=== PATIENT | female | born 1950 | race Caucasian/White ===

== ENCOUNTER → 2017-12-03 13:59 | Outpatient (CLI) | payer MEDICARE, OTHER, SELFPAY ==
[2017-12-03 15:26] LABS: Absolute Lymphocyte Count 2.85 X10^3/ul (0.83-4.51); Absolute Neutrophil Count 3.2 X10^3/uL (2.0-7.7); Basophil# 0.03 X10^3/uL; Basophil% 0.4 % (0-1); Eosinophils% 1.4 % (0-5); Hematocrit 35.8 % (37-47); Lymphocyte # 2.85 X10^3/ul (4.0); Lymphocyte % 41.3 % (19-41); Mean Corp Hgb Conc 33.5 g/gl (32-36); Mean Corpuscular Hgb 29.2 pg (27.0-32.0); Mean Corpuscular Volume 87.1 fL (81-99); Mean Platelet Vol. 10.3 fl (6.2-12.0); Monocyte% 10.1 % (0-10); Neutrophil # 3.21 X10^3/uL (2.7-7.7); Neutrophil % 46.7 % (47-70); Platelet Count 294 K/mm3 (150-450); RBC Distribution Width CV 13.8 % (11.6-14.6); Red Blood Count 4.11 M/mm3 (4.2-5.4); White Blood Count 6.9 K/mm3 (4.4-11.0)
[2017-12-03 15:27] LABS: POSITIVE COUNT NO; POSITIVE DIFFERENTIAL NO; POSITIVE MORPHOLOGY NO
[2017-12-03 15:52] LABS: ALB/GLOB Ratio 1.2 RATIO (0.9-2.4); AST(SGOT) 20 U/L (15-37); Alanine Aminotransfer ALT/SGPT 21 U/L (13-56); Albumin, Serum 4.2 g/dL (3.2-5.0); Alkaline Phosphatase 47 U/L (45-117); Anion Gap 9 (5-15); BUN 27 mg/dL (7-18); BUN/Creat Ratio 25.2 RATIO (10-20); Calcium,Total 9.6 mg/dL (8.5-10.1); Chloride 102 mmol/L (98-107); Cholesterol 158 mg/dL (200); Creatinine, Serum 1.07 mg/dL (0.55-1.02); EST Glomerular Filtration Rate 54 mL/min (>60); Est Glom Filt Rate - Afr Amer 65 mL/min (>60); Globulin 3.6 g/dL (2.2-4.2); Glucose 93 mg/dL (74-106); High Density Lipoprotein 77 mg/dL; Protein, Total 7.8 g/dL (6.4-8.2); Sodium Level 138 mmol/L (136-145); Triglycerides 109 mg/dL; Very Low Density Lipoprotein 22 mg/dL (5-40)
== END ==
PROVIDERS: Family Provider Family Medicine; PCP Family Medicine; Visit Provider Family Medicine
DX: E11.9 Type 2 diabetes mellitus without complications (principal); Z51.81 Encounter for therapeutic drug level monitoring; E78.5 Hyperlipidemia, unspecified
CPT/HCPCS: 36415; 80053; 80061; 85025

== ENCOUNTER → 2017-12-10 15:43 | Outpatient (CLI) | payer MEDICARE, OTHER, SELFPAY ==
--- NOTE | 2017-12-10 15:45 | HPBI_ITS ---
MAMMOGRAPHY - BILATERAL SCREENING 3-D CONNER SYNTHESIS REASON FOR EXAM: Female, 67 years old. Bilateral Screening 3-D tomosynthesis PERTINENT HISTORY: Positive family history breast carcinoma, paternal grandmother age 60. TECHNIQUE: 2-D mammograms and 3-D Conner synthesis of the breast (s) were performed. CAD was performed. COMPARISON: 11/30/2016 through 10/20/2013 mammograms. FINDINGS: The breast composition is scattered fibroglandular Scattered benign calcifications are seen. No dense spiculated masses or suspicious microcalcifications are identified. No architectural distortion is identified. There is no skin thickening or nipple retraction identified. There has been no significant change since the prior study. No change right breast central tiny metal biopsy clip. HPBI/SCREENING MAMM (CAD), BILAT IMPRESSION: No mammographic signs of malignancy. Routine yearly mammograms recommended with monthly routine self breast exams. ASSESSMENT CATEGORY: BIRADS Category 2: Benign. A letter regarding these results will be sent to the patient by the facility within 30 days. FOLLOW UP RECOMMENDATION: Yearly follow up mammogram recommended. (A) Approximately 10% of breast cancers are not detected by mammography. A normal mammogram should not delay biopsy of a clinically suspicious abnormality. Electronically Signed: Cruz Campos, at 14:43 EDT Tel , Service support ,
== END ==
PROVIDERS: Family Provider Family Medicine; PCP Family Medicine; Visit Provider Family Medicine
DX: Z12.31 Encounter for screening mammogram for malignant neoplasm of breast (principal)
CPT/HCPCS: 77063; 77067

== ENCOUNTER → 2018-02-27 06:57 | Outpatient (CLI) | payer MEDICARE, OTHER, SELFPAY ==
--- NOTE | 2018-02-27 10:26 | NEURO ---
NCS and/or EMG Patient Report Ordering Doctor: Jaclyn Webster DATE OF SERVICE: 02/27/18 This is a right upper extremity EMG and nerve conduction study performed on this 76-year-old female with pain in her fingers and thumb, as well as a history of shoulder pain and shoulder injury. Pain does radiate up her right arm. On examination she has pain on palpation of her first metacarpal phalangeal joint on the right which duplicates her symptoms. Right upper extremity sensory and motor nerve conduction studies performed. The median motor distal latency is mildly prolonged with mild reduction of amplitude and conduction velocity. The median sensory distal latency is very mildly prolonged with mild reduction of amplitude. The ulnar motor and sensory and radial sensory responses are normal. The median F wave is mildly prolonged compared to the ulnar F wave. Needle electromyography is performed of the right upper extremity. Muscles evaluated included the first dorsal interosseous, abductor pollicis brevis, Norberto radialis, biceps, triceps and deltoid muscles. All muscles demonstrated normal insertional activity with absence of pathologic spontaneous activity. Motor unit potential recruitment pattern and amplitude was normal in all muscles tested. 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
== END ==
PROVIDERS: Family Provider Family Medicine; PCP Family Medicine; Visit Provider Family Medicine
DX: R20.2 Paresthesia of skin (principal)
CPT/HCPCS: 95886; 95910

== ENCOUNTER → 2018-03-19 13:57 | Outpatient (CLI) | payer MEDICARE, OTHER, SELFPAY ==
--- NOTE | 2018-03-19 14:00 | RAD_ITS ---
STUDY: X-RAY - RIGHT ELBOW REASON FOR EXAM: Female, 68 years old. Pain. TECHNIQUE: 2 view(s) of the elbow. COMPARISON: None. FINDINGS: There is mild arthrosis of the elbow joint. Normal radiocapitellar and ulnotrochlear articulations. The soft tissue structures are unremarkable. RAD/Elbow 2 Views IMPRESSION: Mild arthrosis of the elbow joint. Electronically Signed: Aryan Ordonez MD at 17:20 EDT , Service support ,
--- NOTE | 2018-03-19 14:00 | RAD_ITS ---
STUDY: X-RAY - RIGHT HAND REASON FOR EXAM: Female, 68 years old. Pain. TECHNIQUE: 2 view(s) of the hand. COMPARISON: None. FINDINGS: Bones: There is generalized osteopenia. Joints: There is moderate arthrosis of the radial carpal row, the first carpometacarpal joint and the metacarpophalangeal and interphalangeal joints. Soft tissues: The soft tissues are unremarkable. Foreign body: None RAD/Hand 2 Views IMPRESSION: Osteopenia with osteoarthrosis as described. Electronically Signed: Aryan Ordonez MD at 17:19 EDT , Service support ,
== END ==
PROVIDERS: Family Provider Family Medicine; PCP Family Medicine; Visit Provider Orthopaedic Surgery
DX: M79.641 Pain in right hand (principal); M25.521 Pain in right elbow
CPT/HCPCS: 73070; 73120

== ENCOUNTER → 2018-08-05 09:05 | Outpatient (CLI) | payer MEDICARE, OTHER, SELFPAY ==
[2018-08-05 12:41] LABS: Absolute Lymphocyte Count 2.61 X10^3/ul (0.83-4.51); Absolute Neutrophil Count 2.7 X10^3/uL (2.0-7.7); Basophil# 0.04 X10^3/uL; Basophil% 0.6 % (0-1); Eosinophil# 0.15 X10^3/uL; Eosinophils% 2.4 % (0-5); Hematocrit 37.3 % (37-47); Hemoglobin 12.2 g/dl (12.0-15.0); Lymphocyte # 2.61 X10^3/ul (4.0); Lymphocyte % 41.6 % (19-41); Mean Corp Hgb Conc 32.7 g/gl (32-36); Mean Corpuscular Hgb 29.1 pg (27.0-32.0); Mean Platelet Vol. 10.7 fl (6.2-12.0); Monocyte# 0.77 X10^3/uL; Monocyte% 12.3 % (0-10); Neutrophil % 42.9 % (47-70); Platelet Count 258 K/mm3 (150-450); RBC Distribution Width CV 13.6 % (11.6-14.6); RBC Distribution Width SD 43.9 fl (35.1-43.9); Red Blood Count 4.19 M/mm3 (4.2-5.4); White Blood Count 6.3 K/mm3 (4.4-11.0)
[2018-08-05 12:56] LABS: POSITIVE COUNT NO; POSITIVE DIFFERENTIAL NO; POSITIVE MORPHOLOGY NO
[2018-08-05 13:10] LABS: Thyroid Stim Hormone (TSH) 1.94 uIU/mL (0.358-3.74)
== END ==
PROVIDERS: Family Provider Family Medicine; PCP Family Medicine; Visit Provider Family Medicine
DX: E03.9 Hypothyroidism, unspecified (principal)
CPT/HCPCS: 36415; 84443; 85025

== ENCOUNTER → 2019-01-01 10:47 | Outpatient (CLI) | payer MEDICARE, OTHER, SELFPAY ==
--- NOTE | 2019-01-01 10:50 | BI_ITS ---
MAMMOGRAPHY - BILATERAL SCREENING REASON FOR EXAM: Female, 68 years old. Routine annual screening examination. PERTINENT HISTORY: Grandmother with breast cancer. Remote right stereotactic breast biopsy. TECHNIQUE: Digital bilateral breast costa (3D mammographic acquisition) in the CC and MLO projections. 2-D mediolateral oblique (MLO) and craniocaudad (CC) views of both breasts were obtained. CAD: Full Field Digital Mammography with Computer Added Detection was performed. COMPARISON: Comparison is made with prior study dated December 10, 2017 and November 30, 2016. FINDINGS: Breast Composition: There are scattered areas of fibroglandular density. There are no dominant masses or suspicious calcifications. Stable small bilateral axillary lymph nodes. No other significant abnormalities are identified. There has been no significant change since the prior study. BI/SCREENING MAMM (CAD), BILAT IMPRESSION: Stable bilateral screening mammogram. Yearly follow-up mammogram recommended. (A) ASSESSMENT CATEGORY: BIRADS Category 2: Benign. A letter regarding these results will be sent to the patient by the facility within 30 days. Approximately 10% of breast cancers are not detected by mammography. A normal mammogram should not delay biopsy of a clinically suspicious abnormality. [id number] Electronically Signed: Prosper Rao, at 14:13 EDT , Service support ,
== END ==
PROVIDERS: Family Provider Family Medicine; PCP Family Medicine; Visit Provider Family Medicine
DX: Z12.31 Encounter for screening mammogram for malignant neoplasm of breast (principal)
CPT/HCPCS: 77063; 77067

== ENCOUNTER → 2019-01-31 11:46 | Outpatient (CLI) | payer MEDICARE, OTHER, SELFPAY ==
[2018-03-19 13:21] VITALS: BMI 27.8
[2019-01-31 14:01] LABS: Absolute Lymphocyte Count 2.58 X10^3/ul (0.83-4.51); Basophil# 0.04 X10^3/uL; Basophil% 0.6 % (0-1); Eosinophil# 0.16 X10^3/uL; Eosinophils% 2.5 % (0-5); Hematocrit 38.5 % (37-47); Hemoglobin 12.6 g/dl (12.0-15.0); Lymphocyte # 2.58 X10^3/ul (4.0); Lymphocyte % 40.4 % (19-41); Mean Corp Hgb Conc 32.7 g/gl (32-36); Mean Corpuscular Hgb 28.3 pg (27.0-32.0); Mean Corpuscular Volume 86.5 fL (81-99); Mean Platelet Vol. 9.6 fl (6.2-12.0); Monocyte# 0.57 X10^3/uL; Monocyte% 8.9 % (0-10); Neutrophil # 3.03 X10^3/uL (2.7-7.7); Neutrophil % 47.6 % (47-70); POSITIVE COUNT NO; POSITIVE DIFFERENTIAL NO; POSITIVE MORPHOLOGY NO; Platelet Count 252 K/mm3 (150-450); RBC Distribution Width CV 14.3 % (11.6-14.6); RBC Distribution Width SD 44.9 fl (35.1-43.9); Red Blood Count 4.45 M/mm3 (4.2-5.4); White Blood Count 6.4 K/mm3 (4.4-11.0)
[2019-01-31 14:19] LABS: ALB/GLOB Ratio 1.1 RATIO (0.9-2.4); AST(SGOT) 19 U/L (15-37); Alanine Aminotransfer ALT/SGPT 24 U/L (13-56); Albumin, Serum 4.1 g/dL (3.2-5.0); Alkaline Phosphatase 54 U/L (45-117); Anion Gap 10 (5-15); BUN 41 mg/dL (7-18); BUN/Creat Ratio 27.5 RATIO (10-20); Calcium,Total 9.5 mg/dL (8.5-10.1); Chloride 102 mmol/L (98-107); Cholesterol 186 mg/dL (200); Creatinine, Serum 1.49 mg/dL (0.55-1.02); EST Glomerular Filtration Rate 37 mL/min (>60); Est Glom Filt Rate - Afr Amer 44 mL/min (>60); Globulin 3.8 g/dL (2.2-4.2); Glucose 104 mg/dL (74-106); High Density Lipoprotein 68 mg/dL; Potassium 4.4 mmol/L (3.5-5.1); Protein, Total 7.9 g/dL (6.4-8.2); Sodium Level 139 mmol/L (136-145); T4 Free Direct 0.93 ng/dL (0.76-1.46); Triglycerides 132 mg/dL; Very Low Density Lipoprotein 26 mg/dL (5-40)
== END ==
PROVIDERS: Family Provider Family Medicine; PCP Family Medicine; Referring Provider Family Medicine; Visit Provider Family Medicine
DX: E11.9 Type 2 diabetes mellitus without complications (principal); E03.9 Hypothyroidism, unspecified; E78.5 Hyperlipidemia, unspecified; I10 Essential (primary) hypertension; Z51.81 Encounter for therapeutic drug level monitoring
CPT/HCPCS: 36415; 80053; 80061; 84439; 84443; 84481; 85025

== ENCOUNTER → 2019-02-18 16:11 | Outpatient (CLI) | payer MEDICARE, OTHER, SELFPAY ==
[2019-02-18 16:05] VITALS: BMI 27.8
--- NOTE | 2019-02-18 16:14 | RAD_ITS ---
STUDY: X-RAY - LEFT HAND REASON FOR EXAM: Female, 69 years old. Hand pain TECHNIQUE: 3 view(s) of the hand. COMPARISON: None. FINDINGS: Normal radiocarpal articulation. Normal distal radioulnar joint. Normal visualized carpal bones. Normal carpal articulations There is degenerative arthrosis of the carpometacarpal (CMC) articulation of the thumb. Normal second through fifth carpometacarpal joints. Normal metacarpi. Normal metacarpophalangeal joint of the thumb. Normal interphalangeal joint of the thumb. Normal proximal and distal phalanges of the thumb. Normal metacarpophalangeal joints of the second through fifth fingers. There is diffuse articular joint space narrowing of the proximal and distal interphalangeal joints of the second through fifth fingers, but without erosive changes or periarticular soft tissue swelling. Normal phalanges of the second through fifth fingers. The soft tissue structures are unremarkable. RAD/Hand Min 3 Views IMPRESSION: 1. No acute fracture or dislocation. 2. Mild osteoarthritis per Electronically Signed: Dmitry Johnson MD at 16:33 EDT Tel , Service support ,
== END ==
PROVIDERS: Family Provider Family Medicine; PCP Family Medicine; Referring Provider Physician Assistant Surgical; Visit Provider Physician Assistant Surgical
DX: S66.912A Strain of unspecified muscle, fascia and tendon at wrist and hand level, left hand, initial encounter (principal); X58.XXXA Exposure to other specified factors, initial encounter; Y93.9 Activity, unspecified; Y92.9 Unspecified place or not applicable; Y99.9 Unspecified external cause status
CPT/HCPCS: 73130

== ENCOUNTER → 2019-03-25 08:38 | Outpatient (CLI) | payer MEDICARE, OTHER, SELFPAY ==
[2019-02-18 16:05] VITALS: BMI 27.8
[2019-03-25 12:13] LABS: Absolute Lymphocyte Count 2.24 X10^3/ul (0.83-4.51); Absolute Neutrophil Count 2.3 X10^3/uL (2.0-7.7); Basophil# 0.05 X10^3/uL; Basophil% 0.9 % (0-1); Eosinophil# 0.14 X10^3/uL; Eosinophils% 2.6 % (0-5); Hematocrit 37.1 % (37-47); Hemoglobin 12.2 g/dl (12.0-15.0); Lymphocyte # 2.24 X10^3/ul (4.0); Lymphocyte % 41.6 % (19-41); Mean Corp Hgb Conc 32.9 g/gl (32-36); Mean Corpuscular Hgb 28.6 pg (27.0-32.0); Mean Corpuscular Volume 87.1 fL (81-99); Mean Platelet Vol. 10.2 fl (6.2-12.0); Monocyte# 0.64 X10^3/uL; Monocyte% 11.9 % (0-10); Neutrophil # 2.31 X10^3/uL (2.7-7.7); Neutrophil % 42.8 % (47-70); Platelet Count 245 K/mm3 (150-450); RBC Distribution Width CV 14.2 % (11.6-14.6); RBC Distribution Width SD 44.8 fl (35.1-43.9); Red Blood Count 4.26 M/mm3 (4.2-5.4); White Blood Count 5.4 K/mm3 (4.4-11.0)
[2019-03-25 12:19] LABS: POSITIVE COUNT NO; POSITIVE DIFFERENTIAL NO; POSITIVE MORPHOLOGY NO
[2019-03-25 12:33] LABS: ALB/GLOB Ratio 1.3 RATIO (0.9-2.4); AST(SGOT) 22 U/L (15-37); Alanine Aminotransfer ALT/SGPT 27 U/L (13-56); Albumin, Serum 3.9 g/dL (3.2-5.0); Alkaline Phosphatase 46 U/L (45-117); Anion Gap 7 (5-15); BUN 29 mg/dL (7-18); BUN/Creat Ratio 24.8 RATIO (10-20); Calcium,Total 9.3 mg/dL (8.5-10.1); Chloride 106 mmol/L (98-107); Cholesterol 161 mg/dL (200); Creatinine, Serum 1.17 mg/dL (0.55-1.02); EST Glomerular Filtration Rate 48 mL/min (>60); Est Glom Filt Rate - Afr Amer 59 mL/min (>60); Free T3 2.6 pg/mL (2.18-3.98); Globulin 3.1 g/dL (2.2-4.2); Glucose 103 mg/dL (74-106); High Density Lipoprotein 53 mg/dL; Potassium 3.8 mmol/L (3.5-5.1); Sodium Level 139 mmol/L (136-145); T4 Free Direct 1.62 ng/dL (0.76-1.46); Thyroid Stim Hormone (TSH) 0.43 uIU/mL (0.358-3.74); Triglycerides 147 mg/dL; Very Low Density Lipoprotein 29 mg/dL (5-40)
== END ==
LOC: LAB.FUTURE 08:43 → BFHLAB 09-12 08:12
PROVIDERS: Family Provider Family Medicine; PCP Family Medicine; Visit Provider Family Medicine
DX: E11.9 Type 2 diabetes mellitus without complications (principal); E03.9 Hypothyroidism, unspecified; E78.5 Hyperlipidemia, unspecified; I10 Essential (primary) hypertension; Z51.81 Encounter for therapeutic drug level monitoring
CPT/HCPCS: 36415; 80053; 80061; 84439; 84443; 84481; 85025

== ENCOUNTER → 2019-05-14 14:17 | Outpatient (CLI) | payer MEDICARE, OTHER, SELFPAY ==
[2019-02-18 16:05] VITALS: BMI 27.8
--- NOTE | 2019-05-14 14:20 | RAD_ITS ---
STUDY: X-RAY - RIGHT WRIST REASON FOR EXAM: Female, 69 years old. Pain TECHNIQUE: 3 view(s) of the wrist were obtained. COMPARISON: None. FINDINGS: Remote deformity of the distal ulnar diaphysis. Normal radiocarpal articulation. Normal distal radioulnar articulation. Normal carpal bones. Normal carpal articulations. There is degenerative arthrosis of the carpometacarpal articulation of the thumb. Normal second through fifth carpometacarpal articulations. Normal visualized metacarpal bones. The soft tissue structures are unremarkable. RAD/Wrist min 3 Views IMPRESSION: First carpometacarpal osteoarthritis. Remote deformity of the ulna. Carpal rows are normally aligned. Electronically Signed: Matt Mcdonough MD at 15:41 EDT Tel , Service support ,
--- NOTE | 2019-05-14 14:21 | RAD_ITS ---
STUDY: X-RAY - RIGHT HAND REASON FOR EXAM: Female, 69 years old. Right thumb and wrist pain TECHNIQUE: 3 view(s) of the hand. COMPARISON: 03/19/2018 FINDINGS: Normal radiocarpal articulation. Normal distal radioulnar joint. Normal visualized carpal bones. Normal carpal articulations Normal carpometacarpal articulation of the thumb. Normal second through fifth carpometacarpal joints. Normal metacarpi. There is degenerative arthrosis of the metacarpophalangeal (MCP) joints. Normal interphalangeal joint of the thumb. Normal proximal and distal phalanges of the thumb. Normal metacarpophalangeal joints of the second through fifth fingers. Stable second distal interphalangeal joint osteoarthritis. Normal phalanges of the second through fifth fingers. The soft tissue structures are unremarkable. RAD/Hand Min 3 Views IMPRESSION: Stable multifocal osteoarthritis. No acute osseous abnormality is evident. Electronically Signed: Matt Mcdonough MD at 14:35 EDT Tel , Service support ,
== END ==
PROVIDERS: Family Provider Family Medicine; PCP Family Medicine; Referring Provider Family Medicine; Visit Provider Family Medicine
DX: M25.531 Pain in right wrist (principal); M79.644 Pain in right finger(s)
CPT/HCPCS: 73110; 73130

== ENCOUNTER → 2019-06-24 13:51 | Outpatient (CLI) | payer MEDICARE, OTHER, SELFPAY ==
[2019-02-18 16:05] VITALS: BMI 27.8
[2019-06-24 13:12] VITALS: BMI 30.8
--- NOTE | 2019-06-24 13:53 | CT_ITS ---
STUDY: CT CHEST WITHOUT CONTRAST- LOW DOSE SCREENING PROTOCOL REASON FOR EXAM: Female, 69 years old. Current smoker. The pack per year history. No current symptoms of lung cancer or pulmonary infection. Shared decision-making with referring PCP documented in patient's record. RADIATION DOSAGE (If Supplied By Facility): CTDIvol = ( 2.55 ) mGy, DLP = ( 74.36 ) mGycm TECHNIQUE: Low dose screening CT examination performed from the base of the neck to the upper abdomen. Sagittal and coronal reformatted images performed. Sagittal and coronal MIP images provided. The measurements provided are average, rounded measurements per ACR guidelines. COMPARISON: 08/19/2004 FINDINGS: Mild bilateral apical scarring. Mild emphysematous changes. 6 mm noncalcified nodule peripherally left upper lobe the lungs on image 39 and follow-up CT the chest is recommended in 6 months document stability. There is no demonstrated pleural abnormality. Normal heart and pericardium. There are calcifications of the coronary arteries. Normal mediastinum. Normal hilar regions. Normal unenhanced pulmonary arteries. There is atherosclerotic calcification of the aortic arch with tortuosity and elongation of the aortic arch and descending thoracic aorta. Normal osseous structures. There is no demonstrated abnormality of the visualized upper abdomen. CT/Low Dose CT Lung Screening IMPRESSION: 1. Mild emphysema with a 6 mm noncalcified left upper lobe nodule and follow-up CT the chest is recommended in 6 months document stability.. 2. Incidental findings include mild bilateral apical scarring.. ASSESSMENT CATEGORY: LungRADS 3 - Probably Benign. Recommend follow up with LDCT in 6 months, per established ACR guidelines. Electronically Signed: Dmitry Johnson MD at 14:54 EDT Tel , Service support ,
== END ==
PROVIDERS: Family Provider Family Medicine; PCP Family Medicine; Referring Provider Nurse Practitioner Family; Visit Provider Nurse Practitioner Family
DX: Z12.2 Encounter for screening for malignant neoplasm of respiratory organs (principal); Z87.891 Personal history of nicotine dependence
CPT/HCPCS: G0297

== ENCOUNTER → 2019-08-08 12:20 | Outpatient (CLI) | payer MEDICARE, OTHER, SELFPAY ==
[2019-06-24 13:12] VITALS: BMI 30.8
[2019-08-08 18:00] LABS: Anion Gap 10 (5-15); BUN 30 mg/dL (7-18); BUN/Creat Ratio 24.2 RATIO (10-20); Calcium,Total 9.5 mg/dL (8.5-10.1); Chloride 102 mmol/L (98-107); Creatinine, Serum 1.24 mg/dL (0.55-1.02); EST Glomerular Filtration Rate 45 mL/min (>60); Est Glom Filt Rate - Afr Amer 55 mL/min (>60); Free T3 2.1 pg/mL (2.18-3.98); Glucose 98 mg/dL (74-106); Potassium 3.4 mmol/L (3.5-5.1); Sodium Level 140 mmol/L (136-145); T4 Free Direct 1.57 ng/dL (0.76-1.46); Thyroid Stim Hormone (TSH) 0.85 uIU/mL (0.358-3.74)
== END ==
LOC: LAB.FUTURE 12:20 → BFHLAB 09-12 08:10
PROVIDERS: Family Provider Family Medicine; PCP Family Medicine; Visit Provider Family Medicine
DX: E03.9 Hypothyroidism, unspecified (principal); Z51.81 Encounter for therapeutic drug level monitoring; Z79.899 Other long term (current) drug therapy
CPT/HCPCS: 36415; 80048; 84439; 84443; 84481

== ENCOUNTER → 2019-09-08 13:15 | Outpatient (CLI) | payer MEDICARE, OTHER, SELFPAY ==
[2019-06-24 13:12] VITALS: BMI 30.8
[2019-09-08 16:34] LABS: Anion Gap 9 (5-15); BUN 22 mg/dL (7-18); BUN/Creat Ratio 20.4 RATIO (10-20); Calcium,Total 9.4 mg/dL (8.5-10.1); Chloride 108 mmol/L (98-107); Creatinine, Serum 1.08 mg/dL (0.55-1.02); EST Glomerular Filtration Rate 53 mL/min (>60); Est Glom Filt Rate - Afr Amer 64 mL/min (>60); Glucose 113 mg/dL (74-106); Potassium 4.1 mmol/L (3.5-5.1); Sodium Level 140 mmol/L (136-145)
== END ==
LOC: LAB.FUTURE 13:15 → BFHLAB 09-12 08:14
PROVIDERS: Family Provider Family Medicine; PCP Family Medicine; Visit Provider Family Medicine
DX: E87.6 Hypokalemia (principal)
CPT/HCPCS: 36415; 80048

== ENCOUNTER → 2019-10-14 13:42 | Outpatient (CLI) | payer MEDICARE, OTHER, SELFPAY ==
[2019-06-24 13:12] VITALS: BMI 30.8
[2019-10-14 15:22] LABS: Anion Gap 6 (5-15); BUN 26 mg/dL (7-18); BUN/Creat Ratio 22.6 RATIO (10-20); Chloride 104 mmol/L (98-107); Creatinine, Serum 1.15 mg/dL (0.55-1.02); EST Glomerular Filtration Rate 49 mL/min (>60); Est Glom Filt Rate - Afr Amer 60 mL/min (>60); Glucose 108 mg/dL (74-106); Potassium 3.6 mmol/L (3.5-5.1); Sodium Level 137 mmol/L (136-145)
== END ==
PROVIDERS: Family Provider Family Medicine; PCP Family Medicine; Visit Provider Family Medicine
DX: E87.6 Hypokalemia (principal)
CPT/HCPCS: 36415; 80048

== ENCOUNTER → 2019-11-07 13:07 | Outpatient (CLI) | payer MEDICARE, OTHER, SELFPAY ==
[2019-06-24 13:12] VITALS: BMI 30.8
[2019-11-07 16:58] LABS: Free T3 2.9 pg/mL (2.18-3.98); T4 Free Direct 1.55 ng/dL (0.76-1.46); Thyroid Stim Hormone (TSH) 0.11 uIU/mL (0.358-3.74)
== END ==
PROVIDERS: PCP Family Medicine; Visit Provider Family Medicine
DX: E11.9 Type 2 diabetes mellitus without complications (principal); E03.9 Hypothyroidism, unspecified
CPT/HCPCS: 36415; 84439; 84443; 84481

== ENCOUNTER → 2020-01-27 14:17 | Outpatient (CLI) | payer MEDICARE, OTHER, SELFPAY ==
[2019-06-24 13:12] VITALS: BMI 30.8
[2020-01-27 13:43] VITALS: BMI 30.8
--- NOTE | 2020-01-27 14:19 | CT_ITS ---
STUDY: CT CHEST WITHOUT CONTRAST REASON FOR EXAM: Female, 70 years old. LUNG NODULE, LUNG SCREEN, 1PPD X 50 YRS. RADIATION DOSAGE (If Supplied By Facility): CTDIvol = ( 13.53 ) mGy, DLP = ( 442.81 ) mGycm TECHNIQUE: Transaxial imaging was performed without the administration of intravenous contrast material. Multiplanar coronal and sagittal images were reformatted. Individualized dose optimization techniques were used for this CT. COMPARISON: Comparison is made with prior examination dated June 24, 2019. FINDINGS: The previously seen noncalcified nodule in the posterior aspect of the left upper lobe has increased in size. It presently measures 7.6 mm. Correlation with a PET scan is recommended. Stable mild bilateral apical scarring. Diffuse emphysematous changes with increased bronchovascular markings. Stable bullous changes in the anterior aspects of both upper lobes as well as mild scarring in the lingular segment of the left upper lobe as well as the right middle lobe. There is no demonstrated pleural abnormality. There are calcifications of the coronary arteries. There are multiple small lymph nodes within the mediastinum, which are normal in size and morphology most compatible with reactive lymph hyperplasia. Normal hilar regions. Normal unenhanced pulmonary arteries. There is atherosclerotic calcification of the aortic arch aortic arch . There are degenerative changes of the thoracic spine. There is no demonstrated abnormality of the visualized upper abdomen. CT/Chest without Contrast IMPRESSION: Increased size of the noncalcified nodule in the left upper lobe as described. It presently measures 7.6 mm. Correlation with a PET scan is recommended. Electronically Signed: Prosper Rao, at 14:52 EDT , Service support ,
== END ==
PROVIDERS: PCP Family Medicine; Referring Provider Nurse Practitioner Family; Visit Provider Nurse Practitioner Family
DX: Z12.2 Encounter for screening for malignant neoplasm of respiratory organs (principal); R91.1 Solitary pulmonary nodule; F17.200 Nicotine dependence, unspecified, uncomplicated
CPT/HCPCS: 71250

== ENCOUNTER → 2020-02-18 09:32 | Outpatient (CLI) | payer MEDICARE, OTHER, SELFPAY ==
[2020-01-30 07:09] VITALS: BMI 31.4
[2020-02-18 09:30] VITALS: PULSE 101; PULSE 104; PULSE 91; PULSE 95; PULSE 97; PULSE 98; PULSE 99; O2SAT 95; O2SAT 96; O2SAT 97; O2SAT 98; O2SAT 99
--- NOTE | 2020-02-19 13:40 | PCM.PSN.6M ---
PSN 6 Minute Walk Test - 6 Minute Walk Test 6 Minute Walk Test: 6 Minute Walk Test PSN:6-Minute Walk Test Start: 02/18/20 09:55 Freq: Status: Active Protocol: [id number].[id number] Document 02/18/20 09:30 EW (Rec: 02/18/20 09:59 EW [id number]) 6 Minute Walk Test Date Performed 02/18/20 Time Performed 09:30 Height 5 ft 1 in Weight: 160 lb Weight in Pounds 160.[address]: Enrique Crump Assistive device used: None Pre-test Oxygen Delivery Method Room Air Pulse Ox (%) 97 Pulse Rate (60-100 beats/min) 95 Dyspnea Sadaf Scale (0-10) 0 Exertion Sadaf Scale (6-20) 6 1st minute Oxygen Delivery Method Room Air Pulse Ox (%) 95 Pulse Rate (60-100 beats/min) 98 2nd minute Oxygen Delivery Method Room Air Pulse Ox (%) 95 Pulse Rate (60-100 beats/min) 98 3rd minute Oxygen Delivery Method Room Air Pulse Ox (%) 96 Pulse Rate (60-100 beats/min) 97 4th minute Oxygen Delivery Method Room Air Pulse Ox (%) 95 Pulse Rate (60-100 beats/min) 101 H 5th minute Oxygen Delivery Method Room Air Pulse Ox (%) 95 Pulse Rate (60-100 beats/min) 104 H 6th minute Oxygen Delivery Method Room Air Pulse Ox (%) 99 Pulse Rate (60-100 beats/min) 99 Post-test Oxygen Delivery Method Room Air Pulse Ox (%) 98 Pulse Rate (60-100 beats/min) 91 Dyspnea Sadaf Scale (0-10) 0 Exertion Sadaf Scale (6-20) 6 Full Laps Walked 17 Partial Lap, Number of Tiles Walked 4 Total Distance Walked (ft) 1007 - Interpretation Interpretation: The patient ambulated 1007 feet over the course of 6 minutes beginning on room air without assistive devices or breaks. Pretesting oxygen saturation was noted to be 97% on room air. With ambulation, the justyna oxygen saturation was 95%. There was no significant exertional oxygen desaturation. - Recommendations Recommendations: There is no indication for the use of supplemental oxygen at this time.
== END ==
PROVIDERS: PCP Family Medicine; Referring Provider Internal Medicine Critical Care Medicine; Visit Provider Internal Medicine Critical Care Medicine
DX: R06.00 Dyspnea, unspecified (principal); R91.1 Solitary pulmonary nodule
CPT/HCPCS: 94618

== ENCOUNTER → 2020-02-20 12:58 | Outpatient (CLI) | payer MEDICARE, OTHER, SELFPAY ==
[2020-01-30 07:09] VITALS: BMI 31.4
--- NOTE | 2020-02-22 09:32 | PFT ---
INTRODUCTION: The patient is a 70-year-old female that presents for pulmonary function studies secondary to a diagnosis of dyspnea. Respiratory therapy reports good patient effort. Bronchodilators were used during testing. INTERPRETATION: Forced expiration spirometry demonstrates no evidence of a large airways obstructive ventilatory defect. There was no significant response to aerosolized bronchodilators, based upon strict ATS criteria. Spirograms are good quality and plateau normally. Body plethysmography was performed and reveals lung volumes to be within normal limits. Diffusing capacity by single breath CO is reduced at 55% of predicted. IMPRESSION: Isolated reduction in diffusing capacity, which could be related to an underlying pulmonary vascular disorder such as pulmonary hypertension.
== END ==
PROVIDERS: PCP Family Medicine; Referring Provider Internal Medicine Critical Care Medicine; Visit Provider Internal Medicine Critical Care Medicine
DX: R06.00 Dyspnea, unspecified (principal)
CPT/HCPCS: 94060; 94726; 94729

== ENCOUNTER → 2020-02-27 11:27 | Outpatient (CLI) | payer MEDICARE, OTHER, SELFPAY ==
[2019-06-24 13:12] VITALS: BMI 30.8
[2020-01-30 07:09] VITALS: BMI 31.4
--- NOTE | 2020-02-27 11:29 | BI_ITS ---
MAMMOGRAPHY - BILATERAL SCREENING REASON FOR EXAM: Female, 70 years old. Routine annual screening examination. PERTINENT HISTORY: Grandmother with breast cancer. Remote right stereotactic breast biopsy. TECHNIQUE: Digital bilateral breast conner (3D mammographic acquisition) in the CC and MLO projections. 2-D mediolateral oblique (MLO) and craniocaudad (CC) views of both breasts were obtained. CAD: Full Field Digital Mammography with Computer Added Detection was performed. COMPARISON: Comparison is made with prior study dated January 01, 2019 and December 10, 2017. FINDINGS: Breast Composition: There are scattered areas of fibroglandular density. There are no dominant masses or suspicious calcifications. A tissue clip marker is seen in the central retroareolar region of the right breast. Stable benign-appearing bilateral axillary No other significant abnormalities are identified. There has been no significant change since the prior study. BI/SCREEN MAMM (CAD) W/CONNER BILAT IMPRESSION: Stable bilateral screening mammogram. Yearly follow-up mammogram recommended. (A) ASSESSMENT CATEGORY: BIRADS Category 2: Benign. A letter regarding these results will be sent to the patient by the facility within 30 days. Approximately 10% of breast cancers are not detected by mammography. A normal mammogram should not delay biopsy of a clinically suspicious abnormality. [id number] Electronically Signed: Prosper Rao, at 12:56 EDT , Service support ,
== END ==
PROVIDERS: PCP Family Medicine; Referring Provider Family Medicine; Visit Provider Family Medicine
DX: Z12.31 Encounter for screening mammogram for malignant neoplasm of breast (principal); Z80.3 Family history of malignant neoplasm of breast
CPT/HCPCS: 77063; 77067

== ENCOUNTER → 2020-04-09 16:39 | Outpatient (CLI) | payer MEDICARE, OTHER, SELFPAY ==
[2020-01-30 07:09] VITALS: BMI 31.4
--- NOTE | 2020-04-09 16:41 | CT_ITS ---
STUDY: CT CHEST WITHOUT CONTRAST REASON FOR EXAM: Female, 70 years old. Follow-up of pulmonary nodules RADIATION DOSAGE (If Supplied By Facility): CTDIvol = ( 10.13 ) mGy, DLP = ( 336.68 ) mGycm TECHNIQUE: Transaxial imaging was performed without the administration of intravenous contrast material. Individualized dose optimization techniques were used for this CT. COMPARISON: 06-24-19, 01-27-20 FINDINGS: There is moderate emphysema with mild early subpleural fibrotic change. There are stable scattered benign noncalcified chronic vomiting, unchanged since June 2019. There are no focal high risk pulmonary findings. Airways are patent. There is severe coronary artery disease. Cardiac chambers are normal in size and shape. Appearance is stable since prior. CT/Chest without Contrast IMPRESSION: 1. Stable pulmonary granulomata. Follow-up per national guidelines for smokers. 2. Lung RADS 2. 3. Severe coronary artery disease. 4. Moderate emphysema. Electronically Signed: Alesia Butler, at 21:51 EDT Tel , Service support ,
== END ==
PROVIDERS: PCP Family Medicine; Referring Provider Internal Medicine Critical Care Medicine; Visit Provider Internal Medicine Critical Care Medicine
DX: R91.1 Solitary pulmonary nodule (principal)
CPT/HCPCS: 71250

== ENCOUNTER → 2020-04-19 13:32 | Outpatient (CLI) | payer MEDICARE, OTHER, SELFPAY ==
[2020-04-13 05:38] VITALS: BMI 30.9
[2020-04-20 12:24] LABS: Absolute Lymphocyte Count 2.57 X10^3/uL (0.83-4.51); Absolute Neutrophil Count 2.8 X10^3/uL (2.0-7.7); Basophil# 0.04 X10^3/uL; Basophil% 0.6 % (0-1); Eosinophil# 0.17 X10^3/uL; Eosinophils% 2.7 % (0-5); Hematocrit 37.8 % (37-47); Hemoglobin 12.1 g/dL (12.0-15.0); Lymphocyte # 2.57 X10^3/ul (4.0); Lymphocyte % 40.1 % (19-41); Mean Corpuscular Hgb 28.7 pg (27.0-32.0); Mean Corpuscular Volume 89.6 fL (81-99); Mean Platelet Vol. 10.6 fl (6.2-12.0); Monocyte# 0.79 X10^3/uL; Monocyte% 12.3 % (0-10); NRBC Flagged by Analyzer 0 % (0-5); Neutrophil # 2.83 X10^3/uL (2.7-7.7); Neutrophil % 44.1 % (47-70); Platelet Count 251 K/mm3 (150-450); RBC Distribution Width CV 14.9 % (11.6-14.6); RBC Distribution Width SD 47.8 fl (35.1-43.9); Red Blood Count 4.22 M/mm3 (4.2-5.4); White Blood Count 6.4 K/mm3 (4.4-11.0)
[2020-04-20 12:47] LABS: Hemoglobin A1c 5.8 % (3.8-5.6)
[2020-04-20 13:08] LABS: ALB/GLOB Ratio 1.1 RATIO (0.9-2.4); AST(SGOT) 20 U/L (15-37); Alanine Aminotransfer ALT/SGPT 34 U/L (13-56); Albumin, Serum 3.9 g/dL (3.2-5.0); Alkaline Phosphatase 46 U/L (45-117); Anion Gap 6 (5-15); BUN 30 mg/dL (7-18); Calcium,Total 9.2 mg/dL (8.5-10.1); Chloride 105 mmol/L (98-107); Cholesterol 158 mg/dL (200); Creatinine, Serum 1.25 mg/dL (0.55-1.02); EST Glomerular Filtration Rate 45 mL/min (>60); Est Glom Filt Rate - Afr Amer 54 mL/min (>60); Free T3 3.2 pg/mL (2.18-3.98); Globulin 3.5 g/dL (2.2-4.2); Glucose 111 mg/dL (74-106); High Density Lipoprotein 48 mg/dL; Potassium 3.9 mmol/L (3.5-5.1); Protein, Total 7.4 g/dL (6.4-8.2); Sodium Level 139 mmol/L (136-145); T4 Free Direct 1.29 ng/dL (0.76-1.46); Triglycerides 216 mg/dL; Very Low Density Lipoprotein 43 mg/dL (5-40)
[2020-04-20 15:39] LABS: Microalbumin,Random Urine < 5.0 mg/L (NO RANGE EST.)
== END ==
PROVIDERS: PCP Family Medicine; Visit Provider Family Medicine
DX: E11.9 Type 2 diabetes mellitus without complications (principal); I10 Essential (primary) hypertension; E03.9 Hypothyroidism, unspecified; E78.5 Hyperlipidemia, unspecified; Z51.81 Encounter for therapeutic drug level monitoring
CPT/HCPCS: 36415; 80053; 80061; 82043; 82570; 83036; 84439; 84443; 84481; 85025

== ENCOUNTER → 2020-06-16 06:33 | Outpatient (CLI) | payer MEDICARE, OTHER, SELFPAY ==
[2020-06-02 13:00] VITALS: BMI 30.2
--- NOTE | 2020-06-16 06:34 | ECHOD_ITS ---
Reason For Study: CAD Procedure This was a 2D Doppler, Color Flow transthoracic echocardiogram. Exam performed in department. Left Ventricle Normal LV size. Left ventricular systolic function is normal. The estimated ejection fraction is 55 %. Stage 1 diastolic dysfunction. No regional wall motion abnormalities noted. Right Ventricle Normal RV size. Normal systolic function. Atria Normal left atrium. Normal right atrium. Bubble contrast study negative for right to left interatrial shunt. Mitral Valve Normal mitral valve. Tricuspid Valve Normal tricuspid valve. Mild (1+) tricuspid valve insufficiency. Pulmonary artery systolic pressure is 28 mmHg. Aortic Valve Normal aortic valve. Trisinus/trileaflet aortic valve. Pulmonic Valve Normal pulmonic valve. Great Vessels Normal aortic root. The pulmonary artery is normal size. Normal inferior vena cava. Pericardium/Pleural No pericardial effusion. Medication Performed a rapid injection of agitated mix of 9 cc saline and 1cc air to assess for atrial septal defect. MMode/2D Measurements & Calculations LVIDd: 4.2 cm IVSd: 1.1 cm Ao root diam: 3.2 cm LVIDs: 2.4 cm LVPWd: 0.97 cm RVDd: 2.7 cm FS: 43.1 % LAV(MOD-bp): 50.9 ml LVAd ap4: 23.1 cm2 SV(MOD-sp4): 39.5 ml LAV(MOD-bp) Indexed: 29.4 ml/m2 EDV(MOD-sp4): 64.3 ml LAV(MOD-sp2): 39.3 ml EDV(sp4-el): 66.3 ml LAV(MOD-sp4): 56.9 ml LVAs ap4: 12.9 cm2 ESV(MOD-sp4): 24.8 ml ESV(sp4-el): 25.4 ml EF(MOD-sp4): 61.5 % EF(sp4-el): 61.6 % SV(sp4-el): 40.8 ml LA A4 area: 19.1 cm2 LA dimension(2D): 3.5 cm RA A4 area: 10.2 cm2 Doppler Measurements & Calculations MV E max endy: 77.8 cm/sec Lat Peak E' Endy: 8.7 cm/sec Med Peak E' Endy: 5.6 cm/sec MV A max endy: 86.9 cm/sec E/E' lat: 8.9 E/E' med: 13.8 MV E/A: 0.89 Ao V2 max: 132.7 cm/sec LV V1 max: 85.8 cm/sec PA V2 max: 93.2 cm/sec Ao max P.0 mmHg LV V1 max P.9 mmHg TR max endy: 245.9 cm/sec TR max P.2 mmHg Interpretation Summary Normal LV size. Left ventricular systolic function is normal. The estimated ejection fraction is 55 %. Stage 1 diastolic dysfunction. Bubble contrast study negative for right to left interatrial shunt. Ordering Physician: Rich Duarte Referring Physician: Jaclyn Webster Performed By: Anna Marie Velasco RDCS
--- NOTE | 2020-06-16 17:55 | STRESSREP ---
Stress Test Report Pharmacologic myocardial perfusion stress test. 70-year-old lady with atherosclerotic cardiovascular disease. Stress protocol: Resting EKG demonstrates sinus rhythm with a rate of 61 bpm normal intervals are noted resting blood pressure is 138/72 mmHg. 0.4 mg of regadenoson was infused per usual protocol followed Intravenous saline flush injection continuous EKG monitoring was performed. The maximum heart rate attained was 89 bpm which was 60% of maximum predicted heart rate the maximum workload was 1 metabolic equivalent. At rest there were no ST or T wave changes noted suggest abnormal flow reserve at peak infusion nonspecific ST-T wave changes were noted. No clinical angina was present. The maximum heart blood pressure was 138/72 mmHg. Myocardial perfusion protocol. 10.7 mCi of technetium 99m sestamibi was injected at rest. 0.4 mg of regadenoson was infused. Protocol peak infusion 35.4 mCi of technetium 99m sestamibi was injected stress images were obtained stress and rest images were reconstructed and compared in the short axis vertical and horizontal long axis. Gated images were also obtained Perfusion SPECT analysis: Review of the stress images demonstrate normal uptake of tracer noted in all areas of the myocardium the resting images similar demonstrate normal uptake of tracer noted in all areas of myocardium. No reversibility is noted suggest ischemia no previous infarct is noted. Gated SPECT analysis: The gated ejection fraction is 80%. Conclusion: Normal pharmacologic myocardial perfusion stress test. Preserved ejection fraction.
== END ==
PROVIDERS: PCP Family Medicine; Referring Provider Internal Medicine Cardiovascular Disease; Visit Provider Internal Medicine Cardiovascular Disease
DX: I25.10 Atherosclerotic heart disease of native coronary artery without angina pectoris (principal); R06.00 Dyspnea, unspecified
CPT/HCPCS: 78452; 93017; 93306; A9500; A4216; J2785

== ENCOUNTER → 2020-06-30 15:44 | Outpatient (CLI) | payer MEDICARE, OTHER, SELFPAY ==
[2020-06-02 13:00] VITALS: BMI 30.2
[2020-06-30 17:37] LABS: Anion Gap 6 (5-15); BUN 21 mg/dL (7-18); BUN/Creat Ratio 18.3 RATIO (10-20); Calcium,Total 9.7 mg/dL (8.5-10.1); Chloride 104 mmol/L (98-107); Creatinine, Serum 1.15 mg/dL (0.55-1.02); EST Glomerular Filtration Rate 49 mL/min (>60); Est Glom Filt Rate - Afr Amer 60 mL/min (>60); Free T3 2.3 pg/mL (2.18-3.98); Glucose 107 mg/dL (74-106); Potassium 4.1 mmol/L (3.5-5.1); Sodium Level 137 mmol/L (136-145); T4 Free Direct 1.37 ng/dL (0.76-1.46); Thyroid Stim Hormone (TSH) 0.08 uIU/mL (0.358-3.74)
== END ==
PROVIDERS: PCP Family Medicine; Visit Provider Family Medicine
CPT/HCPCS: 36415; 80048; 84439; 84443; 84481

== ENCOUNTER → 2020-09-03 12:15 | Outpatient (CLI) | payer MEDICARE, OTHER, SELFPAY ==
[2020-06-02 13:00] VITALS: BMI 30.2
[2020-09-03 16:40] LABS: Free T3 2.8 pg/mL (2.18-3.98); T4 Free Direct 1.27 ng/dL (0.76-1.46); Thyroid Stim Hormone (TSH) 0.51 uIU/mL (0.358-3.74)
== END ==
PROVIDERS: PCP Family Medicine; Referring Provider Family Medicine; Visit Provider Family Medicine
DX: E03.9 Hypothyroidism, unspecified (principal)
CPT/HCPCS: 36415; 84439; 84443; 84481

== ENCOUNTER → 2020-09-22 13:40 | Outpatient (CLI) | payer MEDICARE, OTHER, SELFPAY ==
[2020-06-02 13:00] VITALS: BMI 30.2
[2020-09-22 13:44] LABS: Bacteria 0 SEEN /hpf (None Seen); Mucous, Urine 0 SEEN /hpf (<or=2+); Red Blood Cells-Urine 0 SEEN /hpf (0-5); Squamous Epithelial Cells - UA 0 SEEN /hpf (5-10); White Blood Cells 0 SEEN /hpf (0-5)
[2020-09-22 16:11] LABS: AST(SGOT) 20 U/L (15-37); Alanine Aminotransfer ALT/SGPT 30 U/L (13-56); Albumin, Serum 3.9 g/dL (3.2-5.0); Alkaline Phosphatase 66 U/L (45-117); Anion Gap 8 (5-15); BUN 32 mg/dL (7-18); BUN/Creat Ratio 26.2 RATIO (10-20); Calcium,Total 9.3 mg/dL (8.5-10.1); Chloride 103 mmol/L (98-107); Creatinine, Serum 1.22 mg/dL (0.55-1.02); EST Glomerular Filtration Rate 46 mL/min (>60); Est Glom Filt Rate - Afr Amer 56 mL/min (>60); Globulin 3.8 g/dL (2.2-4.2); Glucose 94 mg/dL (74-106); Potassium 4.2 mmol/L (3.5-5.1); Protein, Total 7.7 g/dL (6.4-8.2); Sodium Level 137 mmol/L (136-145)
[2020-09-22 16:23] LABS: Color, Urine Yellow (Yellow); Glucose, Dipstick Normal (Normal); Ketone-Dipstick Negative (Negative); Leukocyte Esterase-Dipstick Negative /ul (Negative); Nitrite-Dipstick Negative (Negative); Occult Blood-Urine Negative /ul (Negative); Protein-Dipstick Negative (Negative); Specific Gravity, Urine 1.015 (1.002-1.030); Urine Bilirubin Dipstick Negative (Negative); Urine Clarity Clear (Clear); Urine Urobilinogen Normal (Normal)
[2020-09-23 07:07] LABS: SARS-COV-2 TOTAL ABS Nonreactive (Nonreactive)
== END ==
PROVIDERS: PCP Family Medicine; Visit Provider Family Medicine
DX: E11.9 Type 2 diabetes mellitus without complications (principal); R30.0 Dysuria; R10.9 Unspecified abdominal pain; Z20.822 Contact with and (suspected) exposure to COVID-19
CPT/HCPCS: 36415; 80053; 81001; 86769; 87086

== ENCOUNTER → 2020-09-28 15:52 | Outpatient (CLI) | payer MEDICARE, OTHER, SELFPAY ==
[2020-06-02 13:00] VITALS: BMI 30.2
--- NOTE | 2020-09-28 15:55 | CT_ITS ---
STUDY: CT CHEST WITHOUT CONTRAST REASON FOR EXAM: Female, 70 years old. Lung nodule follow up, former smoker quit 15 years ago. RADIATION DOSAGE (If Supplied By Facility): CTDIvol = ( 12.59 ) mGy, DLP = ( 437.39 ) mGycm TECHNIQUE: Transaxial imaging was performed without the administration of intravenous contrast material. Individualized dose optimization techniques were used for this CT. COMPARISON: 04/09/2020 FINDINGS: Mild bilateral apical scarring. Mild emphysematous changes no change in the 6 mm noncalcified nodule peripherally the left upper lobe the lungs on image 23 and the follow-up CT the chest is recommended in 6 to document stability. There is no demonstrated pleural abnormality. Normal heart and pericardium. There are calcifications of the coronary arteries. Normal mediastinum. Normal hilar regions. Normal unenhanced pulmonary arteries. There is atherosclerotic calcification of the aortic arch with tortuosity and elongation of the aortic arch and descending thoracic aorta. Normal osseous structures. There is no demonstrated abnormality of the visualized upper abdomen. CT/Chest without Contrast IMPRESSION: Mild emphysema with no change in a 6 mm left upper lobe nodule. Follow-up CT is recommended in 6 months document stability per Electronically Signed: Dmitry Johnson MD at 16:45 EST Tel , Service support ,
== END ==
PROVIDERS: PCP Family Medicine; Referring Provider Nurse Practitioner Acute Care; Visit Provider Nurse Practitioner Acute Care
DX: R91.1 Solitary pulmonary nodule (principal)
CPT/HCPCS: 71250

== ENCOUNTER → 2020-12-24 10:36 | Outpatient (CLI) | payer MEDICARE, OTHER, SELFPAY ==
[2020-09-29 07:44] VITALS: BMI 31.1
[2020-12-24 11:51] LABS: ALB/GLOB Ratio 1.2 RATIO (0.9-2.4); AST(SGOT) 20 U/L (15-37); Alanine Aminotransfer ALT/SGPT 27 U/L (13-56); Alkaline Phosphatase 57 U/L (45-117); Anion Gap 5 (5-15); BUN 24 mg/dL (7-18); BUN/Creat Ratio 21.1 RATIO (10-20); Calcium,Total 9.4 mg/dL (8.5-10.1); Chloride 104 mmol/L (98-107); Creatinine, Serum 1.14 mg/dL (0.55-1.02); EST Glomerular Filtration Rate 50 mL/min (>60); Est Glom Filt Rate - Afr Amer 60 mL/min (>60); Free T3 2.4 pg/mL (2.18-3.98); Globulin 3.3 g/dL (2.2-4.2); Glucose 119 mg/dL (74-106); Potassium 4.2 mmol/L (3.5-5.1); Protein, Total 7.3 g/dL (6.4-8.2); Sodium Level 138 mmol/L (136-145); T4 Free Direct 1.18 ng/dL (0.76-1.46); Thyroid Stim Hormone (TSH) 0.69 uIU/mL (0.358-3.74)
== END ==
PROVIDERS: PCP Family Medicine; Referring Provider Family Medicine; Visit Provider Family Medicine
DX: N18.32 Chronic kidney disease, stage 3b (principal); E03.9 Hypothyroidism, unspecified
CPT/HCPCS: 36415; 80053; 84439; 84443; 84481

== ENCOUNTER → 2021-02-21 09:55 | Outpatient (CLI) | payer MEDICARE, OTHER, SELFPAY ==
[2020-09-29 07:44] VITALS: BMI 31.1
--- NOTE | 2021-02-21 09:59 | US_ITS ---
STUDY: ABDOMINAL ULTRASOUND - RIGHT UPPER QUADRANT REASON FOR VISIT: Female, 71 years old RIGHT ABD PAIN -- FERGUSON AND WHITE STOOL FOR A YEAR TECHNIQUE: Ultrasound evaluation of the right upper quadrant was performed with real-time and static ferguson-scale imaging. TECHNICAL QUALITY: Adequate. COMPARISON: None. FINDINGS: Liver: The liver measures 15.7 cm. There is increased echogenicity consistent with fatty infiltration. The bile ducts are within normal limits. There is hepatic color flow. The direction of portal flow is hepatopetal. There is no demonstrated mass lesion. Gallbladder: Normal distended gallbladder. The gallbladder wall measures 2.4 mm. There is a negative sonographic Owens''s sign. There is no pericholecystic fluid. There are no gallstones. Common Bile Duct (C.B.D.): The common bile duct measures 4.0 mm. Pancreas: Normal size of the head, body and tail of the pancreas. There is increased echogenicity of the pancreas. There is no demonstrated pancreatic mass or cyst. Right Kidney: Normal size of the right kidney. The right kidney measures 10.6 cm x 4.8 cm x 3.9 cm. Normal renal cortex. The right cortex measures 1.0 cm. There is no demonstrated renal mass or cyst. There is no right hydronephrosis. US/Abdomen Limited IMPRESSION: Fatty infiltration of the liver. Electronically Signed: Prosper Rao MD at 14:22 EDT , Service support ,
== END ==
PROVIDERS: PCP Family Medicine; Referring Provider Family Medicine; Visit Provider Family Medicine
DX: R10.11 Right upper quadrant pain (principal); R19.5 Other fecal abnormalities
CPT/HCPCS: 76705

== ENCOUNTER → 2021-02-26 10:26 | Outpatient (CLI) | payer MEDICARE, OTHER, SELFPAY ==
[2020-09-29 07:44] VITALS: BMI 31.1
[2021-02-26 11:52] LABS: ALB/GLOB Ratio 1.1 RATIO (0.9-2.4); AST(SGOT) 29 U/L (15-37); Alanine Aminotransfer ALT/SGPT 43 U/L (13-56); Albumin, Serum 3.9 g/dL (3.2-5.0); Alkaline Phosphatase 69 U/L (45-117); Anion Gap 6 (5-15); BUN 24 mg/dL (7-18); BUN/Creat Ratio 20.5 RATIO (10-20); Calcium,Total 9.6 mg/dL (8.5-10.1); Chloride 106 mmol/L (98-107); Creatinine, Serum 1.17 mg/dL (0.55-1.02); EST Glomerular Filtration Rate 48 mL/min (>60); Est Glom Filt Rate - Afr Amer 58 mL/min (>60); Globulin 3.6 g/dL (2.2-4.2); Glucose 104 mg/dL (74-106); Potassium 4.3 mmol/L (3.5-5.1); Protein, Total 7.5 g/dL (6.4-8.2); Sodium Level 139 mmol/L (136-145)
== END ==
PROVIDERS: PCP Family Medicine; Referring Provider Family Medicine; Visit Provider Family Medicine
DX: R19.5 Other fecal abnormalities (principal); R10.9 Unspecified abdominal pain
CPT/HCPCS: 36415; 80053; 82248

== ENCOUNTER → 2021-03-07 | Outpatient (CLI) | payer MEDICARE, OTHER, SELFPAY ==
[2020-09-29 07:44] VITALS: BMI 31.1
== END | disposition home or self-care (01) ==
PROVIDERS: PCP Family Medicine; Visit Provider Family Medicine
DX: Z20.818 Contact with and (suspected) exposure to other bacterial communicable diseases (principal); Z20.828 Contact with and (suspected) exposure to other viral communicable diseases
CPT/HCPCS: 87635; U0005; U0003

== ENCOUNTER → 2021-03-14 16:17 | Outpatient (CLI) | payer MEDICARE, OTHER, SELFPAY ==
[2020-09-29 07:44] VITALS: BMI 31.1
--- NOTE | 2021-03-14 16:20 | BI_ITS ---
MAMMOGRAPHY - BILATERAL SCREENING REASON FOR EXAM: Female, 71 years old. Routine annual screening examination. PERTINENT HISTORY: Grandmother with breast cancer. Remote right stereotactic breast biopsy. TECHNIQUE: Digital bilateral breast conner (3D mammographic acquisition) in the CC and MLO projections. 2-D mediolateral oblique (MLO) and craniocaudad (CC) views of both breasts were obtained. CAD: Full Field Digital Mammography with Computer Added Detection was performed. COMPARISON: Comparison is made with prior study dated 02/27/2020 and 01/01/2019. FINDINGS: Breast Composition: There are scattered areas of fibroglandular density. There are no dominant masses or suspicious calcifications. A tissue clip marker is seen in the central retroareolar region of the right breast. No other significant abnormalities are identified. There has been no significant change since the prior study. BI/SCRN MAMM (CAD)W/CONNER BILAT IMPRESSION: Stable bilateral screening mammogram. Yearly follow-up mammogram recommended. (A) ASSESSMENT CATEGORY: BIRADS Category 2: Benign. A letter regarding these results will be sent to the patient by the facility within 30 days. Approximately 10% of breast cancers are not detected by mammography. A normal mammogram should not delay biopsy of a clinically suspicious abnormality. [id number] Electronically Signed: Prosper Rao MD at 8:11 EDT , Service support ,
== END ==
PROVIDERS: PCP Family Medicine; Referring Provider Family Medicine; Visit Provider Family Medicine
DX: Z12.31 Encounter for screening mammogram for malignant neoplasm of breast (principal); Z80.3 Family history of malignant neoplasm of breast
CPT/HCPCS: 77063; 77067

== ENCOUNTER → 2021-03-28 15:57 | Outpatient (CLI) | payer MEDICARE, OTHER, SELFPAY ==
[2020-09-29 07:44] VITALS: BMI 31.1
--- NOTE | 2021-03-28 15:58 | CT_ITS ---
STUDY: CT CHEST WITHOUT CONTRAST REASON FOR EXAM: Female, 71 years old. Follow 6 mm mass. Former smoker. RADIATION DOSAGE (If Supplied By Facility): CTDIvol = ( 9.76 ) mGy, DLP = ( 341.43 ) mGycm TECHNIQUE: Transaxial imaging was performed without the administration of intravenous contrast material. Multiplanar coronal and sagittal images were reformatted. Individualized dose optimization techniques were used for this CT. COMPARISON: Comparison is made with prior study dated 09/28/2020. FINDINGS: Stable small benign-appearing bilateral axillary lymph nodes. Emphysematous changes with centrilobular findings in the lungs more prominent in the upper lobes. Stable scarring at the lung apices. Stable 5 mm noncalcified nodule in the peripheral aspect of the left upper lobe as seen on axial image #29. There is no demonstrated pleural abnormality. There are calcifications of the coronary arteries. There are multiple small lymph nodes within the mediastinum, which are normal in size and morphology most compatible with reactive lymph hyperplasia. Normal hilar regions. Normal unenhanced pulmonary arteries. There is atherosclerotic calcification of the aortic arch with tortuosity and elongation of the aortic arch and descending thoracic aorta. There are multi-level degenerative changes of the thoracic spine. There is no demonstrated abnormality of the visualized upper abdomen. CT/Chest without Contrast IMPRESSION: Stable examination. Twelve-month follow-up is recommended. Electronically Signed: Prosper Rao MD at 8:33 EDT , Service support ,
== END ==
PROVIDERS: PCP Family Medicine; Referring Provider Nurse Practitioner Acute Care; Visit Provider Nurse Practitioner Acute Care
DX: R91.1 Solitary pulmonary nodule (principal); Z87.891 Personal history of nicotine dependence
CPT/HCPCS: 71250

== ENCOUNTER → 2021-05-23 | Outpatient (CLI) | payer MEDICARE, OTHER, SELFPAY | END | disposition home or self-care (01) | LOC: LABSPEC 15:28 | PROVIDERS: PCP Family Medicine; Referring Provider Physician Assistant Surgical; Visit Provider Physician Assistant Surgical | DX: Z11.52 Encounter for screening for COVID-19 (principal) | CPT/HCPCS: 87635; U0005; U0003 ==

== ENCOUNTER → 2021-08-15 10:44 | Outpatient (CLI) | payer MEDICARE, OTHER, SELFPAY ==
--- NOTE | 2021-08-15 10:47 | US_ITS ---
EXAM: US ABDOMEN LIMITED, RIGHT UPPER QUADRANT : 1950 CLINICAL INDICATION: RUQ PAIN TECHNIQUE: Real-time ultrasound of the right upper quadrant with image documentation. This report was created using [employer] report [employer] technology. COMPARISON: None. FINDINGS: LIVER: The liver measures 16.1 cm. There is normal echotexture. No intrahepatic biliary ductal dilation. GALLBLADDER: The gallbladder wall measures 2 mm. No shadowing gallstone. No pericholecystic fluid. Negative sonographic Owens's sign. COMMON BILE DUCT: The common bile duct measures 4 mm. The proximal common bile duct is within normal limits for the patient's age. PANCREAS: Unremarkable as visualized. No focal abnormality is demonstrated in the pancreas. No pancreatic ductal dilatation. RIGHT KIDNEY: The right kidney measures 10.6 x 3.8 x 5.1 cm. There is no hydronephrosis. No shadowing calculus. No focal lesion or perinephric collection is demonstrated. US/Abdomen Limited IMPRESSION: No acute findings in the right upper quadrant. at 1711 Reported and signed by: Lenny Limon MD Electronically Signed: Lenny Limon MD at 17:09 EST Tel , Service support ,
== END ==
PROVIDERS: PCP Family Medicine; Referring Provider Family Medicine; Visit Provider Family Medicine
DX: R10.11 Right upper quadrant pain (principal)
CPT/HCPCS: 76705

== ENCOUNTER → 2021-08-19 08:39 | Outpatient (CLI) | payer MEDICARE, OTHER, SELFPAY ==
--- NOTE | 2021-08-19 08:44 | RAD_ITS ---
STUDY: AIR CONTRAST UPPER GI SERIES REASON FOR EXAM: Female, 71 years old. NAUSEA W/MEALS FLUOROSCOPY TIME (if supplied): (53 seconds) minutes/seconds. 28 images were obtained. TECHNIQUE: SINGLE CONTRAST AND AIR CONTRAST FLUOROSCOPIC IMAGES. COMPARISON: None. FINDINGS: The cervical esophagus demonstrates normal motility without aspiration. There is no stricture or extrinsic mass effect. No intraluminal polypoid mass is identified. The thoracic esophagus distends well without stricture or mucosal fold thickening. No mucosal ulcerations are identified. There is no extrinsic mass effect. There are no diverticula. No hiatal hernia or gastroesophageal reflux was identified. The stomach distends well without mucosal fold thickening or mucosal ulceration. There is no intraluminal mass. The duodenal bulb is freely distensible without deformity or ulceration. The duodenal sweep is normal in position and caliber. RAD/Upper GI w/BA Swallow IMPRESSION: Normal air-contrast upper GI series. Electronically Signed: Prosper Rao MD at 12:38 EST , Service support ,
== END ==
PROVIDERS: PCP Family Medicine; Referring Provider Family Medicine; Visit Provider Family Medicine
DX: R10.11 Right upper quadrant pain (principal)
CPT/HCPCS: 74246

== ENCOUNTER → 2021-08-26 14:54 | Outpatient (CLI) | payer MEDICARE, OTHER, SELFPAY ==
[2021-08-26 17:47] LABS: Erythrocyte Sedimentation Rate 9 mm/hr (0-30)
[2021-08-26 18:08] LABS: CRP 3.04 mg/L (0.0-3.0); Lipase 64 U/L (73-393); T4 Free Direct 1.19 ng/dL (0.76-1.46); Thyroid Stim Hormone (TSH) 0.71 uIU/mL (0.358-3.74)
== END ==
PROVIDERS: PCP Family Medicine; Referring Provider Family Medicine; Visit Provider Family Medicine
DX: E03.9 Hypothyroidism, unspecified (principal); R10.9 Unspecified abdominal pain; R11.0 Nausea; R63.4 Abnormal weight loss
CPT/HCPCS: 36415; 83690; 84439; 84443; 85652; 86140

== ENCOUNTER 2021-10-10 10:28 | Outpatient (CLI) | payer MEDICARE, OTHER, SELFPAY ==
[2021-10-10 12:48] LABS: AST(SGOT) 25 U/L (15-37); Alanine Aminotransfer ALT/SGPT 36 U/L (13-56); Albumin, Serum 3.9 g/dL (3.2-5.0); Alkaline Phosphatase 66 U/L (45-117); Anion Gap 6 (5-15); BUN 23 mg/dL (7-18); BUN/Creat Ratio 18.5 RATIO (10-20); CRP < 2.90 mg/L (0.0-3.0); Calcium,Total 9.6 mg/dL (8.5-10.1); Chloride 105 mmol/L (98-107); Creatinine, Serum 1.24 mg/dL (0.55-1.02); EST Glomerular Filtration Rate 45 mL/min (>60); Est Glom Filt Rate - Afr Amer 54 mL/min (>60); Globulin 3.8 g/dL (2.2-4.2); Glucose 117 mg/dL (74-106); Potassium 4.3 mmol/L (3.5-5.1); Protein, Total 7.7 g/dL (6.4-8.2); Sodium Level 136 mmol/L (136-145)
[2021-10-10 12:50] LABS: Erythrocyte Sedimentation Rate 6 mm/hr (0-30)
[2021-10-10 12:52] LABS: Absolute Lymphocyte Count 2.68 X10^3/uL (0.83-4.51); Absolute Neutrophil Count 4.1 X10^3/uL (2.0-7.7); Basophil# 0.04 X10^3/uL; Basophil% 0.5 % (0-1); Eosinophil# 0.15 X10^3/uL; Eosinophils% 1.9 % (0-5); Hematocrit 38.1 % (37-47); Hemoglobin 12.4 g/dL (12.0-15.0); Lymphocyte # 2.68 X10^3/ul (0.83-4.51); Lymphocyte % 34.8 % (19-41); Mean Corp Hgb Conc 32.5 g/dL (32-36); Mean Corpuscular Volume 89.2 fL (81-99); Mean Platelet Vol. 10.1 fl (6.2-12.0); Monocyte# 0.73 X10^3/uL; Monocyte% 9.5 % (0-10); NRBC Flagged by Analyzer 0 % (0-5); Neutrophil # 4.08 X10^3/uL (2.7-7.7); Neutrophil % 52.9 % (47-70); Platelet Count 263 K/mm3 (150-450); RBC Distribution Width CV 14.2 % (11.6-14.6); RBC Distribution Width SD 46.4 fl (35.1-43.9); Red Blood Count 4.27 M/mm3 (4.2-5.4); White Blood Count 7.7 K/mm3 (4.4-11.0)
== END 2021-10-10 23:59 | disposition short-term general hospital (02) ==
LOC: MTLAB 10:30
PROVIDERS: PCP Family Medicine; Referring Provider Internal Medicine Gastroenterology; Visit Provider Internal Medicine Gastroenterology
DX: R91.1 Solitary pulmonary nodule (principal); R19.7 Diarrhea, unspecified
CPT/HCPCS: 36415; 80053; 85025; 85652; 86140

== ENCOUNTER 2021-11-23 16:35 | Outpatient (CLI) | payer MEDICARE, OTHER, SELFPAY ==
[2021-11-23 17:10] LABS: Absolute Lymphocyte Count 3.75 X10^3/uL (0.83-4.51); Absolute Neutrophil Count 3.7 X10^3/uL (2.0-7.7); Basophil# 0.05 X10^3/uL; Basophil% 0.6 % (0-1); Eosinophil# 0.16 X10^3/uL; Eosinophils% 1.9 % (0-5); Hematocrit 40.5 % (37-47); Hemoglobin 13.5 g/dL (12.0-15.0); Lymphocyte # 3.75 X10^3/ul (0.83-4.51); Lymphocyte % 44.7 % (19-41); Mean Corp Hgb Conc 33.3 g/dL (32-36); Mean Corpuscular Hgb 29.1 pg (27.0-32.0); Mean Corpuscular Volume 87.3 fL (81-99); Mean Platelet Vol. 9.7 fl (6.2-12.0); Monocyte# 0.74 X10^3/uL; Monocyte% 8.8 % (0-10); NRBC Flagged by Analyzer 0 % (0-5); Neutrophil # 3.67 X10^3/uL (2.7-7.7); Neutrophil % 43.8 % (47-70); Platelet Count 293 K/mm3 (150-450); RBC Distribution Width CV 13.4 % (11.6-14.6); RBC Distribution Width SD 42.7 fl (35.1-43.9); Red Blood Count 4.64 M/mm3 (4.2-5.4); White Blood Count 8.4 K/mm3 (4.4-11.0)
[2021-11-23 17:36] LABS: Hemoglobin A1c 5.8 % (3.8-5.6)
[2021-11-23 19:07] LABS: HIV - WCH Non-Reactive (Nonreactive)
== END 2021-11-23 23:59 | disposition home or self-care (01) ==
LOC: LAB 16:39
PROVIDERS: PCP Family Medicine; Visit Provider Family Medicine
DX: E11.9 Type 2 diabetes mellitus without complications (principal); B37.3 Candidiasis of vulva and vagina
CPT/HCPCS: 36415; 83036; 85025; 86703

== ENCOUNTER 2021-11-28 11:40 | Day surgery (SDC) | payer MEDICARE, OTHER, SELFPAY ==
--- NOTE | 2021-11-28 | EGD_PTH ---
PATIENT: NOHEMI SANDERS LOC: [facility] U#:[id number] AGE/SX: 71/F ROOM: RE11/28/[address]: Dr. Chaitanya Delacruz DO : 1950 BED: DIS: 11/28/2021 SPEC #: [id number] RECD: 11/28/21 15:30 STATUS: YOAN DAVE #: [id number] VICKEY: 11/28/21 00:[address]: Chaitanya Delacruz DEPT: SURGICAL PATHOLOGY RECD BY: Tj Deleon ENTERED: 11/29/21 10:37 SP TYPE: EGD BIOPSY OT DR: Dr. Jaclyn Webster DO Tissues: A - Duodenum, NOS B - Gastric mucous membrane C - Esophageal mucous membrane Procedures: Special Stain Group II Surgery Specimen Level IV Alcian Blue/PAS (control) HEADER OPERATION: EGD with biopsy ([facility] [place]) PRE-OP DIAGNOSIS: Nausea TISSUE SUBMITTED: A - Duodenal ulcer biopsy, B - Gastric body biopsy, C - Distal esophagus biopsy MICROSCOPIC DIAGNOSIS A. Duodenal ulcer, biopsy: Mild nonspecific chronic inflammation. B. Gastric body, biopsy: Minimal chronic inflammation. See comment. C. Distal esophagus, biopsy: Gastroesophageal junctional mucosa with mild chronic inflammation. No evidence of goblet cell metaplasia. See comment. AM:carlos 11/30/2021 COMMENT B. The results of immunohistochemistry for Helicobacter pylori will be reported separately ([id number]). C. Alcian blue/PAS stain with matched control supports the above diagnosis. MICROSCOPIC DESCRIPTION Slides are reviewed. GROSS DESCRIPTION A - Received in fixative is one container labeled with the patient's name and designated duodenal ulcer biopsy. The specimen consists of three irregular fragments of light ortiz soft tissue that in aggregate measure 1 x 0.3 x 0.1 cm. The specimen is totally submitted in one cassette. B - Received in fixative is one container labeled with the patient's name and designated gastric body biopsy. The specimen consists of multiple irregular fragments of light ortiz soft tissue that in aggregate measure 1 x 0.3 x 0.1 cm. The specimen is totally submitted in one cassette. C - Received in fixative is one container labeled with the patient's name and designated distal esophagus biopsy. The specimen consists of two irregular fragments of light ortiz soft tissue that in aggregate measure 0.7 x 0.5 x 0.1 cm. The specimen is totally submitted in one cassette. / AM:calros 11/29/2021 TC: CPT: 86584 x3, 87646
[2021-11-28 12:08] VITALS: BP 116/48; PULSE 68; RESP 16; TEMP 36.6; O2SAT 98; BMI 29.9
--- NOTE | 2021-11-28 12:25 | PCM.HP.BLA ---
History and Physical Date of Admission: 11/28/21 71 F who presents to the office today for Evaluation of nausea. Marti established with this clinic 09.08.21 for weight loss and persistent nausea with onset . She took an antibiotic as a COVID precaution and began feeling better following this. Additional history of fibrocystic breast disease, HTN, depression, fatty liver infiltration, osteoarthritis/osteopenia/osteoporosis, GERD, anemia with transfusion, blood clots, DM II. US abd performed 08.15.21. Liver measure 16.1cm. Upper GI barium swallow performed 08.19.21 with normal upper GI series. Previous medications from this clinic famotidine (ineffective). Plan from last visit 09.08.21: Nausea ? much improved since onset. She feels nausea started when she began iron and vitamin C supplements. Additionally, has CKD II-III as a diagnosis with possible nausea. Stop protonix and start famotidine as creatinine clearance will be less affected. Possible EGD in the future. Reports that she is doing well overall. Continues to have right sided pain and nausea without emesis. These symptoms have improved in severity and frequency. Nausea is worst at night when she lays down. Unable to identify triggers of food or PO intake. She had too much reflux from stopping the protonix and restarted this medication 10.14.21 because of pain and interrupted sleep. Continues to have breakthrough GERD with protonix QD. Two cups of coffee with cream. Drinks a lot of water. She typically does not eat until evening time when she makes a meal of meat, salad and sometimes an additional vegetable. ROS Gastro GI: Positive for abdominal pain and heartburn Exam Const General: cooperative and comfortable Nutritional Appearance: average body habitus and well nourished [facility] Head: normal to inspection Ears: hearing grossly normal bilaterally Nose: external nose normal Face and sinus: normal facial exam Mouth: oral mucosae normal Throat: posterior oropharynx normal Eyes General: appearance normal, both eyes and all related structures Neck Neck: normal visual inspection Chest Chest palpation & inspection: normal inspection of the chest and normal palpation of entire chest wall Resp Effort & Inspection: normal respiratory effort Auscultation: Bilateral: Clear to Auscultation Cardio Palpation: normal PMI Rate: regular rate Rhythm: regular rhythm GI Inspection: normal to inspection Auscultation: normal bowel sounds Percussion: normal to percussion Palpation: no hepatosplenomegaly Skin General: no rashes or lesions noted Neuro General: patient alert Extrem General: normal to inspection Psych Affect: normal affect Quality Reporting Tobacco Screening ([facility]) Smoking Status: Former smoker Assessment and Plan Assessment and Plan (1) Nausea: Status: Acute Orders: Orders: Abdomen Limited Today Elastography Parenchyma/Organ Today Plan - Dr. Tavares Friend, DO: Her nausea is likely secondary to gastroesophageal reflux disease. We titrated off of the pantoprazole and put her on famotidine. She said her nausea was horrible and she had worsening abdominal pain and cramping. We restarted the pantoprazole all of her symptoms got better. She says that she checked her kidney function again and her GFR is still the same so she is willing to take the risk of taking pantoprazole in the setting of chronic kidney disease. (2) Fatty liver: Status: Acute Orders: Orders: Abdomen Limited Today Elastography Parenchyma/Organ Today Plan - Dr. Tavares Friend, DO: She was having some right lower quadrant pain that I thought was secondary to either gas or mild hepatomegaly. Her liver is 16 cm but she is only 5 feet tall. She is known to have fatty liver disease. So we will get a FibroScan to determine if there is any fibrosis associated with her fatty liver disease. Plan Details Other Medications: New: clobetasol 0.05% 1 applic topical BID 2 weeks 15 grams 1RF itching hyoscyamine sulfate 0.125 mg PO BID-QID PRN 30 tabs 0RF dyspepsia I have re-examined the patient. There are no clinical changes since date of exam.
[2021-11-28] MEDS: Lactated Ringers 1,000 ML 100 ML IV (12:30)
--- NOTE | 2021-11-28 12:45 | IMM_PTH ---
PATIENT: NOHEMI SANDERS LOC: [facility] U#:[id number] AGE/SX: 71/F ROOM: RE11/28/[address]: Dr. Chaitanya Delacruz DO : 1950 BED: DIS: 11/28/2021 SPEC #: [id number] RECD: 11/30/21 11:17 STATUS: YOAN REWilmar #: [id number] VICKEY: 11/28/21 12:[address]: Chaitanya Delacruz DEPT: IMMUNOHISTOCHEMISTRY RECD BY: Liana Mena ENTERED: 11/30/21 11:18 SP TYPE: IMMUNO OTHR DR: Dr. Jaclyn Webster DO Tissues: B - Stomach, NOS Procedures: H Pylori (initial) PHYSICIAN & INSTITUTION [place] [address] SPECIMEN INFORMATION: Tissue Source: B ? Gastric body biopsy Clinical Info: Nausea Specimen Number: [id number] CPT code: 69290 METHODOLOGY: Deparaffinized sections of prefer/formalin-fixed tissue or PAP/DQ stained slides are incubated with monoclonal/polyclonal antibodies/oligonucleotide probes. Localization is made via biotin free immunoperoxidase method. Appropriate controls are performed and reacted as expected. Results on target cell population are indicated in the following table: RESULTS: ANTIBODY / CLONE RESULT Block B H Pylori (polyclonal) negative These tests were developed and their performance characteristics determined by [facility]. They may not have been cleared or approved by the U.S. Food and Drug Administration. The FDA has determined that such clearance or approval is not necessary. INTERPRETATION: B. Gastric body, biopsy: Negative for Helicobacter pylori organisms. AM:carlos 11/30/2021
[2021-11-28 13:00] VITALS: BP 116/48; BP 83/39; PULSE 64; RESP 14; TEMP 36.3; O2SAT 95
--- NOTE | 2021-11-28 13:01 | OP.EGD_ITS ---
Patient Name: Shelli Deshpande Procedure Date: 11/28/2021 12:33 PM Date of : 1950 Age: 71 Procedure: Upper GI endoscopy Indications: Epigastric abdominal pain, Functional Dyspepsia Providers: Chaitanya Delacruz DO Medicines: See the Anesthesia note for documentation of the administered medications Patient Profile: This is a 71 year old female. Refer to note in patient chart for documentation of history and physical. Patient has symptoms of chronic abdominal cramping, chronic abdominal distention and chronic epigastric abdominal pain. Complications: No immediate complications. Procedure: Pre-Anesthesia Assessment: - Prior to the procedure, a History and Physical was performed, and patient medications and allergies were reviewed. The patient is competent. The risks and benefits of the procedure and the sedation options and risks were discussed with the patient. All questions were answered and informed consent was obtained. Patient identification and proposed procedure were verified by the physician in the pre-procedure area. Mental Status Examination: alert and oriented. Airway Examination: normal oropharyngeal airway and neck mobility. Respiratory Examination: clear to auscultation. CV Examination: normal. Prophylactic Antibiotics: The patient does not require prophylactic antibiotics. Prior Anticoagulants: The patient has taken no previous anticoagulant or antiplatelet agents. ASA Grade Assessment: II - A patient with mild systemic disease. After reviewing the risks and benefits, the patient was deemed in satisfactory condition to undergo the procedure. The anesthesia plan was to use moderate sedation / analgesia (conscious sedation). Immediately prior to administration of medications, the patient was re-assessed for adequacy to receive sedatives. The heart rate, respiratory rate, oxygen saturations, blood pressure, adequacy of pulmonary ventilation, and response to care were monitored throughout the procedure. The physical status of the patient was re-assessed after the procedure. After obtaining informed consent, the endoscope was passed under direct vision. Throughout the procedure, the patient's blood pressure, pulse, and oxygen saturations were monitored continuously. The gastroscope was introduced through the mouth, and advanced to the second part of duodenum. The upper GI endoscopy was accomplished without difficulty. The patient tolerated the procedure well. Moderate Sedation: Moderate (conscious) sedation was administered by the endoscopy nurse and supervised by the endoscopist. The patient's oxygen saturation, heart rate, blood pressure and response to care were monitored. Total physician intraservice time was 15 minutes. Scope In: 12:47:06 PM Scope Out: 12:54:52 PM Total Procedure Duration Time 0 hours 7 minutes 46 seconds Findings: LA Grade A (one or more mucosal breaks less than 5 mm, not extending between tops of 2 mucosal folds) esophagitis with no bleeding was found 36 to 39 cm from the incisors. Biopsies were taken with a cold forceps for histology. Verification of patient identification for the specimen was done by the physician. Estimated blood loss was minimal. Diffuse moderately congested mucosa was found in the gastric body. Biopsies were taken with a cold forceps for histology. Verification of patient identification for the specimen was done. Estimated blood loss was minimal. Four non-bleeding linear duodenal ulcers with no stigmata of bleeding were found in the first portion of the duodenum and in the second portion of the duodenum. The largest lesion was 6 mm in largest dimension. Biopsies were taken with a cold forceps for histology. Verification of patient identification for the specimen was done. Estimated blood loss was minimal. Impression: - LA Grade A reflux esophagitis. Biopsied. - Congestive gastropathy. Biopsied. - Multiple non-bleeding duodenal ulcers with no stigmata of bleeding. Biopsied. Recommendation: - Discharge patient to home. - Resume previous diet. - Continue present medications. - Await pathology results. Procedure Code(s): --- Professional --- 24906, Esophagogastroduodenoscopy, flexible, transoral; with biopsy, single or multiple 05704, 59, Moderate sedation services provided by the same physician or other qualified health infant childcare provider performing the diagnostic or therapeutic service that the sedation supports, requiring the presence of an independent trained observer to assist in the monitoring of the patient's level of consciousness and physiological status; initial 15 minutes of intraservice time, patient age 5 years or older CPT copyright 2017 [employer]. All rights reserved. The codes documented in this report are preliminary and upon bleach chlorinator review may be revised to meet current compliance requirements. Chaitanya Delacruz DO 11/28/2021 1:00:47 PM This report has been signed electronically. Number of Addenda: 1 Note Initiated On: 11/28/2021 12:33 PM Addendum Number: 1 Addendum Date: 06/14/2022 6:30:15 AM MAC was used as sedation for this procedure. Chaitanya Delacruz DO 06/14/2022 6:30:21 AM This report has been signed electronically.
--- NOTE | 2021-11-28 13:01 | OP.CCLET_ITS ---
06/14/2022 Jaclyn Webster [address] [place] [address] Re : Upper GI endoscopy procedure for Shelli Jeramy Dear Dr. Webster This procedure was performed on Sunday, November 28, 2021. My impressions and recommendations are as follows: Impressions : - LA Grade A reflux esophagitis. Biopsied. - Congestive gastropathy. Biopsied. - Multiple non-bleeding duodenal ulcers with no stigmata of bleeding. Biopsied. Recommendations : - Discharge patient to home. - Resume previous diet. - Continue present medications. - Await pathology results. My findings are described in the full procedure note, which is enclosed. If I can be of further assistance, please feel free to contact me at . Sincerely, Chaitanya Delacruz, 11/28/2021 1:00:47 PM This report has been signed electronically.
[2021-11-28 13:05] VITALS: BP 116/48; BP 87/45; PULSE 58; RESP 14; O2SAT 98
[2021-11-28 13:10] VITALS: BP 116/48; BP 89/48; PULSE 54; RESP 14; O2SAT 100
[2021-11-28 13:15] VITALS: BP 116/48; BP 93/45; PULSE 57; RESP 14; O2SAT 97
[2021-11-28 13:20] VITALS: BP 116/48; BP 94/45; PULSE 54; RESP 14; TEMP 36.4; O2SAT 100
[2021-11-28 14:26] LABS: Bedside Glucose 128 mg/dL (74-106)
== END 2021-11-28 23:59 | disposition home or self-care (01) ==
LOC: EN 11:40 → AC 11:52
PROVIDERS: PCP Family Medicine; Referring Provider Family Medicine; Visit Provider Internal Medicine Gastroenterology
PROC: 0DJ08ZZ Inspection of Upper Intestinal Tract, Via Natural or Artificial Opening Endoscopic (ICD-10-PCS; CPT 43235; principal; 2021-11-28 12:40)
DX: K26.9 Duodenal ulcer, unspecified as acute or chronic, without hemorrhage or perforation (principal); E11.22 Type 2 diabetes mellitus with diabetic chronic kidney disease; I12.9 Hypertensive chronic kidney disease with stage 1 through stage 4 chronic kidney disease, or unspecified chronic kidney disease; N18.2 Chronic kidney disease, stage 2 (mild); K21.00 Gastro-esophageal reflux disease with esophagitis, without bleeding; K29.50 Unspecified chronic gastritis without bleeding; M19.90 Unspecified osteoarthritis, unspecified site; K76.0 Fatty (change of) liver, not elsewhere classified; Z20.822 Contact with and (suspected) exposure to COVID-19; M81.0 Age-related osteoporosis without current pathological fracture; Z79.890 Hormone replacement therapy; Z79.899 Other long term (current) drug therapy; Z86.718 Personal history of other venous thrombosis and embolism; Z87.891 Personal history of nicotine dependence; Z86.2 Personal history of diseases of the blood and blood-forming organs and certain disorders involving the immune mechanism
CPT/HCPCS: 43239; 82962; 87811; 88305; 88313; 88342; J7120; J2405

== ENCOUNTER 2021-12-05 08:34 | Outpatient (CLI) | payer MEDICARE, OTHER, SELFPAY ==
--- NOTE | 2021-12-05 08:43 | US_ITS ---
STUDY: ABDOMINAL ULTRASOUND - RIGHT UPPER QUADRANT REASON FOR VISIT: Female, 71 years old fatty infiltration of the liver. TECHNIQUE: Ultrasound evaluation of the right upper quadrant was performed with real-time and static ferguson-scale imaging. TECHNICAL QUALITY: Adequate. COMPARISON: Comparison is made with prior study dated 08/15/2021. FINDINGS: Liver: The liver measures 16.2 cm. There is increased echogenicity consistent with fatty infiltration. The bile ducts are within normal limits. There is hepatic color flow. The direction of portal flow is hepatopetal. There is no demonstrated mass lesion. Gallbladder: Normal distended gallbladder. The gallbladder wall measures 2 mm. There is a negative sonographic Owens''s sign. There is no pericholecystic fluid. There are no gallstones. Common Bile Duct (C.B.D.): The common bile duct measures 3 mm. Pancreas: Normal size of the head, body and tail of the pancreas. There is normal echogenicity of the pancreas. There is no demonstrated pancreatic mass or cyst. Right Kidney: Normal size of the right kidney. The right kidney measures 9 cm x 4.4 cm x 4.2 cm. Normal renal cortex. The right cortex measures 1.7 cm. There is no demonstrated renal mass or cyst. There is no right hydronephrosis. US/Abdomen Limited IMPRESSION: Fatty infiltration of the liver. Electronically Signed: Prosper Rao MD at 14:28 EDT ,
--- NOTE | 2021-12-05 08:43 | US_ITS ---
STUDY: ABDOMINAL ULTRASOUND - ELASTOGRAPHY REASON FOR VISIT: Female, 71 years old. Fatty infiltration of the liver. TECHNIQUE: Liver stiffness measurements were obtained on a Gungroo RS 85 ultrasound machine using a CA 1-7 probe following the SRU guidelines. 3 measurements were obtained using a 2-D-SWE method. The IQR/M was 16% suggesting a quality data set. TECHNICAL QUALITY: Adequate. COMPARISON: Comparison is made with prior study done earlier today. FINDINGS: Liver: Fatty infiltration of the liver. Median liver stiffness measured 5 kPa. US/Elastography Parenchyma/Organ IMPRESSION: Liver stiffness measures 5 kPa compatible with F0-F1 (Normal to mild liver fibrosis) Metavir score. Electronically Signed: Prosper Rao MD at 14:44 EDT ,
== END 2021-12-05 23:59 | disposition home or self-care (01) ==
LOC: US 08:34
PROVIDERS: PCP Family Medicine; Referring Provider Internal Medicine Gastroenterology; Visit Provider Internal Medicine Gastroenterology
DX: K76.0 Fatty (change of) liver, not elsewhere classified (principal); R11.0 Nausea
CPT/HCPCS: 76705; 76981

== ENCOUNTER → 2022-02-27 | Outpatient (CLI) | payer MEDICARE, OTHER, SELFPAY ==
[2022-03-01 18:04] LABS: Gastrin, Serum < 10 pg/mL (0-115)
== END | disposition home or self-care (01) ==
LOC: LAB 12:10
PROVIDERS: PCP Family Medicine; Referring Provider Nurse Practitioner Adult Health; Visit Provider Nurse Practitioner Adult Health
DX: K21.9 Gastro-esophageal reflux disease without esophagitis (principal)
CPT/HCPCS: 36415; 82941

== ENCOUNTER → 2022-03-08 | Outpatient (CLI) | payer MEDICARE, OTHER, SELFPAY ==
--- NOTE | 2022-03-08 12:33 | NM_ITS ---
CLINICAL: 72 y/o female with uncontrolled GERD GASTRIC EMPTYING-SULFUR COLLOID TECHNIQUE: The patient was orally administered 1.1 mCi of Tc-sulfur colloid in oatmeal. Gamma camera imaging acquisitions at 1-60 minutes post radiopharmaceutical administration was performed. COMPARISON STUDIES : NM - None. CR - Not available for review at this time. CT - 12/05/2021 MR - Not available for review at this time. FINDINGS: There is normal filling and emptying of the stomach. No gastroesophageal reflux with normal passage into the small bowel. T 1/2 measures 28 minutes, within normal limits. NM/Gastric Emptying Study IMPRESSION: Normal gastric emptying nuclear medicine scan. Electronically Signed: Gerard Amin MD ([place]) at 10:47 EDT ,
== END | disposition home or self-care (01) ==
LOC: NM 12:32
PROVIDERS: PCP Family Medicine; Referring Provider Nurse Practitioner Adult Health; Visit Provider Nurse Practitioner Adult Health
DX: K21.9 Gastro-esophageal reflux disease without esophagitis (principal)
CPT/HCPCS: 78264; A9541

== ENCOUNTER → 2022-03-13 | Outpatient (CLI) | payer MEDICARE, OTHER, SELFPAY ==
--- NOTE | 2022-03-13 12:27 | CT_ITS ---
STUDY: CT Chest W/O Contrast Injection 03/13/2022 4:34 PM REASON FOR EXAM: Female, 72 years old. lung nodule Individualized dose optimization techniques were used for this CT. TECHNIQUE: Transaxial imaging was performed withoutIV contrast material. COMPARISON: Mar 28 2021 4:11pm FINDINGS: There are degenerative changes of the shoulders. There is no pneumothorax. There is no demonstrated pleural abnormality. Left upper lobe nodule has resolved. There are no new nodules. There are calcifications of the coronary arteries. Normal mediastinum. Normal hilar regions. Normal pulmonary arteries. There is atherosclerotic calcification of the aortic arch with tortuosity and elongation of the aortic arch and descending thoracic aorta. There are multi-level degenerative changes of the thoracic spine. There are no acute findings of the upper abdomen. CT/Chest without Contrast IMPRESSION: Left upper lobe nodule has resolved. No further follow up required. Electronically Signed: Edwardo Patrick MD at 16:37 EDT ,
== END | disposition home or self-care (01) ==
LOC: CT 12:26
PROVIDERS: PCP Family Medicine; Referring Provider Internal Medicine Critical Care Medicine; Visit Provider Internal Medicine Critical Care Medicine
DX: R91.1 Solitary pulmonary nodule (principal)
CPT/HCPCS: 71250

== ENCOUNTER → 2022-04-10 | Outpatient (CLI) | payer MEDICARE, OTHER, SELFPAY ==
--- NOTE | 2022-04-10 13:28 | CT_ITS ---
STUDY: CT ABDOMEN AND PELVIS WITH CONTRAST REASON FOR EXAM: Female, 72 years old. Right upper quadrant pain. RADIATION DOSAGE (If Supplied By Facility): CTDIvol = ( 15.95 ) mGy, DLP = ( 947.03 ) mGycm TECHNIQUE: Transaxial images were obtained from the dome of the diaphragm to the symphysis pubis with oral contrast. 100 mL of ISOVUE 370 was administered. Sagittal and coronal images were reconstructed. Individualized dose optimization techniques were used for this CT. COMPARISON: None. FINDINGS: The visualized lung bases are unremarkable. The visualized portions of the heart are within normal limits. Steatosis of the liver without mass. There are small gallstones in an otherwise normal gallbladder. No biliary ductal dilatation or choledocholithiasis. Normal spleen. Normal pancreas. Normal bilateral adrenal glands. Normal right kidney. Normal left kidney. Normal ureters. Normal visualized stomach. Normal small intestine. Normal colon. The appendix is visualized and appears normal. There is diffuse atherosclerotic calcification of the abdominal aorta, without a demonstrated aneurysm. Normal inferior vena cava. Normal retroperitoneum. Normal urinary bladder. Normal uterus and adnexa. No pelvic lymphadenopathy. No free air or free fluid is seen within the peritoneal cavity. Normal abdominal wall. History is anterolisthesis of L5 on S1 with bilateral pars defects. CT/Abdomen/Pelvis WITH Contrast IMPRESSION: 1. No evidence of acute intra-abdominal or pelvic process. 2. Hepatic steatosis. 3. Degenerative changes of the lumbar spine. Electronically Signed: Juan Patel DO at 23:19 EDT Reading Location ID and State: [facility] / [place] Tel [phone], Service support ,
[2022-04-10 14:26] LABS: CREATININE FINGERSTICK < 0.9 mg/dL (0.55-1.02); EGFR FINGERSTICK > 60.0000 mL/min (>60)
== END | disposition home or self-care (01) ==
LOC: CT 13:27
PROVIDERS: PCP Family Medicine; Visit Provider Nurse Practitioner Adult Health
DX: R10.11 Right upper quadrant pain (principal)
CPT/HCPCS: 74177; Q9967

== ENCOUNTER → 2022-04-17 | Outpatient (CLI) | payer MEDICARE, OTHER, SELFPAY ==
--- NOTE | 2022-04-17 13:57 | BI_ITS ---
MAMMOGRAPHY - BILATERAL SCREENING 3-D TOMOSYNTHESIS REASON FOR EXAM: Female, 72 years old. Annual screening mammogram. PERTINENT HISTORY: History of grandmother with breast cancer. Remote right stereotactic biopsy. TECHNIQUE: 2-D mammograms and 3-D Tomosynthesis of the breast (s) were performed. CAD was performed. COMPARISON: 03/14/2021, 02/27/2020. FINDINGS: The breast composition is almost entirely fat. Stable benign calcifications and lymph nodes. Right tissue clip marker unchanged. No dense spiculated masses or suspicious microcalcifications are identified. No architectural distortion is identified. There is no skin thickening or retraction. BI/SCRN MAMM (CAD)W/CONNER BILAT IMPRESSION: No interval change and no mammographic signs of malignancy. Routine yearly mammograms recommended. ASSESSMENT CATEGORY: BIRADS Category 2: Benign. A letter regarding these results will be sent to the patient by the facility within 30 days. FOLLOW UP RECOMMENDATION: Yearly follow up mammogram recommended. (A) Approximately 10% of breast cancers are not detected by mammography. A normal mammogram should not delay biopsy of a clinically suspicious abnormality. Electronically Signed: Aryan Ordonez MD at 10:26 EDT ,
== END | disposition home or self-care (01) ==
LOC: OPBI 13:55
PROVIDERS: PCP Family Medicine; Visit Provider Family Medicine
DX: Z12.31 Encounter for screening mammogram for malignant neoplasm of breast (principal); Z80.3 Family history of malignant neoplasm of breast
CPT/HCPCS: 77063; 77067

== ENCOUNTER → 2022-06-01 | Outpatient (CLI) | payer MEDICARE, OTHER, SELFPAY ==
[2022-06-01 13:24] LABS: AST(SGOT) 21 U/L (15-37); Alanine Aminotransfer ALT/SGPT 31 U/L (13-56); Albumin, Serum 3.7 g/dL (3.2-5.0); Alkaline Phosphatase 42 U/L (45-117); Anion Gap 7 (5-15); BUN 23 mg/dL (7-18); BUN/Creat Ratio 17.6 RATIO (10-20); Bilirubin, Direct 0.12 mg/dL (0.00-0.30); Calcium,Total 9.5 mg/dL (8.5-10.1); Chloride 104 mmol/L (98-107); Cholesterol 157 mg/dL (200); Creatinine, Serum 1.31 mg/dL (0.55-1.02); EST Glomerular Filtration Rate 42 mL/min (>60); Est Glom Filt Rate - Afr Amer 51 mL/min (>60); Globulin 3.3 g/dL (2.2-4.2); Glucose 113 mg/dL (74-106); High Density Lipoprotein 52 mg/dL; Sodium Level 140 mmol/L (136-145); Triglycerides 166 mg/dL; Very Low Density Lipoprotein 33 mg/dL (5-40)
== END | disposition home or self-care (01) ==
LOC: LAB 12:05
PROVIDERS: PCP Family Medicine; Visit Provider Internal Medicine Cardiovascular Disease
DX: I25.10 Atherosclerotic heart disease of native coronary artery without angina pectoris (principal); I12.9 Hypertensive chronic kidney disease with stage 1 through stage 4 chronic kidney disease, or unspecified chronic kidney disease; E78.5 Hyperlipidemia, unspecified; E66.9 Obesity, unspecified; N18.9 Chronic kidney disease, unspecified
CPT/HCPCS: 36415; 80048; 80061; 80076

== ENCOUNTER → 2022-07-05 | Outpatient (CLI) | payer MEDICARE, OTHER, SELFPAY ==
[2022-07-05 18:08] LABS: BNP,B-Type NATRIURETIC PEPTIDE 28.7 pg/mL (0-100)
[2022-07-05 18:15] LABS: Anion Gap 6 (5-15); BUN 15 mg/dL (7-18); BUN/Creat Ratio 11.6 RATIO (10-20); Calcium,Total 9.6 mg/dL (8.5-10.1); Chloride 108 mmol/L (98-107); Creatinine, Serum 1.29 mg/dL (0.55-1.02); EST Glomerular Filtration Rate 43 mL/min (>60); Est Glom Filt Rate - Afr Amer 52 mL/min (>60); Glucose 116 mg/dL (74-106); Sodium Level 141 mmol/L (136-145)
== END | disposition home or self-care (01) ==
PROVIDERS: PCP Family Medicine; Referring Provider Nurse Practitioner Family; Visit Provider Nurse Practitioner Family
DX: N18.9 Chronic kidney disease, unspecified (principal); I12.9 Hypertensive chronic kidney disease with stage 1 through stage 4 chronic kidney disease, or unspecified chronic kidney disease; E78.5 Hyperlipidemia, unspecified; R60.9 Edema, unspecified; R25.2 Cramp and spasm
CPT/HCPCS: 36415; 80048; 83735; 83880

== ENCOUNTER → 2022-12-01 | Outpatient (CLI) | payer MEDICARE, OTHER, SELFPAY ==
[2022-12-01 13:08] LABS: AST(SGOT) 22 U/L (15-37); Alanine Aminotransfer ALT/SGPT 27 U/L (13-56); Albumin, Serum 4.2 g/dL (3.2-5.0); Alkaline Phosphatase 42 U/L (45-117); Bilirubin, Direct 0.11 mg/dL (0.00-0.30); Cholesterol 211 mg/dL (200); Globulin 3.3 g/dL (2.2-4.2); High Density Lipoprotein 52 mg/dL; Protein, Total 7.5 g/dL (6.4-8.2); Triglycerides 162 mg/dL; Very Low Density Lipoprotein 32 mg/dL (5-40)
== END | disposition home or self-care (01) ==
PROVIDERS: PCP Family Medicine; Referring Provider Internal Medicine Cardiovascular Disease; Visit Provider Internal Medicine Cardiovascular Disease
DX: E78.00 Pure hypercholesterolemia, unspecified (principal)
CPT/HCPCS: 36415; 80061; 80076

== ENCOUNTER → 2023-02-09 | Outpatient (CLI) | payer MEDICARE, OTHER, SELFPAY ==
[2023-02-09 15:24] LABS: AST(SGOT) 23 U/L (15-37); Alanine Aminotransfer ALT/SGPT 25 U/L (13-56); Albumin, Serum 3.9 g/dL (3.2-5.0); Alkaline Phosphatase 48 U/L (45-117); Anion Gap 6 (5-15); BUN 28 mg/dL (7-18); BUN/Creat Ratio 18.9 RATIO (10-20); Bilirubin, Direct 0.11 mg/dL (0.00-0.30); Chloride 107 mmol/L (98-107); Cholesterol 211 mg/dL (200); Creatinine, Serum 1.48 mg/dL (0.55-1.02); EST Glomerular Filtration Rate 37 mL/min (>60); Est Glom Filt Rate - Afr Amer 44 mL/min (>60); Globulin 3.6 g/dL (2.2-4.2); Glucose 111 mg/dL (74-106); High Density Lipoprotein 63 mg/dL; Potassium 4.3 mmol/L (3.5-5.1); Protein, Total 7.5 g/dL (6.4-8.2); Sodium Level 138 mmol/L (136-145); Triglycerides 170 mg/dL; Very Low Density Lipoprotein 34 mg/dL (5-40)
== END | disposition home or self-care (01) ==
LOC: MTLAB 11:52
PROVIDERS: PCP Family Medicine; Referring Provider Internal Medicine Cardiovascular Disease; Visit Provider Internal Medicine Cardiovascular Disease
DX: E78.5 Hyperlipidemia, unspecified (principal); R25.2 Cramp and spasm; R60.9 Edema, unspecified; N18.9 Chronic kidney disease, unspecified
CPT/HCPCS: 36415; 80048; 80061; 80076

== ENCOUNTER → 2023-04-18 | Outpatient (CLI) | payer MEDICARE, OTHER, SELFPAY ==
--- NOTE | 2023-04-18 12:33 | BI_ITS ---
MAMMOGRAPHY - BILATERAL SCREENING REASON FOR EXAM: Female, 73 years old. Routine annual screening examination. PERTINENT HISTORY: Grandmother with breast cancer. Prior right stereotactic breast biopsy. TECHNIQUE: Digital bilateral breast conner (3D mammographic acquisition) in the CC and MLO projections. 2-D mediolateral oblique (MLO) and craniocaudad (CC) views of both breasts were obtained. CAD: Full Field Digital Mammography with Computer Added Detection was performed. COMPARISON: Comparison is made with prior study dated April 17, 2022 and March 14, 2021. FINDINGS: Breast Composition: There are scattered areas of fibroglandular density. There are no dominant masses or suspicious calcifications. Asymmetry of breast tissue where more breast tissue is seen in the deep upper outer aspect of the left breast as compared to the right side. A tissue clip marker is once again seen in the central retroareolar region of the right breast. No other significant abnormalities are identified. There has been no significant change since the prior study. BI/SCRN MAMM (CAD)W/CONNER BILAT IMPRESSION: Stable bilateral screening mammogram. Yearly follow-up mammogram recommended. (A) ASSESSMENT CATEGORY: BIRADS Category 2: Benign. A letter regarding these results will be sent to the patient by the facility within 30 days. Approximately 10% of breast cancers are not detected by mammography. A normal mammogram should not delay biopsy of a clinically suspicious abnormality. [id number] Electronically Signed: Prosper Rao MD at 14:06 EDT ,
== END | disposition home or self-care (01) ==
LOC: OPBI 12:32
PROVIDERS: PCP Family Medicine; Referring Provider Family Medicine; Visit Provider Family Medicine
DX: Z12.31 Encounter for screening mammogram for malignant neoplasm of breast (principal); Z80.3 Family history of malignant neoplasm of breast
CPT/HCPCS: 77063; 77067

== ENCOUNTER 2023-04-19 21:27 | Emergency (ER) | payer MEDICARE, OTHER, SELFPAY ==
[2023-04-19 21:29] VITALS: BP 133/70; PULSE 88; RESP 18; TEMP 36.4; O2SAT 99
--- NOTE | 2023-04-19 21:44 | CT_ITS ---
STUDY: CT ABDOMEN AND PELVIS WITHOUT CONTRAST REASON FOR EXAM: Female, 73 years old. pain RADIATION DOSAGE (If Supplied By Facility): CTDIvol = ( 10.42 ) mGy, DLP = ( 487.00 ) mGycm TECHNIQUE: Transaxial images were obtained from the dome of the diaphragm to the symphysis pubis without oral contrast, and without intravenous contrast. Sagittal and coronal images were reconstructed. Individualized dose optimization techniques were used for this CT. COMPARISON: 04/10/2022 FINDINGS: The visualized lung bases are unremarkable. The visualized portions of the heart are within normal limits. There is decreased attenuation of the liver consistent with steatosis. There is a solitary gallstone. Normal spleen. Normal pancreas. Normal bilateral adrenal glands. Normal right kidney. Normal left kidney. Normal visualized stomach. Normal small intestine. Normal colon. There is non-visualization of the appendix. Normal abdominal aorta. Normal inferior vena cava. Normal retroperitoneum. Normal urinary bladder. Normal abdominal wall. 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 5 mm of anterolisthesis of L5 on S1 consistent with grade 1 spondylolisthesis. Mild levoscoliosis lumbar spine with degenerative disc disease. CT/Abdomen/Pelvis without Cont IMPRESSION: 1. No acute abnormality. 2. Fatty infiltration of liver. 3. Cholelithiasis. Electronically Signed: Dmitry Johnson MD at 22:59 EDT ,
[2023-04-19 21:55] VITALS: BMI 33.3
[2023-04-19] MEDS: Dicyclomine 20 MG/2 ML Vial IM (21:57)
[2023-04-19] MEDS: Ondansetron 4 MG/2 ML Vial IV (22:04)
[2023-04-19] MEDS: 0.9% Normal Saline 1,000 ML 1000 ML IV (22:05)
[2023-04-19 22:12] LABS: Absolute Lymphocyte Count 1.94 X10^3/uL (0.83-4.51); Absolute Neutrophil Count 9.7 X10^3/uL (2.0-7.7); Basophil# 0.07 X10^3/uL; Basophil% 0.5 % (0-1); Eosinophil# 0.11 X10^3/uL; Eosinophils% 0.8 % (0-5); Hematocrit 40.9 % (37-47); Hemoglobin 13.4 g/dL (12.0-15.0); Lymphocyte # 1.94 X10^3/ul (0.83-4.51); Mean Corp Hgb Conc 32.8 g/dL (32-36); Mean Corpuscular Hgb 27.7 pg (27.0-32.0); Mean Corpuscular Volume 84.5 fL (81-99); Mean Platelet Vol. 9.8 fl (6.2-12.0); Monocyte# 1.09 X10^3/uL; Monocyte% 8.4 % (0-10); NRBC Flagged by Analyzer 0 % (0-5); Neutrophil % 74.9 % (47-70); Platelet Count 261 K/mm3 (150-450); RBC Distribution Width CV 14.1 % (11.6-14.6); RBC Distribution Width SD 43.3 fl (35.1-43.9); Red Blood Count 4.84 M/mm3 (4.2-5.4)
--- NOTE | 2023-04-19 22:48 | EX.ED.DYSGE1 ---
HPI History of Present Illness Chief Complaint: Nausea/Vomiting Informant: patient Onset/Context/Timing Onset: Today Narrative Narrative: Patient presents with recurrent abdominal spasms and vomiting. She states she will get these spells intermittently. She had 1 episode last evening that felt like a band being cinched around her abdomen associated with vomiting and a bowel movement. Symptoms then subsided. Tonight about an hour after eating dinner she developed similar pain in her abdomen with nausea and vomiting. She has not had diarrhea or bowel movement tonight with this episode. She states that she is able to watch her abdomen spasming and moving during these episodes. She has a history of reflux and is on pantoprazole. She has seen Dr. Delacruz in the past, but states its been about a year since she has seen him and he has not seen her for this particular complaint. [facility] Medical History Anxiety Arthritis Back pain Bladder disease Cardiology follow-up encounter Coronary artery calcification seen on CAT scan Dietary restriction Duodenal ulcer Emphysema of lung Essential (primary) hypertension Fatty liver Gastric reflux GERD (gastroesophageal reflux disease) History of deep venous thrombosis (1999) History of diverticulitis History of hiatal hernia History of renal disease Hyperlipidemia Hypothyroidism Injury of head and neck Leg cramps Lightheadedness Migraine headache Nausea Near syncope Neck pain Nodule of upper lobe of left lung Obesity Restless legs Type 2 diabetes mellitus Vapes nicotine containing substance Wears dentures Home Medications hydrochlorothiazide 25 mg tablet 25 mg PO DAILY 08/15/17 [History Last Taken Unknown] hydroxyzine HCl 25 mg tablet 25 mg PO QHS 01/27/20 [History Last Taken Unknown] liothyronine 5 mcg tablet 5 mcg PO DAILY 01/27/20 [History Last Taken Unknown] melatonin 3 mg tablet 3 mg PO HS PRN Sleep 05/28/20 [History Last Taken Unknown] meloxicam 15 mg tablet 15 mg PO DAILY 05/28/20 [History Last Taken Unknown] potassium chloride 10 mEq tablet,extended release(part/cryst) 10 meq PO BID 05/28/20 [History Last Taken Unknown] Saccharomyces boulardii 250 mg capsule (Daily Probiotic (S. boulardii)) 250 mg PO DAILY 06/02/21 [History Last Taken Unknown] biotin 5,000 mcg disintegrating tablet 5,000 mcg PO BID 06/02/21 [History Last Taken Unknown] calcium citrate 250 mg calcium-vitamin D3 5 mcg (200 unit) tablet 1 tab PO PRN PRN Skin Cleansing 06/02/21 [History Last Taken Unknown] levothyroxine 75 mcg tablet 75 mcg PO SUMOTUWETHFR 06/02/21 [History Last Taken 11/28/21 0830] mecobalamin (vitamin B12) 1,000 mcg chewable tablet 1,000 mcg PO DAILY 06/02/21 [History Last Taken Unknown] betamethasone dipropionate 0.05 % topical ointment 1 applic topical BID #15 grams 11/28/21 [Rx Last Taken Unknown] enalapril maleate 20 mg tablet 20 mg PO BID 06/01/22 [History Last Taken Unknown] fluocinonide 0.05 % topical solution 1 applic topical DAILY 06/01/22 [History Last Taken Unknown] hyoscyamine sulfate 0.125 mg tablet 0.125 mg PO BID-QID PRN dyspepsia 06/01/22 [History Last Taken Unknown] pravastatin 20 mg tablet 20 mg PO QHS 06/01/22 [History Last Taken Unknown] amlodipine 10 mg tablet 10 mg PO DAILY #90 tabs 01/24/23 [Rx Last Taken Unknown] dicyclomine 20 mg tablet 20 mg PO TID PRN abdominal pain #14 tabs 04/19/23 [Rx Last Taken Unknown] metoclopramide HCl 10 mg tablet (Reglan) 10 mg PO Q8H PRN PRN nausea and vomiting #20 tabs 04/19/23 [Rx Last Taken Unknown] Allergy/AdvReac Type Severity Reaction Status Date / Time Influenza Virus Vaccines Allergy Severe Swelling Verified 04/19/23 21:31 pneumococcal vaccine Allergy Severe Swelling Verified 04/19/23 21:31 Tetanus Vaccines and Toxoid Allergy Severe Swelling Verified 04/19/23 21:31 bupropion [From Wellbutrin] Allergy Hives Verified 04/19/23 21:31 Family History Mother Lung cancer Thyroid disorder Sister Heart disease Diabetes Sister Heart disease Diabetes Myocardial infarction Lung disease Father Myocardial infarction, Onset Age: 46 Brother Aortic aneurysm Grandmother Cancer melanoma Grandmother Breast cancer Surgical History H/O construction of artificial vagina H/O oophorectomy History of appendectomy History of bunionectomy History of lumbar surgery History of rotator cuff surgery History of tonsillectomy and adenoidectomy reconstruction of rectum Social History Smoking Status: Current some day smoker tobacco type: cigarettes and smokeless tobacco Tobacco: How many years used: 50 Electronic Cigarette Use: with nicotine how long ago did patient quit smokin years second hand exposure: Yes quit status: has quit before counseling given: provider counseling alcohol intake: never ROS ROS ED Constitutional Constitutional ED: Denies chills or fever(s) Eyes Eyes: Denies change in vision or discharge from eye(s) ENT ENT ED: Denies discharge from eye(s), rhinorrhea or sore throat Cardiovascular Cardiovascular: Denies chest pain or palpitations Respiratory/Chest Respiratory/Chest: Denies cough or dyspnea Gastrointestinal Gastrointestinal: Reports abdominal pain, nausea and vomiting; Denies diarrhea Genitourinary Genitourinary ED: Denies dysuria Musculoskeletal Musculoskeletal: Denies back pain or extremity pain Integumentary Denies Abrasions or rash Neurologic Neurologic: Denies headache(s) or weakness Psychiatric Psychiatric: Denies anxiety or depression Allergic/Immunologic Allergic/Immunologic ED: Denies lip swelling or urticaria EXAM Physical Exam Const Vital Signs: 04/19/23 21:29 Temperature 97.6 F L Temperature Source Temporal Pulse Rate 88 Respiratory Rate 18 Blood Pressure 133/70 H Blood Pressure Mean 91 Pulse Ox 99 Oxygen Delivery Method Room Air Positive well nourished and well developed General Appearance ED: well developed HEENT Reports normocephalic and head/scalp atraumatic Eyes PERRL and EOMs intact bilaterally Neck supple Chest Wall inspection of chest normal and palpation of chest normal Resp normal respiratory effort and clear to auscultation bilaterally Cardio regular rate and regular rhythm GI GI Narrative: Abdomen soft with mild to moderate upper abdominal tenderness. No guarding or rebound. Hypoactive bowel sounds are noted. No palpable hernias. Palpation: soft Extremity normal to inspection Neuro oriented x3 and no sensory deficits noted Sensorium / Orientation: alert Motor Exam: strength 5/5 throughout Psych mental status grossly normal Skin no rashes or lesions noted MDM MDM MDM Narrative Medical decision making narrative: Patient given IV fluids, Zofran, and Bentyl. Labwork obtained to evaluate for leukocytosis, anemia, and electrolyte derangement. CT scan of the abdomen pelvis obtained to evaluate for any bowel wall thickening or other acute abnormality. Lab Data Labs: Laboratory Results - last 24 hr 04/19/23 22:05 WBC 13.0 H RBC 4.84 Hgb 13.4 Hct 40.9 MCV 84.5 MCH 27.7 MCHC 32.8 RDW Std Deviation 43.3 RDW Coeff of Ita 14.1 Plt Count 261 MPV 9.8 Immature Gran % (Auto) 0.400 Neut % (Auto) 74.9 H Lymph % (Auto) 15.0 L [place] % (Auto) 8.4 Eos % (Auto) 0.8 Baso % (Auto) 0.5 Absolute Neuts (auto) 9.7 H Absolute Lymphs (auto) 1.94 Nucleated RBC % 0 Sodium 136 Potassium 3.4 L Chloride 104 Carbon Dioxide 23.0 Anion Gap 9 BUN 31 H Creatinine 1.60 H Estim Creat Clear Calc 21.82 Est GFR (MDRD) Af Amer 40 L Est GFR (MDRD) Non-Af 33 L BUN/Creatinine Ratio 19.4 Glucose 151 H Calcium 9.7 Total Bilirubin 0.40 Direct Bilirubin 0.09 AST 26 ALT 29 Alkaline Phosphatase 51 Total Protein 7.8 Albumin 4.2 Globulin 3.6 Lipase 18 Radiography Diagnostic Testing: Clinical Impression(s) from Imaging Studies Abdomen/Pelvis CT 04/19/23 21:44 IMPRESSION: 1. No acute abnormality. 2. Fatty infiltration of liver. 3. Cholelithiasis. Electronically Signed: Dmitry Johnson MD at 22:59 EDT , Treatment and Re-Evaluation :: CBC was a white count elevated at 13.0 with 74% neutrophils. This is likely a reactant from her vomiting. Chemistry studies are largely unremarkable. Potassium is 3.4. BUN is 31 and creatinine is 1.6. Glucose is 151. LFTs and lipase are normal. CT scan of the abdomen pelvis obtained and reveals no acute abnormality. Cholelithiasis is noted. No gallbladder wall thickening or pericholecystic fluid noted. On repeat evaluation patient is resting comfortably. She still has some soreness in her abdomen from the heaving. I do not believe she has acute cholecystitis based on her exam and clinical findings. I did note on her CT scan the patient has fluid still remaining in her stomach approximately two thirds full. She states she vomited quite a bit. She does comment that she has problems emptying her stomach. We will try her on some Reglan to help control nausea and see if this helps with motility and I also give her prescription for Bentyl. Return instructions given. Discharge Plan Triage Chief Complaint: Nausea/Vomiting ED Provider: Mona Dunne Dx/Rx/DC Orders Clinical Impression: Abdominal pain, Vomiting Instructions: ED Abdominal Pain Unkn Cause Fem, ED Vomiting (Adult) Prescriptions: New metoclopramide HCl [Reglan] 10 mg tablet 10 mg PO Q8H PRN PRN (Reason: nausea and vomiting) Qty: 20 0RF dicyclomine 20 mg tablet 20 mg PO TID PRN (Reason: abdominal pain) Qty: 14 0RF No Action liothyronine 5 mcg tablet 5 mcg PO DAILY hydroxyzine HCl 25 mg tablet 25 mg PO QHS meloxicam 15 mg tablet 15 mg PO DAILY potassium chloride 10 mEq tablet,ER particles/crystals 10 meq PO BID Patient Comments: TAKE 1 TABLET BY MOUTH TWICE DAILY WITH FOOD melatonin 3 mg tablet 3 mg PO HS PRN (Reason: Sleep) levothyroxine 75 mcg tablet 75 mcg PO SUMOTUWETHFR Rx Instructions: Take 1 tablet daily except Sundays take no pills tablet mecobalamin (vitamin B12) 1,000 mcg tablet,chewable 1,000 mcg PO DAILY calcium citrate-vitamin D3 250 mg-5 mcg (200 unit) tablet 1 tab PO PRN PRN (Reason: Skin Cleansing) Saccharomyces boulardii [Daily Probiotic (S. boulardii)] 250 mg capsule 250 mg PO DAILY biotin 5,000 mcg tablet,disintegrating 5,000 mcg PO BID enalapril maleate 20 mg tablet 20 mg PO BID hyoscyamine sulfate 0.125 mg tablet 0.125 mg PO BID-QID PRN (Reason: dyspepsia) pravastatin 20 mg tablet 20 mg PO QHS Hold Instructions: muscle cramps 06/2022 fluocinonide 0.05 % solution 1 applic topical DAILY hydrochlorothiazide 25 MG tablet 25 mg PO DAILY betamethasone dipropionate 0.05 % ointment 1 applic topical BID Qty: 15 1RF amlodipine 10 mg tablet 10 mg PO DAILY Qty: 90 3RF Primary Care Provider: Jaclyn Webster Referrals: Jaclyn Webster DO [Primary Care Provider] - 1-2 Weeks Disposition Disposition: Home, Self Care
[2023-04-19 22:49] LABS: AST(SGOT) 26 U/L (15-37); Alanine Aminotransfer ALT/SGPT 29 U/L (13-56); Albumin, Serum 4.2 g/dL (3.2-5.0); Alkaline Phosphatase 51 U/L (45-117); Anion Gap 9 (5-15); BUN 31 mg/dL (7-18); BUN/Creat Ratio 19.4 RATIO (10-20); Bilirubin, Direct 0.09 mg/dL (0.00-0.30); Calcium,Total 9.7 mg/dL (8.5-10.1); Chloride 104 mmol/L (98-107); EST Glomerular Filtration Rate 33 mL/min (>60); Est Glom Filt Rate - Afr Amer 40 mL/min (>60); Estimated Creatinine Clearance 21.82 ml/min; Globulin 3.6 g/dL (2.2-4.2); Glucose 151 mg/dL (74-106); Lipase 18 U/L (13-75); Potassium 3.4 mmol/L (3.5-5.1); Protein, Total 7.8 g/dL (6.4-8.2); Sodium Level 136 mmol/L (136-145)
[2023-04-19 23:25] VITALS: PULSE 70; RESP 15; O2SAT 99
== END 2023-04-19 23:37 | disposition home or self-care (01) ==
PROVIDERS: Emergency Provider Emergency Medicine; PCP Family Medicine; Visit Provider Emergency Medicine
DX: R10.9 Unspecified abdominal pain (principal); J43.9 Emphysema, unspecified; E11.9 Type 2 diabetes mellitus without complications; R11.2 Nausea with vomiting, unspecified; I25.10 Atherosclerotic heart disease of native coronary artery without angina pectoris; I10 Essential (primary) hypertension; E78.5 Hyperlipidemia, unspecified; E03.9 Hypothyroidism, unspecified; F17.210 Nicotine dependence, cigarettes, uncomplicated; F17.220 Nicotine dependence, chewing tobacco, uncomplicated; Z79.890 Hormone replacement therapy; Z79.899 Other long term (current) drug therapy
CPT/HCPCS: 74176; 80048; 80076; 83690; 85025; 96361; 96372; 96374; 99282; J7030; A4216; J2405

== ENCOUNTER → 2023-05-08 | Outpatient (CLI) | payer MEDICARE, OTHER, SELFPAY ==
--- NOTE | 2023-05-08 09:55 | NM_ITS ---
CLINICAL: 73-year-old female with history of abdominal pain. RADIONUCLIDE HEPATOBILIARY SCINTIGRAPHY COMPARISON: CT of the abdomen-pelvis report 04/19/2023 FINDINGS: Following the intravenous administration of 5.6 mCi of 99m Tc Mebrofenin, hepatobiliary images reveal: 1. Relatively prompt and homogeneous radiopharmaceutical concentration is noted by a normal sized liver. No parenchymal defects are identified. 2. Gallbladder activity is identified at 30 minutes post radiopharmaceutical administration. 3. Small intestinal tract is observed at 45 minutes following tracer injection. 4. Washout of the radiopharmaceutical by the hepatic parenchyma appears qualitatively normal. Cholecystokinin (0.02 ug/kg) was administered intravenously over a 30-minute period. The post CCK gallbladder ejection fraction calculated at 20 minutes following Cholecystokinin administration was noted to be 17.0 % (normal greater than 35%). OH/Hepatobilliary Img w/Pharm Int IMPRESSION: 1. ABNORMAL 99m Tc Mebrofenin hepatobiliary imaging examination with Cholecystokinin. A. A gallbladder ejection fraction calculated to be less than 35% following the administration of Cholecystokinin is consistent with the presence of functional hepatobiliary disease (gallbladder and/or sphincter of Oddi dyskinesia) and/or organic hepatobiliary disease (chronic acalculous cholecystitis and/or cystic duct syndrome) in patients with intermediate to high pretest probabilities of hepatobiliary illness. (Yusef Cooper et al, Journal of Nuclear Medicine 32:1695, 1991). Electronically Signed: Dmitry Cook, at 23:47 EDT ,
== END | disposition home or self-care (01) ==
LOC: NM 09:54
PROVIDERS: PCP Family Medicine; Referring Provider Family Medicine; Visit Provider Family Medicine
DX: K80.80 Other cholelithiasis without obstruction (principal)
CPT/HCPCS: 78227; A9537; J2805

== ENCOUNTER 2023-05-22 05:55 | Day surgery (SDC) | payer MEDICARE, OTHER, SELFPAY ==
[2023-05-18 17:33] LABS: Hematocrit 40.3 % (37-47); Mean Corp Hgb Conc 32.3 g/dL (32-36); Mean Corpuscular Hgb 27.7 pg (27.0-32.0); Mean Corpuscular Volume 85.7 fL (81-99); Mean Platelet Vol. 9.7 fl (6.2-12.0); Platelet Count 261 K/mm3 (150-450); RBC Distribution Width CV 14.1 % (11.6-14.6); RBC Distribution Width SD 44.2 fl (35.1-43.9); White Blood Count 7.8 K/mm3 (4.4-11.0)
[2023-05-18 18:11] LABS: Hemoglobin A1c 5.9 % (3.8-5.6)
[2023-05-18 18:41] LABS: Anion Gap 8 (5-15); BUN 30 mg/dL (7-18); BUN/Creat Ratio 20.3 RATIO (10-20); Calcium,Total 9.6 mg/dL (8.5-10.1); Chloride 104 mmol/L (98-107); Creatinine, Serum 1.48 mg/dL (0.55-1.02); EST Glomerular Filtration Rate 37 mL/min (>60); Est Glom Filt Rate - Afr Amer 44 mL/min (>60); Estimated Creatinine Clearance 23.59 ml/min; Glucose 133 mg/dL (74-106); Potassium 4.2 mmol/L (3.5-5.1); Sodium Level 137 mmol/L (136-145); Thyroid Stim Hormone (TSH) 1.04 uIU/mL (0.358-3.74)
[2023-05-22] VITALS (14 sets, daily range): BP systolic 102–126; BP diastolic 45–55; PULSE 66–85; RESP 16–18; TEMP 36.6–36.8; O2SAT 88–100; BMI 31.6
--- NOTE | 2023-05-22 | GALL_PTH ---
PATIENT: NOHEMI SANDERS [place] [facility] [id number] AGE/SX: 73/F ROOM: RE05/22/[address]: Dr. Anh Hercules MD : [id number] BED: DIS: 05/22/2023 SPEC #: [id number] RECD: 05/22/23 11:51 STATUS: YOAN DAVE #: [id number] VICKEY: 05/22/23 00:[address]: Anh Hercules DEPT: SURGICAL PATHOLOGY RECD BY: Tj Deleon ENTERED: 05/22/23 11:51 SP TYPE: VIVIANA RO DR: MD Dr. Jaclyn Boss DO Tissues: Gallbladder, NOS Procedures: Surgery Specimen Level III HEADER OPERATION: Laparoscopic cholecystectomy with IOC PRE-OP DIAGNOSIS: Biliary dyskinesia TISSUE SUBMITTED: Gallbladder MICROSCOPIC DIAGNOSIS Gallbladder, cholecystectomy: Chronic cholecystitis. See comment. JOE:carlos 05/23/2023 COMMENT No stones are identified in the container or in the gallbladder. MICROSCOPIC DESCRIPTION Slides are reviewed. GROSS DESCRIPTION Received is one container labeled with the patient's name and designated gallbladder. The specimen consists of a gallbladder measuring 6.0 cm in length and up to 3.0 cm in diameter. The gallbladder is previously, partially opened. The external surface is pink-ortiz, smooth and glistening for the most part. Focally it is granular, hemorrhagic and contains cautery artifact. The gallbladder does not contain any bile. No stones are identified in the container or in the gallbladder. The mucosa is bile-stained and without any mass lesions. The gallbladder wall measures up to 1.0 cm in thickness. Increased amount of subserosal fat is also noted. Machinist Apprentice sections from the gallbladder and the cystic duct are submitted in one cassette. / SJ:rg 05/22/2023 TC:3 CPT: 96290
--- NOTE | 2023-05-22 06:30 | RAD_ITS ---
STUDY: INTRAOPERATIVE CHOLANGIOGRAM. REASON FOR EXAM: Female, 73 years old. LAP DAVI IN OR FLUOROSCOPY TIME (if supplied): ( 7.5 seconds ) minutes/seconds. 2.67 mGy TECHNIQUE: An intraoperative cholangiogram was performed by the surgeon. Imaging was provided. COMPARISON: None. FINDINGS: The intra and extrahepatic biliary ducts are unremarkable. No intraluminal filling defect is seen. Free flow of contrast into the duodenum is seen. RAD/Cholangiogram/ O R,Initial IMPRESSION: Unremarkable intraoperative cholangiogram. Electronically Signed: Prosper Rao MD at 13:32 EDT ,
--- NOTE | 2023-05-22 06:43 | EKG12_ITS ---
Test Reason : PREOP Blood Pressure : / mmHG Vent. Rate : 067 BPM Atrial Rate : 067 BPM P-R Int : 216 ms QRS Dur : 086 ms QT Int : 462 ms P-R-T Axes : 005 009 023 degrees QTc Int : 488 ms Sinus rhythm with 1st degree A-V block Otherwise normal ECG No previous ECGs available Confirmed by ESTEFANIA DILLARD, KAYE ([id number]), website/blog editor RUFINO URIAS ([id number]) on 06/25/2023 12:15:00 PM Referred By: Anh Hercules Confirmed By:MASSIMO MAC MD
[2023-05-22] MEDS: Lactated Ringers 1,000 ML 15 ML IV (06:50)
--- NOTE | 2023-05-22 07:09 | PCM.HP.BLA ---
History and Physical Date of Admission: 05/22/23 Date of Service: 05/15/23 MR#: [id number] Acct: [id number] Name: NOHEMI SANDERS Rep #: [id number] : 1950 Provider: Dr. Anh Hercules MD Age/Sex: 73/F Location: [facility] Status: Signed Intake Vital Signs 04/19/2321:29 05/15/2315:03 Height 5 ft 5 ft Weight: 165 lb BMI 32.2 BP 114/68 Blood Pressure Location Rt brachial Position Sitting Respiration 16 Intake Visit Reasons: GALLBLADDER Chief Complaint: gallbladder [place] Required: No Is patient in pain?: No Allergies Influenza Virus Vaccines Allergy (Severe, Verified 05/15/23 15:03) Swellingpneumococcal vaccine Allergy (Severe, Verified 05/15/23 15:03) SwellingTetanus Vaccines and Toxoid Allergy (Severe, Verified 05/15/23 15:03) Swellingbupropion [From Wellbutrin] Allergy (Verified 05/15/23 15:03) Hives Medications hydrochlorothiazide 25 mg tablet 25 mg PO DAILY 08/15/17 [History Confirmed 05/15/23] liothyronine 5 mcg tablet 5 mcg PO DAILY 01/27/20 [History Confirmed 05/15/23] melatonin 3 mg tablet 3 mg PO HS PRN Sleep 05/28/20 [History Confirmed 05/15/23] meloxicam 15 mg tablet 15 mg PO DAILY 05/28/20 [History Confirmed 05/15/23] potassium chloride 10 mEq tablet,extended release(part/cryst) 10 meq PO BID 05/28/20 [History Confirmed 05/15/23] levothyroxine 75 mcg tablet 75 mcg PO SUMOTUWETHFR 06/02/21 [History Confirmed 05/15/23] mecobalamin (vitamin B12) 1,000 mcg chewable tablet 1,000 mcg PO DAILY 06/02/21 [History Confirmed 06/01/22] betamethasone dipropionate 0.05 % topical ointment 1 applic topical BID #15 grams 11/28/21 [Rx Confirmed 05/15/23] enalapril maleate 20 mg tablet 20 mg PO BID 06/01/22 [History Confirmed 05/15/23] metoclopramide HCl 10 mg tablet (Reglan) 10 mg PO Q8H PRN PRN nausea and vomiting #20 tabs 04/19/23 [Rx] conjugated estrogens 0.625 mg tablet (Premarin) 0.625 mg PO DAILY 05/15/23 [History Confirmed 05/15/23] dicyclomine 20 mg tablet 5 mg PO ONCE PRN abdominal pain 05/15/23 [History] dulaglutide 0.75 mg/0.5 mL subcutaneous pen injector (Trulicity) 0.75 mg subcut 05/15/23 [History Confirmed 05/15/23] dulaglutide 1.5 mg/0.5 mL subcutaneous pen injector (Trulicity) 1.5 mg subcut 05/15/23 [History Confirmed 05/15/23] glipizide 2.5 mg tablet, extended release 24 hr 2.5 mg PO 05/15/23 [History Confirmed 05/15/23] hydroxyzine HCl 25 mg tablet 50 mg PO QHS 05/15/23 [History Confirmed 05/15/23] pantoprazole 40 mg tablet,delayed release mg PO BID 05/15/23 [History Confirmed 05/15/23] PFSH Medical History Anxiety Arthritis Back pain Bladder disease Cardiology follow-up encounter Coronary artery calcification seen on CAT scan Dietary restriction Duodenal ulcer Emphysema of lung Essential (primary) hypertension Fatty liver Gastric reflux GERD (gastroesophageal reflux disease) History of deep venous thrombosis (1999) History of diverticulitis History of hiatal hernia History of renal disease Hyperlipidemia Hypothyroidism Injury of head and neck Leg cramps Lightheadedness Migraine headache Nausea Near syncope Neck pain Nodule of upper lobe of left lung Obesity Restless legs Type 2 diabetes mellitus Vapes nicotine containing substance Wears dentures Surgical History H/O construction of artificial vagina H/O oophorectomy History of appendectomy History of bunionectomy History of lumbar surgery History of rotator cuff surgery History of tonsillectomy and adenoidectomy reconstruction of rectum Family History Mother Lung cancer Thyroid disorderSister Heart disease DiabetesSister Heart disease Diabetes Myocardial infarction Lung diseaseFather Myocardial infarction, Onset Age: 46Brother Aortic aneurysmGrandmother Cancer melanomaGrandmother Breast cancer Social History Smoking Status: Current some day smoker tobacco type: cigarettes and smokeless tobacco Tobacco: How many years used: 50 Electronic Cigarette Use: with nicotine how long ago did patient quit smokin years second hand exposure: Yes quit status: has quit before counseling given: provider counseling alcohol intake: never HPI HPI HPI: 73-year-old female presents due to right upper quadrant pain and discomfort. Patient had a HIDA scan which showed bili dyskinesia with an ejection fraction of 17% previously had an ultrasound showed no gallstones. Patient states that she has had nausea as well as vomiting, happen after eating patient thought one of the episodes was 2 to 3 hours after eating some pizza. However patient also states that she had fried chicken yesterday with no issues and she typically has a salad with ranch almost daily. With no issues. Patient described as a burning sensation in the right upper quadrant. Pt states she did have increased nausea during the HIDA scan as well as some discomfort in the right upper quadrant. ROS General General: Yes weight change and fatigue; No appetite, colon cancer, breast cancer or weakness HEENT HEENT: Yes eye injury and eye surgery; No difficulty swallowing, swollen glands or hoarseness Endo Endocrine: Yes thyroid disease and diabetes mellitus; No thyroid cancer, Hair loss, heat intolerance or cold intolerance Skin Skin: No rash or changing moles Breast Breast: No left breast lump, right breast lump, nipple discharge, breast pain, abnormal mammogram, abnormal US or breast enlargement Musc Musculoskeletal: Yes back problems and arthritis; No rheumatoid arthritis, gout or joint pain Cardio Cardiovascular: Yes high blood pressure; No murmur, pacemaker, heart disease, atrial fibrillation, heart attack, heart stent, palpitations, shortness of breat with exertion or chest pain Psych Psychiatric: Yes anxiety; No depression or hearing voices Resp Respiratory: No shortness of breath, No sleep apnea, No cough, No COPD, No asthma, No emphysema and No wheezing Gastro Gastrointestinal: Yes abdominal pain, Yes nausea or vomiting, Yes diarrhea, Yes constipation, No blood in stool, Yes acid reflux, No hemorrhoids, Yes ulcers, Yes gallbladder problem and No black,tarry stools Fercho Hematologic: No blood thinners, No blood disorders, No bleeding, No anemia and No blood clots Neuro Neurologic: No system reviewed and no additional complaints, except as documented, No as per HPI, No abnormal gait, No abnormal hearing, No abnormal movements, No abnormal speech, No behavioral changes, No burning sensations, No confusion, No convulsions, No disequilibrium, No dizziness, No localized weakness, No frequent falls, No headache(s), No lack of coordination, No loss of vision, No memory loss, Yes numbness, No other visual disturbances, No radicular pain, No restless legs, No sensory deficit, No syncope, Yes tingling, No tremor(s), No weakness and No other Exam Const General: cooperative, healthy appearing and no acute distress Nutritional Appearance: well nourished [facility] Head: normal to inspection Resp Effort & Inspection: normal respiratory effort Auscultation: clear to auscultation bilaterally Cardio Rate: regular rate Rhythm: regular rhythm GI Inspection: non-distended Palpation: soft, no guarding, no hernias and nontender Skin General: no rashes or lesions noted Neuro General: patient alert, patient awake and patient oriented x3 Extrem General: no clubbing, cyanosis or edema Psych Affect: normal affect Assessment and Plan Assessment and Plan (1) Biliary dyskinesia: Status: Acute (2) GERD (gastroesophageal reflux disease): Status: Acute (3) Duodenal ulcer: Status: Acute Plan This discussed with patient that her symptoms are not completely typical as she states she is able to eat fried chicken and ranch dressing without any issues. However patient did state that she had pain and nausea similar to her episodes with the HIDA scan. Did discuss with patient that there could be a chance that all of her symptoms are not completely resolved with a cholecystectomy. Patient has been on pantoprazole twice daily since her previous EGD Reviewed the anatomy with the patient and discussed the procedure: laparoscopic cholecystectomy with cholangiograms, possible open. Review risks including but not limited to bleeding, infection, hernia, bile leak, retained gallstones requiring another procedure ERCP- Endoscopic Retrograde Cholangiopancreatography, injury to another organ (bile ducts, common bile duct, small bowel, etc.) and conversion to an open procedure. All questions were answered. Anh Hercules M.D. Pager: [phone] [facility] [address] [place] [address], [facility], [address] [place] [id number] Office: [phone] Coding Level of Care Code Off vis,new,level 3 Diagnoses Biliary dyskinesia K82.8 GERD (gastroesophageal reflux disease) K21.9 Duodenal ulcer K26.9 05/17/23 0818 <Electronically signed by Anh Hercules MD> Date Anh Hercules MD
[2023-05-22 07:19] LABS: Bedside Glucose 124 mg/dL (74-106)
[2023-05-22] MEDS: Cefazolin 2 GM in 0.9% Normal Saline 100 ML IV (07:29)
[2023-05-22] MEDS: Bupivacaine Mpf 0.5% 30 ML VIAL (08:24)
--- NOTE | 2023-05-22 08:28 | PCM.OPRPT ---
Report of Operation Date of Procedure: 05/22/23 Pre-Operative Diagnosis: Biliary dyskinesia Post-Operative Diagnosis: Same Surgery/Procedure Performed:: Laparoscopic cholecystectomy with cholangiograms Surgeon: Anh Hercules automatic grinder operator: Valentín Gorman Type of Anesthesia: General/Supplemental Anesthesiologist: Jovon Hatch Special Medications: Ancef 2 g IV x1 Specimen's removed: Gallbladder Estimated Blood Loss (mL): < 15 cc Fluids Replaced: per anesthesia Description of Procedure: Indications: this is a 73 year-old female who developed abdominal pain/nausea/vomiting and on workup was found to have no cholelithiasis, biliary dyskinesia with ejection fraction of 17%, with a normal common bile duct. Laparoscopic cholecystectomy was elected. Description procedure: The patient was placed on operating table in supine position. A timeout was completed verifying correct patient, procedure, site, position and special equipment prior to beginning procedure. General Anesthesia was induced. The abdomen was prepped and draped in usual sterile fashion. An incision was made in the natural skin line above the umbilicus. The fascia was elevated and incised. The peritoneum was elevated and incised. Entry into the peritoneum was confirmed visually and no bowel was noted in the vicinity of the incision. [place] trocar was placed. The abdomen was insufflated with carbon dioxide to a pressure of 12-15 mmHg. Patient tolerated insufflation well. The laparoscope was then inserted and abdomen inspected. No injuries from initial trocar placement were noted. Additional trochars were then inserted in the following locations 5 mm trocar in the epigastrium and 2 more 5 mm trochars along the right costal margin. The abdomen was inspected no abnormalities were found. The table is placed in reverse Trendelenburg position with the right side up. The dome of the gallbladder was grasped with atraumatic grasper passed through the lateral port and retracted over the dome of the liver. Infundibulum was then grasped with atraumatic grasper through the midclavicular port and retracted to the right lower quadrant. This maneuver exposed Calot's triangle. The peritoneum overlying the gallbladder infundibulum was then incised and cystic duct and artery identified and circumferentially dissected. Mary catheter was used for cholangiograms. The cholangiogram showed good filling of the common bile duct into the duodenum with no filling defects, good filling of the right and left bile ducts as well. The cystic duct and artery were then doubly clipped and divided close to the gallbladder. The gallbladder then dissected from its peritoneal attachments by electrocautery. Hemostasis was checked and the gallbladder and contained stones were removed using the endoscopic retrieval bag through the umbilical port. The gallbladder is passed off table as specimen. The gallbladder fossa was irrigated with saline and hemostasis obtained. There is no evidence of bleeding from the gallbladder fossa or cystic artery leakage of bile from the cystic duct stump. Secondary trochars removed under direct vision. No bleeding was noted the trocar sites. The laparoscope was withdrawn and umbilical trocar removed. The abdomen was allowed to collapse. The fascia of the 12 mm trocar was closed with a [id number] 0 Vicryl suture. The skin was closed with sutures of 4-0 Monocryl and Steri-Strips. The patient was extubated. The patient tolerated procedure well and was taken to the postanesthesia care unit in stable condition. Complications none
--- NOTE | 2023-05-22 08:31 | DCINST_ITS ---
Discharge Instructions Diet Discharge Diet: Light diet - advance as tolerated Activity Discharge Activity: May Not Drive (while taking narcotic pain medications.) May shower in (days): 1 Lifting Restrictions: no lifting >20 lbs x 2 wks, no strenuous exercise for 4 wks Dressing / Incision Call your doctor if your incision/area has: Continuous Slow Oozing, Sudden Increased Bleeding, Increased Pain/ Swelling, Increased Redness, Foul Smelling Discharge and Swelling at the incision site Call your doctor if you observe: Fever of 101 or Higher Remove Dressing in: 2 days Cleanse incision/area with: Soap & Water Additional Dressing/Incision Instructions:: Steri-Strips will fall off in 7 to 10 days, if they do not fall off okay to remove after 10 days. Follow Up Care Please Follow Up With: Anh Hercules MD When: Call the office for a follow-up appointment 2 weeks; after 5 PM and on the weekends call [phone] with any concerns. Test Results: Test results from this visit will be discussed in further detail at your follow- up appointment, if applicable. Discharge Plan Admission Attending Provider: Anh Hercules Primary Care Provider: Jaclyn Webster Consulting Providers: Jovon Hatch Discharge Orders/Prescriptions Prescriptions: New tramadol 50 mg tablet 50 - 100 mg PO Q6H PRN (Reason: pain) Qty: 10 0RF Continued hydroxyzine HCl 25 mg tablet 50 mg PO QHS meloxicam 15 mg tablet 15 mg PO DAILY potassium chloride 10 mEq tablet,ER particles/crystals 10 meq PO BID Patient Comments: TAKE 1 TABLET BY MOUTH TWICE DAILY WITH FOOD melatonin 3 mg tablet 3 mg PO HS PRN (Reason: Sleep) levothyroxine 75 mcg tablet 75 mcg PO MOTUWETHFR Rx Instructions: Take 1 tablet daily except Sundays take no pills tablet mecobalamin (vitamin B12) 1,000 mcg tablet,chewable 1,000 mcg PO DAILY enalapril maleate 20 mg tablet 20 mg PO BID dicyclomine 20 mg tablet 5 mg PO ONCE PRN (Reason: abdominal pain) pantoprazole 40 mg tablet,delayed release (DR/EC) 40 mg PO BID Patient Comments: TAKE 1 TABLET BY MOUTH TWICE DAILY hydrochlorothiazide 25 MG tablet 25 mg PO DAILY metoclopramide HCl [Reglan] 10 mg tablet 10 mg PO Q8H PRN PRN (Reason: nausea and vomiting) Qty: 20 0RF amlodipine 10 mg tablet 10 mg PO DAILY calcium carbonate-vitamin D2 600 mg calcium- 200 unit tablet 1 tab PO DAILY magnesium 200 mg tablet 400 mg PO BID Referrals / Follow Up: Jaclyn Webster DO [Primary Care Provider] - Disposition Disposition (needs filled in before D/C Order can be placed): Home, Self Care
[2023-05-22 09:10] LABS: Bedside Glucose 142 mg/dL (74-106)
== END 2023-05-22 12:55 | disposition home or self-care (01) ==
LOC: SDC 05:56 → AC 05:56
PROVIDERS: Anesthesiology; PCP Family Medicine; Referring Provider Surgery; Visit Provider Surgery
PROC: (CPT 47610; principal; 2023-05-22 07:10)
DX: K80.64 Calculus of gallbladder and bile duct with chronic cholecystitis without obstruction (principal); J43.9 Emphysema, unspecified; E11.9 Type 2 diabetes mellitus without complications; E66.9 Obesity, unspecified; E78.5 Hyperlipidemia, unspecified; F17.210 Nicotine dependence, cigarettes, uncomplicated; K26.3 Acute duodenal ulcer without hemorrhage or perforation; I25.10 Atherosclerotic heart disease of native coronary artery without angina pectoris; I10 Essential (primary) hypertension; E03.9 Hypothyroidism, unspecified; K21.9 Gastro-esophageal reflux disease without esophagitis; Z68.32 Body mass index [BMI] 32.0-32.9, adult; Z79.84 Long term (current) use of oral hypoglycemic drugs; Z79.890 Hormone replacement therapy; Z79.899 Other long term (current) drug therapy
CPT/HCPCS: 47563; 00790; 74300; 76000; 80048; 82962; 83036; 84443; 85027; 88304; 93005; J7120; J2405

== ENCOUNTER → 2023-10-30 | Outpatient (CLI) | payer MEDICARE, OTHER, SELFPAY ==
--- NOTE | 2023-10-30 13:00 | VDLE_ITS ---
Reason For Study: BLE Pain RIGHT LEFT CFV is compressible, spontaneous, phasic, CFV is compressible, spontaneous, phasic, competent and demonstrates normal competent, and demonstrates normal augmentation. augmentation. FV is compressible, spontaneous, phasic, FV is compressible, spontaneous, phasic, competent and demonstrates normal competent and demonstrates normal augmentation. augmentation. POP V is compressible, spontaneous, phasic, POP V is compressible, spontaneous, phasic, competent and demonstrates normal competent and demonstrates normal augmentation. augmentation. T/P Trunk is compressible. T/P Trunk is compressible. PTV is compressible. PTV is compressible. RT PerV is compressible. LT PerV is compressible. SFJ is INCOMPETENT and measures 0.57 cm. SFJ is INCOMPETENT and measures 0.73 cm. GSV proximal thigh measures 0.30 x 0.33 cm. GSV proximal thigh measures 0.58 x 0.64 cm. GSV at knee measures 0.19 x 0.18 cm. GSV at knee measures 0.56 x 0.57 cm. GSV INCOMPETENT throughout for greater than GSV INCOMPETENT throughout for greater than 0.5 seconds. 0.5 seconds. Vein of Giacomini distal thigh INCOMPETENT GSV appears tortuous from mid calf to mid for greater than 0.5 seconds and measures thigh. Varicosity does arise from GSV at 0.25cm. prox calf and appears to rejoin at mid SSV proximal calf is INCOMPETENT for greater thigh. Varicosity is INCOMPETENT for greater than 0.5 seconds and measures 0.22 x 0.24 cm. than 0.5 seconds. Procedure ASV proximal calf is INCOMPETENT for greater Exam performed in department. than 0.5 seconds and measures 0.33 cm. This is a venous duplex using B-mode, color SSV proximal calf is competent and measures flow and spectral Doppler. 0.20 x 0.20 cm. Patient scanned in Reverse Trendelenburg. The exam was diagnostic. VL/Venous Duplex US - Ismael Extrem Interpretation Summary Deep veins of the bilateral lower extremities are patent and compressible segme ntally. There is no evidence of bilateral lower extremity deep vein thrombosis. The bilateral great saphenous veins appear patent and compressible segmentally. Positive for reflux in the right saphenofemoral junction, great saphenous vein throughout, Vein of Giacomini, small saphenous vein. Positive for reflux in the left saphenofemoral junction, great saphenous vein t hroughout, accessory saphenous vein, small saphenous vein. Great saphenous in discontinuity with inc ompetent varicosity bridging segments. Ordering Physician: Jovon Bell Referring Physician: Jaclyn Webster Performed By: Glenroy Greene, RVT
--- OUTSIDE RECORDS SUMMARY | 2023-10-30 14:09 | XMS RPT_ITS | CCD ---
Author Name Unknown Address [address] [facility] [address] [place] [id number] Organization [facility] Care Team Providers Care Application Support Name Role Phone TEODORO DILLARD, ABILIO Primary Care Physician [phone] CRISTINA DILLARD, JOSHUA Attending Reji VALERIO MD, ABILIO Primary Care Tanisha VALERIO MD, ABILIO Primary Care Unavailable CRISTINA DILLARD, JOSHUA Attending Reji VALERIO MD, ABILIO Primary Care Tanisha EVANS MD, JOSHUA Attending Reji barnett Allergies Allergy Classification Reported Allergen(s) Allergy Type Date of Onset Reaction(s) Facility (3 sources) buPROPion; Translations: [bupropion] Drug Allergy [facility] (3 sources) influenza A virus A/ (H1N1) antigen / influenza A virus A/ (H3N2) antigen / influenza B virus B/Rubio antigen / influenza B virus B/ antigen; Translations: [influenza virus vaccine] Drug Allergy [facility] (3 sources) Lidocaine; Translations: [lidocaine topical] Drug Allergy [facility] (3 sources) Streptococcus pneumoniae serotype 1 capsular antigen diphtheria [id number] protein conjugate vaccine / Streptococcus pneumoniae serotype 14 capsular antigen diphtheria [id number] protein conjugate vaccine / Streptococcus pneumoniae serotype 18C capsular antigen diphtheria [id number] protein conjugate vaccine / Streptococcus pneumoniae serotype 19A capsular antigen diphtheria [id number] protein conjugate vaccine / Streptococcus pneumoniae serotype 19F capsular antigen diphtheria GLH351 protein conjugate vaccine / Streptococcus pneumoniae serotype 23F capsular antigen diphtheria [id number] protein conjugate vaccine / Streptococcus pneumoniae serotype 3 capsular antigen diphtheria [id number] protein conjugate vaccine / Streptococcus pneumoniae serotype 4 capsular antigen diphtheria [id number] protein conjugate vaccine / Streptococcus pneumoniae serotype 5 capsular antigen diphtheria [id number] protein conjugate vaccine / Streptococcus pneumoniae serotype 6A capsular antigen diphtheria [id number] protein conjugate vaccine / Streptococcus pneumoniae serotype 6B capsular antigen diphtheria [id number] protein conjugate vaccine / Streptococcus pneumoniae serotype 7F capsular antigen diphtheria [id number] protein conjugate vaccine / Streptococcus pneumoniae serotype 9V capsular antigen diphtheria [id number] protein conjugate vaccine; Translations: [pneumococcal 13-valent vaccine] Drug Allergy SWELLING [facility] (3 sources) tetanus toxoid vaccine, inactivated; Translations: [tetanus toxoid] Drug Allergy SWELLING [facility] Medications Current Medications Medication Drug Class(es) Dates Sig (Normalized) Sig (Original) amLODIPine 10 mg oral tablet (1 source) Dihydropyridine Calcium Channel Alysha Start: 03-15-2023 take 1 tablet by mouth once daily amLODIPine 10 mg oral tablet TAKE 1 TABLET BY MOUTH ONCE DAILY Start Date: 03/15/23 Status: Ordered biotin 5 mg oral capsule (2 sources) Start: 12-29-2021 biotin 5000 mcg oral caps 1, Oral, 0 Refill(s) Start Date: 12/29/21 Status: Ordered calcium carbonate 500 mg / cholecalciferol 200 unt oral tablet (3 sources) Vitamin D Start: 02-08-2015 take 1 tablet by mouth twice daily calcium (as citrate)-vitami n D 200 mg-200 intl units oral tablet Dose = 1 tab(s), Oral, BID Start Date: 02/08/15 Status: Ordered enalapril maleate 20 mg oral tablet (2 sources) Angiotensin Converting Enzyme Inhibitor Start: 03-15-2023 take 2 tablets by mouth once daily enalapril 20 mg oral tablet TAKE 2 TABLETS BY MOUTH ONCE DAILY Start Date: 03/15/23 Status: Ordered Completed/Discontinued Medications Medication Drug Class(es) Dates Sig (Normalized) Sig (Original) 0.25 MG, 0.5 MG Dose 3 ML semaglutide 0.68 MG/ML Pen Injector [Ozempic] (1 source) Start: 03-15-2023 inject 0.5 mg by subcutaneous injection every week Ozempic 2 mg/3 mL (0.25 mg or 0.5 mg dose) subcutaneous solution Dose : 0.5 mg =, Subcutaneous, qWeek, rotate injection sites, # 1 EA, 1 Refill(s), Pharmacy: [id number], 152.5, cm, 03/15/23 15:14:00 EDT, Height Start Date: 03/15/23 Status: Ordered Problems Problem Classification Problem Date Documented Da te Episodic/Chronic Chronic kidney disease (4 sources) Chronic kidney disease; Translations: [Chronic kidney disease, unspecified] 03-31-2021 Chronic Conditions associated with dizziness or vertigo (2 sources) Dizziness 12-29-2021 Episodic Diabetes mellitus without complication (5 sources) Diabetes mellitus; Translations: [Type 2 diabetes mellitus without complication] 02-08-2015 Chronic Disorders of lipid metabolism (4 sources) Hypercholesterolemia; Translations: [Pure hypercholesterolemia] 02-08-2015 Chronic Nutritional deficiencies (4 sources) Vitamin D deficiency; Translations: [Vitamin D deficiency, unspecified] 07-22-2020 Chronic Osteoporosis (4 sources) Osteoporosis; Translations: [Primary osteoporosis] 07-22-2020 Chronic Other nutritional; endocrine; and metabolic disorders (2 sources) Hypercalcemia 06-29-2022 Chronic Other nutritional; endocrine; and metabolic disorders (1 source) Hypercalcemia; Translations: [Hypercalcemia] Chronic Other skin disorders (3 sources) Loss of hair 07-22-2020 Episodic Other skin disorders (3 sources) Trachyonychia 07-22-2020 Episodic Thyroid disorders (5 sources) Hypothyroidism; Translations: [Hypothyroidism, unspecified] 07-22-2020 Chronic Results Test Name Value Interpretation Reference Range Facil ity Encounters Encounter Date Encounter Type Care Provider Facility Start: 10-11-2023 End: 10-12-2023 ambulatory JOSHUA EVANS MD Facility:B Start: 05-28-2023 End: 05-29-2023 ambulatory ABILIO VALERIO MD Facility:[facility] Start: 05-28-2023 End: 05-28-2023 Patient encounter procedure JOSHUA EVANS MD [facility] Start: 03-08-2023 End: 03-09-2023 ambulatory ABILIO VALERIO MD Facility:[facility] Start: 03-08-2023 End: 03-08-2023 Patient encounter procedure JOSHUA EVANS MD [facility] Start: 12-27-2021 End: 12-27-2021 Patient encounter procedure JOSHUA EVANS MD [facility] Procedures Date Procedure Procedure Detail Performing Clinician Appendix structure (body structure) JOSHUA EVANS MD Back structure, excl uding neck (body structure) JOSHUA EVANS MD Oophorectomy JOSHUA DELA CRUZ MD Payers Date Payer Category Payer Medicare [id number] 2023 Private Health Insurance [facility] [id number] 1950 Unknown [id number] 1950 Unknown [id number] 1950 Unknown [id number] Social History Date Type Detail Facility Start: 07-22-2020 Tobacco smoking status Never s moked tobacco (finding) [facility] Sex Assigned At Sex [facility] Evaluation + Plan note Note Date & Type Note Facility Evaluation + Plan note Future Appointments Appointment Date:12/29/2021 01:15:00 PM Scheduled Provider:JOSHUA EVANS MD Location:[facility] Appointment Type:ENDO [facility] Evaluation + Plan note Note Date & Type Note Facility Evaluation + Plan note Future Appointments Appointment Date:03/15/2023 03:15:00 PM Scheduled Provider:JOSHUA EVANS MD Location:[facility] Appointment Type:ENDO OV [facility] Evaluation + Plan note Note Date & Type Note Facility Evaluation + Plan note Future Appointments Appointment Date:06/14/2023 03:00:00 PM Scheduled Provider:JOSHUA EVANS MD Location:[facility] Appointment Type:ENDO [facility] Hospital course Narrative Note Date & Type Note Facility Hospital course Narrative No data available for this section [facility] Hospital Discharge instructions Note Date & Type Note Facility Hospital Discharge instructions No data available for this section [facility] Progress note Note Date & Type Note Facility Progress note No data available for this section [facility] Summary Purpose Family History No Family History Records Found Advance Directives No Advanced Directives Records Found Additional Source Comments Care Team (unrecognized sect ion and content) Personnel Name: ABILIO VALERIO MD Address: [address] Care Team Personnel Name: ABILIO VALERIO MD Member Role: Primary Care Physician Address: Address: [address] Care Team Related Persons Name: BART SANDERS Address: [address] [phone] Care Team Personnel Name: ABILIO VALERIO MD Member Role: Primary Care Physician Address: Address: [address] Care Team Related Persons Name: BART SANDERS Address: [place] [address] [facility] [address] [phone] INFORMATION SOURCE (unrecogn ized section and content) FOR RECORDS PERTAINING TO PATIENTS WHO ARE OR HAVE BEEN ENROLLED IN A CHEMICAL DEPENDENCY/SUBSTANCEABUSE PROGRAM, SOME INFORMATION MAY BE OMITTED. This clinical summary was aggregated from multiple sources. Caution should be exercised in using it in the provision of clinical care. This summary normalizes information from multiple sources, and as a consequence, information in this document may materially change the coding, format and clinical context of patient data. In addition, data may be omitted in some cases. CLINICAL DECISIONS SHOULD BE BASED ON THE PRIMARY CLINICAL RECORDS. [facility]. provides no warranty or guarantee of the accuracy or completeness of information in this document.
== END | disposition home or self-care (01) ==
LOC: CVS 12:58
PROVIDERS: PCP Family Medicine; Referring Provider Surgery Trauma Surgery; Visit Provider Surgery Trauma Surgery
DX: I25.10 Atherosclerotic heart disease of native coronary artery without angina pectoris (principal); I83.819 Varicose veins of unspecified lower extremity with pain; M79.661 Pain in right lower leg; M79.662 Pain in left lower leg
CPT/HCPCS: 93970

== ENCOUNTER → 2023-11-02 | Outpatient (CLI) | payer MEDICARE, OTHER, SELFPAY ==
[2023-11-06 17:07] LABS: Lyme IgG P18 Ab Absent (.); Lyme IgG P23 Ab Absent (.); Lyme IgG P28 Ab Absent (.); Lyme IgG P30 Ab Absent (.); Lyme IgG P39 Ab Absent (.); Lyme IgG P41 Ab Absent (.); Lyme IgG P45 Ab Absent (.); Lyme IgG P58 Ab Absent (.); Lyme IgG P66 Ab Absent (.); Lyme IgG P93 Ab Absent (.); Lyme IgG WB Interpretation Negative (.); Lyme IgM P23 Ab Absent (.); Lyme IgM P39 Ab Absent (.); Lyme IgM P41 Ab Absent (.); Lyme IgM WB Interpretation Negative (.)
== END | disposition home or self-care (01) ==
LOC: MTLAB 16:14
PROVIDERS: PCP Family Medicine; Referring Provider Family Medicine; Visit Provider Family Medicine
DX: M25.50 Pain in unspecified joint (principal); W57.XXXA Bitten or stung by nonvenomous insect and other nonvenomous arthropods, initial encounter
CPT/HCPCS: 36415; 86617

== ENCOUNTER → 2023-11-13 | Outpatient (CLI) | payer MEDICARE, OTHER, SELFPAY ==
[2023-11-13 15:28] LABS: Absolute Lymphocyte Count 2.16 X10^3/uL (0.83-4.51); Absolute Neutrophil Count 10.9 X10^3/uL (2.0-7.7); Basophil# 0.08 X10^3/uL; Basophil% 0.5 % (0-1); Eosinophil# 0.16 X10^3/uL; Eosinophils% 1.1 % (0-5); Hematocrit 37.2 % (37-47); Hemoglobin 12.2 g/dL (12.0-15.0); Lymphocyte # 2.16 X10^3/ul (0.83-4.51); Lymphocyte % 14.7 % (19-41); Mean Corp Hgb Conc 32.8 g/dL (32-36); Mean Corpuscular Hgb 27.6 pg (27.0-32.0); Mean Corpuscular Volume 84.2 fL (81-99); Mean Platelet Vol. 10.1 fl (6.2-12.0); Monocyte# 1.32 X10^3/uL; NRBC Flagged by Analyzer 0 % (0-5); Neutrophil # 10.92 X10^3/uL (2.7-7.7); Neutrophil % 74.4 % (47-70); Platelet Count 267 K/mm3 (150-450); RBC Distribution Width CV 14.9 % (11.6-14.6); RBC Distribution Width SD 45.4 fl (35.1-43.9); Red Blood Count 4.42 M/mm3 (4.2-5.4); White Blood Count 14.7 K/mm3 (4.4-11.0)
[2023-11-13 15:58] LABS: Microalbumin,Random Urine < 5.0 mg/L (NO RANGE EST.)
[2023-11-13 16:07] LABS: Hemoglobin A1c 6.2 % (3.8-5.6)
[2023-11-13 16:09] LABS: Vitamin D,25 Hydroxy 46.8 ng/mL
[2023-11-13 16:37] LABS: ALB/GLOB Ratio 1.1 RATIO (0.9-2.4); AST(SGOT) 16 U/L (15-37); Alanine Aminotransfer ALT/SGPT 24 U/L (13-56); Alkaline Phosphatase 61 U/L (45-117); Anion Gap 8 (5-15); BUN 28 mg/dL (7-18); BUN/Creat Ratio 22.8 RATIO (10-20); Calcium,Total 9.3 mg/dL (8.5-10.1); Chloride 104 mmol/L (98-107); Cholesterol 226 mg/dL (200); Creatinine, Serum 1.23 mg/dL (0.55-1.02); EST Glomerular Filtration Rate 45 mL/min (>60); Est Glom Filt Rate - Afr Amer 55 mL/min (>60); Globulin 3.7 g/dL (2.2-4.2); Glucose 129 mg/dL (74-106); High Density Lipoprotein 64 mg/dL; Potassium 3.9 mmol/L (3.5-5.1); Protein, Total 7.7 g/dL (6.4-8.2); Sodium Level 136 mmol/L (136-145); Triglycerides 128 mg/dL; Very Low Density Lipoprotein 26 mg/dL (5-40)
--- OUTSIDE RECORDS SUMMARY | 2023-11-13 22:12 | XMS RPT_ITS | CCD ---
Author Name Unknown Address [address] [facility] [address] [place] [id number] Organization [facility] Care Team Providers Care Brim Plater Name Role Phone TEODORO DILLARD, ABILIO Primary Care Physician [phone] CRISTINA DILLARD, JOSHUA Attending Reji VALERIO MD, ABILIO Primary Care Unavailable TEODORO DILLARD, ABILIO Primary Care Unavailable CRISTINA DILLARD, JOSHUA Attending Reji VALERIO MD, ABILIO Primary Care Unavailable CRISTINA DILLARD, JOSHUA Attending Jaclyn Rene DO Primary Care Provider [phone] BELLA NAVARRO Attending JACLYN Castle Primary Care Unavailable Allergies Allergy Classification Reported Allergen(s) Allergy Type Date of Onset Reaction(s) Facility (3 sources) buPROPion; Translations: [bupropion] Drug Allergy [facility] (3 sources) influenza A virus A/ (H1N1) antigen / influenza A virus A/ (H3N2) antigen / influenza B virus B/Rubio antigen / influenza B virus B/ antigen; Translations: [influenza virus vaccine] Drug Allergy [facility] (3 sources) Lidocaine; Translations: [lidocaine topical] Drug Allergy [facility] (3 sources) Streptococcus pneumoniae serotype 1 capsular antigen diphtheria [id number] protein conjugate vaccine / Streptococcus pneumoniae serotype 14 capsular antigen diphtheria [id number] protein conjugate vaccine / Streptococcus pneumoniae serotype 18C capsular antigen diphtheria [id number] protein conjugate vaccine / Streptococcus pneumoniae serotype 19A capsular antigen diphtheria [id number] protein conjugate vaccine / Streptococcus pneumoniae serotype 19F capsular antigen diphtheria [id number] protein conjugate vaccine / Streptococcus pneumoniae serotype 23F capsular antigen diphtheria [id number] protein conjugate vaccine / Streptococcus pneumoniae serotype 3 capsular antigen diphtheria [id number] protein conjugate vaccine / Streptococcus pneumoniae serotype 4 capsular antigen diphtheria [id number] protein conjugate vaccine / Streptococcus pneumoniae serotype 5 capsular antigen diphtheria [id number] protein conjugate vaccine / Streptococcus pneumoniae serotype 6A capsular antigen diphtheria [id number] protein conjugate vaccine / Streptococcus pneumoniae serotype 6B capsular antigen diphtheria [id number] protein conjugate vaccine / Streptococcus pneumoniae serotype 7F capsular antigen diphtheria [id number] protein conjugate vaccine / Streptococcus pneumoniae serotype 9V capsular antigen diphtheria [id number] protein conjugate vaccine; Translations: [pneumococcal 13-valent vaccine] Drug Allergy [facility] (3 sources) tetanus toxoid vaccine, inactivated; Translations: [tetanus toxoid] Drug Allergy SWELLING [facility] (2 sources) Acetaminophen / traMADol; Translations: [TRAMADOL-ACETAMIN OPHEN] Drug Allergy [address] [facility] (2 sources) buPROPion; Translations: [BUPROPION HCL] Drug Allergy [address] [facility] Work Phone: (2 sources) gabapentin; Translations: [GABAPENTIN] Drug Allergy [address] [facility] Work Phone: (2 sources) lansoprazole; Translations: [LANSOPRAZOLE] Drug Allergy [address] [facility] Work Phone: (2 sources) Penicillins; Translations: [PENICILLINS] Propensity to adverse reactions [address] [facility] (2 sources) pregabalin; Translations: [PREGABALIN] Drug Allergy [address] [facility] Work Phone: (2 sources) Streptococcus pneumoniae type 1 capsular polysaccharide antigen / Streptococcus pneumoniae type 10A capsular polysaccharide antigen / Streptococcus pneumoniae type 11A capsular polysaccharide antigen / Streptococcus pneumoniae type 12F capsular polysaccharide antigen / Streptococcus pneumoniae type 14 capsular polysaccharide antigen / Streptococcus pneumoniae type 15B capsular polysaccharide antigen / Streptococcus pneumoniae type 17F capsular polysaccharide antigen / Streptococcus pneumoniae type 18C capsular polysaccharide antigen / Streptococcus pneumoniae type 19A capsular polysaccharide antigen / Streptococcus pneumoniae type 19F capsular polysaccharide antigen / Streptococcus pneumoniae type 2 capsular polysaccharide antigen / Streptococcus pneumoniae type 20 capsular polysaccharide antigen / Streptococcus pneumoniae type 22F capsular polysaccharide antigen / Streptococcus pneumoniae type 23F capsular polysaccharide antigen / Streptococcus pneumoniae type 3 capsular polysaccharide antigen / Streptococcus pneumoniae type 33F capsular polysaccharide antigen / Streptococcus pneumoniae type 4 capsular polysaccharide antigen / Streptococcus pneumoniae type 5 capsular polysaccharide antigen / Streptococcus pneumoniae type 6B capsular polysaccharide antigen / Streptococcus pneumoniae type 7F capsular polysaccharide antigen / Streptococcus pneumoniae type 8 capsular polysaccharide antigen / Streptococcus pneumoniae type 9N capsular polysaccharide antigen / Streptococcus pneumoniae type 9V capsular polysaccharide antigen; Translations: [PNEUMOCOCCAL 23-DASHA PS VACCINE] Drug Allergy [address] [facility] (2 sources) Anesthetics - Amide Type - Select Amino Amides; Translations: [ANESTHETICS - AMIDE TYPE - SELECT AMINO AMIDES] Propensity to adverse reactions [address] [facility] (2 sources) Influenza Virus Vac. Tri-Split; Translations: [INFLUENZA VIRUS VAC. TRI-SPLIT] Propensity to adverse reactions [address] [facility] (2 sources) Influenza A (H1n1) Virus Vaccine Monovalent 2008; Translations: [INFLUENZA A (H1N1) VIRUS VACCINE MONOVALENT 2008] Drug Intolerance [address] [facility] (2 sources) Tetanus Vaccines And Toxoid; Translations: [TETANUS VACCINES AND TOXOID] Propensity to adverse reactions [address] [facility] Medications Current Medications Medication Drug Class(es) [...] Ordered enalapril maleate 20 mg oral tablet (4 sources) Angiotensin Converting Enzyme Inhibitor Start: 03-15-2023 [...] sites, # 1 EA, 1 Refill(s), Pharmacy: [id number], 152.5, cm, 03/15/23 15:14:00 EDT, Height Start Date: 03/15/23 Status: Ordered alendronic acid 70 mg oral tablet (1 source) Bisphosphonate Start: 09-29-2015 take 1 tablet by mouth every week alendronate (FOSAMAX) 70 mg tablet Indications: Osteoporosis Take 1 tablet by mouth once each week. Take with a full glass of water, on an empty stomach; do NOT lie down for 30minutes. 12 tablet 3 09/29/2015 Active Problems Active Problems Problem Classification Problem Date Documented Date Episodic/Chronic Abdominal pain (2 sources) Right upper quadrant pain; Translations: [Right upper quadrant pain] Onset: 07-08-2015 07-28-2005 Episodic Chronic kidney disease (4 sources) Chronic kidney disease; Translations: [Chronic kidney disease, unspecified] 03-31-2021 Chronic Conditions associated with dizziness or vertigo (2 sources) Dizziness 12-29-2021 Episodic Diabetes mellitus without complication (7 sources) Diabetes mellitus; Translations: [Type 2 diabetes mellitus without complication] Onset: 10-10-2007 02-08-2015 Chronic Disorders of lipid metabolism (5 sources) Hypercholesterolemia; Translations: [Pure hypercholesterolemia] 02-08-2015 Chronic Esophageal disorders (1 source) Gastroesophageal reflux disease; Translations: [Gastro-esophageal reflux disease without esophagitis] 11-06-2013 Chronic Essential hypertension (1 source) Hypertensive disorder; Translations: [Essential (primary) hypertension] 01-26-2014 Chronic Menopausal disorders (1 source) Postmenopausal bleeding; Translations: [Postmenopausal bleeding] 11-02-2023 Chronic Nutritional deficiencies (4 sources) Vitamin D deficiency; Translations: [Vitamin D deficiency, unspecified] 07-22-2020 Chronic Osteoporosis (4 sources) Osteoporosis; Translations: [Primary osteoporosis] 07-22-2020 Chronic Other connective tissue disease (1 source) Muscle pain; Translations: [Myalgia and myositis, unspecified] 08-24-2005 Episodic Other female genital disorders (1 source) Vaginal discharge; Translations: [Other specified noninflammatory disorders of vagina] 11-02-2023 Episodic Other liver diseases (1 source) Disease of liver; Translations: [Other specified diseases of liver] 07-28-2005 Chronic Other nutritional; endocrine; and metabolic disorders (2 sources) Hypercalcemia 06-29-2022 Chronic Other nutritional; endocrine; and metabolic disorders (1 source) Hypercalcemia; Translations: [Hypercalcemia] Chronic Other screening for suspected conditions (not mental disorders or infectious disease) (1 source) Patient encounter status; Translations: [Encounter for screening for malignant neoplasm of cervix] 11-02-2023 Episodic Other skin disorders (3 sources) Loss of hair 07-22-2020 Episodic Other skin disorders (3 sources) Trachyonychia 07-22-2020 Episodic Spondylosis; intervertebral disc disorders; other back problems (1 source) Lumbar post-laminectomy syndrome; Translations: [Postlaminectomy syndrome, not elsewhere classified] Onset: 07-07-2004 07-07-2004 Chronic Thyroid disorders (5 sources) Hypothyroidism; Translations: [Hypothyroidism, unspecified] 07-22-2020 Chronic Past or Other Problems Problem Classification Problem Date Documented Da te Episodic/Chronic Anal and rectal conditions (1 source) Anorectal pain; Translations: [Other specified diseases of anus and rectum] Onset: 07-08-2015 07-08-2015 Episodic Other female genital disorders (1 source) Pain in female genitalia; Translations: [Unspecified condition associated with female genital organs and menstrual cycle] Onset: 07-08-2015 07-08-2015 Episodic Spondylosis; intervertebral disc disorders; other back problems (1 source) Lumbago with sciatica; Translations: [Lumbago with sciatica, right side] Onset: 07-08-2015 07-08-2015 Episodic Results Test Name Value Interpretation Reference Range Facil ity Vital Signs Date Time Vital Sign Value Performing Clinician Faci lity 11-02-2023 15:10-0500 Body weight 75.3 kg Bella Navarro MD Work Phone: [facility] 11-02-2023 15:10-0500 Diastolic blood pressure 62 mm[Hg] Bella Navarro MD Work Phone: [facility] 11-02-2023 15:10-0500 Systolic blood pressure 136 mm[Hg] Bella Navarro MD Work Phone: [facility] Encounters Encounter Date Encounter Type Care Provider Facility Start: 11-02-2023 End: 11-02-2023 ambulatory BELLA NAVARRO Facility:[facility] Start: 11-02-2023 End: 11-02-2023 Patient encounter procedure Bella Navarro MD Work Phone: OB/Gynecology Procedures Date Procedure Procedure Detail Performing Clinician Start: 02-05-2014 Colonoscopy Bella rick MD Work Phone: Appendix structure ( body structure) JOSHUA EVANS MD Back structure, excl uding neck (body structure) JOSHUA EVANS MD Oophorectomy JOSHUA DELA CRUZ MD Plan of Treatment Date Care Activity Detail Author Start: 02-06-2024 Screening for malignant neoplasm of colon [facility] Start: 09-17-2023 Advance Directive Discussion Advance Directive Discussion [facility] Start: 09-17-2023 Depression Assessment Depression Assessment [facility] Start: 05-18-2023 Influenza vaccination [facility] Start: 06-22-2016 Glaucoma screening Dilated Retinal Exam [facility] Start: 05-13-2016 Hepatitis B surface antibody level LDL Cholesterol [facility] Start: 11-26-2015 Hepatitis B screening Urine Albumin:Creatinine Ratio [facility] Start: 11-13-2015 Hemoglobin A1c measurement HbA1C [facility] Start: 11-02-2015 Diabetic foot examination Diabetic Foot Exam [facility] Start: 2008 RSV Vaccine (1 - 1-dose 60+ series) RSV Vaccine (1 - 1-dose 60+ series) [facility] Start: 09-17-2006 Pneumococcal Vaccine: 65+ (2 of 2 - PCV) Pneumococcal Vaccine: 65+ (2 of 2 - PCV) [facility] Start: 01-04-1998 Shingrix Vaccine (1 of 2) Shingrix Vaccine (1 of 2) [facility] Start: 01-04-1993 Screening for malignant neoplasm of colon [facility] Start: 01-04-1967 Urine microalbumin profile DTaP,Tdap,Td Vaccine (1 - Tdap) [facility] Start: 01-04-1966 Annual PCP Team Chronic Disease Visit Annual PCP Team Chronic Disease Visit [facility] Start: 01-04-1966 BP Controlled (<130/80) BP Controlled (<130/80) [facility] Start: 1948 Covid-19 Vaccine (#1) Covid-19 Vaccine (#1) [facility] PAP TEST PAP TEST Lab Moses rios Encounter for screening for malignant neoplasm of cervix 11/02/2023 3:52 PM EST [facility] Work Phone: End: 12-01-2024 US Pelvis transvaginal US FEMALE PELVIS TRANSVAG Radiology Routine Vaginal discharge PMB (postmenopausal bleeding) 1 Occurrences starting 11/02/2023 until 12/01/2024 [facility] Work Phone: Immunizations Immunization Date Immunization Notes Care Provider Sally botello 09-17-2005 pneumococcal polysaccharide vaccine, 23 valent Bella Navarro MD Work Phone: [facility] Payers Date Payer Category Payer Medicare [id number] 2013 Private Health Insurance [id number] 2013 Private Health Insurance [facility] AARP SUPPLEMENT [id number] 2013-Present [phone] [address] [place] [address] Indemnity [id number] 2012 Medicare MEDICARE MEDICAR E B [id number] 2012-Present [address] [address] [place] [address] Medicare [id number] 2012 Medicare [id number] 1950 Unknown [id number] 1950 Unknown [id number] 1950 Unknown [id number] Social History Date Type Detail Facility Start: 07-22-2020 Tobacco smoking status Never s moked tobacco (finding) [facility] Sex Assigned At Sex [facility] Start: 11-02-2023 [facility] History of tobacco use Current smoker [facility] History of tobacco use Cigarette Smoker C [facility] Start: 11-02-2023 Cigarette pack-years Cl [facility] Start: 11-02-2023 Tobacco use and exposure Smokeless tobacco non-user [facility] Start: 11-02-2023 Alcohol intake Current non-dr social science manager of alcohol (finding) [facility] Start: 11-02-2023 Tobacco use panel [facility] National Score (1-100), lower number is lower risk [address] [facility] Start: 11-02-2023 Tobacco Comment 3 cartridges a day electronic cigarette since [address] [facility] Start: 1950 Sex Assigned At Not on file C [facility] Medical Equipment Procedure Code Equipment Code Equipment Origin al Text Equipment Identifier Dates testing four nahomi es daily Start: 10-19-2009 Clinical Notes 05-25-2015 to 11-02-2023 Patient Bella Arias MD - 11/02/2023 3:07 PM EST Note Date & Type Note Facility 11-02-2023 Note HNO ID: [id number] Author: BELLA NAVARRO MD Service: ? Author Type: Physician Type: Progress Notes Filed: 11/02/2023 15:50 Note Text: Shelli Sanders is a 73 year old female who presents for problem visit. HPI: Patient reports yellowish brown spotting about 3 times over the past 6 months. Denies any bright red bleeding. She was seen at [facility] for this and a culture done that was negative. Patient denies h/o abnormal paps. 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 Smith, derm Myalgia and myositis, unspecified Other specified disorders of liver mild hepatosplenomegaly/diffuse fatty infiltration PAST SURGICAL HISTORY Procedure Laterality Date ANESTHESIA LUMBAR REGION NOS 2000 APPENDECTOMY BREAST BIOPSY NEEDLE RIGHT COLONOSCOPY ?2007 OPEN REPAIR OF ROTATOR CUFF ACUTE 2010 Rotator cuff repair PAST SURGICAL HISTORY OF female surgery and appendix FAMILY HISTORY Problem Relation Age of Onset other (pneumonia [Other]) Mother COPD Cancer Mother Lung Thyroid Mother Diabetes Father Heart Sister arthritis Diabetes Sister Diabetes Sister Coronary Artery Disease Brother Diabetes Brother Hypertension Brother Heart Brother Breast Cancer Paternal Grandmother Thyroid Daughter Twin Thyroid Daughter Twin Social History Tobacco Use Smoking status: Former Packs/day: 0.00 Years: 40.00 Additional pack years: 0.00 Total pack years: 0.00 Types: Cigarettes Smokeless tobacco: Never Tobacco comments: 3 cartridges a day electronic cigarette since 2010 Vaping Use Vaping Use: current everyday user Substance Use Topics Alcohol use: No Drug use: No Current Outpatient Medications Medication Sig enalapril (VASOTEC) 20 mg tablet Take 1 tablet by mouth twice daily. pravastatin (PRAVACHOL) 40 mg tablet Take 1 tablet by mouth once daily. hydrochlorothiazide (HYDRODIURIL, ESIDRIX) 25 mg tablet Take 1 tablet by mouth once daily. alendronate (FOSAMAX) 70 mg tablet Take 1 tablet by mouth once each week. Take with a full glass of water, on an empty stomach; do NOT lie down for 30minutes. metFORMIN ER (GLUCOPHAGE XR) 500 mg 24 hr tablet Take 1 tablet by mouth daily with breakfast. linagliptin (TRADJENTA) 5 mg tab Take 5 mg by mouth once daily. levothyroxine (SYNTHROID) 50 mcg tablet Take 1 tablet by mouth once daily. Take on empty stomach. For thyroid. esomeprazole (NEXIUM) 40 mg capsule Take 1 capsule by mouth once daily. promethazine (PHENERGAN) 25 mg tablet Take 1 tablet by mouth every 6 hours as needed. mupirocin (BACTROBAN) 2 % ointment Apply 1 application to affected area three times daily. Location: right nare enalapril (VASOTEC) 20 mg tablet Take 1 tablet by mouth twice daily. calcium carbonate-vitamin d2 500 mg(1,250mg) -200 unit tab Take 1 tablet by mouth once daily. triamcinolone 0.025 % lotn Apply to affected area twice daily. conjugated estrogens (PREMARIN) vaginal cream Apply small amount to vulvar are with fingers 3 times per week Clobetasol Propionate 0.05 % gel Apply 1 application to affected area as needed. Halobetasol Propionate 0.05 % cream Apply 1 application to affected area twice daily as needed. fexofenadine (LEO) 180 mg ORAL tablet Take 1 tablet by mouth once daily. naproxen sodium(ALEVE 220 MG TAB) as necessary blood sugar diagnostic(FREESTYLE TEST STRIPS) testing four times daily cyclobenzaprine hcl(FLEXERIL 10 MG TAB) Take one(1) tablet daily. as needed No current facility-administered medications for this visit. Allergies As of Date: 11/02/2023 Allergen Noted Reaction ANESTHETICS - AMIDE TYPE - SELECT*05/10/2004 FLUOGEN [INFLUENZA VIRUS VAC. TRI*07/28/2005 Intolerance INFLUENZA A (H1N1) VIRUS VACCINE *07/31/2014 Hives LYRICA [PREGABALIN] 12/27/2009 NEURONTIN [GABAPENTIN] 12/27/2009 PENICILLINS 05/10/2004 Itching PNEUMOVAX 23 [PNEUMOCOCCAL 23-DASHA*07/28/2005 Intolerance PREVACID [LANSOPRAZOLE] 07/28/2005 Intolerance TETANUS VACCINES AND TOXOID 07/28/2005 Intolerance ULTRACET [TRAMADOL-ACETAMINOPHEN] 07/28/2005 Intolerance WELLBUTRIN [BUPROPION HCL] 07/28/2005 Intolerance Fully Assessed 08/10/2015 Allergies and current medication updated:Yes EXAM: BP 136/62 Wt 166 lb (75.3kg) GENERAL: pleasant, female in no apparent distress PELVIC: external genitalia normal, no vulvar lesions, no cervical lesions, normal appearing perineal body and perianal region; no blood or lesions; atrophic vagina BIMANUAL: uterus normal size, shape and con (more content not included)... [facility] 11-02-2023 Instructions More Soto Ma - 11/02/2023 3:16 PM EST YOUR RECOVERY After your biopsy you may have: Vaginal bleeding (less than a normal menstrual period) Mild cramping Do NOT put anything in the vagina for 1 week after your endometrial biopsy. This includes: tampons douches and refraining from having sexual intercourse If you have any discomfort, you may take an over the counter pain medication (motrin, advil, ibuprofen, tylenol, etc). If this does not relieve your discomfort, contact the office. It is okay to wear a sanitary pad until the discharge and spotting stops. RISKS Although problems seldom occur with endometrial biopsies, there can be some complications. You may feel faint during and shortly after the procedure as well as have some bleeding after the procedure. There is also a risk of infection after the procedure. These complications are rare and can be easily treated. You should contact you doctor is you have any of the following: Heavy bleeding (more than your normal period) Bleeding with clots Severe abdominal pain Fever (more than 100.4F) Foul smelling vaginal discharge RESULTS We will have the results of your biopsy in 1-2 weeks. If you do not hear the results of your biopsy after 2 weeks, please contact the office for the results. If you have any additional questions or concerns please do not hesitate to contact the office. documented in this encounter [facility] 11-02-2023 History of Presen t illness Narrative Shelli Sanders is a 73 year old female who presents for problem visit. HPI: Patient reports yellowish brown spotting about 3 times over the past 6 months. Denies any bright red bleeding. She was seen at [facility] for this and a culture done that was negative. Patient denies h/o abnormal paps. 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 Smith, derm Myalgia and myositis, unspecified Other specified disorders of liver mild hepatosplenomegaly/diffuse fatty infiltration PAST SURGICAL HISTORY Procedure Laterality Date ANESTHESIA LUMBAR REGION NOS 2001 APPENDECTOMY BREAST BIOPSY NEEDLE RIGHT COLONOSCOPY ?2008 OPEN REPAIR OF ROTATOR CUFF ACUTE 2010 Rotator cuff repair PAST SURGICAL HISTORY OF female surgery and appendix FAMILY HISTORY Problem Relation Age of Onset other (pneumonia [Other]) Mother COPD Cancer Mother Lung Thyroid Mother Diabetes Father Heart Sister arthritis Diabetes Sister Diabetes Sister Coronary Artery Disease Brother Diabetes Brother Hypertension Brother Heart Brother Breast Cancer Paternal Grandmother Thyroid Daughter Twin Thyroid Daughter Twin Social History Tobacco Use Smoking status: Former Packs/day: 0.00 Years: 40.00 Additional pack years: 0.00 Total pack years: 0.00 Types: Cigarettes Smokeless tobacco: Never Tobacco comments: 3 cartridges a day electronic cigarette since 2010 Vaping Use Vaping Use: current everyday user Substance Use Topics Alcohol use: No Drug use: No Current Outpatient Medications Medication Sig enalapril (VASOTEC) 20 mg tablet Take 1 tablet by mouth twice daily. pravastatin (PRAVACHOL) 40 mg tablet Take 1 tablet by mouth once daily. hydrochlorothiazide (HYDRODIURIL, ESIDRIX) 25 mg tablet Take 1 tablet by mouth once daily. alendronate (FOSAMAX) 70 mg tablet Take 1 tablet by mouth once each week. Take with a full glass of water, on an empty stomach; do NOT lie down for 30minutes. metFORMIN ER (GLUCOPHAGE XR) 500 mg 24 hr tablet Take 1 tablet by mouth daily with breakfast. linagliptin (TRADJENTA) 5 mg tab Take 5 mg by mouth once daily. levothyroxine (SYNTHROID) 50 mcg tablet Take 1 tablet by mouth once daily. Take on empty stomach. For thyroid. esomeprazole (NEXIUM) 40 mg capsule Take 1 capsule by mouth once daily. promethazine (PHENERGAN) 25 mg tablet Take 1 tablet by mouth every 6 hours as needed. mupirocin (BACTROBAN) 2 % ointment Apply 1 application to affected area three times daily. Location: right nare enalapril (VASOTEC) 20 mg tablet Take 1 tablet by mouth twice daily. calcium carbonate-vitamin d2 500 mg(1,250mg) -200 unit tab Take 1 tablet by mouth once daily. triamcinolone 0.025 % lotn Apply to affected area twice daily. conjugated estrogens (PREMARIN) vaginal cream Apply small amount to vulvar are with fingers 3 times per week Clobetasol Propionate 0.05 % gel Apply 1 application to affected area as needed. Halobetasol Propionate 0.05 % cream Apply 1 application to affected area twice daily as needed. fexofenadine (LEO) 180 mg ORAL tablet Take 1 tablet by mouth once daily. naproxen sodium(ALEVE 220 MG TAB) as necessary blood sugar diagnostic(FREESTYLE TEST STRIPS) testing four times daily cyclobenzaprine hcl(FLEXERIL 10 MG TAB) Take one(1) tablet daily. as needed No current facility-administered medications for this visit. Allergies As of Date: 11/02/2023 Allergen Noted Reaction ANESTHETICS - AMIDE TYPE - SELECT*05/10/2004 FLUOGEN [INFLUENZA VIRUS VAC. TRI*07/28/2005 Intolerance INFLUENZA A (H1N1) VIRUS VACCINE *07/31/2014 Hives LYRICA [PREGABALIN] 12/27/2009 NEURONTIN [GABAPENTIN] 12/27/2009 PENICILLINS 05/10/2004 Itching PNEUMOVAX 23 [PNEUMOCOCCAL 23-DASHA*07/28/2005 Intolerance PREVACID [LANSOPRAZOLE] 07/28/2005 Intolerance TETANUS VACCINES AND TOXOID 07/28/2005 Intolerance ULTRACET [TRAMADOL-ACETAMINOPHEN] 07/28/2005 Intolerance WELLBUTRIN [BUPROPION HCL] 07/28/2005 Intolerance Fully Assessed 08/10/2015 Allergies and current medication updated:Yes EXAM: BP 136/62 Wt 166 lb (75.3kg) GENERAL: pleasant, female in no apparent distress PELVIC: external genitalia normal, no vulvar lesions, no cervical lesions, normal appearing perineal body and perianal region; no blood or lesions; atrophic vagina BIMANUAL: uterus normal size, shape and consistency, no adnexal masses, and non-tender ASSESSMENT AND PLAN: 73yo female with intermittent yellow-brown vaginal discharge Check pelvic US for possible PMB but history is most consistent with discharge Pap done If US normal no further evaluation needed Medical Decision Making: Problems: Low: Acute, uncomplicated illness or injury Data: Unique test(s) ordered: 2 Risk: Low: Low risk from testing/treatment Medical Decision Making Level: 3 - Low Bella Navarro MD documented in this encounter [facility] documented as of this encounter (statuses as of 11/02/2023) [facility] Future Appointments Appointment Date:12/29/2021 01:15:00 PM Scheduled Provider:JOSHUA EVANS MD Location:[facility] Appointment Type:[facility] Evaluation + Plan note Future Appointments Appointment Date:03/15/2023 03:15:00 PM Scheduled Provider:JOSHUA EVANS MD Location:[facility] Appointment Type:[facility] Evaluation + Plan note Future Appointments Appointment Date:06/14/2023 03:00:00 PM Scheduled Provider:JOSHUA EVANS MD Location:[facility] Appointment Type:ENDO [facility] Evaluation note* Diagnosis Encounter for screening for malignant neoplasm of cervix- Primary Screening for malignant neoplasm of the cervix Vaginal discharge Leukorrhea, not specified as infective PMB (postmenopausal bleeding) Postmenopausal bleeding [facility] N[facility]ative No data available for this section [facility] Discharge instructions No data available for this section [facility] Progress note No data available for this section [facility] Reason for referral (narrative)* Diagnostic Procedure Only (Routine) - Authorized Specialty Diagnoses / Procedures Referred By Contac t Referred To Contact US IMAGING Diagnoses Vaginal discharge PMB (postmenopausal bleeding) Procedures US FEMALE PELVIS TRANSVAG US TRANSVAGINAL Bella Navarro MD [address] [place] [address] [facility] [id number] Referral ID Status Reason Start Date Expiration Date Visits Requested Visits Authorized [id number] Authorized Auto-Generat ed Referral 11/02/2023 12/01/2024 [address] [facility] Summary Purpose Family History No Family History Records Found Advance Directives No Advanced Directives Records FoundNo Advanced Directives Records Found Additional Source Comments Care Team (unrecognized sect ion and content) INFORMATION SOURCE (unrecogn ized section and content) DATE CREATED AUTHOR AUTHOR'S ORGANIZ ATION 11/04/2023 [facility] Source Comments (unrecognize d section and content) In the event this informatio n is protected by the Federal Confidentiality of Alcohol and Drug Abuse Patient Records regulations: The Federal rules restrict any use of the information to criminally investigate or prosecute any alcohol or drug abuse patient.[facility] FOR RECORDS PERTAINING TO PATIENTS WHO ARE [...] BE BASED ON THE PRIMARY CLINICAL RECORDS. [employer] [facility]. provides no warranty or guarantee of the accuracy or completeness of information in this document.
[2023-11-15 14:09] LABS: Angiotensin Convert Enzyme 15 U/L (14-82)
== END | disposition home or self-care (01) ==
LOC: MTLAB 13:10
PROVIDERS: PCP Family Medicine; Referring Provider Family Medicine; Visit Provider Family Medicine
DX: I10 Essential (primary) hypertension (principal); E11.9 Type 2 diabetes mellitus without complications; E78.5 Hyperlipidemia, unspecified; Z51.81 Encounter for therapeutic drug level monitoring; H53.2 Diplopia
CPT/HCPCS: 36415; 80053; 80061; 82043; 82164; 82306; 82570; 83036; 85025

== ENCOUNTER 2023-12-27 07:32 | Day surgery (SDC) | payer MEDICARE, OTHER, SELFPAY ==
[2023-12-27 07:44] VITALS: BMI 31.4
--- NOTE | 2023-12-27 07:59 | PCM.HP.STD ---
HPI - General HPI Narrative NOHEMI SANDERS, is a 73 F who presents with left lower extremity painful varicose veins, skin thickening/discoloration. She has left GSV reflux throughout with mid segment adjacent to knee that appears to be obliterated with bridging varicosity. [facility] Medical History Anxiety Arthritis Back pain Bladder disease Cardiology follow-up encounter Coronary artery calcification seen on CAT scan Dietary restriction Duodenal ulcer Emphysema of lung Essential (primary) hypertension Fatty liver Gastric reflux GERD (gastroesophageal reflux disease) High cholesterol History of deep venous thrombosis (1999) History of diverticulitis History of echocardiogram History of edema History of hiatal hernia History of renal disease History of stress test Hyperlipidemia Hypothyroidism Injury of head and neck Leg cramps Lightheadedness Loss of hearing Migraine headache MRSA infection Nausea Near syncope Neck pain Nodule of upper lobe of left lung Obesity Restless legs Smoker Thyroid disease Type 2 diabetes mellitus Vapes nicotine containing substance Wears dentures Home Medications hydrochlorothiazide 25 mg tablet 25 mg PO DAILY 08/15/17 [History Last Taken Unknown] melatonin 3 mg tablet 3 mg PO HS PRN Sleep 05/28/20 [History Last Taken Unknown] meloxicam 15 mg tablet 15 mg PO DAILY 05/28/20 [History Last Taken Unknown] potassium chloride 10 mEq tablet,extended release(part/cryst) 10 meq PO BID 05/28/20 [History Last Taken Unknown] levothyroxine 75 mcg tablet 75 mcg PO MOTUWETHFR 06/02/21 [History Last Taken 12/27/23] mecobalamin (vitamin B12) 1,000 mcg chewable tablet 1,000 mcg PO DAILY 06/02/21 [History Last Taken Unknown] enalapril maleate 20 mg tablet 20 mg PO BID 06/01/22 [History Last Taken Unknown] hydroxyzine HCl 25 mg tablet 50 mg PO QHS 05/15/23 [History Last Taken Unknown] pantoprazole 40 mg tablet,delayed release 40 mg PO BID 05/15/23 [History Last Taken Unknown] amlodipine 10 mg tablet 10 mg PO DAILY 05/17/23 [History Last Taken Unknown] calcium carb-ergocalciferol (vit D2) 600 mg calcium-200 unit tablet 1 tab PO DAILY 05/17/23 [History Last Taken Unknown] magnesium 200 mg tablet 400 mg PO BID 08/31/23 [History Last Taken Unknown] rosuvastatin 20 mg tablet 20 mg PO DAILY #30 tabs 11/19/23 [Rx Last Taken Unknown] Allergy/AdvReac Type Severity Reaction Status Date / Time Influenza Virus Vaccines Allergy Severe Swelling Verified 10/25/23 14:23 pneumococcal vaccine Allergy Severe Swelling Verified 10/25/23 14:23 Tetanus Vaccines and Toxoid Allergy Severe Swelling Verified 10/25/23 14:23 bupropion [From Wellbutrin] Allergy Hives Verified 10/25/23 14:23 pravastatin AdvReac Intermediate Myalgias Verified 11/19/23 08:14 Family History Mother Lung cancer Thyroid disorder Sister Heart disease Diabetes Sister Heart disease Diabetes Myocardial infarction Lung disease Father Myocardial infarction, Onset Age: 46 Brother Aortic aneurysm Grandmother Cancer melanoma Grandmother Breast cancer Surgical History H/O construction of artificial vagina H/O oophorectomy History of appendectomy History of bunionectomy History of cholecystectomy (~05/2023) History of lumbar surgery History of rotator cuff surgery History of tonsillectomy and adenoidectomy reconstruction of rectum Social History Smoking Status: Current some day smoker tobacco type: e-cigarettes Tobacco: How many years used: 50 Electronic Cigarette Use: with nicotine how long ago did patient quit smokin years second hand exposure: Yes quit status: has quit before counseling given: provider counseling alcohol intake: never ROS Constitutional Constitutional: Denies chills, fever(s), frequent falls, lethargy or weakness Eyes Eyes: Denies blind spots, change in vision or loss of vision ENT HEENT: Denies bleeding gums, hoarseness or sore throat Cardiovascular Cardiovascular: Denies abdominal pain, bluish discoloration of hand/feet, chest pain with activity, claudication, cold extremities, cyanosis, dyspnea on exertion, erythema on extremities, irregular heart rhythm, leg edema, leg ulcers, numbness in extremities or weakness in extremities Respiratory/Chest Respiratory/Chest: Denies cough, excessive phlegm production, shortness of breath at rest, shortness of breath with exertion or wheezing Gastrointestinal Gastrointestinal: Denies anorexia, change in stool character, constipation, diarrhea, melena or rectal bleeding Genitourinary Genitourinary: Denies dysuria or hematuria Musculoskeletal Musculoskeletal: Denies abnormal gait Integumentary Integumentary: Reports other Details: ; Denies erythema, non-healing lesions or wounds Neurologic Neurologic: Denies abnormal speech, focal weakness, headache(s), loss of vision, numbness, paresthesias or sensory deficit Hematologic/Lymphatic Hematologic/Lymphatic: Denies easy bleeding, easy bruising or lymphadenopathy Vital Signs Vital Signs Vital Signs: Weight Weight: 166 lb Body Mass Index (BMI) 31.4 Physical Exam Const alert, oriented x3, no apparent distress and healthy appearing General Appearance: cooperative; Negative for combative or lethargic Orientation / Consciousness: awake Exam Limitations: no limitations HEENT Head and Scalp: normocephalic and atraumatic Eyes EOMs intact bilaterally General Eye: normal appearance of both eyes Neck full ROM, no lymphadenopathy, thyroid normal and No no carotid bruits General: trachea midline; Negative for lymphadenopathy or tenderness Thyroid: thyroid normal Lymph Lymphatic: Negative for no lymphadenopathy noted Resp normal respiratory effort and no use of accessory muscles Effort and Inspection: Negative for labored, stridor or audible wheezes Cardio regular rate, regular rhythm and no murmurs Back/Spine Cervical Spine: cervical ROM normal Extremity full ROM, normal capillary refill and no clubbing, cyanosis or edema Skin no rashes or lesions noted and no wounds Neuro oriented x3, CN's II-XII intact bilaterally, no focal motor deficits and no sensory deficits noted Psych thought process normal, cooperative, affect normal, speech normal and activity/motor behavior normal Assessment & Plan Assessment/Plan (1) Varicose veins of leg with pain: QUALIFIERS: Laterality: bilateral Qualified Code(s): I83.813 - Varicose veins of bilateral lower extremities with pain PLAN: -chemical ablation -will access each GSV segment indivually
--- NOTE | 2023-12-27 10:01 | PCM.OPRPT ---
Report of Operation Date of Procedure: 12/27/23 Pre-Operative Diagnosis: varicose veins with pain, left lower extremity Post-Operative Diagnosis: same Surgery/Procedure Performed:: left great saphenous vein ablation Surgeon: Jovon Bell Type of Anesthesia: Local and Sedation,Conscious Estimated Blood Loss (mL): 2 Description of Procedure: HPI: Patient is a 73-year-old female with left lower extremity painful varicose veins and skin discoloration has been refractory to compression therapy. She had venous duplex imaging which revealed great saphenous vein reflux throughout with a segment adjacent to the knee that appeared to be obliterated and connected with torturous varicosities. She presents now for glue ablation. Description procedure: Upon today informed consent and verification correct patient procedure site patient taken the Carpentry Supervisor where she was positioned prepped and draped in usual sterile fashion. Timeout was performed, sedation administered Versed and fentanyl. Ultrasound used to evaluate the great saphenous vein which had been pretty marked by the registered nurse cardiovascular icu. The vessel was continuous from the ankle to the proximal calf at which point it appeared to give off multiple torturous varicosities and then reconstituted the above the knee great saphenous in the distal thigh. From this point cephalad the vessel was continuous with no significant tortuosity or large branches. Skin overlying the great saphenous vein in the distal thigh was anesthetized 1% lidocaine and the vessel accessed under ultrasound guidance with micropuncture needle wire. This then changed out for the 7 Belgian sheath through which the guidewire was advanced in position at the saphenofemoral junction. Next the glue delivery guide was advanced over the wire and positioned 5 cm distal to the saphenofemoral junction. The glue delivery catheter was then advanced and and then repositioned to a distance of 5 cm distal to the saphenofemoral junction. Glue was then deposited along the thigh great saphenous vein per room server's instructions until the treatment segment was completed. The 7 Belgian sheath was then withdrawn and manual pressure held over the access site until hemostasis was obtained. Neck skin overlying the great saphenous vein in the ankle was anesthetized 1% lidocaine the vessel accessed with a micropuncture needle wire under ultrasound guidance. This then changed out for a 7 Belgian sheath through which the guidewire was advanced into the great saphenous vein in the proximal calf at the point of varicose collateral location. Next the glue delivery guide was advanced to the superiormost point of the great saphenous vein in the calf and the glue delivery catheter advanced into position. Glue was then deposited along the length of the calf great saphenous vein into the treatment segment was completed. The 7 Belgian sheath was then withdrawn and manual pressure held until hemostasis was obtained. Dry sterile dressings and Luis wrap were then applied the patient was awakened anesthesia taken recovery room for discharge to home.
== END 2023-12-27 11:20 | disposition home or self-care (01) ==
LOC: CLSP 07:34
PROVIDERS: PCP Family Medicine; Referring Provider Surgery Trauma Surgery; Visit Provider Surgery Trauma Surgery
DX: I83.813 Varicose veins of bilateral lower extremities with pain (principal); J43.9 Emphysema, unspecified; E11.9 Type 2 diabetes mellitus without complications; E78.00 Pure hypercholesterolemia, unspecified; F17.290 Nicotine dependence, other tobacco product, uncomplicated; I10 Essential (primary) hypertension; I25.10 Atherosclerotic heart disease of native coronary artery without angina pectoris; E03.9 Hypothyroidism, unspecified; Z79.890 Hormone replacement therapy; Z79.899 Other long term (current) drug therapy
CPT/HCPCS: 36482; 36483; 99152; 99153; C1894; J7040

== ENCOUNTER → 2023-12-31 | Outpatient (CLI) | payer MEDICARE, OTHER, SELFPAY ==
[2023-12-26 14:17] VITALS: BMI 31.7
--- NOTE | 2023-12-31 10:49 | VDLE_ITS ---
Reason For Study: S/P Recent Chemical Ablation RIGHT LEFT CFV is compressible, spontaneous, phasic, GSV is dilated and NONCOMPRESSIBLE competent and demonstrates normal approximately 0.75cm from junction to distal augmentation. thigh. Compressible varicosities are noted Procedure throughout the area of the knee. Prox calf to This is a venous duplex using B-mode, color ankle is dilated and NONCOMPRESSIBLE. All flow and spectral Doppler. findings are consistent with recent Venoseal Exam performed in department. procedure. The exam was diagnostic. CFV is compressible, spontaneous, phasic, competent, and demonstrates normal augmentation. FV is compressible, spontaneous, phasic, competent and demonstrates normal augmentation. POP V is compressible, spontaneous, phasic, competent and demonstrates normal augmentation. T/P Trunk is compressible. PTV is compressible. LT PerV is compressible. VL/Venous Duplex US, Unilateral Interpretation Summary Left great saphenous vein occluded consistent with recent ablation. Deep veins of the left lower extremity are patent and compressible segmentally. There is no evidence of left lower extremity deep vein thrombosis. Ordering Physician: Hetal Hunt Referring Physician: Jaclyn Webster Performed By: Glenroy Greene, RVT
== END | disposition home or self-care (01) ==
LOC: CVS 10:48
PROVIDERS: PCP Family Medicine; Referring Provider Physician Assistant; Visit Provider Physician Assistant
DX: I83.813 Varicose veins of bilateral lower extremities with pain (principal)
CPT/HCPCS: 93971

== ENCOUNTER → 2024-01-17 | Outpatient (CLI) | payer MEDICARE, OTHER, SELFPAY ==
--- NOTE | 2024-01-17 08:44 | VDLE_ITS ---
Reason For Study: LLE Pain RIGHT LEFT FV is compressible, spontaneous, phasic, GSV is dilated and NONCOMPRESSIBLE from competent and demonstrates normal junction to distal thigh. Echoes appear augmentation. adjacent to CFV but do not appear to extend Procedure into CFV. Compressible varicosities are noted This is a venous duplex using B-mode, color throughout the area of the knee. Prox calf to flow and spectral Doppler. ankle is dilated and NONCOMPRESSIBLE. All Exam performed in department. findings are consistent with recent Venoseal The exam was diagnostic. procedure. A preliminary report was called and/or faxed CFV is compressible, spontaneous, phasic, to [facility]. competent, and demonstrates normal augmentation. FV is compressible, spontaneous, phasic, competent and demonstrates normal augmentation. POP V is compressible, spontaneous, phasic, competent and demonstrates normal augmentation. T/P Trunk is compressible. PTV is compressible. LT PerV is compressible. VL/Venous Duplex US, Unilateral Interpretation Summary Deep veins of the left lower extremity are patent and compressible segmentally. There is no evidence of left lower extremity deep vein thrombosis. Left great saphenous vein occluded consistent with recent chemical ablation. Ordering Physician: Hetal Hunt Referring Physician: Jaclyn Webster Performed By: Glenroy Greene RVT
== END | disposition home or self-care (01) ==
LOC: CVS 08:43
PROVIDERS: PCP Family Medicine; Referring Provider Physician Assistant; Visit Provider Physician Assistant
DX: Z48.812 Encounter for surgical aftercare following surgery on the circulatory system (principal); I83.813 Varicose veins of bilateral lower extremities with pain
CPT/HCPCS: 93971

== ENCOUNTER → 2024-02-07 | Outpatient (CLI) | payer MEDICARE, OTHER, SELFPAY ==
--- NOTE | 2024-02-07 13:24 | RAD_ITS ---
STUDY: X-RAY CHEST REASON FOR EXAM: Female, 74 years old. Persistent cough TECHNIQUE: PA and lateral views of the chest. COMPARISON: CT of the chest dated March 13, 2022 FINDINGS: There are interstitial fibrotic changes of the lungs. Both lungs are chronically hyperinflated with cystic emphysematous changes. No visualized consolidation. There is no demonstrated pleural abnormality. Normal size heart. Normal mediastinum and kwesi. Normal visualized pulmonary arteries. There is atherosclerotic calcification of the aortic arch with tortuosity. There is a dextroscoliosis of the thoracic spine. Normal visualized ribs, clavicles, and shoulders. There is no demonstrated abnormality of the visualized soft tissue structures of the upper abdomen. RAD/Chest PA and Lateral IMPRESSION: COPD/chronic interstitial lung disease Electronically Signed: Chester Tuckre MD at 14:24 EDT ,
== END | disposition home or self-care (01) ==
LOC: MTRAD 13:24
PROVIDERS: PCP Family Medicine; Referring Provider Physician Assistant Surgical; Visit Provider Physician Assistant Surgical
DX: R05.3 Chronic cough (principal)
CPT/HCPCS: 71046

== ENCOUNTER → 2024-03-07 | Outpatient (CLI) | payer MEDICARE, SELFPAY ==
[2024-03-07 16:17] LABS: AST(SGOT) 25 U/L (15-37); Alanine Aminotransfer ALT/SGPT 25 U/L (13-56); Albumin, Serum 3.6 g/dL (3.2-5.0); Alkaline Phosphatase 59 U/L (45-117); Bilirubin, Direct 0.13 mg/dL (0.00-0.30); Cholesterol 206 mg/dL (200); Globulin 3.5 g/dL (2.2-4.2); High Density Lipoprotein 43 mg/dL; Protein, Total 7.1 g/dL (6.4-8.2); Triglycerides 348 mg/dL; Very Low Density Lipoprotein 70 mg/dL (5-40)
== END | disposition home or self-care (01) ==
LOC: LAB 14:15
PROVIDERS: PCP Family Medicine; Referring Provider Nurse Practitioner Family; Visit Provider Nurse Practitioner Family
DX: E78.2 Mixed hyperlipidemia (principal)
CPT/HCPCS: 36415; 80061; 80076

== ENCOUNTER → 2024-06-04 | Outpatient (CLI) | payer MEDICARE, SELFPAY ==
[2024-06-04 12:54] LABS: AST(SGOT) 97 U/L (15-37); Alanine Aminotransfer ALT/SGPT 222 U/L (13-56); Albumin, Serum 3.6 g/dL (3.2-5.0); Alkaline Phosphatase 62 U/L (45-117); Cholesterol 191 mg/dL (200); Globulin 3.3 g/dL (2.2-4.2); High Density Lipoprotein 40 mg/dL; Protein, Total 6.9 g/dL (6.4-8.2); Triglycerides 183 mg/dL; Very Low Density Lipoprotein 37 mg/dL (5-40)
== END | disposition home or self-care (01) ==
PROVIDERS: Nurse Practitioner Family; PCP Family Medicine; Referring Provider Physician Assistant Medical; Visit Provider Physician Assistant Medical
DX: K76.0 Fatty (change of) liver, not elsewhere classified (principal); E78.2 Mixed hyperlipidemia
CPT/HCPCS: 36415; 80061; 80076

== ENCOUNTER → 2024-06-09 | Outpatient (CLI) | payer MEDICARE, SELFPAY ==
[2024-06-09 12:26] LABS: Absolute Lymphocyte Count 2.46 X10^3/uL (0.83-4.51); Absolute Neutrophil Count 2.6 X10^3/uL (2.0-7.7); Basophil# 0.05 X10^3/uL; Basophil% 0.8 % (0-1); Eosinophil# 0.22 X10^3/uL; Eosinophils% 3.7 % (0-5); Hematocrit 39.8 % (37-47); Hemoglobin 12.7 g/dL (12.0-15.0); Lymphocyte # 2.46 X10^3/ul (0.83-4.51); Lymphocyte % 41.8 % (19-41); Mean Corp Hgb Conc 31.9 g/dL (32-36); Mean Corpuscular Volume 87.9 fL (81-99); Mean Platelet Vol. 9.8 fl (6.2-12.0); Monocyte# 0.54 X10^3/uL; Monocyte% 9.2 % (0-10); NRBC Flagged by Analyzer 0 % (0-5); Neutrophil % 44.2 % (47-70); Platelet Count 250 K/mm3 (150-450); RBC Distribution Width CV 15.3 % (11.6-14.6); RBC Distribution Width SD 49.8 fl (35.1-43.9); Red Blood Count 4.53 M/mm3 (4.2-5.4); White Blood Count 5.9 K/mm3 (4.4-11.0)
[2024-06-09 12:59] LABS: ALB/GLOB Ratio 1.2 RATIO (0.9-2.4); AST(SGOT) 161 U/L (15-37); Alanine Aminotransfer ALT/SGPT 211 U/L (13-56); Albumin, Serum 4.1 g/dL (3.2-5.0); Alkaline Phosphatase 72 U/L (45-117); Anion Gap 6 (5-15); BUN 23 mg/dL (7-18); BUN/Creat Ratio 13.9 RATIO (10-20); Calcium,Total 10.3 mg/dL (8.5-10.1); Chloride 105 mmol/L (98-107); Creatinine, Serum 1.65 mg/dL (0.55-1.02); EST Glomerular Filtration Rate 32 mL/min (>60); Est Glom Filt Rate - Afr Amer 39 mL/min (>60); Globulin 3.4 g/dL (2.2-4.2); Glucose 94 mg/dL (74-106); Potassium 4.4 mmol/L (3.5-5.1); Protein, Total 7.5 g/dL (6.4-8.2); Sodium Level 139 mmol/L (136-145)
[2024-06-10 06:09] LABS: GGTP 13 IU/L (0-60); HEPATITIS B SURFACE AG Negative (Negative); Hep C Antibodies Non Reactive (Non Reactive); Hepatitis A IgM Antibody Negative (Negative); Hepatitis B Core AB IgM Negative (Negative)
== END | disposition home or self-care (01) ==
LOC: LAB 11:03
PROVIDERS: PCP Family Medicine; Referring Provider Family Medicine; Visit Provider Family Medicine
DX: Z51.81 Encounter for therapeutic drug level monitoring (principal); R74.8 Abnormal levels of other serum enzymes
CPT/HCPCS: 36415; 80053; 80074; 82977; 85025

== ENCOUNTER → 2024-06-13 | Outpatient (CLI) | payer MEDICARE, SELFPAY ==
--- NOTE | 2024-06-13 10:35 | US_ITS ---
EXAM: US ABDOMEN LIMITED, RIGHT UPPER QUADRANT CLINICAL INDICATION: ELEVATED LIVER ENZYMES TECHNIQUE: Real-time ultrasound of the right upper quadrant with image documentation. COMPARISON: No relevant prior studies available. FINDINGS: LIVER: Liver echogenicity appears increased suggesting diffuse parenchymal liver disease, likely steatosis. No intrahepatic biliary ductal dilation. GALLBLADDER: Patient is status post cholecystectomy. COMMON BILE DUCT: Unremarkable as visualized. The proximal common bile duct is normal size. PANCREAS: Unremarkable as visualized. No focal abnormality is demonstrated in the pancreas. No pancreatic ductal dilatation. RIGHT KIDNEY: Normal. There is no hydronephrosis. No shadowing calculus. No focal lesion or perinephric collection is demonstrated. US/Abdomen Limited IMPRESSION: Parenchymal liver disease, likely steatosis. Electronically Signed: Corky Jaffe MD at 16:52 EDT ,
== END | disposition home or self-care (01) ==
LOC: US 10:31
PROVIDERS: PCP Family Medicine; Referring Provider Family Medicine; Visit Provider Family Medicine
DX: R74.8 Abnormal levels of other serum enzymes (principal)
CPT/HCPCS: 76705

== ENCOUNTER → 2024-07-28 | Outpatient (CLI) | payer MEDICARE, SELFPAY | END | disposition home or self-care (01) | LOC: US 09:49 | PROVIDERS: PCP Family Medicine; Referring Provider Internal Medicine; Visit Provider Internal Medicine | DX: K75.81 Nonalcoholic steatohepatitis (NASH) (principal); K26.9 Duodenal ulcer, unspecified as acute or chronic, without hemorrhage or perforation; K21.9 Gastro-esophageal reflux disease without esophagitis; E78.5 Hyperlipidemia, unspecified; R76.8 Other specified abnormal immunological findings in serum; Z90.49 Acquired absence of other specified parts of digestive tract | CPT/HCPCS: 76981 ==

== ENCOUNTER → 2024-08-19 | Outpatient (CLI) | payer MEDICARE, SELFPAY ==
--- NOTE | 2024-08-19 16:03 | CT_ITS ---
STUDY: CT ABDOMEN AND PELVIS WITH CONTRAST REASON FOR EXAM: Female, 74 years old. Elevated liver enzymes/ six-month history of RLQ pain -- PO and IV contrast RADIATION DOSAGE (If Supplied By Facility): CTDIvol = ( 16.11 ) mGy, DLP = ( 840.99 ) mGycm TECHNIQUE: Transaxial images were obtained from the dome of the diaphragm to the symphysis pubis without oral contrast. IV 100mL Isovue-300 was administered. Sagittal and coronal images were reconstructed. Individualized dose optimization techniques were used for this CT. COMPARISON: Comparison is made with prior study dated April 19, 2023. FINDINGS: Stable minimal increased linear markings at the lung bases suggest mild basilar scarring. The visualized portions of the heart are within normal limits. There is decreased attenuation of the liver consistent with steatosis. The patient is status post cholecystectomy. Normal spleen. There is diffuse atrophy of the pancreas. Normal bilateral adrenal glands. Normal right kidney. Normal left kidney. Normal visualized stomach. Normal small intestine. There are scattered colonic diverticula consistent with diverticulosis. The patient is status post appendectomy. There is scattered atherosclerotic calcification of the abdominal aorta, without a demonstrated aneurysm. Normal inferior vena cava. Normal retroperitoneum. Normal urinary bladder. Small bilateral benign-appearing inguinal lymph nodes. There are degenerative changes of the visualized lumbar spine. There is evidence of a pars defects at the L5 vertebrae with minimal anterolisthesis of L5 on S1. CT/Abdomen/Pelvis WITH Contrast IMPRESSION: Fatty infiltration of the liver. Status post cholecystectomy. Status post appendectomy. Electronically Signed: Prosper Rao MD at 9:38 EST ,
[2024-08-19 16:27] LABS: CREATININE FINGERSTICK 1.2 mg/dL (0.55-1.02)
== END | disposition home or self-care (01) ==
LOC: CT 16:02
PROVIDERS: PCP Family Medicine; Referring Provider Surgery; Visit Provider Surgery
DX: R10.31 Right lower quadrant pain (principal); R74.8 Abnormal levels of other serum enzymes
CPT/HCPCS: 74177; Q9967

== ENCOUNTER 2024-11-12 13:19 | Outpatient (CLI) | payer MEDICARE, SELFPAY ==
[2024-11-12 15:23] LABS: Absolute Lymphocyte Count 2.49 X10^3/uL (0.83-4.51); Absolute Neutrophil Count 3.9 X10^3/uL (2.0-7.7); Basophil# 0.08 X10^3/uL; Basophil% 1.1 % (0-1); Eosinophil# 0.18 X10^3/uL; Eosinophils% 2.5 % (0-5); Hematocrit 38.1 % (37-47); Hemoglobin 12.6 g/dL (12.0-15.0); Lymphocyte # 2.49 X10^3/ul (0.83-4.51); Lymphocyte % 34.4 % (19-41); Mean Corp Hgb Conc 33.1 g/dL (32-36); Mean Corpuscular Hgb 28.6 pg (27.0-32.0); Mean Corpuscular Volume 86.6 fL (81-99); Mean Platelet Vol. 9.9 fl (6.2-12.0); Monocyte# 0.57 X10^3/uL; Monocyte% 7.9 % (0-10); NRBC Flagged by Analyzer 0 % (0-5); Neutrophil # 3.89 X10^3/uL (2.7-7.7); Neutrophil % 53.8 % (47-70); Platelet Count 293 K/mm3 (150-450); RBC Distribution Width SD 44.8 fl (35.1-43.9); White Blood Count 7.2 K/mm3 (4.4-11.0)
[2024-11-12 17:48] LABS: Hematocrit 38.3 % (37-47); Hemoglobin 12.5 g/dL (12.0-15.0); Mean Corp Hgb Conc 32.6 g/dL (32-36); Mean Corpuscular Hgb 28.3 pg (27.0-32.0); Mean Corpuscular Volume 86.7 fL (81-99); Mean Platelet Vol. 9.7 fl (6.2-12.0); Platelet Count 290 K/mm3 (150-450); RBC Distribution Width CV 14.1 % (11.6-14.6); RBC Distribution Width SD 44.6 fl (35.1-43.9); Red Blood Count 4.42 M/mm3 (4.2-5.4); White Blood Count 8.2 K/mm3 (4.4-11.0)
[2024-11-12 18:00] LABS: Prothrombin Time (Protime)PT. 12.9 SECONDS (11.7-14.9)
[2024-11-12 19:14] LABS: Cholesterol 184 mg/dL (<=200); Ferritin 124 ng/mL (22-378); High Density Lipoprotein 47 mg/dL; Low Density Lipoprotein Calc. 107 mg/dL; Triglycerides 154 mg/dL; Very Low Density Lipoprotein 31 mg/dL (5-40); cholesterol:hdl ratio screen 3.96
[2024-11-12 19:31] LABS: ALB/GLOB Ratio 1.6 RATIO (0.9-2.4); AST(SGOT) 38 U/L (<=31); Alanine Aminotransfer ALT/SGPT 29 U/L (<=34); Albumin, Serum 4.5 g/dL (3.4-4.8); Alkaline Phosphatase 59 U/L (35-104); Anion Gap 11 (5-15); BUN 25 mg/dL (4-19); BUN/Creat Ratio 21.7 RATIO (10-20); CRP 6.75 mg/L (0.0-3.0); Calcium 9.7 mg/dL (7.6-11.0); Chloride 103 mmol/L (96-108); Creatinine, Serum 1.1 mg/dL (0.6-1.0); EST Glomerular Filtration Rate 50 (>60); Globulin 2.8 g/dL (2.2-4.2); Glucose 95 mg/dL (70-99); Protein, Total 7.3 g/dL (5.9-8.4); Sodium Level 140 mmol/L (133-145); Total Bilirubin 0.31 mg/dL (0.00-1.30)
[2024-11-12 20:03] LABS: PTHIN 31 pg/mL (11-61)
[2024-11-12 20:05] LABS: Hemoglobin A1c 5.8 % (<=5.6)
[2024-11-12 20:48] LABS: Protein, Urine (Random) 12 mg/dL (<=12); Protein:Creat Ratio 106 mg/g CRE (0-200)
[2024-11-13 15:53] LABS: Iron 70 ug/dL (50-170); Iron Binding Capacity,Total 353 ug/dL (250-450); Iron Binding Capacity,Unsat 283 ug/dL (228-428)
[2024-11-14 08:12] LABS: Phosphorus 2.9 mg/dL (2.7-4.5); Vitamin D,25 Hydroxy 49.7 ng/mL (30-100)
[2024-11-14 14:08] LABS: PROEL- A/G Ratio 1.1 (0.7-1.7); PROEL- Albumin 3.7 g/dL (2.9-4.4); PROEL- Alpha-1 Globulin 0.2 g/dL (0.0-0.4); PROEL- Alpha-2 Globulin 0.8 g/dL (0.4-1.0); PROEL- Beta Globulin 1.2 g/dL (0.7-1.3); PROEL- Gamma Globulin 1.2 g/dL (0.4-1.8); PROEL- Globulin, Total 3.4 g/dL (2.2-3.9); PROEL- TOTAL PROTEIN 7.1 g/dL (6.0-8.5); PROEL-M-Spike Not Observed g/dL (Not Observed)
[2024-11-14 16:09] LABS: Anti-Mitochondrial AB <20.0 Units (0.0-20.0)
== END 2024-11-12 23:59 | disposition home or self-care (01) ==
PROVIDERS: PCP Family Medicine; Referring Provider Internal Medicine; Visit Provider Internal Medicine
DX: K75.81 Nonalcoholic steatohepatitis (NASH) (principal); E11.22 Type 2 diabetes mellitus with diabetic chronic kidney disease; N18.32 Chronic kidney disease, stage 3b; I12.9 Hypertensive chronic kidney disease with stage 1 through stage 4 chronic kidney disease, or unspecified chronic kidney disease; K26.9 Duodenal ulcer, unspecified as acute or chronic, without hemorrhage or perforation; K21.9 Gastro-esophageal reflux disease without esophagitis; E78.2 Mixed hyperlipidemia; R74.8 Abnormal levels of other serum enzymes; M81.0 Age-related osteoporosis without current pathological fracture; Z90.49 Acquired absence of other specified parts of digestive tract
CPT/HCPCS: 80053; 80061; 80069; 82105; 82306; 82390; 82525; 82570; 82728; 82784; 82941; 83036; 83516; 83540; 83550; 83883; 83970; 84100; 84156; 84165; 84443; 85025; 85027; 85610; 86140; 86255; 86334; 86340

== ENCOUNTER → 2025-03-16 | Outpatient (CLI) | payer MEDICARE, SELFPAY ==
[2025-03-16 17:59] LABS: Absolute Lymphocyte Count 3.21 X10^3/uL (0.83-4.51); Absolute Neutrophil Count 3.3 X10^3/uL (2.0-7.7); Basophil# 0.07 X10^3/uL; Basophil% 0.9 % (0-1); Eosinophil# 0.29 X10^3/uL; Eosinophils% 3.8 % (0-5); Hematocrit 36.3 % (37-47); Lymphocyte # 3.21 X10^3/ul (0.83-4.51); Lymphocyte % 41.7 % (19-41); Mean Corp Hgb Conc 33.1 g/dL (32-36); Mean Corpuscular Hgb 28.8 pg (27.0-32.0); Mean Corpuscular Volume 87.1 fL (81-99); Mean Platelet Vol. 10.2 fl (6.2-12.0); Monocyte# 0.77 X10^3/uL; NRBC Flagged by Analyzer 0 % (0-5); Neutrophil # 3.33 X10^3/uL (2.7-7.7); Neutrophil % 43.3 % (47-70); Platelet Count 252 K/mm3 (150-450); RBC Distribution Width CV 13.7 % (11.6-14.6); RBC Distribution Width SD 43.5 fl (35.1-43.9); Red Blood Count 4.17 M/mm3 (4.2-5.4); White Blood Count 7.7 K/mm3 (4.4-11.0)
[2025-03-16 19:13] LABS: ALB/GLOB Ratio 1.7 RATIO (0.9-2.4); AST(SGOT) 48 U/L (<=31); Alanine Aminotransfer ALT/SGPT 36 U/L (<=34); Albumin, Serum 4.3 g/dL (3.4-4.8); Alkaline Phosphatase 74 U/L (35-104); Anion Gap 13 (5-15); BUN 25 mg/dL (4-19); BUN/Creat Ratio 20.2 RATIO (10-20); Calcium,Total 9.4 mg/dL (7.6-11.0); Carbon Dioxide 22.8 mmol/L (21.0-32.0); Chloride 103 mmol/L (98-108); Creatinine, Serum 1.22 mg/dL (0.70-1.20); EST Glomerular Filtration Rate 46 (>60); Globulin 2.6 g/dL (2.2-4.2); Glucose 105 mg/dL (70-99); Potassium 3.9 mmol/L (3.3-5.1); Protein, Total 6.9 g/dL (5.9-8.4); Sodium Level 139 mmol/L (133-145); Total Bilirubin 0.32 mg/dL (0.00-1.30)
== END | disposition home or self-care (01) ==
LOC: BFHLAB 16:07
PROVIDERS: PCP Family Medicine; Visit Provider Family Medicine
DX: Z51.81 Encounter for therapeutic drug level monitoring (principal); E03.9 Hypothyroidism, unspecified; N18.9 Chronic kidney disease, unspecified
CPT/HCPCS: 36415; 80053; 84443; 85025

== ENCOUNTER → 2025-04-22 | Outpatient (CLI) | payer MEDICARE, SELFPAY ==
--- NOTE | 2025-04-22 14:49 | BI_ITS ---
EXAM: SCRN MAMM (CAD)W/CONNER BILAT DATE: 04/22/2025 CLINICAL HISTORY: F, Age 75 y/o , SCREENING TECHNIQUE: SCRN MAMM (CAD)W/CONNER BILAT COMPARISON: Prior exam(s) were compared FINDINGS: TISSUE DENSITY: There are scattered areas of fibroglandular density. Bilateral Breast Mammographic Findings: No suspicious masses, calcifications or other abnormalities are identified. BI/SCRN MAMM (CAD)W/CONNER BILAT IMPRESSION: No mammographic evidence of malignancy in either breast OVERALL FINAL ASSESSMENT BI-RADS 1: NEGATIVE. RECOMMENDATION: Routine annual follow-up in 1 Year A letter with findings and recommendations will be mailed to the patient. Reading Location: [id number]
== END | disposition home or self-care (01) ==
PROVIDERS: PCP Family Medicine; Referring Provider Family Medicine; Visit Provider Family Medicine
DX: Z12.31 Encounter for screening mammogram for malignant neoplasm of breast (principal)
CPT/HCPCS: 77063; 77067

== ENCOUNTER → 2025-05-06 | Outpatient (CLI) | payer MEDICARE, SELFPAY ==
--- NOTE | 2025-05-06 15:00 | BD_ITS ---
PROCEDURE: DEXA BONE DENSITY STUDY 05/06/2025 REASON FOR EXAM: F, age 75 y/o . Postmenopausal. TECHNIQUE: DEXA BONE DENSITY STUDY COMPARISON: Prior study dated November 30, 2016. FINDINGS: BMD and T-SCORES Lumbar spine: 0.807 g/cm2, T-score -2.2 Levels: L1 through L4 Change from prior: Loss of 0.6%. Left femoral neck: 0.6 g/cm2, T-score -2.2 Femoral neck comparison data not recommended for monitoring change. Left total hip: 0.799 g/cm2, T-score -1.2 Change from prior: Loss of 13.6%. Right femoral neck: 0.625 g/cm2, T-score -2.0 Femoral neck comparison data not recommended for monitoring change. Right total hip: 0.758 g/cm2, T-score -1.5 Change from prior: Loss of 8.6%. The World Health Organization has defined the following categories based on bone density: Normal bone density: T-score equal to or greater than -1.0 Osteopenia: T-score between -1.0 and -2.5 Osteoporosis: T-score equal to or less than -2.5 FRAX (or Comparable) Fracture Risk Assessment: 10 Year Probability of Fracture: Major Osteoporotic Fracture: 21%% Hip Fracture: 5.6% (Note: FRAX is not to be reported in setting of normal range bone density, osteoporosis on DEXA, known history of osteoporosis, prior osteoporotic hip or vertebral fracture, or for any patient undergoing pharmacological treatment for bone loss.) The National Osteoporosis Foundation (NOF) recommends pharmacological treatment for patients with a FRAX 10-year risk of 3% or higher for a hip fracture, or 20% or higher for a major osteoporotic fracture, to prevent osteoporosis and reduce fracture risk. The patient does meet the pharmacological treatment recommendations for prevention of osteoporosis. BD/Dexa Bone Density Study IMPRESSION: OSTEOPENIA. Recommend follow-up as clinically warranted. Reading Location: [id number]
== END | disposition home or self-care (01) ==
LOC: OPBD 14:55
PROVIDERS: PCP Family Medicine; Referring Provider Family Medicine; Visit Provider Family Medicine
DX: Z78.0 Asymptomatic menopausal state (principal); M85.80 Other specified disorders of bone density and structure, unspecified site
CPT/HCPCS: 77080

== ENCOUNTER 2025-05-20 06:14 | Day surgery (SDC) | payer MEDICARE, SELFPAY ==
--- NOTE | 2025-05-14 18:35 | PAT.ANESEVAL ---
Pre-Assessment Diagnosis/Proposed Procedure Planned Operative Procedure(s): EGD Anesthesia History Anesthesia History - hand packager: Anesthesia History - hand packager Hx Hospitalization No 05/14/25 12:22 Any Problems With Anesthesia No 05/14/25 12:22 Cholinesterase deficiency No 05/14/25 12:22 You/Your Family Experience No 05/14/25 12:22 fever (hyperthermia) with Relationship Recent Exposure to Contagious No 02/07/24 12:58 Disease Does patient have nerve No 05/14/25 12:22 stimulator Patient instructed to have device shut off --Does patient have Pacemaker or ICD? When Was Last Pacemaker Check QUESTION #4 FULL TEXT: You/Your Family Experience fever (hyperthermia) with Anesthesia Last Oral Intake Last Oral intake: Last Oral Intake NPO since Meds taken in AM with sips of water? Meds patient instructed to take am of surgery PONV PONV - hand packager: PONV - hand packager Female Yes 05/14/25 12:22 HX of Motion Sickness No 05/14/25 12:22 HX of N/V After Surgery No 05/14/25 12:22 Non-Smoker No 05/14/25 12:22 Duration of Surgery greater No 05/14/25 12:22 than 60 minutes Number of Risk Factors 1 05/14/25 12:22 PONV Score Low Risk 05/14/25 12:22 Height & Weight Height & Weight: Anesthesia: Height & Weight Height 5 ft 1 in 12/24/24 13:37 Respiratory Assessment Respiratory Assessment - hand packager: Respiratory Tract Infection Hx - hand packager Hx Respiratory Tract Infection No 05/14/25 12:22 STOP Sleep Apnea STOP Sleep Apnea - hand packager: STOP Sleep Apnea - hand packager Hx Hypertension Yes: CONTROLLED WITH MED 05/14/25 12:22 Hx Sleep Apnea No 05/14/25 12:22 CPAP BIPAP Do you snore loudly (louder No 05/14/25 12:22 than talking or can be heard Do you often feel tired/ No 05/14/25 12:22 fatigued/ sleepy during daytime? Has anyone observed you stop No 05/14/25 12:22 breathing during sleep? STOP Results Negative 05/14/25 12:22 QUESTION #5 FULL TEXT : Do you snore loudly (louder than talking or can be heard through closed doors)? 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 Specify any problems Hx of Preganancy in last 3 N/A 05/14/25 12:22 Months Nurse Filling Out Transfusion [facility] 05/14/25 12:22 & Questions: Date: 05/14/25 05/14/25 12:22 Time: 12:24 05/14/25 12:22 Patient unable to answer at this time (ie. confused, unrespo /Reproduction History /Reproductive History - hand packager: /Reproductive Hx- hand packager Hx Now No 05/14/25 12:22 Gestational Age (in weeks): EDC: Hx Hx Para Hx Section SAB No 05/14/25 12:22 [facility] Medical History (Updated 05/14/25 @ 12:30 by Eloise Rangel) Diabetes History of renal dialysis Electronic cigarette use COPD (chronic obstructive pulmonary disease) Diverticulosis History of ulceration Right lower quadrant pain Loss of hearing MRSA infection Thyroid disease High cholesterol Smoker History of edema History of echocardiogram History of stress test Coronary artery calcification seen on CAT scan Duodenal ulcer GERD (gastroesophageal reflux disease) Wears dentures Anxiety Arthritis Bladder disease History of renal disease Fatty liver Restless legs Migraine headache Injury of head and neck Dietary restriction History of hiatal hernia History of diverticulitis Gastric reflux Vapes nicotine containing substance Leg cramps Cardiology follow-up encounter Nausea History of deep venous thrombosis (1999) Lightheadedness Near syncope Hypothyroidism Emphysema of lung Obesity Hyperlipidemia Neck pain Back pain Essential (primary) hypertension Type 2 diabetes mellitus Nodule of upper lobe of left lung Home Medications ?Medication ?Instructions ?Recorded ?Last Taken ?Type hydrochlorothiazide 25 mg tablet 25 mg PO DAILY 08/15/17 Unknown History potassium chloride 10 mEq 10 meq PO BID 05/28/20 Unknown History tablet,extended release(part/cryst) levothyroxine 75 mcg tablet 75 mcg PO MOTUWETHFR 06/02/21 12/27/23 History enalapril maleate 20 mg tablet 10 mg PO BID 06/01/22 Unknown History albuterol sulfate 90 mcg/actuation 2 puff inhalation Q4-6H PRN 02/07/24 Unknown Rx aerosol inhaler shortness of breath or wheezing #6.7 grams glipizide 2.5 mg tablet, extended 2.5 mg PO QDAY 07/09/24 Unknown History release 24 hr magnesium aspart,citrate,oxide 500 mg PO DAILY 07/09/24 Unknown History (Triple Magnesium Complex) hydroxyzine HCl 25 mg tablet 50 mg PO QHS PRN itching 07/17/24 Unknown History pantoprazole 40 mg tablet,delayed 40 mg PO BID gastric reflux 12/24/24 Unknown History release biotin 10,000 mcg capsule 10,000 mcg PO DAILY 05/14/25 Unknown History fexofenadine 180 mg tablet 180 mg PO DAILY PRN allergies 05/14/25 Unknown History [id number]-[id number]-cmlrrb 1 tab PO DAILY 05/14/25 Unknown History tablet (Multivitamin 50 Plus tablet) psyllium husk 0.4 gram capsule 0.4 g PO DAILY 05/14/25 Unknown History (Daily Fiber) Allergy/AdvReac Type Severity Reaction Status Date / Time Influenza Virus Vaccines Allergy Severe Swelling Verified 05/14/25 12:16 pneumococcal vaccine Allergy Severe Swelling Verified 05/14/25 12:16 Tetanus Vaccines and Toxoid Allergy Severe Swelling Verified 05/14/25 12:16 amlodipine Allergy Intermediate Other Verified 05/14/25 12:16 bupropion (From Wellbutrin) Allergy Hives Verified 05/14/25 12:16 pravastatin AdvReac Intermediate Myalgias Verified 05/14/25 12:16 Family History Mother Lung cancer Thyroid disorder Sister Heart disease Diabetes Sister Heart disease Diabetes Myocardial infarction Lung disease Father Myocardial infarction, Onset Age: 46 Brother Aortic aneurysm Grandmother Cancer melanoma Grandmother Breast cancer Surgical History (Updated 05/14/25 @ 12:30 by Eloise Rangel) History of vein stripping History of laparoscopic cholecystectomy History of varicose vein procedure History of cholecystectomy (~05/2023) History of tonsillectomy and adenoidectomy History of bunionectomy H/O oophorectomy History of rotator cuff surgery History of lumbar surgery reconstruction of rectum H/O construction of artificial vagina History of appendectomy Social History Smoking Status: Current some day smoker tobacco type: e-cigarettes Tobacco: How many years used: 50 Electronic Cigarette Use: with nicotine how long ago did patient quit smokin years second hand exposure: Yes quit status: has quit before alcohol intake: never Audit: Pertinent Findings Pertinent Findings EKG Perinent findings: May 22, 2023. Sinus rhythm with first-degree AV block. Otherwise normal EKG. Stress test pertinent findings: June 16, 2020. EF of 80%. No reversibility is noted to suggest ischemia. No previous infarct. Echo (EF%) pertinent findings: June 16, 2020. EF of 55%. PASP is 28 mmHg. No aortic stenosis noted. Consult pertinent findings: 07/17/2024. Dr. Duarte. 1. [id number]. Continue to monitor. No medication regimen changes. Recommendation Anesthesia Recommendation Anesthesia recommendation: OPTIMIZED for anesthesia
[2025-05-20] VITALS (10 sets, daily range): BP systolic 96–121; BP diastolic 43–53; PULSE 60–72; RESP 16–18; TEMP 36.3–36.9; O2SAT 92–98; BMI 30.8
--- OUTSIDE RECORDS SUMMARY | 2025-05-20 06:19 | XMS RPT_ITS | CCD ---
Author Organization [facility] Care Team Providers Care Batch Unit Treater Name Role Phone ABILIO VALERIO MD Primary Care Physician Dr. Jaclyn Webster Primary Care Provider Dr. Jaclyn Webster Referring Provider [phone] Chaitanya Delacruz Attending Provider [phone] [address] Tavares Other Provider [phone] Abril SET DESIGNER, SET DESIGNER-C Cathy Roblero Attending Provider [phone] Dr. Jaclyn Webster Primary Care Provider Dr. Jaclyn Webster Referring Provider Dr. Enrique Crump Attending Provider Dr. Jaclyn Webster Primary Care Provider Dr. Jaclyn Webster Referring Provider [phone] Abril AGRAWAL, SET DESIGNER-C Cathy Roblero Attending Provider Dr. Rich Duarte Attending Provider Dr. Jaclyn Webster Primary Care Provider Dr. Jaclyn Webster Referring Provider Dr. Jaclyn Webster Primary Care Provider Dr. Jaclyn Webster Referring Provider Dr. Anh Hercules Attending Provider [phone] Dr. Anh Hercules Referring Provider [phone] Dr. Anh Hercules Other Provider Dr. Jovon Hatch Other Provider CRISTINA DILLARD, JOSHUA Attending Unavailkennedy VALERIO MD, ABILIO Primary Care Unavailable TEODORO DILLARD, ABILIO Primary Care Unavailable CRISTINA DILLARD, JOSHUA Attending Reji VALERIO MD, ABILIO Primary Care Unavailable CRISTINA DILLARD, JOSHUA Attending Unavaila anibal Webster DO, Jaclyn A Primary Care Provider [phone] Jaclyn Webster Primary Care Provider [phone] Jaclyn Webster Referring Provider [phone] Dr. Jovon Bell Attending Provider [phone] Joovn Bell Referring Provider [phone] Jaclyn Webster Primary Care Provider [phone] Jaclyn Webster Referring Provider [phone] Dr. Jovon Bell Attending Provider [phone] Jovon Bell Referring Provider [phone] Jovon Bell Other Provider ANAMIKA Hunt Referring Provider [phone] Malcedric DO, Jaclyn A Primary Care Provider MALCEDRIC, JACLYN A Primary Care Unavailable MELANIE, KARMON Attending Unavailable MELANIE, KARMON Attending Unavailable MALYS, JACYLN A Primary Care Unavailable MELANIE, KARMON Referring Unavailable MALYS, JACLYN A Primary Care Unavailable MELANIE, KARMON Referring Unavailable MALYS, JACLYN A Primary Care Unavailable MELANIE, KARMON Attending Unavailable MALYS, JACLYN A Primary Care Unavailable MELANIE, KARMON Referring Unavailable Dr. Jaclyn Webster DO Primary Care Provider Dr. Luís Pop MD Attending Provider Donn DILLARD, Dr. Staley Referring Provider Dr. Jaclyn Webster DO Referring Provider Delisa DILLARD, Dr. Kamara Attending Provider Dr. Anh Hercules MD Referring Provider [facility] SET DESIGNER-C, Harlan Hargrove Other Provider Luis DILLARD, Dr. Jayaprakas Other Provider Malcedric DO, Dr. Anaya Primary Care Provider Malcedric DO, Dr. Anaya Referring Provider [phone] Donn DILLARD, Dr. Staley Attending Provider [phone] Malcedric DO, Dr. Anaya Attending Provider Lily Julian Attending Provider Malcedric DO, Dr. Anaya Primary Care Provider Malys DO, Dr. Anaya Referring Provider [phone] Malys, Jaclyn Primary Care Unavailable Malys, Jaclyn Referring Unavailable Chaitanya Delacruz Attending Unavailable Malys, Jaclyn Attending Unavailable Malys, Jaclyn Primary Care Unavailable Malys, Jaclyn Referring Unavailable Malys, Jaclyn Primary Care Unavailable Malys, Jaclyn Referring Unavailable Donn, Luís Attending Unavailable Malys, Jaclyn Primary Care Unavailable Malys, Jaclyn Referring Unavailable Donn, Luís Attending Unavailable Malys, Jaclyn Primary Care Unavailable Malys, Jaclyn Referring Unavailable Lily Green Attending Unavailable Robotham, Anh Attending Unavailable Malys, Jaclyn Primary Care Unavailable Malys, Jaclyn Referring Unavailable Rich Duarte Attending Unavailable Malys, Jaclyn Primary Care Unavailable Malys, Jaclyn Referring Unavailable Malys, Jaclyn Primary Care Unavailable Kenny PA, Meseret M Referring Unavail able Meseret Hawkins M Attending Unavail able Malys, Jaclyn Primary Care Unavailable Malys, Jaclyn Attending Unavailable Maximino SET DESIGNER, Harlan Hargrove Consulting Unavailable Donn, Luís Attending Unavailable Malys, Jaclyn Primary Care Unavailable Donn, Luís Referring Unavailable Luis, Jayaprakas Consulting Unavailable Malys, Jaclyn Primary Care Unavailable Malys, Jaclyn Referring Unavailable Malys, Jaclyn Attending Unavailable Robotham, Anh Referring Unavailable Robotham, Anh Attending Unavailable Malys, Jaclyn Primary Care Unavailable Malys, Jaclyn Attending Unavailable Malys, Jaclyn Primary Care Unavailable Malys, Jaclyn Referring Unavailable Malys, Jaclyn Primary Care Unavailable Donn, Luís Attending Unavailable Donn, Luís Referring Unavailable Malys, Jaclyn Attending Unavailable Malys, Jaclyn Primary Care Unavailable Malys, Jaclyn Referring Unavailable Donn, Luís Attending Unavailable Malys, Jaclyn Primary Care Unavailable Luís Pop Referring Unavailable Allergies Allergy Classification Reported Allergen(s) Allergy Type Date of Onset Reaction(s) Facility (20 sources) buPROPion; Translations: [bupropion] Drug Allergy 2 Hives [facility] (3 sources) influenza A virus A//[id number] (H1N1) antigen / influenza A virus A//[id number] (H3N2) antigen / influenza B virus B/Rubio antigen / influenza B virus B/ antigen; Translations: [influenza virus vaccine] Drug Allergy SWELLING [facility] (3 sources) Lidocaine; Translations: [lidocaine topical] Drug Allergy [facility] (3 sources) Streptococcus pneumoniae serotype 1 capsular antigen diphtheria [id number] protein conjugate vaccine / Streptococcus pneumoniae serotype 14 capsular antigen diphtheria [id number] protein conjugate vaccine / Streptococcus pneumoniae serotype 18C capsular antigen diphtheria [id number] protein conjugate vaccine / Streptococcus pneumoniae serotype 19A capsular antigen diphtheria [id number] protein conjugate vaccine / Streptococcus pneumoniae serotype 19F capsular antigen diphtheria [id number] protein conjugate vaccine / Streptococcus pneumoniae serotype 23F capsular antigen diphtheria [id number] protein conjugate vaccine / Streptococcus pneumoniae serotype 3 capsular antigen diphtheria [id number] protein conjugate vaccine / Streptococcus pneumoniae serotype 4 capsular antigen diphtheria EVF525 protein conjugate vaccine / Streptococcus pneumoniae serotype 5 capsular antigen diphtheria CFG342 protein conjugate vaccine / Streptococcus pneumoniae serotype 6A capsular antigen diphtheria [id number] protein conjugate vaccine / Streptococcus pneumoniae serotype 6B capsular antigen diphtheria PDF511 protein conjugate vaccine / Streptococcus pneumoniae serotype 7F capsular antigen diphtheria PPJ168 protein conjugate vaccine / Streptococcus pneumoniae serotype 9V capsular antigen diphtheria [id number] protein conjugate vaccine; Translations: [pneumococcal 13-valent vaccine] Drug Allergy SWELLING [facility] (3 sources) tetanus toxoid vaccine, inactivated; Translations: [tetanus toxoid] Drug Allergy SWELLING [facility] (20 sources) Pneumococcal vaccine Drug Allergy 2 [facility] Comment on above: Swelling of arm, dif ficulty breathing (20 sources) Influenza Virus Vaccines; Translations: [Influenza Virus Vaccines] Allergy to substance 2 Swelling [facility] (20 sources) Tetanus Vaccines and Toxoid; Translations: [TETANUS VACCINES AND TOXOID] Allergy to substance 5 Intolerance [facility] Comment on above: Swelling of arm, dif ficulty breathing (7 sources) Acetaminophen / traMADol; Translations: [TRAMADOL-ACETAMIN OPHEN] Drug Allergy 5 Intolerance [facility] (7 sources) buPROPion; Translations: [BUPROPION HCL] Drug Allergy 5 Intolerance [facility] Work Phone: (7 sources) gabapentin; Translations: [GABAPENTIN] Drug Allergy 0 [facility] Work Phone: (7 sources) lansoprazole; Translations: [LANSOPRAZOLE] Drug Allergy 5 Intolerance [facility] Work Phone: (7 sources) Penicillins; Translations: [PENICILLINS] Propensity to adverse reactions 4 Itching [facility] (7 sources) pregabalin; Translations: [PREGABALIN] Drug Allergy 0 [facility] Work Phone: (7 sources) Streptococcus pneumoniae type 1 capsular polysaccharide [...] 23-DASHA PS VACCINE] Drug Allergy 5 Intolerance [facility] (7 sources) Anesthetics - Amide Type - Select Amino Amides; Translations: [ANESTHETICS - AMIDE TYPE - SELECT AMINO AMIDES] Propensity to adverse reactions 4 [facility] (7 sources) Influenza Virus Vac. Tri-Split; Translations: [INFLUENZA VIRUS VAC. TRI-SPLIT] Propensity to adverse reactions 5 Intolerance [facility] (7 sources) Influenza A (H1n1) Virus Vaccine Monovalent 2008; Translations: [INFLUENZA A (H1N1) VIRUS VACCINE MONOVALENT 2008] Drug Intolerance 4 Hives [facility] (8 sources) Pravastatin Drug Allergy 4 Myalgias [facility] (5 sources) amLODIPine Drug Allergy 4 Other [facility] (1 source) amLODIPine Drug Allergy 5 [facility] (1 source) buPROPion Drug Allergy 5 [facility] (1 source) Pneumococcal vaccine Drug Allergy 5 [facility] (1 source) Pravastatin Drug Allergy 5 [facility] Medications Current Medications Medication Drug Class(es) Dates Sig (Normalized) Sig (Original) [id number] 200 actuat albuterol 0.09 mg/actuat metered dose inhaler (5 sources) beta2-Adrenergic Agonist Start: 02-07-2024 Albuterol Sulfate 90 mcg/actuation HFA aerosol inhaler Active 2 NMA INHALATION EVERY 4-6 HOURS as needed for shortness of breath or wheezing 6.7 0 February 07, 2024 12:00am betamethasone 0.0005 mg/mg topical ointment (10 sources) Corticosteroid Start: 11-28-2021 Betamethasone Dipropionate Active 1 APPLIC TOPICAL TWICE A DAY November 28, 2021 12:00am biotin 5 mg oral capsule (20 sources) Start: 12-29-2021 biotin 5000 mcg oral caps 1, Oral, 0 Refill(s) Start Date: 12/29/21 Status: Ordered Start: 06-02-2021 End: 05-15-2023 take 1 tablet by mouth twice daily Biotin 5,000 mcg tablet,disintegrating Discontinued 5000 ug PO TWICE A DAY June 02, 2021 12:00am May 15, 2023 3:04pm Calcium Carbonate / Ergocalciferol (6 sources) Provitamin D2 Compound Start: 01-27-2014 take 1 tablet by mouth once daily calcium carbonate-vitamin d2 500 mg(1,250mg) -200 unit tab Indications: Osteoporosis Take 1 tablet by mouth once daily. 0 01/27/2014 Active Comment on above: Take 1 tablet by nikole th once daily. Calcium Carbonate-Vitamin D2 (7 sources) Start: 05-17-2023 take 1 tablet by mouth once daily Calcium Carbonate-Vitamin D2 Active 1 TABLET PO DAILY May 16, 2023 11:00pm Start: 05-17-2023 take 1 tablet by nikole th once daily Calcium Carbonate-Vitamin D2 Active 1 TABLET PO DAILY May 17, 2023 12:00am Calcium Carbonate-Vitamin D2 600 mg calcium- 200 unit tablet (5 sources) Start: 05-17-2023 Calcium Carbonate-Vitamin D2 600 mg calcium- 200 unit tablet Active 1 {tbl} PO DAILY May 17, 2023 12:00am enalapril maleate 20 mg oral tablet (20 sources) Angiotensin Converting Enzyme Inhibitor Start: 03-15-2023 take 2 tablets by mouth once daily enalapril 20 mg oral tablet TAKE 2 TABLETS BY MOUTH ONCE DAILY Start Date: 03/15/23 Status: Ordered Start: 06-01-2022 take 1 tablet by nikole th twice daily Enalapril Maleate 20 mg tablet Active 20 mg PO TWICE A DAY June 01, 2022 11:48am Start: 06-02-2021 End: 06-01-2022 take 1 tablet by mouth once daily Enalapril Maleate 20 mg tablet Discontinued 20 mg PO DAILY June 02, 2021 12:00am June 01, 2022 11:50am Start: 07-22-2020 take 2 tablets by mo [facility] once daily enalapril 20 mg oral tablet TAKE 2 TABLETS BY MOUTH ONCE DAILY Start Date: 07/22/20 Status: Ordered Start: 06-02-2020 End: 06-02-2021 take 1 tablet by mouth once daily Enalapril Maleate 10 mg tablet Discontinued 10 mg PO DAILY June 02, 2020 12:00am June 02, 2021 1:26pm Start: 05-28-2020 End: 06-02-2020 take 2 tablets by mouth once daily Enalapril Maleate 20 mg tablet Discontinued 40 mg PO DAILY May 28, 2020 4:17pm June 02, 2020 1:41pm Start: 05-28-2020 End: 06-02-2020 take 40 mg by mouth once daily Enalapril Maleate Disco ntinued 40 MG PO DAILY May 28, 2020 4:17pm June 02, 2020 1:41pm Start: 01-27-2020 End: 05-28-2020 Enalapril Maleate 20 mg tabl et Discontinued 10 mg PO AT BEDTIME January 27, 2020 1:39pm May 28, 2020 4:20pm takes 1/2 of 0.5 tab Start: 01-27-2020 End: 05-28-2020 Enalapril Maleate Discontinu ed 10 MG PO AT BEDTIME January 27, 2020 1:39pm May 28, 2020 4:20pm takes 1/2 of 0.5 tab Start: 05-12-2015 End: 01-27-2020 take 1 tablet by mouth at bedtime Enalapril Maleate 20 MG tablet Discontinued 20 mg PO AT BEDTIME August 15, 2017 1:00am January 27, 2020 1:43pm Comment on above: Take 1 tablet by nikole th twice daily. esomeprazole 40 mg delayed release oral capsule (6 sources) Proton Pump Inhibitor Start: 08-18-20 15 take 1 capsule by mouth once daily esomeprazole (NEXIUM) 40 mg capsule Take 1 capsule by mouth once daily. 90 capsule 3 08/18/2015 Active Comment on above: Take 1 capsule by mo [facility] once daily. estrogens, conjugated (snf) 0.625 mg/ml vaginal cream (6 sources) Estrogen Start: 11-07-19 14 conjugated estrogens (PREMARIN) vaginal cream Indications: Atrophic vaginitis , Urethral caruncle Apply small amount to vulvar are with fingers 3 times per week 1 Tube 3 11/07/2013 Active Comment on above: Apply small amount t o vulvar are with fingers 3 times per week fexofenadine hydrochloride 180 mg oral tablet (7 sources) Histamine-1 Receptor Antagonist Start: 01-12-20 11 take 1 tablet by mouth once daily fexofenadine (LEO) 180 mg ORAL tablet Take 1 tablet by mouth once daily. 0 01/11/2011 Active Comment on above: Take 1 tablet by nikole th once daily. glipiZIDE er 2.5 mg 24 hr extended release oral tablet (20 sources) Sulfonylurea Start: 07-09-20 take 1 tablet by mouth once daily Glipizide 2.5 mg tablet extended release 24hr Active 2.5 mg PO daily July 09, 2024 12:00am Start: 03-15-2023 take 1 tablet by nikole th once daily glipiZIDE 2.5 mg oral tablet, extended release TAKE 1 TABLET BY MOUTH ONCE DAILY Start Date: 03/15/23 Status: Ordered Start: 07-22-2020 take 1 tablet by nikole th once daily at breakfast glipiZIDE 2.5 mg oral tablet, extended release TAKE 1 TABLET BY MOUTH ONCE DAILY WITH BREAKFAST Start Date: 07/22/20 Status: Ordered Start: 06-24-2019 End: 06-02-2020 take 1 tablet by mouth once daily Glipizide 2.5 mg tablet extended release 24hr Discontinued 2.5 mg PO DAILY June 24, 2019 12:00am June 02, 2020 1:39pm halobetasol propionate 0.5 mg/ml topical cream (6 sources) Corticosteroid Halobetasol Prop ionate 0.05 % cream Apply 1 application to affected area twice daily as needed. 0 Active Comment on above: Apply 1 application to affected area twice daily as needed. hydroCHLOROthiazide 25 mg oral tablet (20 sources) Thiazide Diuretic Start : 02-08 take 1 tablet by mouth once daily Hydrochlorothiazide 25 MG tablet Active 25 mg PO DAILY August 15, 2017 1:00am Comment on above: Take 1 tablet by nikole once daily. hydrOXYzine hydrochloride 25 mg oral tablet (20 sources) Antihistamine Start : 05-15 End: 07-17 take 2 tablets by mouth at bedtime as needed Hydroxyzine Hcl 25 mg tablet Active 50 mg PO AT BEDTIME as needed July 17, 2024 1:01pm Start: 05-15-2023 take 50 mg by mouth at bedtime Hydroxyzine Hcl Active 50 MG PO AT BEDTIME May 15, 2023 3:06pm Start: 03-15-2023 hydrOXYzine hy drochloride 50 mg oral tablet Dose : 50 mg = 1 tab(s), Oral, qDay, # 30 tab(s), 0 Refill(s) Start Date: 03/15/23 Status: Ordered Start: 01-27-2020 End: 05-15-2023 take 1 tablet by mouth at bedtime Hydroxyzine Hcl 25 mg tablet Discontinued 25 mg PO AT BEDTIME January 27, 2020 12:00am May 15, 2023 3:09pm levothyroxine sodium 0.075 mg oral tablet (20 sources) l-Thyroxine Start: 01-30-2023 take 1 tablet by mouth once daily in the morning levothyroxine 75 mcg (0.075 mg) oral tablet See Instructions, TAKE 1 TABLET BY MOUTH ONCE DAILY IN THE MORNING ON AN EMPTY STOMACH NO PILL ON saturdays and SUNDAYS, # 80 tab(s), 2 Refill(s), Pharmacy: [id number], 152.5, cm, 06/29/22 13:11:00 EDT, Height, kg, 06/29/22 13:11:00 EDT, Dosing Weight Start Date: 01/30/23 Status: Ordered Start: 07-22-2020 take 1 tablet by nikole th once daily in the morning levothyroxine 75 mcg (0.075 mg) oral tablet TAKE 1 TABLET BY MOUTH ONCE DAILY IN THE MORNING ON AN EMPTY STOMACH NO PILL ON SUNDAYS Start Date: 07/22/20 Status: Ordered Start: 05-28-2020 End: 06-02-2021 take 1 tablet by mouth once daily Levothyroxine 75 mcg tablet Active 75 ug PO MOTUWETHFR June 02, 2021 1:25pm Take 1 tablet daily except Sundays take no pills tablet Start: 06-24-2019 End: 05-28-2020 Levothyroxine 50 mcg tablet Discontinued 75 ug PO DAILY June 24, 2019 1:22pm May 28, 2020 4:22pm Start: 06-24-2019 End: 05-28-2020 take 75 ug by mouth once daily Levothyroxine Discontin ued 75 MCG PO DAILY June 24, 2019 1:22pm May 28, 2020 4:22pm Start: 09-20-2015 End: 06-24-2019 take 1 tablet by mouth once daily Levothyroxine 50 MCG tablet Discontinued 50 ug PO DAILY August 15, 2017 1:00am June 24, 2019 1:26pm Comment on above: Take 1 tablet by nikole th once daily. Take on empty stomach. For thyroid. linagliptin 5 mg oral tablet (6 sources) Dipeptidyl Peptidase 4 Inhibitor Start: 6 take 1 tablet by mouth once daily linagliptin (TRADJENTA) 5 mg tab Take 5 mg by mouth once daily. 90 tablet 3 09/29/2015 Active Comment on above: Take 5 mg by mouth o nce daily. liothyronine sodium 0.005 mg oral tablet (13 sources) l-Triiodothyronine Start: 0 liothyronine 5 mcg oral tablet Dose : 5 mcg = 1 tab(s), Oral, Daily, # 30 tab(s), 0 Refill(s) Start Date: 07/22/20 Status: Ordered Start: 01-27-2020 take 5 ug by mouth once daily Liothyronine Active 5 MCG PO DAILY January 27, 2020 12:00am Magnesium Aspart,Citrate,Oxide (Triple Magnesium Complex) 400 mg magnesium capsule (5 sources) Start: 07-09-2024 Magnesium Aspart,Citrate,Oxide (Triple Magnesium Complex) 400 mg magnesium capsule Active mg PO July 09, 2024 12:00am magnesium gluconate 250 mg oral tablet (1 source) Start: 07-22-2020 take 1 tablet by mouth once daily magnesium gluconate 250 mg oral tablet 250 mg Dose = 1 tab(s), Oral, Daily, 0 Refill(s) Start Date: 07/22/20 Status: Ordered melatonin 3 mg oral tablet (20 sources) Start: 05-28-2020 take 1 tablet by mouth at bedtime as needed for sleep Melatonin 3 mg tablet Active 3 mg PO BEDTIME as needed for Sleep May 28, 2020 12:00am Start: 01-30-2020 End: 05-28-2020 Melatonin 5 mg capsule Disco ntinued mg PO January 30, 2020 12:00am May 28, 2020 4:25pm Start: 01-30-2020 End: 05-28-2020 Melatonin Discontinued MG PO January 30, 2020 12:00am May 28, 2020 4:25pm mupirocin 0.02 mg/mg topical ointment (6 sources) RNA Synthetase Inhibitor Antibacterial Start: 07-04-2015 mupirocin (BACTROBAN) 2 % ointment Apply 1 application to affected area three times daily. Location: right nare 1 Tube 0 07/04/2015 Active Comment on above: Apply 1 application to affected area three times daily. Location: right nare pantoprazole 40 mg delayed release oral tablet (20 sources) Proton Pump Inhibitor Start: 07-09-2024 End: 12-24-2024 take 1 tablet by mouth once daily as needed for gastroesophageal reflux disease Pantoprazole 40 mg tablet,delayed release (DR/EC) Active 40 mg PO daily as needed for gastric reflux December 24, 2024 2:11pm Start: 03-15-2023 End: 07-09-2024 take 1 tablet by mouth twice daily Pantoprazole 40 mg tablet,delayed release (DR/EC) Discontinued 40 mg PO TWICE A DAY May 15, 2023 12:00am July 09, 2024 2:36pm Start: 05-10-2022 End: 05-11-2022 take 1 tablet by mouth once daily in the morning Pantoprazole (Protonix) 40 mg tablet,delayed release (DR/EC) Discontinued 40 mg PO EVERY MORNING 90 May 10, 2022 11:07am May 11, 2022 7:48am Start: 12-16-2021 End: 06-01-2022 take 1 tablet by mouth twice daily Pantoprazole (Protonix) 40 mg tablet,delayed release (DR/EC) Discontinued 40 mg PO TWICE A DAY 180 May 11, 2022 7:48am June 01, 2022 11:49am Start: 08-15-2017 End: 03-16-2022 take 1 tablet by mouth once daily Pantoprazole 40 MG tablet Discontinued 40 mg PO DAILY August 15, 2017 1:00am March 16, 2022 5:25pm potassium chloride 10 meq or al tablet (20 sources) Start: 07-22-2020 potassium chlo ride 10 mEq oral tablet, extended release Dose : 10 mEq = 1 tab(s), Oral, BID, # 60 tab(s), 0 Refill(s) Start Date: 07/22/20 Status: Ordered Start: 05-28-2020 take 1 tablet by nikole th twice daily Potassium Chloride 10 mEq tablet,ER particles/crystals Active 10 meq PO TWICE A DAY May 28, 2020 12:00am promethazine hydrochloride 25 mg oral tablet (6 sources) Phenothiazine Start: 07-23-2015 take 1 tablet by mouth every six hours as needed promethazine (PHENERGAN) 25 mg tablet Take 1 tablet by mouth every 6 hours as needed. 30 tablet 0 07/23/2015 Active Comment on above: Take 1 tablet by nikole every 6 hours as needed. triamcinolone acetonide 0.25 mg/ml topical lotion (6 sources) Corticosteroid triamcinolone 0. 025 % lotn Apply to affected area twice daily. 0 Active Comment on above: Apply to affected ar ea twice daily. Vitamin B12 Methylcobalamin (2 sources) Start: 12-29-2021 Vitamin B12 Methylcobalamin Sublingual, qDay, 0 Refill(s) Start Date: 12/29/21 Status: Ordered Completed/Discontinued Medications Medication Drug Class(es) [...] sites, # 1 EA, 1 Refill(s), Pharmacy: [id number], 152.5, cm, 03/15/23 15:14:00 EDT, Height Start Date: 03/15/23 Status: Ordered alendronic acid 70 mg oral tablet (20 sources) Bisphosphonate Start: 09-29-2015 End: 06-08-2020 take 1 tablet by mouth once Alendronate 70 MG tablet Discontinued 70 mg PO MO August 15, 2017 1:00am June 08, 2020 3:15pm Comment on above: Take 1 tablet by [facility] once each week. Take with a full glass of water, on an empty stomach; do NOT lie down for 30minutes. amLODIPine 10 mg oral tablet (20 sources) Dihydropyridine Calcium Channel Alysha Start: 05-17-2023 End: 01-30-2024 take 1 tablet by mouth once daily Amlodipine 10 mg tablet Discontinued 10 mg PO DAILY May 17, 2023 12:00am January 30, 2024 11:48am Start: 01-24-2023 End: 05-15-2023 take 1 tablet by mouth once daily Amlodipine 10 mg tablet Discontinued 10 mg PO DAILY 90 3 January 24, 2023 12:00am May 15, 2023 3:04pm ascorbic acid 500 mg extended release oral tablet (20 sources) Vitamin C Start: 01-27-2020 End: 05-28-2020 take 1 tablet by mouth twice daily Ascorbic Acid (Vitamin C) 500 mg tablet extended release Discontinued 500 mg PO TWICE A DAY January 27, 2020 1:38pm May 28, 2020 4:27pm Start: 08-15-2017 End: 01-27-2020 take 1 tablet by mouth once daily Ascorbic Acid (Vitamin C) 500 MG tablet extended release Discontinued 500 mg PO DAILY August 15, 2017 1:00am January 27, 2020 1:43pm calcium carbonate 1250 mg / cholecalciferol 200 unt oral tablet (20 sources) Vitamin D Start: 08-15-2017 End: 06-24-2019 Calcium Carbonate-Vitamin D3 1 EACH tablet Discontinued 1 NMA PO DAILY August 15, 2017 1:00am June 24, 2019 1:25pm Start: 08-15-2017 End: 06-24-2019 Calcium Carbonate-Vitamin D3 Discontinued 1 EACH PO DAILY August 15, 2017 1:00am June 24, 2019 1:25pm Start: 02-08-2015 take 1 tablet by nikole twice daily calcium (as citrate)-vitamin D 200 mg-200 intl units oral tablet Dose = 1 tab(s), Oral, BID Start Date: 02/08/15 Status: Ordered calcium citrate 1190 mg / cholecalciferol 0.005 mg oral tablet (20 sources) Vitamin D Start: 06-02-2021 End: 05-15-2023 Calcium Citrate-Vitamin D3 250 mg-5 mcg (200 unit) tablet Discontinued 1 {tbl} PO NEEDED as needed for Skin Cleansing June 02, 2021 12:00am May 15, 2023 3:05pm Start: 06-02-2021 End: 05-15-2023 Calcium Citrate-Vitamin D3 D iscontinued 1 TABLET PO NEEDED June 02, 2021 12:00am May 15, 2023 3:05pm cholecalciferol 0.05 mg oral capsule (20 sources) Vitamin D Start: 01-30-2020 End: 05-28-2020 take 1 capsule by mouth once daily Cholecalciferol (Vitamin D3) 50 mcg (2,000 unit) capsule Discontinued 1000 U PO DAILY January 30, 2020 10:55am May 28, 2020 4:27pm Start: 06-24-2019 End: 01-30-2020 take 1 capsule by mouth once daily Cholecalciferol (Vitamin D3) 2,000 unit capsule Discontinued 2000 U PO DAILY June 24, 2019 12:00am January 30, 2020 11:01am clobetasol propionate 0.0005 mg/mg topical gel (20 sources) Corticosteroid Start: 11-23-2021 End: 11-28-2021 Clobetasol 0.05 % gel Discontinued 1 NMA TOPICAL TWICE A DAY as needed for Skin Cleansing November 24, 2021 11:24am November 28, 2021 1:17pm Start: 05-28-2020 End: 06-02-2020 Clobetasol 0.05 % gel Discon tinued 1 NMA TOPICAL DAILY May 28, 2020 12:00am June 02, 2020 1:42pm Clobetasol Propi lindsey 0.05 % gel Apply 1 application to affected area as needed. 0 Active Comment on above: Apply 1 application to affected area as needed. cyclobenzaprine hydrochloride 10 mg oral tablet (20 sources) Muscle Relaxant Start: 008 End: take 1 tablet by mouth at bedtime as needed Cyclobenzaprine 10 mg tablet Discontinued 10 mg PO BEDTIME as needed May 28, 2020 12:00am June 02, 2020 1:42pm Comment on above: Take one(1) tablet d aily. as needed dicyclomine hydrochloride 20 mg oral tablet (20 sources) Anticholinergic Start: 023 End: 024 take 5 mg by mouth once as needed for pain Dicyclomine 20 mg tablet Discontinued 5 mg PO ONCE as needed for abdominal pain May 15, 2023 3:05pm October 25, 2023 3:24pm Start: 05-15-2023 End: 10-25-2023 take 5 mg by mouth once Dicyclomine Discontinued 5 M G PO ONCE May 15, 2023 3:05pm October 25, 2023 3:24pm Start: 04-19-2023 End: 05-15-2023 take 1 tablet by mouth three times daily as needed for pain Dicyclomine 20 mg tablet Discontinued 20 mg PO THREE TIMES A DAY as needed for abdominal pain 14 0 April 19, 2023 11:24pm May 15, 2023 3:09pm fluocinonide 0.5 mg/ml topical solution (19 sources) Corticosteroid Start: 06-01-2022 End: 05-15-2023 Fluocinonide 0.05 % solution Discontinued 1 NMA TOPICAL DAILY June 01, 2022 12:00am May 15, 2023 3:05pm fluticasone propionate 0.05 mg/actuat metered dose nasal spray (20 sources) Corticosteroid Start: 06-24-2019 End: 05-28-2020 Fluticasone Propionate 50 mcg/actuation spray,suspension Discontinued 2 NMA INTRANASAL .PRN June 24, 2019 12:00am May 28, 2020 4:28pm Start: 06-24-2019 End: 05-28-2020 Fluticasone Propionate Disco ntinued 2 SPRAY INTRANASAL .PRN June 24, 2019 12:00am May 28, 2020 4:28pm dfzbtamzxuo-feojsgmjx-dwk C-Mn (17 sources) Start: 05-28-2020 End: 06-02-2020 take 2 capsules by mouth once daily lkehhchdffk-xjyqhejdm-oqu C-Mn Discontinued 2 CAP PO DAILY May 27, 2020 11:00pm June 02, 2020 12:42pm Start: 05-28-2020 End: 06-02-2020 take 2 capsules by mouth once daily mejzechlpfd-wnqutukmn-qfj C-Mn Discontinued 2 CAP PO DAILY May 28, 2020 12:00am June 02, 2020 1:42pm Jmvwuddhtov-Mfzurvtlb-Vwt C- Mn (Glucosamine-Chondroitin Complx) capsule (5 sources) Start: 05-28-2020 End: 06-02-2020 Mtbhvznmwny-Xggklutkf-Jys C- Mn (Glucosamine-Chondroitin Complx) capsule Discontinued 2 NMA PO DAILY May 28, 2020 12:00am June 02, 2020 1:42pm hyoscyamine sulfate 0.125 mg oral tablet (20 sources) Start: 11-23-2021 End: 05-15-2023 Hyoscyamine Sulfate 0.125 mg tablet Discontinued 0.125 mg PO 2 to 4 times per day as needed for dyspepsia June 01, 2022 11:48am May 15, 2023 3:06pm L.Acidoph, Paracasei,B. Lact is (17 sources) Start: 08-15-2017 End: 06-24-2019 L.Acidoph, Paracasei,B. Lact is Discontinued 1 EACH PO DAILY August 15, 2017 12:00am June 24, 2019 12:26pm Start: 08-15-2017 End: 06-24-2019 L.Acidoph, Paracasei,B. Lact is Discontinued 1 EACH PO DAILY August 15, 2017 1:00am June 24, 2019 1:26pm L.Acidoph,Paracasei,B.Animal is 1 EACH capsule (5 sources) Start: 08-15-2017 End: 06-24-2019 take 1 capsule by mouth once daily L.Acidoph,Paracasei,B.Animalis 1 EACH capsule Discontinued 1 NMA PO DAILY August 15, 2017 1:00am June 24, 2019 1:26pm Lactobacillus Combination No .8 (Adult Probiotic) 3 billion cell capsule (20 sources) Start: 05-28-2020 End: 06-02-2020 take 3 capsules by mouth once daily Lactobacillus Combination No.8 (Adult Probiotic) 3 billion cell capsule Discontinued 3000 NMA PO DAILY May 28, 2020 12:00am June 02, 2020 1:42pm administer with a meal Start: 05-28-2020 End: 06-02-2020 take 3 capsules by mouth once daily Lactobacillus Combination No.8 (Adult Probiotic) 3 billion cell capsule Discontinued 3000 MMU CELLS PO DAILY May 27, 2020 11:00pm June 02, 2020 12:42pm administer with a meal Start: 05-28-2020 End: 06-02-2020 take 3 capsules by mouth once daily Lactobacillus Combination No.8 (Adult Probiotic) 3 billion cell capsule Discontinued 3000 MMU CELLS PO DAILY May 28, 2020 12:00am June 02, 2020 1:42pm administer with a meal levoFLOXacin 500 mg oral tablet (5 sources) Quinolone Antimicrobial Start: 02-07-2024 End: 02-12-2024 take 1 tablet by mouth once daily Levofloxacin 500 mg tablet Discontinued 500 mg PO DAILY 5 5 0 February 07, 2024 12:00am February 11, 2024 12:00am February 12, 2024 12:04am Magnesium (20 sources) Start: 05-17-2023 End: 07-09-2024 take 2 tablets by mouth twice daily Magnesium 200 mg tablet Discontinued 400 mg PO TWICE A DAY May 17, 2023 12:00am July 09, 2024 1:40pm Start: 05-17-2023 take 400 mg by mouth twice daily Magnesium Active 400 MG PO TWICE A DAY May 16, 2023 11:00pm Start: 05-17-2023 take 400 mg by mouth twice daily Magnesium Active 400 MG PO TWICE A DAY May 17, 2023 12:00am Start: 05-28-2020 End: 06-02-2021 take 1 tablet by mouth once daily Magnesium 250 mg tablet Discontinued 250 mg PO DAILY May 28, 2020 4:25pm June 02, 2021 1:30pm Start: 05-28-2020 End: 06-02-2021 take 250 mg by mouth once daily Magnesium Discontinued 250 MG PO DAILY May 28, 2020 3:25pm June 02, 2021 12:30pm Start: 05-28-2020 End: 06-02-2021 take 250 mg by mouth once daily Magnesium Discontinued 250 MG PO DAILY May 28, 2020 4:25pm June 02, 2021 1:30pm Start: 01-27-2020 End: 05-28-2020 take 1 tablet by mouth twice daily Magnesium 250 mg tablet Discontinued 250 mg PO TWICE A DAY January 27, 2020 1:36pm May 28, 2020 4:28pm Start: 01-27-2020 End: 05-28-2020 take 250 mg by mouth twice daily Magnesium Discontinued 250 MG PO TWICE A DAY January 27, 2020 12:36pm May 28, 2020 3:28pm Start: 01-27-2020 End: 05-28-2020 take 250 mg by mouth twice daily Magnesium Discontinued 250 MG PO TWICE A DAY January 27, 2020 1:36pm May 28, 2020 4:28pm Start: 08-15-2017 End: 01-27-2020 Magnesium 250 MG tablet Disc ontinued 400 mg PO TWICE A DAY August 15, 2017 1:00am January 27, 2020 1:43pm Start: 08-15-2017 End: 01-27-2020 take 400 mg by mouth twice daily Magnesium Discontinued 400 MG PO TWICE A DAY August 15, 2017 12:00am January 27, 2020 12:43pm Start: 08-15-2017 End: 01-27-2020 take 400 mg by mouth twice daily Magnesium Discontinued 400 MG PO TWICE A DAY August 15, 2017 1:00am January 27, 2020 1:43pm mecobalamin 1 mg chewable tablet (20 sources) Start: 06-02-2021 End: 12-24-2024 take 1 tablet by mouth once daily Mecobalamin (Vitamin B12) 1,000 mcg tablet,chewable Discontinued 1000 ug PO DAILY June 02, 2021 12:00am December 24, 2024 1:36pm melatonin 3 mg / vitamin b6 10 mg oral tablet (20 sources) Start: 08-15-2017 End: 01-30-2020 take 1 tablet by mouth at bedtime Melatonin-Pyridoxine Hcl (B6) 1 EACH tablet Discontinued 1 NMA PO AT BEDTIME August 15, 2017 1:00am January 30, 2020 11:00am Start: 08-15-2017 End: 01-30-2020 Melatonin-Pyridoxine Hcl (B6 ) Discontinued 1 EACH PO AT BEDTIME August 15, 2017 1:00am January 30, 2020 11:00am meloxicam 15 mg oral tablet (20 sources) Nonsteroidal Anti-inflammatory Drug Start: 05-28-2020 End: 07-09-2024 take 1 tablet by mouth once daily Meloxicam 15 mg tablet Discontinued 15 mg PO DAILY May 28, 2020 12:00am July 09, 2024 1:40pm modified 24 hr metFORMIN hydrochloride 1000 mg extended release oral tablet (20 sources) Biguanide Start: 08-15-2017 End: 06-24-2019 take 1 tablet by mouth once daily Metformin 1,000 MG tablet,ER [email or web address].retention 24 hr Discontinued 1000 mg PO DAILY August 15, 2017 1:00am June 24, 2019 1:23pm Start: 09-29-2015 take 1 tablet by nikole th once daily at breakfast metFORMIN ER (GLUCOPHAGE XR) 500 mg 24 hr tablet Take 1 tablet by mouth daily with breakfast. 90 tablet 3 09/29/2015 Active Comment on above: Take 1 tablet by nikole th daily with breakfast. metoclopramide 10 mg oral tablet (15 sources) Dopamine-2 Receptor Antagonist Start: End: take 1 tablet by mouth every eight hours as needed for nausea and vomiting Metoclopramide Hcl (Reglan) 10 mg tablet Discontinued 10 mg PO EVERY 8 HOURS NEEDED as needed for nausea and vomiting 0 April 19, 2023 11:23pm October 25, 2023 3:25pm miSOPROStol 0.2 mg oral tablet (20 sources) Prostaglandin E1 Analog Start: End: miSOPROStol (CYTOTEC) 200 mcg tablet Insert 2 tablets the night before vaginally and 2 tablets the morning of the procedure vaginally 2 tablet 0 11/16/2023 12/06/2023 Discontinued Start: 12-16-2021 End: 01-02-2022 take 1 tablet by mouth four times daily Misoprostol 100 mcg tablet Discontinued 100 ug PO .qid 168 42 0 December 16, 2021 12:00am January 26, 2022 12:00am January 02, 2022 10:04am take four times a day for six weeks Comment on above: Insert 2 tablets the night before vaginally and 2 tablets the morning of the procedure vaginally naproxen sodium 220 mg oral capsule (20 sources) Nonsteroidal Anti-inflammatory Drug Start: 0 End: 0 take 1 capsule by mouth twice daily as needed Naproxen Sodium 220 mg capsule Discontinued 220 mg PO TWICE A DAY as needed January 30, 2020 12:00am May 28, 2020 4:25pm Start: 08-15-2017 End: 06-24-2019 Naproxen 250 MG tablet Disco ntinued 220 mg PO AT BEDTIME August 15, 2017 1:00am June 24, 2019 1:20pm Start: 08-15-2017 End: 06-24-2019 take 220 mg by mouth at bedtime Naproxen Discontinued 220 MG PO AT BEDTIME August 15, 2017 1:00am June 24, 2019 1:20pm Start: 12-27-2009 naproxen sodiu m(ALEVE 220 MG TAB) as necessary 0 12/27/2009 Active Comment on above: as necessary potassium gluconate 2.5 meq oral tablet (20 sources) Start: 9 End: 0 take 1 tablet by mouth once daily Potassium Gluconate 600 mg (99 mg) tablet Discontinued 600 mg PO DAILY June 24, 2019 12:00am May 28, 2020 4:24pm pravastatin sodium 20 mg oral tablet (20 sources) HMG-CoA Reductase Inhibitor Start: 2 End: 3 take 1 tablet by mouth at bedtime Pravastatin 20 mg tablet Discontinued 20 mg PO AT BEDTIME June 01, 2022 12:00am May 15, 2023 3:07pm On Hold: muscle cramps 06/2022 Start: 01-30-2020 End: 06-02-2021 Pravastatin 40 mg tablet Discontinued 20 mg PO AT BEDTIME January 30, 2020 10:59am June 02, 2021 1:30pm Start: 01-30-2020 End: 06-02-2021 take 20 mg by mouth at bedtime Pravastatin Discontinue d 20 MG PO AT BEDTIME January 30, 2020 10:59am June 02, 2021 1:30pm Start: 02-08-2015 End: 01-30-2020 take 1 tablet by mouth at bedtime Pravastatin 40 MG tablet Discontinued 40 mg PO AT BEDTIME August 15, 2017 1:00am January 30, 2020 11:01am Comment on above: Take 1 tablet by nikole th once daily. rosuvastatin calcium 20 mg oral tablet (8 sources) HMG-CoA Reductase Inhibitor Start: 4 End: 4 take 1 tablet by mouth once daily Rosuvastatin 20 mg tablet Discontinued 20 mg PO DAILY 16 08November 19, 2023 1:00am January 30, 2024 11:48am On Hold: 12/05/2023 saccharomyces boulardii 250 mg oral capsule (20 sources) Start: 1 End: 3 take 1 capsule by mouth once daily Saccharomyces Boulardii (Daily Probiotic (S. Boulardii)) 250 mg capsule Discontinued 250 mg PO DAILY June 02, 2021 12:00am May 15, 2023 3:08pm selenium 200 mcg capsule (17 sources) Start: 0 End: take 1 capsule by mouth once daily selenium 200 mcg capsule Discontinued 200 MCG PO DAILY June 01, 2020 11:00pm June 02, 2021 12:29pm Start: 06-02-2020 End: 06-02-2021 take 1 capsule by mouth once daily selenium 200 mcg capsule Discontinued 200 MCG PO DAILY June 02, 2020 12:00am June 02, 2021 1:29pm Selenium 200 mcg capsule (5 sources) Start: 06-02-2020 End: 06-02-2021 take 1 capsule by mouth once daily Selenium 200 mcg capsule Discontinued 200 ug PO DAILY June 02, 2020 12:00am June 02, 2021 1:29pm Semaglutide (Weight Loss) (5 sources) Start: 09-02-2024 End: 12-24-2024 Semaglutide (Weight Loss) (Wegovy) 0.25 mg/0.5 mL pen injector Discontinued 0.25 mg SC EVERY WEEK 2.5 30 September 02, 2024 1:00am December 24, 2024 1:36pm Start: 09-02-2024 Semaglutide (W eight Loss) (Wegovy) 0.25 mg/0.5 mL pen injector Active 0.25 mg SC EVERY WEEK 2.5 September 02, 2024 1:00am sucralfate 1000 mg oral tablet (20 sources) Aluminum Complex Start: 01-02-2022 End: 06-01-2022 take 1 tablet by mouth at bedtime Sucralfate 1 gram tablet Discontinued 1 g PO before meals and at bedtime 120 0 January 02, 2022 12:00am June 01, 2022 11:50am Tirzepatide (Weight Loss) (5 sources) Start: 09-16-2024 End: 12-24-2024 Tirzepatide (Weight Loss) (Zepbound) 2.5 mg/0.5 mL solution Discontinued 2.5 mg SC EVERY WEEK 2 14 11September 16, 2024 1:00am December 24, 2024 1:36pm Start: 09-16-2024 Tirzepatide (W eight Loss) (Zepbound) 2.5 mg/0.5 mL solution Active 2.5 mg SC EVERY WEEK 2 September 16, 2024 1:00am traMADol hydrochloride 50 mg oral tablet (12 sources) Opioid Agonist Start: 05-22-2023 End: 06-01-2023 take 50-100 mg by mouth every six hours as needed for pain Tramadol 50 mg tablet Discontinued 50 - 100 mg PO EVERY 6 HOURS as needed for pain 10 0 May 22, 2023 12:00am June 01, 2023 9:18am Postoperative pain Other acute postprocedural pain Turmeric Root Extract (20 sources) Start: 05-28-2020 End: 06-02-2020 take 1 capsule by mouth twice daily Turmeric Root Extract 500 mg capsule Discontinued 500 mg PO TWICE A DAY May 28, 2020 12:00am June 02, 2020 1:42pm Start: 05-28-2020 End: 06-02-2020 take 500 mg by mouth twice daily Turmeric Root Extract Discontinued 500 MG PO TWICE A DAY May 27, 2020 11:00pm June 02, 2020 12:42pm Start: 05-28-2020 End: 06-02-2020 take 500 mg by mouth twice daily Turmeric Root Extract Discontinued 500 MG PO TWICE A DAY May 28, 2020 12:00am June 02, 2020 1:42pm Vitamin B Complex (B Complex-Vitamin B12) tablet (20 sources) Start: 06-24-2019 End: 05-28-2020 Vitamin B Complex (B Complex-Vitamin B12) tablet Discontinued 1 {tbl} PO DAILY June 24, 2019 12:00am May 28, 2020 4:26pm Start: 06-24-2019 End: 05-28-2020 take 1 tablet by mouth once daily Vitamin B Complex (B Complex-Vitamin B12) tablet Discontinued 1 TABLET PO DAILY June 23, 2019 11:00pm May 28, 2020 3:26pm Start: 06-24-2019 End: 05-28-2020 take 1 tablet by mouth once daily Vitamin B Complex (B Complex-Vitamin B12) tablet Discontinued 1 TABLET PO DAILY June 24, 2019 12:00am May 28, 2020 4:26pm vitamin b12 0.1 mg oral tablet (20 sources) Vitamin B12 Start: 05-28-2020 End: 06-08-2020 take 2 tablets by mouth once daily Cyanocobalamin (Vitamin B-12) (Vitamin B-12) 100 mcg tablet Discontinued 200 ug PO DAILY May 28, 2020 12:00am June 08, 2020 3:12pm Problems Active Problems Problem Classification Problem Date Documented Da te Episodic/Chronic Acute bronchitis (5 sources) Acute bronchitis; Translations: [Acute bronchitis, unspecified] 02-07-2024 Episodic Biliary tract disease (13 sources) Biliary dyskinesia; Translations: [Other specified diseases of gallbladder] 05-17-2023 Episodic Chronic kidney disease (20 sources) Chronic kidney disease; Translations: [Chronic kidney disease, unspecified] 03-31-2021 Chronic Chronic obstructive pulmonary disease and bronchiectasis (20 sources) Pulmonary emphysema; Translations: [Emphysema, unspecified] Chronic Comment on above: MILD/NO INHALERS Conditions associated with dizziness or vertigo (20 sources) Lightheadedness; Translations: [Dizziness and giddiness] 05-31-2022 Episodic Coronary atherosclerosis and other heart disease (19 sources) Calcification of coronary artery; Translations: [Atherosclerotic heart disease of [place] coronary artery without angina pectoris] 05-31-2022 Chronic Diabetes mellitus without complication (17 sources) Diabetes mellitus; Translations: [Type 2 diabetes mellitus without complication] Onset: 8 02-08-2015 Chronic Disorders of lipid metabolism (20 sources) Hypercholesterolemia; Translations: [Hyperlipidemia] 02-08-2015 Chronic Esophageal disorders (20 sources) Gastroesophageal reflux disease; Translations: [Gastro-esophageal reflux disease without esophagitis] Onset: 5 Chronic Essential hypertension (20 sources) Essential hypertension; Translations: [Essential (primary) hypertension] Chronic Gastroduodenal ulcer (except hemorrhage) (20 sources) Ulcer of duodenum; Translations: [Duodenal ulcer, unspecified as acute or chronic, without hemorrhage or perforation] Chronic Hepatitis (9 sources) Nonalcoholic steatohepatitis; Translations: [Nonalcoholic steatohepatitis (AYALA)] Onset: 5 07-09-2024 Chronic Immunizations and screening for infectious disease (20 sources) Patient encounter status; Translations: [Encounter for screening for COVID-19] 05-31-2022 Episodic Menopausal disorders (3 sources) Postmenopausal bleeding; Translations: [Postmenopausal bleeding] Onset: 4 11-02-2023 Chronic Nausea and vomiting (20 sources) Nausea; Translations: [Nausea] Episodic Nutritional deficiencies (4 sources) Vitamin D deficiency; Translations: [Vitamin D deficiency, unspecified] 07-22-2020 Chronic Osteoporosis (5 sources) Osteoporosis; Translations: [Primary osteoporosis] Onset: 5 07-22-2020 Chronic Other aftercare (8 sources) Surgical follow-up; Translations: [Encounter for surgical aftercare following surgery on the circulatory system] 12-26-2023 Episodic Other aftercare (1 source) Encounter for therapeutic drug level monitoring; Translations: [Encounter for therapeutic drug level monitoring] Onset: 5 Episodic Other connective tissue disease (18 sources) Cramp in lower limb; Translations: [Cramp and spasm] 07-04-2022 Episodic Comment on above: OCC Other connective tissue disease (6 sources) Muscle pain; Translations: [Myalgia and myositis, unspecified] 08-24-2005 Episodic Other female genital disorders (2 sources) Vaginal discharge; Translations: [Other specified noninflammatory disorders of vagina] 11-02-2023 Episodic Other female genital disorders (3 sources) Finding of contents of uterus; Translations: [Noninflammatory disorder of uterus, unspecified] 12-06-2023 Episodic Other female genital disorders (1 source) Noninflammatory disorder of uterus, unspecified; Translations: [Fluid in endometrial cavity] Onset: Episodic Other gastrointestinal disorders (20 sources) Diarrhea; Translations: [Diarrhea, unspecified] 09-08-2021 Episodic Other gastrointestinal disorders (4 sources) Diarrhea, unspecified; Translations: [Diarrhea] Episodic Other liver diseases (20 sources) Steatosis of liver; Translations: [Fatty (change of) liver, not elsewhere classified] 11-23-2021 Chronic Other liver diseases (10 sources) Fatty (change of) liver, not elsewhere classified; Translations: [Other chronic nonalcoholic liver disease] Onset: Chronic Other liver diseases (6 sources) Disease of liver; Translations: [Other specified diseases of liver] 07-28-2005 Chronic Other liver diseases (8 sources) Elevated liver enzymes level; Translations: [Abnormal levels of other serum enzymes] 07-09-2024 Episodic Other lower respiratory disease (20 sources) Nodule of lung; Translations: [Solitary pulmonary nodule] 06-01-2020 Episodic Comment on above: Noted June 2019 Other lower respiratory disease (20 sources) Dyspnea; Translations: [Dyspnea, unspecified] 05-31-2022 Episodic Other lower respiratory disease (3 sources) Solitary pulmonary nodule; Translations: [Solitary pulmonary nodule] Episodic Other lower respiratory disease (5 sources) Persistent cough; Translations: [Persistent cough for 3 weeks or longer] 02-07-2024 Episodic Other nervous system disorders (1 source) Postoperative pain ; Translations: [Other acute postprocedural pain] 05-22-2023 Episodic Other nutritional; endocrine; and metabolic disorders (19 sources) Obesity; Translations: [Obesity, unspecified] 05-31-2022 Chronic Other nutritional; endocrine; and metabolic disorders (2 sources) Hypercalcemia 06-29-2022 Chronic Other nutritional; endocrine; and metabolic disorders (1 source) Hypercalcemia; Translations: [Hypercalcemia] Chronic Other screening for suspected conditions (not mental disorders or infectious disease) (1 source) Encounter for screening mammogram for malignant neoplasm of breast; Translations: [Encounter for screening mammogram for malignant neoplasm of breast] Onset: Episodic Other skin disorders (3 sources) Loss of hair 07-22-2020 Episodic Other skin disorders (3 sources) Trachyonychia 07-22-2020 Episodic Residual codes; unclassified (18 sources) Edema; Translations: [Edema, unspecified] 07-04-2022 Episodic Spondylosis; intervertebral disc disorders; other back problems (6 sources) Lumbar post-laminectomy syndrome; Translations: [Postlaminectomy syndrome, not elsewhere classified] Onset: 4 07-07-2004 Chronic Sprains and strains (20 sources) Injury of left hand; Translations: [Strain of left hand and finger] 06-01-2020 Episodic Syncope (20 sources) Near syncope; Translations: [Syncope and collapse] 05-31-2022 Episodic Thyroid disorders (5 sources) Hypothyroidism; Translations: [Hypothyroidism, unspecified] 07-22-2020 Chronic Unclassified (1 source) APPOINTMENT CANCELLED 03-07-2024 Varicose veins of lower extremity (20 sources) Varicose veins of lower extremity; Translations: [Varicose veins of unspecified lower extremity with pain] 10-25-2023 Episodic Comment on above: S/p L GSV ablation o n 12/27/23 Past or Other Problems Problem Classification Problem Date Documented Date Episodic/Chronic Abdominal pain (20 sources) Abdominal pain; Translations: [Unspecified abdominal pain] Onset: 07-08-2015 04-19-2023 Episodic Anal and rectal conditions (6 sources) Anorectal pain; Translations: [Other specified diseases of anus and rectum] Onset: 07-08-2015 07-08-2015 Episodic Other female genital disorders (6 sources) Pain in female genitalia; Translations: [Unspecified condition associated with female genital organs and menstrual cycle] Onset: 07-08-2015 07-08-2015 Episodic Other female genital disorders (1 source) Other specified noninflammatory disorders of vagina; Translations: [Vaginal discharge] Onset: 11-15-2023 Episodic Other liver diseases (2 sources) Abnormal levels of other serum enzymes; Translations: [Abnormal levels of other serum enzymes] Onset: 08-07-2024 Episodic Spondylosis; intervertebral disc disorders; other back problems (12 sources) Lumbago with sciatica; Translations: [Lumbago with sciatica, right side] Onset: 05-13-2015 Resolved: 07-08-2015 07-08-2015 Episodic Results Test Name Value Interpretation Reference Range Facility MR/[email or web address] 05-14-2025 MR/PAT.[facility] Medical Records Department [address] [place] [address] PAT - Anesthesia 05/14/25 1835 MR#: [id number] Acct: [id number] Name: NOHEMI SANDERS Rep #: [id number] : [id number] 75 From: Skip Fong MD PCP: Dr. 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 When Was Last Pacemaker Check QUESTION #4 FULL TEXT: You/Your Family Experience fever (hyperthermia) with Anesthesia Last Oral Intake Last Oral intake: Last Oral Intake NPO since Meds taken in AM with sips of water? Meds patient instructed to take am of surgery PONV PONV - balance truing inspector: PONV - balance truing inspector Female Yes 05/14/25 12:22 HX of Motion Sickness No 05/14/25 12:22 HX of N/V After Surgery No 05/14/25 12:22 Non-Smoker No 05/14/25 12:22 Duration of Surgery greater No 05/14/25 12:22 than 60 minutes Number of Risk Factors 1 05/14/25 12:22 PONV Score Low Risk 05/14/25 12:22 Height Weight Height Weight: Anesthesia: Height Weight Height 5 ft 1 in 12/24/24 13:37 Respiratory Assessment Respiratory Assessment - balance truing inspector: Respiratory Tract Infection Hx - balance truing inspector Hx Respiratory Tract Infection No 05/14/25 12:22 STOP Sleep Apnea STOP Sleep Apnea - balance truing inspector: STOP Sleep Apnea - balance truing inspector Hx Hypertension Yes: CONTROLLED WITH MED 05/14/25 12:22 Hx Sleep Apnea No 05/14/25 12:22 CPAP BIPAP Do you snore loudly (louder No 05/14/25 12:22 than talking or can be heard Do you often feel tired/ No 05/14/25 12:22 fatigued/ sleepy during daytime? Has anyone observed you stop No 05/14/25 12:22 breathing during sleep? STOP Results Negative 05/14/25 12:22 QUESTION #5 FULL TEXT : Do you snore loudly (louder than talking or can be heard through closed doors)? 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 Specify any problems Hx of Preganancy in last 3 N/A 05/14/25 12:22 Months Nurse Filling Out Transfusion NBUCHER 05/14/25 12:22 Questions: Date: 05/14/25 05/14/25 12:22 Time: 12:24 05/14/25 12:22 Patient unable to answer at this time (ie. 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 Hx Now No 08/28/25 12:22 Gestational Age (in weeks): EDC: Hx Hx Para Hx Section SAB No 05/14/25 12:22 REPLACED BY [facility] Medical History (Updated 05/14/25 @ 12:30 by Eloies Rangel) Diabetes History of renal dialysis Electronic cigarette use COPD (chronic obstructive pulmonary disease) Diverticulosis History of ulceration Right lower quadrant pain Loss of hearing MRSA infection Thyroid disease High cholesterol Smoker History of edema History of echocardiogram History of stress test Coronary artery calcification seen on CAT scan Duodenal ulcer GERD (gastroesophageal reflux disease) Wears dentures Anxiety Arthritis Bladder disease History of renal disease Fatty liver Restless legs Migraine headache Injury of head and neck Dietary restriction History of hiatal hernia History of diverticulitis Gastric reflux Vapes nicotine containing substance Leg cramps Cardiology follow-up encounter Nausea History of deep venous thrombosis (1999) Lightheadedness Near syncope Hypothyroidism Emphysema of lung Obesity Hyperlipidemia Neck kevyn (more content not included)... Normal [facility] Bone density reportOrdered B y: Prosper Rao on 05-06-2025 Study report Skeletal system DXA [facility] Imaging Services [address] [place], [place] [id number] Dexa Bone Density Study MR#: [id number] Acct: [id number] Name: NOHEMI SANDERS Rep #: [id number] : 1950 F 75 From: Elijah Rao MD PCP: Dr. Jaclyn Webster, Status: REG CLI Study:Dexa Bone Density Study Date of Exam: 05/06/25 Exam# [id number] Ordering Dr: Lurdes Webster sa DO PROCEDURE: DEXA BONE DENSITY STUDY 05/06/2025 REASON FOR EXAM: F, age 75 y/o . Postmenopausal. TECHNIQUE: DEXA BONE DENSITY STUDY COMPARISON: Prior study dated November 30, 2016. FINDINGS: BMD and T-SCORES Lumbar spine: 0.807 g/cm2, T-score -2.2 Levels: L1 through L4 Change from prior: Loss of 0.6%. Left femoral neck: 0.6 g/cm2, T-score -2.2 Femoral neck comparison data not recommended for monitoring change. Left total hip: 0.799 g/cm2, T-score -1.2 Change from prior: Loss of 13.6%. Right femoral neck: 0.625 g/cm2, T-score -2.0 Femoral neck comparison data not recommended for monitoring change. Right total hip: 0.758 g/cm2, T-score -1.5 Change from prior: Loss of 8.6%. The World Health Organization has defined the following categories based on bonedensity: Normal bone density: T-score equal to or greater than -1.0 Osteopenia: T-score between -1.0 and -2.5 Osteoporosis: T-score equal to or less than -2.5 FRAX (or Comparable) Fracture Risk Assessment: 10 Year Probability of Fracture: Major Osteoporotic Fracture: 21%% Hip Fracture: 5.6% (Note: FRAX is not to be reported in setting of normal range bone density, osteoporosis on DEXA, known history of osteoporosis, prior osteoporotic hip or vertebral fracture, or for any patient undergoing pharmacological treatment for bone loss.) The National Osteoporosis Foundation (NOF) recommends pharmacological treatment for patients with a FRAX 10-year risk of 3% or higher for a hip fracture, or 20% or higher for a major osteoporotic fracture, to prevent osteoporosis and reduce fracture risk. The patient does meet the pharmacological treatment recommendations for prevention of osteoporosis. BD/Dexa Bone Density Study IMPRESSION: OSTEOPENIA. Recommend follow-up as clinically warranted. Reading Location: [id number] CC: Dr. Jaclyn Webster DO ~ Retirement Consultant: Signed [facility] Dexa Bone Density Studyon Dexa Bone Density Study [facility] Imaging Services [address] [place] [id number] Dexa Bone Density Study MR#: [id number] Acct: [id number] Name: MARILYNNOHEMI A Rep #: [id number] : 1950 F 75 From: Prosper rios MD PCP: Dr. Jaclyn Wesbter DO Status: [facility] CLI Study: Dexa Bone Density Study Date of Exam: 05/06/25 Exam# [id number] Ordering Dr: Jaclyn Webster DO PROCEDURE: DEXA BONE DENSITY STUDY 05/06/2025 REASON FOR EXAM: F, age 75 y/o . Postmenopausal. TECHNIQUE: DEXA BONE DENSITY STUDY COMPARISON: Prior study dated November 30, 2016. FINDINGS: BMD and T-SCORES Lumbar spine: 0.807 g/cm2, T-score -2.2 Levels: L1 through L4 Change from prior: Loss of 0.6%. Left femoral neck: 0.6 g/cm2, T-score -2.2 Femoral neck comparison data not recommended for monitoring change. Left total hip: 0.799 g/cm2, T-score -1.2 Change from prior: Loss of 13.6%. Right femoral neck: 0.625 g/cm2, T-score -2.0 Femoral neck comparison data not recommended for monitoring change. Right total hip: 0.758 g/cm2, T-score -1.5 Change from prior: Loss of 8.6%. The World Health Organization has defined the following categories based on bone density: Normal bone density: T-score equal to or greater than -1.0 Osteopenia: T-score between -1.0 and -2.5 Osteoporosis: T-score equal to or less than -2.5 FRAX (or Comparable) Fracture Risk Assessment: 10 Year Probability of Fracture: Major Osteoporotic Fracture: 21%% Hip Fracture: 5.6% (Note: FRAX is not to be reported in setting of normal range bone density, osteoporosis on DEXA, known history of osteoporosis, prior osteoporotic hip or vertebral fracture, or for any patient undergoing pharmacological treatment for bone loss.) The National Osteoporosis Foundation (NOF) recommends pharmacological treatment for patients with a FRAX 10-year risk of 3% or higher for a hip fracture, or 20% or higher for a major osteoporotic fracture, to prevent osteoporosis and reduce fracture risk. The patient does meet the pharmacological treatment recommendations for prevention of osteoporosis. BD/Dexa Bone Density Study IMPRESSION: OSTEOPENIA. Recommend follow-up as clinically warranted. Reading Location: [id number] CC: Dr. Jaclyn Webster DO Retirement Consultant: Signed Normal [facility] Breast imaging reportOrdered By: Vee Mo on 04-22-2025 Study report [facility] Imaging Services [address], [place] [id number] SCRN MAMM (CAD)W/CONNER BILAT MR#: [id number] Acct: [id number] Name: NOHEMI SANDERS Rep #: [id number] : 1950 F 75 From: Michael Alegre MD PCP: Dr. Jaclyn Webster DO Status: REG CLI Study:SCRN MAMM (CAD)W/CONNER BILAT Date of Exa m: 04/22/25 Exam# [id number] Ordering Dr: Lurdes Webster sa, DO EXAM: SCRN MAMM (CAD)W/CONNER BILAT DATE: 04/22/2025 CLINICAL HISTORY: F, Age 75 y/o , SCREENING TECHNIQUE: SCRN MAMM (CAD)W/CONNER BILAT COMPARISON: Prior exam(s) were compared FINDINGS: TISSUE DENSITY: There are scattered areas of fibroglandular density. Bilateral Breast Mammographic Findings: No suspicious masses, calcifications or other abnormalities are identified. BI/SCRN MAMM (CAD)W/CONNER BILAT IMPRESSION: No mammographic evidence of malignancy in either breast OVERALL FINAL ASSESSMENT BI-RADS 1: NEGATIVE. RECOMMENDATION: Routine annual follow-up in 1 Year A letter with findings and recommendations will be mailed to the patient. Reading Location: [id number] CC: Dr. Jaclyn Webster DO ~ Retirement Consultant: Signed [facility] SCRN MAMM (CAD)W/CONNER BILATo n 04-22-2025 SCRN MAMM (CAD)W/CONNER BILAT [facility] Imaging Services [address] [place], [place] [id number] SCRN MAMM (CAD)W/CONNER BILAT MR#: [id number] Acct: [id number] Name: NOHEMI SANDERS Rep #: [id number] : 1950 F 75 From: Vee Medeiros i, MD PCP: Dr. Jaclyn Webster DO Status: REG CLI Study: SCRN MAMM (CAD)W/CONNER BILAT Date of Exam: 03/11 Exam# [id number] Ordering Dr: Jaclyn Webster DO EXAM: SCRN MAMM (CAD)W/CONNER BILAT DATE: 04/22/2025 CLINICAL HISTORY: F, Age 75 y/o , SCREENING TECHNIQUE: SCRN MAMM (CAD)W/CONNER BILAT COMPARISON: Prior exam(s) were compared FINDINGS: TISSUE DENSITY: There are scattered areas of fibroglandular density. Bilateral Breast Mammographic Findings: No suspicious masses, calcifications or other abnormalities are identified. BI/SCRN MAMM (CAD)W/CONNER BILAT IMPRESSION: No mammographic evidence of malignancy in either breast OVERALL FINAL ASSESSMENT BI-RADS 1: NEGATIVE. RECOMMENDATION: Routine annual follow-up in 1 Year A letter with findings and recommendations will be mailed to the patient. Reading Location: [id number] CC: Dr. Jaclyn Webster DO Retirement Consultant: Signed Normal [facility] Gastroenterology Visit Repor ton 04-01-2025 Gastroenterology Visit Report [facility] [address] [facility] 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 Chief Complaint: epigastric pain Allergies Influenza Virus Vaccines Allergy (Severe, Verified 12/24/24 13:34) Swelling pneumococcal vaccine Allergy (Severe, Verified 12/24/24 13:34) Swelling Tetanus Vaccines and Toxoid Allergy (Severe, Verified 12/24/24 13:34) Swelling amlodipine Allergy (Intermediate, Verified 12/24/24 13:34) Other bupropion (From Wellbutrin) Allergy (Verified 12/24/24 13:34) Hives pravastatin Adverse Reaction (Intermediate, Verified 12/24/24 13:34) Myalgias Have you fallen in the past year?: No Nurse's Note: OV 04/01/25 Pt here for a f/u and reports gas, bloating, nausea, and abdominal pain. Pt reports a hot ice feeling in her abdomen every morning. Continues pantoprazole daily. REPLACED BY [facility] Medical History Right lower quadrant pain Loss of hearing MRSA infection Thyroid disease High cholesterol Smoker History of edema History of echocardiogram History of stress test Coronary artery calcification seen on CAT scan Duodenal ulcer GERD (gastroesophageal reflux disease) Wears dentures Anxiety Arthritis Bladder disease History of renal disease Fatty liver Restless legs Migraine headache Injury of head and neck Dietary restriction History of hiatal hernia History of diverticulitis Gastric reflux Vapes nicotine containing substance Leg cramps Cardiology follow-up encounter Nausea History of deep venous thrombosis (1999) Lightheadedness Near syncope Hypothyroidism Emphysema of lung Obesity Hyperlipidemia Neck pain Back pain Essential (primary) hypertension Type 2 diabetes mellitus Nodule of upper lobe of left lung Surgical History History of varicose vein procedure History of cholecystectomy ( 05/2023) History of tonsillectomy and adenoidectomy History of bunionectomy H/O oophorectomy History of rotator cuff surgery History of lumbar surgery reconstruction of rectum H/O construction of artificial vagina History of appendectomy Family History Mother Lung cancer Thyroid disorder Sister Heart disease Diabetes Sister Heart disease Diabetes Myocardial infarction Lung disease Father Myocardial infarction, Onset Age: 46 Brother Aortic aneurysm Grandmother Cancer melanoma Grandmother Breast cancer Social History Smoking Status: Current some day smoker tobacco type: e-cigarettes Tobacco: How many years used: 50 Electronic Cigarette Use: with nicotine how long ago did patient quit smokin years second hand exposure: Yes quit status: has quit before alcohol intake: never HPI HPI Chief Complaint: epigastric pain Details: NOHEMI SANDERS, is a 75 F who presents to the office today for f/u [facility]GI established 08/2021 for nausea, GERD, hx duodenal ulcers, Fatty liver. Patient states she had labs with her PCP last month and had elevated liver enzymes. Denies any abdominal pain, heartburn, swelling. BM are normal once a day. US RUQ 9.27.24- Parenchymal liver disease, likely steatosis. 07/09/2024: Patient has follow-up after more than 2 years. In meantime patient had cholecystectomy in May 2023. She also had left GSV varicose vein ablation by Dr. Bell. Complain of mild pressure/pain in right flank after gallbladder surgery especially on turning or moving. Has gained weight 13 pounds since 2018 but similar for last 2 years Liver elastography 11.11.24; 8.4 kpa OV 04.09.25 patient complain of itching all over the body. She states she has increased histamine condition as sent by specialty molder and she uses skin lubricant and hydroxyzine which causes increased sleeping but it still itches. Denies abdominal pain or acute GI symptoms OV 7.16.25 Pt having epigastric pain over the past three months associated with constant nausea and excessive eructation. Pt has a hx of duodenal ulcers and notes this is similar to how she felt in the past. Pain is worse in the morning on and empty stomach. She is eating a bland diet. She is taking Pantoprazole 40 mg daily. 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 Normal [facility] Absolute lymphocyte countOrd ered By: Jaclyn Webster on 03-16-2025 Lymphocytes Auto (Unsp spec) [#/Vol] 3.21 10*3/uL 0.83-4.51 [facility] Absolute neutrophil countOrd ered By: Jaclyn Webster on 03-16-2025 Neutrophils (Bld) [#/Vol] 3.3 10*3/uL 2.0-7.7 [facility] Anion gap in Serum or Plasma Ordered By: Jaclyn Webster on 03-16-2025 Anion gap [Moles/Vol] 13 mmol/L 5-15 [facility] Automated lymphocyte count a s percentage of total leukocytesOrdered By: Jaclyn Webster on 03-16-2025 Lymphocytes/100 WBC Auto (Unsp spec) 41.7 % High 19-41 [facility] BUN/creatinine ratioOrdered By: Jaclyn Webster on 03-16-2025 Urea nitrogen/Creatinine [Mass ratio] 20.2 mg/mg High 10-20 [facility] Basophil percentageOrdered B y: Jaclyn Webster on 03-16-2025 Basophils/100 WBC (Bld) 0.9 % 0-1 [facility] Bilirubin, totalOrdered By: Jaclyn Webster on 03-16-2025 Bilirubin [Mass/Vol] 0.32 mg/dL 0.00-1.30 [facility] CBC W/Diff, Automatedon 02-17 Absolute Lymph 3.21 X10 3/uL Normal 0.83-4.51 [facility] Comment on above: Performed By: #### L 503.6030 #### [facility] [address] [place], [address] Absolute Neut 3.3 X10 3/uL Normal 2.0-7.7 [facility] Comment on above: Performed By: #### L 503.6030 #### [facility] [address] [place], [address] Basophils/100 WBC (Bld) 0.9 % Normal 0-1 [facility] Comment on above: Performed By: #### L 503.6030 #### [facility] [address] [place], [address] Eosinophils/100 WBC (Bld) 3.8 % Normal 0-5 [facility] Comment on above: Performed By: #### L 503.6030 #### [facility] [address] [place], [address] Erythrocyte distribution width (RBC) [Ratio] 13.7 % Normal 11.6-14.6 [facility] Comment on above: Performed By: #### L 503.6030 #### [facility] [address] [place], [address] Hematocrit (Bld) [Volume fraction] 36.3 % Low 37-47 [facility] Comment on above: Performed By: #### L 503.6030 #### [facility] [address] [place], [address] Hemoglobin (Bld) [Mass/Vol] 12.0 g/dL Normal 12.0-15.0 [facility] Comment on above: Performed By: #### L 503.6030 #### [facility] [address] [place], [address] IG% 0.300 Normal 0.0-0.9 [facility] Comment on above: Result Comment: IG% - Immature Granulocytes (promyelocytes, myelocytes and metamyelocytes) > 1% indicates that a LEFT SHIFT is Present. Performed By: #### L 503.6030 #### [facility] [address] [place], [address] Lymphocytes/100 WBC (Bld) 41.7 % High 19-41 [facility] Comment on above: Performed By: #### L 503.6030 #### [facility] [address] [place], [address] MCH (RBC) [Entitic mass] 28.8 pg Normal 27.0-32.0 [facility] Comment on above: Performed By: #### L 503.6030 #### [facility] [address] [place], [address] MCHC (RBC) [Mass/Vol] 33.1 g/dL Normal 32-36 [facility] Comment on above: Performed By: #### L [id number] #### [facility] [address] [place], [address] MCV (RBC) [Entitic vol] 87.1 fL Normal 81-99 [facility] Comment on above: Performed By: #### L [id number] #### [facility] [address] [place], [address] Monocytes/100 WBC (Bld) 10.0 % Normal 0-10 [facility] Comment on above: Performed By: #### L 503.6030 #### [facility] [address] [place], [address] Neutrophils/100 WBC (Bld) 43.3 % Low 47-70 [facility] Comment on above: Performed By: #### L 503.6030 #### [facility] [address] [place], [address] Nucleated RBC (Bld) [#/Vol] 0 10*3/uL Normal 0-5 [facility] Comment on above: Performed By: #### L [id number] #### [facility] [address] [place], [address] Platelet mean volume (Bld) [Entitic vol] 10.2 fL Normal 6.2-12.0 [facility] Comment on above: Performed By: #### L 503.6030 #### [facility] [address] [place], [address] Platelets (Bld) [#/Vol] 252 10*3/uL Normal 150-450 [facility] Comment on above: Performed By: #### L 503.6030 #### [facility] [address] [place], [address] RBC (Bld) [#/Vol] 4.17 10*6/uL Low 4.2-5.4 [facility] Comment on above: Performed By: #### L 503.6030 #### [facility] [address] [place], [address] RDW SD 43.5 fl Normal 35.1-43.9 [facility] Comment on above: Performed By: #### L 503.6030 #### [facility] [address] [place], [address] WBC (Bld) [#/Vol] 7.7 10*3/uL Normal 4.4-11.0 [facility] Comment on above: Performed By: #### L 503.6030 #### [facility] [address] [place], [address] Carbon dioxide, total [Moles /volume] in Central venous bloodOrdered By: Jaclyn Webster on 03-16-2025 CO2 [Moles/Vol] 22.8 mmol/L 21.0-32.0 [facility] Chloride assayOrdered By: Lurdes Webster on 03-16-2025 Chloride [Moles/Vol] 103 mmol/L 98-108 [facility] Comprehensive Metabolic Prof ilon 03-16-2025 Albumin [Mass/Vol] 4.3 g/dL Normal 3.4-4.8 [facility] Comment on above: Performed By: #### L 503.6030 #### [facility] [address] [place], [address] Albumin/Globulin [Mass ratio] 1.7 {ratio} Normal 0.9-2.4 [facility] Comment on above: Performed By: #### L 503.6030 #### [facility] [address] [place], [address] ALK PHOS 74 U/L Normal 35-104 [facility] Comment on above: Performed By: #### L 503.6030 #### [facility] [address] [place], [address] ALT [Catalytic activity/Vol] 36 U/L High <=34 [facility] Comment on above: Performed By: #### L 503.6030 #### [facility] [address] [place], [address] AST [Catalytic activity/Vol] 48 U/L High <=31 [facility] Comment on above: Performed By: #### L 503.6030 #### [facility] [address] [place], [address] Bilirubin [Mass/Vol] 0.32 mg/dL Normal 0.00-1.30 [facility] Comment on above: Performed By: #### L 787.6584 #### [facility] [address] [place], [address] BUN/CRE 20.2 RATIO High 10-20 [facility] Comment on above: Performed By: #### L 698.6030 #### [facility] [address] [place], [address] Calcium [Mass/Vol] 9.4 mg/dL Normal 7.6-11.0 [facility] Comment on above: Performed By: #### L 236.6030 #### [facility] [address] [place], [address] Chloride [Moles/Vol] 103 mmol/L Normal 98-108 [facility] Comment on above: Performed By: #### L 359.3415 #### [facility] [address] [place], [address] CO2 [Moles/Vol] 22.8 mmol/L Normal 21.0-32.0 [facility] Comment on above: Performed By: #### L 820.3806 #### [facility] [address] [place], [address] Creatinine [Mass/Vol] 1.22 mg/dL High 0.70-1.20 [facility] Comment on above: Performed By: #### L 617.6413 #### [facility] [address] [place], [address] GAP 13 Normal 5-15 [facility] Comment on above: Performed By: #### L 264.6308 #### [facility] [address] [place], [address] GFR/1.73 sq M.predicted among non-blacks MDRD (S/P/Bld) [Vol rate/Area] 46 mL/min/{1.73_m2} Low >60 [facility] Comment on above: Result Comment: mL/m in/1.73m2 CKD-EPI Creatinine Equation (2020) Performed By: #### L 503.6030 #### [facility] [address] [place], [address] Globulin (S) [Mass/Vol] 2.6 g/dL Normal 2.2-4.2 [facility] Comment on above: Performed By: #### L 503.6030 #### [facility] [address] [place], [address] Glucose [Mass/Vol] 105 mg/dL High 70-99 [facility] Comment on above: Performed By: #### L 503.6030 #### [facility] [address] [place], [address] Potassium [Moles/Vol] 3.9 mmol/L Normal 3.3-5.1 [facility] Comment on above: Performed By: #### L 503.6030 #### [facility] [address] [place], [address] Sodium [Moles/Vol] 139 mmol/L Normal 133-145 [facility] Comment on above: Performed By: #### L 503.6030 #### [facility] [address] [place], [address] T PROT 6.9 g/dL Normal 5.9-8.4 [facility] Comment on above: Performed By: #### L 503.6030 #### [facility] [address] [place], [address] Urea nitrogen [Mass/Vol] 25 mg/dL High 4-19 [facility] Comment on above: Performed By: #### L 503.6030 #### [facility] [address] [place], [address] Eosinophil percentageOrdered By: Jaclyn Webster on 03-16-2025 Eosinophils/100 WBC (Bld) 3.8 % 0-5 [facility] Erythrocyte distribution wid th ratioOrdered By: Jaclyn Webster on 03-16-2025 Erythrocyte distribution width (RBC) [Ratio] 13.7 % 11.6-14.6 [facility] Erythrocyte distribution wid th standard deviationOrdered By: Jaclyn Webster on 03-16-2025 Erythrocyte distribution width (RBC) [Ratio] 43.5 fl 35.1-43.9 [facility] Glomerular filtration rate ( GFR) estimation/1.73 sq m using serum, plasma, or whole bOrdered By: Jaclyn Webster on 03-16-2025 GFR/1.73 sq M.predicted among non-blacks MDRD (S/P/Bld) [Vol rate/Area] 46 mL/min/{1.73_m2} Low >60 [facility] Comment on above: mL/min/1.73m2 CKD-EP I Creatinine Equation (2020) Hematocrit Auto (Bld) [Volum e fraction]Ordered By: Jaclyn Webster on 03-16-2025 Hematocrit (Bld) [Volume fraction] 36.3 % Low 37-47 [facility] Hemoglobin measurementOrdere d By: Jaclyn Webster on 03-16-2025 Hemoglobin (Bld) [Mass/Vol] 12.0 g/dL 12.0-15.0 [facility] Immature granulocytes/100 WB C Auto (Bld)Ordered By: Jaclyn Webster on 03-16-2025 Immature granulocytes/100 WBC (Bld) 0.300 % 0.0-0.9 [facility] Comment on above: IG% - Immature Granu locytes (promyelocytes, myelocytes and metamyelocytes) > 1% indicates that a LEFT SHIFT is Present. Laboratory - Chemistry and C hemistry - challengeOrdered By: Jaclyn Webster on 03-16-2025 AST [Catalytic activity/Vol] 48 U/L High <32 [facility] MCV (mean corpuscular volume ) determinationOrdered By: Jaclyn Webster on 03-16-2025 MCV (RBC) [Entitic vol] 87.1 fL 81-99 [facility] Mean corpuscular hemoglobin (MCH) determinationOrdered By: Jaclyn Webster on 03-16-2025 MCH (RBC) [Entitic mass] 28.8 pg 27.0-32.0 [facility] Mean corpuscular hemoglobin concentration (MCHC) determinationOrdered By: Jaclyn Webster on 03-16-2025 MCHC (RBC) [Mass/Vol] 33.1 g/dL 32-36 [facility] Mean platelet volume determi nationOrdered By: Jaclyn Webster on 03-16-2025 Platelet mean volume (Bld) [Entitic vol] 10.2 fL 6.2-12.0 [facility] Monocyte percentageOrdered B y: Jaclyn Webster on 03-16-2025 Monocytes/100 WBC (Bld) 10.0 % 0-10 [facility] Neutrophil percentageOrdered By: Jaclyn Webster on 03-16-2025 Neutrophils/100 WBC (Bld) 43.3 % Low 47-70 [facility] Nucleated red blood cell per centageOrdered By: Jaclyn Webster on 03-16-2025 Nucleated RBC/100 WBC (Bld) [Ratio] 0 % 0-5 [facility] Platelet countOrdered By: Lurdes Webster on 03-16-2025 Platelets (Bld) [#/Vol] 252 10*3/uL 150-450 [facility] Potassium measurement (mass/ volume)Ordered By: Jaclyn Webster on 03-16-2025 Potassium (Unsp spec) [Mass/Vol] 3.9 mmol/L 3.3-5.1 [facility] RBC Auto (Bld) [#/Vol]Ordere d By: Jaclyn Webster on 03-16-2025 RBC (Bld) [#/Vol] 4.17 10*6/uL Low 4.2-5.4 [facility] Serum creatinine measurement (mass/volume)Ordered By: Jaclyn Webster on 03-16-2025 Creatinine [Mass/Vol] 1.22 mg/dL High 0.70-1.20 [facility] Serum globulin measurementOr dered By: Jaclyn Webster on 03-16-2025 Globulin (S) [Mass/Vol] 2.6 g/dL 2.2-4.2 [facility] Serum glucose measurement (m ass/volume)Ordered By: Jaclyn Webster on 03-16-2025 Glucose [Mass/Vol] 105 mg/dL High 70-99 [facility] Serum or plasma alanine self otransferase (ALT) measurementOrdered By: Jaclyn Webster on 03-16-2025 ALT [Catalytic activity/Vol] 36 U/L High <35 [facility] Serum or plasma albumin carole urement (mass/volume)Ordered By: Jaclyn Webster on 03-16-2025 Albumin [Mass/Vol] 4.3 g/dL 3.4-4.8 [facility] Serum or plasma albumin/glob ulin mass ratioOrdered By: Jaclyn Webster on 03-16-2025 Albumin/Globulin [Mass ratio] 1.7 {ratio} 0.9-2.4 [facility] Serum or plasma alkaline jose francisco sphatase measurementOrdered By: Jaclyn Webster on 03-16-2025 ALP [Catalytic activity/Vol] 74 U/L 35-104 [facility] Serum or plasma calcium carole urement (mass/volume)Ordered By: Jaclyn Webster on 03-16-2025 Calcium [Mass/Vol] 9.4 mg/dL 7.6-11.0 [facility] Serum or plasma urea nitroge n measurement (mass/volume)Ordered By: Jaclyn Webster on 03-16-2025 Urea nitrogen [Mass/Vol] 25 mg/dL High 4-19 [facility] Sodium levelOrdered By: Jaclyn Webster on 03-16-2025 Sodium [Moles/Vol] 139 mmol/L 133-145 [facility] TSH DL <= 0.005 mIU/L QnOrde red By: Jaclyn Webster on 03-16-2025 TSH Qn 1.800 uIU/mL 0.300-4.200 [facility] Thyroid Stim Hormone (TSH)on 03-16-2025 TSH 1.800 uIU/mL Normal 0.300-4.200 [facility] Comment on above: Performed By: #### L 503.6049 #### [facility] [place], [address] Total proteinOrdered By: Aisha Webster on 03-16-2025 Protein [Mass/Vol] 6.9 g/dL 5.9-8.4 [facility] White blood cell (WBC) count Ordered By: Jaclyn Webster on 03-16-2025 WBC (Bld) [#/Vol] 7.7 10*3/uL 4.4-11.0 [facility] Gastroenterology Visit Repor ton 12-24-2024 Gastroenterology Visit Report [facility] Gastroenterology [address] [place] [address] OFFICE VISIT Date of Service: 12/24/24 MR#: [id number] Acct: [id number] Name: NOHEMI SANDERS Rep #: [id number] : 1950 Provider: Dr. 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: No Is patient in pain?: Yes (achy joints) Allergies Influenza Virus Vaccines Allergy (Severe, Verified 12/24/24 13:34) Swelling pneumococcal vaccine Allergy (Severe, Verified 12/24/24 13:34) Swelling Tetanus Vaccines and Toxoid Allergy (Severe, Verified 12/24/24 13:34) Swelling amlodipine Allergy (Intermediate, Verified 12/24/24 13:34) Other bupropion (From Wellbutrin) Allergy (Verified 12/24/24 13:34) Hives pravastatin Adverse Reaction (Intermediate, Verified 12/24/24 13:34) Myalgias Medications ???Medication ???Instructions ???Recorded ???Confirmed ???Type hydrochlorothiazide 25 mg tablet 25 mg PO DAILY 08/15/17 12/24/24 H istory melatonin 3 mg tablet 3 mg PO HS PRN Sleep 05/28/20 0406/11 History potassium chloride 10 mEq 10 meq PO BID 05/28/20 12/24/24 Hi story tablet,extended release(part/cryst) levothyroxine 75 mcg tablet 75 mcg PO MOTUWETHFR 06/02/2106/11 History enalapril maleate 20 mg tablet 20 mg PO BID 06/01/22 12/24/24 His tory calcium carb-ergocalciferol (vit 1 tab PO DAILY 05/17/23 12/24/24 H istory D2) 600 mg calcium-200 unit tablet albuterol sulfate 90 mcg/actuation 2 puff inhalation Q4-6H PRN 01/1612/24/24 Rx aerosol inhaler shortness of breath or wheezing #6.7 grams glipizide 2.5 mg tablet, extended 2.5 mg PO QDAY 07/09/24 12/24/24 History release 24 hr magnesium aspart,citrate,oxide mg PO 07/09/24 12/24/24 History (Triple Magnesium Complex) hydroxyzine HCl 25 mg tablet 50 mg PO QHS PRN 07/17/24 12/24/24 History pantoprazole 40 mg tablet,delayed 40 mg PO QDAY PRN gastric reflux 12/24/24 12/24/24 History release Have you fallen in the past year?: No PFSH Medical History Right lower quadrant pain Loss of hearing MRSA infection Thyroid disease High cholesterol Smoker History of edema History of echocardiogram History of stress test Coronary artery calcification seen on CAT scan Duodenal ulcer GERD (gastroesophageal reflux disease) Wears dentures Anxiety Arthritis Bladder disease History of renal disease Fatty liver Restless legs Migraine headache Injury of head and neck Dietary restriction History of hiatal hernia History of diverticulitis Gastric reflux Vapes nicotine containing substance Leg cramps Cardiology follow-up encounter Nausea History of deep venous thrombosis (1999) Lightheadedness Near syncope Hypothyroidism Emphysema of lung Obesity Hyperlipidemia Neck pain Back pain Essential (primary) hypertension Type 2 diabetes mellitus Nodule of upper lobe of left lung Surgical History History of varicose vein procedure History of cholecystectomy ( 05/2023) History of tonsillectomy and adenoidectomy History of bunionectomy H/O oophorectomy History of rotator cuff surgery History of lumbar surgery reconstruction of rectum H/O construction of artificial vagina History of appendectomy Family History Mother Lung cancer Thyroid disorder Sister Heart disease Diabetes Sister Heart disease Diabetes Myocardial infarction Lung disease Father Myocardial infarction, Onset Age: 46 Brother Aortic aneurysm Grandmother Cancer melanoma Grandmother Breast cancer Social History Smoking Status: Current some day smoker tobacco type: e-cigarettes Tobacco: How many years used: 50 Electronic Cigarette Use: with nicotine how long ago did patient quit smokin years second hand exposure: Yes quit status: has quit before alcohol intake: never HPI HPI Chief Complaint: discuss symptoms and concerns Details: NOHEMI SANDERS, is a 74 F who presents to the office today for follow up. [facility] established 08/2021 for nausea, GERD, hx duodenal ulcers, Fatty liver. Patient states she had labs with her PCP last month and had elevated liver enzymes. Denies any abdominal pain, heartburn, swelling. BM are normal once a day. US RUQ 9.27.24- Parenchymal liver di (more content not included)... Normal [facility] AFP, Tumor Markeron 12-03-19 25 AFP TUMOR GEOVANI Normal [facility] Comment on above: Order Comment: N Result Comment: TEST RESULTS LIMITS AFP, Serum, Tumor Marker 21.6 High ng/mL 0.0-9.2 [facility] Electrochemiluminescence Immunoassay (ECLIA) Values obtained with different assay methods or kits cannot be used interchangeably. Results cannot be interpreted as absolute evidence of the presence or absence of malignant disease. This test is not interpretable in females. TESTING PERFORMED AT [facility]. ORIGINAL REPORT ON FILE IN LAB CONTAINS ADDITIONAL TEST SITE INFORMATION. Performed By: #### L 800.1280, L500.4100, L300.3900, L3130.0010, L3410.2400, L3410.0900, L3300.0700, L500.4050, L3300.0100, L100.0100, L501.9520, L3100.3425, L503.6550, L501.9985, L3400.0700, L3300.1800, L501.6710, L803.2200, L503.6030 ####[facility] [address] [place], [address] Anti-Smooth Muscle ABSon ANTISMOOTH MUSC Normal [facility] Comment on above: Result Comment: TEST RESULTS LIMITS Actin (Smooth Muscle) Antibody 15 Units 0-19 Negative 0 - 19 Weak positive 20 - 30 Moderate to strong positive >30 Actin Antibodies are found in 52-85% of patients with autoimmune hepatitis or chronic active hepatitis and in 22% of patients with primary biliary cirrhosis. TESTING PERFORMED AT [facility]. ORIGINAL REPORT ON FILE IN LAB CONTAINS ADDITIONAL TEST SITE INFORMATION. Performed By: #### L 800.1280, L500.4100, L300.3900, L3130.0010, L3410.2400, L3410.0900, L3300.0700, L500.4050, L3300.0100, L100.0100, L501.9520, L3100.3425, L503.6550, L501.9985, L3400.0700, L3300.1800, L501.6710, L803.2200, L503.6030 ####[facility] [address] [place], [place], [address] Celiac Disease Profileon tTG IGA Normal [facility] Comment on above: Result Comment: TEST RESULTS LIMITS Celiac Disease Panel Endomysial Antibody IgA Negative Negative t-Transglutaminase (tTG) IgA <2 U/mL 0-3 Negative 0 - 3 Weak Positive 4 - 10 Positive >10 Tissue Transglutaminase (tTG) has been identified as the endomysial antigen. Studies have demonstr- ated that endomysial IgA antibodies have over 99% specificity for gluten sensitive enteropathy. Immunoglobulin A, Qn, Serum 221 mg/dL 64-422 TESTING PERFORMED AT [facility]. ORIGINAL REPORT ON FILE IN LAB CONTAINS ADDITIONAL TEST SITE INFORMATION. Performed By: #### L 800.1280, L500.4100, L300.3900, L3130.0010, L3410.2400, L3410.0900, L3300.0700, L500.4050, L3300.0100, L100.0100, L501.9520, L3100.3425, L503.6550, L501.9985, L3400.0700, L3300.1800, L501.6710, L803.2200, L503.6030 ####[facility] [address] [place], [address] Ceruloplasminon 12-02-2024 CERULOPLASMIN Normal [facility] Comment on above: Result Comment: TEST RESULTS LIMITS Ceruloplasmin 24.7 mg/dL 19.0-39.0 TESTING PERFORMED AT [facility]. ORIGINAL REPORT ON FILE IN LAB CONTAINS ADDITIONAL TEST SITE INFORMATION. Performed By: #### L 800.1280, L500.4100, L300.3900, L3130.0010, L3410.2400, L3410.0900, L3300.0700, L500.4050, L3300.0100, L100.0100, L501.9520, L3100.3425, L503.6550, L501.9985, L3400.0700, L3300.1800, L501.6710, L803.2200, L503.6030 ####[facility] [address] [place], [address] Copper, Serum or Plasmaon COPPER, SERUM Normal [facility] Comment on above: Result Comment: TEST RESULTS LIMITS Copper, Serum or Plasma, 94 ug/dL 80-158 Detection Limit = 5 TESTING PERFORMED AT [facility]. ORIGINAL REPORT ON FILE IN LAB CONTAINS ADDITIONAL TEST SITE INFORMATION. Performed By: #### L 800.1280, L500.4100, L300.3900, L3130.0010, L3410.2400, L3410.0900, L3300.0700, L500.4050, L3300.0100, L100.0100, L501.9520, L3100.3425, L503.6550, L501.9985, L3400.0700, L3300.1800, L501.6710, L803.2200, L503.6030 ####[facility] [address] [place], [place], [id number] Gastrin, Serumon 12-02-2024 GASTRIN Normal [facility] Comment on above: Result Comment: TEST RESULTS LIMITS Gastrin, Serum <10 pg/mL 0-115 Siemens Immulite 2000 Immunochemiluminometric assay (ICMA) Values obtained with different assay methods or kits cannot be used interchangeably. Results cannot be interpreted as absolute evidence of the presence or absence of malignant disease. TESTING PERFORMED AT [facility]. ORIGINAL REPORT ON FILE IN LAB CONTAINS ADDITIONAL TEST SITE INFORMATION. Performed By: #### L 800.1280, L500.4100, L300.3900, L3130.0010, L3410.2400, L3410.0900, L3300.0700, L500.4050, L3300.0100, L100.0100, L501.9520, L3100.3425, L503.6550, L501.9985, L3400.0700, L3300.1800, L501.6710, L803.2200, L503.6030 ####[facility] [address] [place], [place], [id number] KRISTIE + Protein Elect, Serumon 12-02-2024 PROTEIN,TOTAL Normal [facility] Comment on above: Order Comment: N Result Comment: TEST RESULTS LIMITS KRISTIE and PE, Serum Immunoglobulin G, Qn, Serum 1287 mg/dL 586-1602 Immunoglobulin M, Qn, Serum 28 mg/dL 26-217 Protein, Total 7.0 g/dL 6.0-8.5 Albumin 3.7 g/dL 2.9-4.4 Mzdov-4-Jhzsszdy 0.2 g/dL 0.0-0.4 Yeaiz-5-Moqbanyp 0.7 g/dL 0.4-1.0 Beta Globulin 1.1 g/dL 0.7-1.3 Gamma Globulin 1.2 g/dL 0.4-1.8 M-Alen Not Observed g/dL Not Observed Globulin, Total 3.3 g/dL 2.2-3.9 A/G Ratio 1.2 0.7-1.7 Immunofixation Result, Serum No monoclonality detected. Please note: Protein electrophoresis scan will follow via computer, mail, or eye surgeon delivery. TESTING PERFORMED AT [facility]. ORIGINAL REPORT ON FILE IN LAB CONTAINS ADDITIONAL TEST SITE INFORMATION. Performed By: #### L 800.1280, L500.4100, L300.3900, L3130.0010, L3410.2400, L3410.0900, L3300.0700, L500.4050, L3300.0100, L100.0100, L501.9520, L3100.3425, L503.6550, L501.9985, L3400.0700, L3300.1800, L501.6710, L803.2200, L503.6030 ####[facility] [address] [place], [address] Intrinsic Factor Abon 2024 INTRINS FACT AB Normal [facility] Comment on above: Result Comment: TEST RESULTS LIMITS Intrinsic Factor Abs, Serum 1.0 AU/mL 0.0-1.1 TESTING PERFORMED AT [facility]. ORIGINAL REPORT ON FILE IN LAB CONTAINS ADDITIONAL TEST SITE INFORMATION. Performed By: #### L 800.1280, L500.4100, L300.3900, L3130.0010, L3410.2400, L3410.0900, L3300.0700, L500.4050, L3300.0100, L100.0100, L501.9520, L3100.3425, L503.6550, L501.9985, L3400.0700, L3300.1800, L501.6710, L803.2200, L503.6030 ####[facility] [address] [place], [address] Wolverine Lambda Light Chainson 12-02-2024 FR KAPPA LT CHN Normal [facility] Comment on above: Result Comment: TEST RESULTS LIMITS Free K+L Lt Chains,Qn,S Free Wolverine Lt Chains,S 39.3 High mg/L 3.3-19.4 Free Lambda Lt Chains,S 21.0 mg/L 5.7-26.3 Wolverine/Lambda Ratio,S 1.87 High 0.26-1.65 TESTING PERFORMED AT [facility]. ORIGINAL REPORT ON FILE IN LAB CONTAINS ADDITIONAL TEST SITE INFORMATION. Performed By: #### L 800.1280, L500.4100, L300.3900, L3130.0010, L3410.2400, L3410.0900, L3300.0700, L500.4050, L3300.0100, L100.0100, L501.9520, L3100.3425, L503.6550, L501.9985, L3400.0700, L3300.1800, L501.6710, L803.2200, L503.6030 ####[facility] [address] [facility] [place], [address] Anti-Mitochondrial ABon 10-19 ANTIMITOCHON AB <20.0 Normal 0.0-20.0 [facility] Comment on above: Result Comment: Nega tive 0.0 - 20.0 Equivocal 20.1 - 24.9 Positive >24.9 Mitochondrial (M2) Antibodies are found in 90-96% of patients with primary biliary cirrhosis. Performed at: [address] [id number] Asphalt Screed Operator: Galen Vickers PhD, Phone: [phone] Performed By: #### L 800.1280, L500.4100, L300.3900, L3130.0010, L3410.2400, L3410.0900, L3300.0700, L500.4050, L3300.0100, L100.0100, L501.9520, L3100.3425, L503.6550, L501.9985, L3400.0700, L3300.1800, L501.6710, L803.2200, L503.6030 ####[facility] [address] [facility] [place], [address] L506.1001on 11-14-2024 Vitamin D 25-OH 49.7 ng/mL Normal 30-100 [facility] Comment on above: Result Comment: [place] min D Status Deficiency: <20 ng/mL (50nmol/L) Insufficiency: 20-30 ng/mL (50-75 nmol/L) Sufficiency: 30-100 ng/mL (75-250 nmol/L) Toxicity: >100 ng/mL (>250 nmol/L) Performed By: #### L 509.1000, L3100.3450, L501.0900, L100.0500, L506.1001, L501.2300 ####[facility] [address] [place], [address] Phosphoruson 11-14-2024 Phosphate [Mass/Vol] 2.9 mg/dL Normal 2.7-4.5 [facility] Comment on above: Performed By: #### L 509.1000, L3100.3450, L501.0900, L100.0500, L506.1001, L501.2300 ####[facility] [address] [place], [address] Protein Electroph, Son 11-14 Albumin [Mass/Vol] 3.7 g/dL Normal 2.9-4.4 [facility] Comment on above: Performed By: #### L 509.1000, L3100.3450, L501.0900, L100.0500, L506.1001, L501.2300 ####[facility] [address] [place], [address] Albumin/Globulin [Mass ratio] 1.1 {ratio} Normal 0.7-1.7 [facility] Comment on above: Performed By: #### L 509.1000, L3100.3450, L501.0900, L100.0500, L506.1001, L501.2300 ####[facility] [address] [place], [address] ALPHA-1 GLOBUL 0.2 g/dL Normal 0.0-0.4 [facility] Comment on above: Performed By: #### L 509.1000, L3100.3450, L501.0900, L100.0500, L506.1001, L501.2300 ####[facility] [address] [place], [address] ALPHA-2 GLOBUL 0.8 g/dL Normal 0.4-1.0 [facility] Comment on above: Performed By: #### L 509.1000, L3100.3450, L501.0900, L100.0500, L506.1001, L501.2300 ####[facility] [address] [place], [address] BETA GLOBULIN 1.2 g/dL Normal 0.7-1.3 [facility] Comment on above: Performed By: #### L 509.1000, L3100.3450, L501.0900, L100.0500, L506.1001, L501.2300 ####[facility] [address] [place], [address] GAMMA GLOBULIN 1.2 g/dL Normal 0.4-1.8 [facility] Comment on above: Performed By: #### L 509.1000, L3100.3450, L501.0900, L100.0500, L506.1001, L501.2300 ####[facility] [address] [place], [address] Globulin (S) [Mass/Vol] 3.4 g/dL Normal 2.2-3.9 [facility] Comment on above: Performed By: #### L 509.1000, L3100.3450, L501.0900, L100.0500, L506.1001, L501.2300 ####[facility] [address] [place], [address] INTERPRETATION Comment Normal . [facility] Comment on above: Result Comment: Prot ein electrophoresis scan will follow via computer, mail, or eye surgeon delivery. Performed By: #### L 509.1000, L3100.3450, L501.0900, L100.0500, L506.1001, L501.2300 ####[facility] [address] [place], [address] M-SPIKE Not Observed Normal Not Observed [facility] Comment on above: Performed By: #### L 509.1000, L3100.3450, L501.0900, L100.0500, L506.1001, L501.2300 ####[facility] [address] [place], [address] NOTE: Comment Normal . [facility] Comment on above: Result Comment: The SPE pattern appears unremarkable. Evidence of monoclonal protein is not apparent. Performed at: [facility] [employer] [id number] Asphalt Screed Operator: Galen Vickers PhD, Phone: [phone] Performed By: #### L 509.1000, L3100.3450, L501.0900, L100.0500, L506.1001, L501.2300 ####[facility] [address] [place], [address] Protein [Mass/Vol] 7.1 g/dL Normal 6.0-8.5 [facility] Comment on above: Performed By: #### L 509.1000, L3100.3450, L501.0900, L100.0500, L506.1001, L501.2300 ####[facility] [address] [place], [address] Iron+Iron Binding Capacityon 11-13-2024 Iron [Mass/Vol] 70 ug/dL Normal 50-170 [facility] Comment on above: Performed By: #### L 503.6030 #### [facility] [address] [place], [address] IRON SATURATION 20.0 Normal 15.0-55.0 [facility] Comment on above: Performed By: #### L 503.6030 #### [facility] [address] [place], [address] TIBC 353 ug/dL Normal 250-450 [facility] Comment on above: Performed By: #### L 503.6030 #### [facility] [address] [place], [address] UIBC 283 ug/dL Normal 228-428 [facility] Comment on above: Performed By: #### L 503.6030 #### [facility] [address] [place], [address] Absolute neutrophil countOrd ered By: Luís Pop on 11-12-2024 Neutrophils (Bld) [#/Vol] 3.9 10*3/uL 2.0-7.7 [facility] Addendum DocumentOrdered By: Luís Pop on 11-12-2024 Protein Electrophoresis Note Comment . [facility] Comment on above: The SPE pattern appe ars unremarkable. Evidence ofmonoclonal protein is not apparent.Performed at: [facility] [id number] Director: Galen Vickers PhD, Phone: [phone] Albumin Elph [Mass/Vol]Order ed By: Luís Pop on 11-12-2024 Albumin [Mass/Vol] 3.7 g/dL 2.9-4.4 [facility] Albumin/Globulin Elph [Mass ratio]Ordered By: Luís Pop on 11-12-2024 Albumin/Globulin (PEP) 1.1 0.7-1.7 [facility] Kvlok-6-rmjkxxhs measurement by protein electrophoresisOrdered By: Luís Pop on 11-12-2024 Vzmjd-4-Duiyxgmtq 0.2 g/dL 0.0-0.4 [facility] Bpvck-9-issodcpk measurement by protein electrophoresisOrdered By: Luís Pop on 11-12-2024 Eifib-8-Bmuztwjfb 0.8 g/dL 0.4-1.0 [facility] BUN/creatinine ratioOrdered By: Luísshireen Pop on 11-12-2024 Urea nitrogen/Creatinine [Mass ratio] 21.7 mg/mg High 10-20 [facility] Basophil percentageOrdered B y: Luístim Pop on 11-12-2024 Basophils/100 WBC (Bld) 1.1 % High 0-1 [facility] Beta globulin Elph [Mass/Vol ]Ordered By: Luís Pop on 11-12-2024 Beta Globulins 1.2 g/dL 0.7-1.3 [facility] Bilirubin, totalOrdered By: Luís Pop on 11-12-2024 Bilirubin [Mass/Vol] 0.31 mg/dL 0.00-1.30 [facility] CBC W/Diff, Automatedon 10-19 Absolute Lymph 2.49 X10 3/uL Normal 0.83-4.51 [facility] Comment on above: Performed By: #### L 800.1280, L500.4100, L300.3900, L3130.0010, L3410.2400, L3410.0900, L3300.0700, L500.4050, L3300.0100, L100.0100, L501.9520, L3100.3425, L503.6550, L501.9985, L3400.0700, L3300.1800, L501.6710, L803.2200, L503.6030 ####[facility] [address] [facility]. [place], [place], [phone] Absolute Neut 3.9 X10 3/uL Normal 2.0-7.7 [facility] Comment on above: Performed By: #### L 800.1280, L500.4100, L300.3900, L3130.0010, L3410.2400, L3410.0900, L3300.0700, L500.4050, L3300.0100, L100.0100, L501.9520, L3100.3425, L503.6550, L501.9985, L3400.0700, L3300.1800, L501.6710, L803.2200, L503.6030 ####[facility] [address] [facility] [place], [address] Basophils/100 WBC (Bld) 1.1 % High 0-1 [facility] Comment on above: Performed By: #### L 800.1280, L500.4100, L300.3900, L3130.0010, L3410.2400, L3410.0900, L3300.0700, L500.4050, L3300.0100, L100.0100, L501.9520, L3100.3425, L503.6550, L501.9985, L3400.0700, L3300.1800, L501.6710, L803.2200, L503.6030 ####[facility] [address] [facility] [address] [place], [place], [phone]) Eosinophils/100 WBC (Bld) 2.5 % Normal 0-5 [facility] Comment on above: Performed By: #### L 800.1280, L500.4100, L300.3900, L3130.0010, L3410.2400, L3410.0900, L3300.0700, L500.4050, L3300.0100, L100.0100, L501.9520, L3100.3425, L503.6550, L501.9985, L3400.0700, L3300.1800, L501.6710, L803.2200, L503.6030 ####[facility] [address] [facility]. [place], [place], [phone] Erythrocyte distribution width (RBC) [Ratio] 14.0 % Normal 11.6-14.6 [facility] Comment on above: Performed By: #### L 800.1280, L500.4100, L300.3900, L3130.0010, L3410.2400, L3410.0900, L3300.0700, L500.4050, L3300.0100, L100.0100, L501.9520, L3100.3425, L503.6550, L501.9985, L3400.0700, L3300.1800, L501.6710, L803.2200, L503.6030 ####[facility] [address] [facility], [address] Hematocrit (Bld) [Volume fraction] 38.1 % Normal 37-47 [facility] Comment on above: Performed By: #### L 800.1280, L500.4100, L300.3900, L3130.0010, L3410.2400, L3410.0900, L3300.0700, L500.4050, L3300.0100, L100.0100, L501.9520, L3100.3425, L503.6550, L501.9985, L3400.0700, L3300.1800, L501.6710, L803.2200, L503.6030 ####[facility] [address] [facility] [place], [address] Hemoglobin (Bld) [Mass/Vol] 12.6 g/dL Normal 12.0-15.0 [facility] Comment on above: Performed By: #### L 800.1280, L500.4100, L300.3900, L3130.0010, L3410.2400, L3410.0900, L3300.0700, L500.4050, L3300.0100, L100.0100, L501.9520, L3100.3425, L503.6550, L501.9985, L3400.0700, L3300.1800, L501.6710, L803.2200, L503.6030 ####[facility] [address] [facility] [place], [address] IG% 0.300 Normal 0.0-0.9 [facility] Comment on above: Result Comment: IG% - Immature Granulocytes (promyelocytes, myelocytes and metamyelocytes) > 1% indicates that a LEFT SHIFT is Present. Performed By: #### L 800.1280, L500.4100, L300.3900, L3130.0010, L3410.2400, L3410.0900, L3300.0700, L500.4050, L3300.0100, L100.0100, L501.9520, L3100.3425, L503.6550, L501.9985, L3400.0700, L3300.1800, L501.6710, L803.2200, L503.6030 ####[facility] [address] [place], [address] Lymphocytes/100 WBC (Bld) 34.4 % Normal 19-41 [facility] Comment on above: Performed By: #### L 800.1280, L500.4100, L300.3900, L3130.0010, L3410.2400, L3410.0900, L3300.0700, L500.4050, L3300.0100, L100.0100, L501.9520, L3100.3425, L503.6550, L501.9985, L3400.0700, L3300.1800, L501.6710, L803.2200, L503.6030 ####[facility] [address] [facility]. [place], [place], [phone] MCH (RBC) [Entitic mass] 28.6 pg Normal 27.0-32.0 [facility] Comment on above: Performed By: #### L 800.1280, L500.4100, L300.3900, L3130.0010, L3410.2400, L3410.0900, L3300.0700, L500.4050, L3300.0100, L100.0100, L501.9520, L3100.3425, L503.6550, L501.9985, L3400.0700, L3300.1800, L501.6710, L803.2200, L503.6030 ####[facility] [address] [facility], [address] MCHC (RBC) [Mass/Vol] 33.1 g/dL Normal 32-36 [facility] Comment on above: Performed By: #### L 800.1280, L500.4100, L300.3900, L3130.0010, L3410.2400, L3410.0900, L3300.0700, L500.4050, L3300.0100, L100.0100, L501.9520, L3100.3425, L503.6550, L501.9985, L3400.0700, L3300.1800, L501.6710, L803.2200, L503.6030 ####[facility] [address] [place], [place], [phone] MCV (RBC) [Entitic vol] 86.6 fL Normal 81-99 [facility] Comment on above: Performed By: #### L 800.1280, L500.4100, L300.3900, L3130.0010, L3410.2400, L3410.0900, L3300.0700, L500.4050, L3300.0100, L100.0100, L501.9520, L3100.3425, L503.6550, L501.9985, L3400.0700, L3300.1800, L501.6710, L803.2200, L503.6030 ####[facility] [address] [place], [place], [phone] Monocytes/100 WBC (Bld) 7.9 % Normal 0-10 [facility] Comment on above: Performed By: #### L 800.1280, L500.4100, L300.3900, L3130.0010, L3410.2400, L3410.0900, L3300.0700, L500.4050, L3300.0100, L100.0100, L501.9520, L3100.3425, L503.6550, L501.9985, L3400.0700, L3300.1800, L501.6710, L803.2200, L503.6030 ####[facility] [address] [place], [place], [phone]) Neutrophils/100 WBC (Bld) 53.8 % Normal 47-70 [facility] Comment on above: Performed By: #### L 800.1280, L500.4100, L300.3900, L3130.0010, L3410.2400, L3410.0900, L3300.0700, L500.4050, L3300.0100, L100.0100, L501.9520, L3100.3425, L503.6550, L501.9985, L3400.0700, L3300.1800, L501.6710, L803.2200, L503.6030 ####[facility] [address] [place], [place], [phone]) Nucleated RBC (Bld) [#/Vol] 0 10*3/uL Normal 0-5 [facility] Comment on above: Performed By: #### L 800.1280, L500.4100, L300.3900, L3130.0010, L3410.2400, L3410.0900, L3300.0700, L500.4050, L3300.0100, L100.0100, L501.9520, L3100.3425, L503.6550, L501.9985, L3400.0700, L3300.1800, L501.6710, L803.2200, L503.6030 ####[facility] [address] [place], [place], [phone]) Platelet mean volume (Bld) [Entitic vol] 9.9 fL Normal 6.2-12.0 [facility] Comment on above: Performed By: #### L 800.1280, L500.4100, L300.3900, L3130.0010, L3410.2400, L3410.0900, L3300.0700, L500.4050, L3300.0100, L100.0100, L501.9520, L3100.3425, L503.6550, L501.9985, L3400.0700, L3300.1800, L501.6710, L803.2200, L503.6030 ####[facility] [address] [place], [place], [phone](109) Platelets (Bld) [#/Vol] 293 10*3/uL Normal 150-450 [facility] Comment on above: Performed By: #### L 800.1280, L500.4100, L300.3900, L3130.0010, L3410.2400, L3410.0900, L3300.0700, L500.4050, L3300.0100, L100.0100, L501.9520, L3100.3425, L503.6550, L501.9985, L3400.0700, L3300.1800, L501.6710, L803.2200, L503.6030 ####[facility] [address] [facility] [address] [place], [place], [phone](044) RBC (Bld) [#/Vol] 4.40 10*6/uL Normal 4.2-5.4 [facility] Comment on above: Performed By: #### L 800.1280, L500.4100, L300.3900, L3130.0010, L3410.2400, L3410.0900, L3300.0700, L500.4050, L3300.0100, L100.0100, L501.9520, L3100.3425, L503.6550, L501.9985, L3400.0700, L3300.1800, L501.6710, L803.2200, L503.6030 ####[facility] [address] [facility] [address] [place], [place], [phone](919) RDW SD 44.8 fl High 35.1-43.9 [facility] Comment on above: Performed By: #### L 800.1280, L500.4100, L300.3900, L3130.0010, L3410.2400, L3410.0900, L3300.0700, L500.4050, L3300.0100, L100.0100, L501.9520, L3100.3425, L503.6550, L501.9985, L3400.0700, L3300.1800, L501.6710, L803.2200, L503.6030 ####[facility] [address] [facility] [place], [address] WBC (Bld) [#/Vol] 7.2 10*3/uL Normal 4.4-11.0 [facility] Comment on above: Performed By: #### L 800.1280, L500.4100, L300.3900, L3130.0010, L3410.2400, L3410.0900, L3300.0700, L500.4050, L3300.0100, L100.0100, L501.9520, L3100.3425, L503.6550, L501.9985, L3400.0700, L3300.1800, L501.6710, L803.2200, L503.6030 ####[facility] [address] [facility] [place], [address] CBC-Complete Blood Cnt No Di ffon 11-12-2024 Erythrocyte distribution width (RBC) [Ratio] 14.1 % Normal 11.6-14.6 [facility] Comment on above: Performed By: #### L 509.1000, L3100.3450, L501.0900, L100.0500, L506.1001, L501.2300 ####[facility] [address] [place], [address] Hematocrit (Bld) [Volume fraction] 38.3 % Normal 37-47 [facility] Comment on above: Performed By: #### L 509.1000, L3100.3450, L501.0900, L100.0500, L506.1001, L501.2300 ####[facility] [address] [place], [address] Hemoglobin (Bld) [Mass/Vol] 12.5 g/dL Normal 12.0-15.0 [facility] Comment on above: Performed By: #### L 509.1000, L3100.3450, L501.0900, L100.0500, L506.1001, L501.2300 ####[facility] [address] [place], [address] MCH (RBC) [Entitic mass] 28.3 pg Normal 27.0-32.0 [facility] Comment on above: Performed By: #### L 509.1000, L3100.3450, L501.0900, L100.0500, L506.1001, L501.2300 ####[facility] [address] [place], [address] MCHC (RBC) [Mass/Vol] 32.6 g/dL Normal 32-36 [facility] Comment on above: Performed By: #### L 509.1000, L3100.3450, L501.0900, L100.0500, L506.1001, L501.2300 ####[facility] [address] [place], [address] MCV (RBC) [Entitic vol] 86.7 fL Normal 81-99 [facility] Comment on above: Performed By: #### L 509.1000, L3100.3450, L501.0900, L100.0500, L506.1001, L501.2300 ####[facility] [address] [place], [address] Platelet mean volume (Bld) [Entitic vol] 9.7 fL Normal 6.2-12.0 [facility] Comment on above: Performed By: #### L 509.1000, L3100.3450, L501.0900, L100.0500, L506.1001, L501.2300 ####[facility] [address] [place], [address] Platelets (Bld) [#/Vol] 290 10*3/uL Normal 150-450 [facility] Comment on above: Performed By: #### L 509.1000, L3100.3450, L501.0900, L100.0500, L506.1001, L501.2300 ####[facility] [address] [place], [address] RBC (Bld) [#/Vol] 4.42 10*6/uL Normal 4.2-5.4 [facility] Comment on above: Performed By: #### L 509.1000, L3100.3450, L501.0900, L100.0500, L506.1001, L501.2300 ####[facility] [address] [place], [address] RDW SD 44.6 fl High 35.1-43.9 [facility] Comment on above: Performed By: #### L 509.1000, L3100.3450, L501.0900, L100.0500, L506.1001, L501.2300 ####[facility] [address] [place], [address] WBC (Bld) [#/Vol] 8.2 10*3/uL Normal 4.4-11.0 [facility] Comment on above: Performed By: #### L 509.1000, L3100.3450, L501.0900, L100.0500, L506.1001, L501.2300 ####[facility] [address] [place], [address] CRPon 11-12-2024 C-REACTIVE PROT 6.75 mg/L High 0.0-3.0 [facility] Comment on above: Order Comment: DR. Flash HUGO GETS RESULTS FROM LIVER AND LIPIDDR.DONN GETS ALL OTHER RESULTS. Performed By: #### L 800.1280, L500.4100, L300.3900, L3130.0010, L3410.2400, L3410.0900, L3300.0700, L500.4050, L3300.0100, L100.0100, L501.9520, L3100.3425, L503.6550, L501.9985, L3400.0700, L3300.1800, L501.6710, L803.2200, L503.6030 ####[facility] [address] [place], [place], [phone] CRP [Mass/Vol]Ordered By: Ata Pop on 11-12-2024 C-Reactive Protein Extended Range 6.75 mg/L High 0.0-3.0 [facility] Calculated very low density lipoprotein (VLDL) cholesterol measurementOrdered By: Luís Pop on 11-12-2024 VLDL Cholesterol 31 mg/dL 5-40 [facility] Carbon dioxide measurementOr dered By: Luís Pop on 11-12-2024 CO2 [Moles/Vol] 25.0 mmol/L 22.0-29.0 [facility] Chloride measurementOrdered By: Luís Pop on 11-12-2024 Chloride [Moles/Vol] 103 mmol/L 96-108 [facility] Comprehensive Metabolic Prof ilon 11-12-2024 Albumin [Mass/Vol] 4.5 g/dL Normal 3.4-4.8 [facility] Comment on above: Order Comment: DR. Flash HUGO GETS RESULTS FROM LIVER AND LIPID GETS ALL OTHER RESULTS. Performed By: #### L 800.1280, L500.4100, L300.3900, L3130.0010, L3410.2400, L3410.0900, L3300.0700, L500.4050, L3300.0100, L100.0100, L501.9520, L3100.3425, L503.6550, L501.9985, L3400.0700, L3300.1800, L501.6710, L803.2200, L503.6030 ####[facility] [address] [place], [place], [address] Albumin/Globulin [Mass ratio] 1.6 {ratio} Normal 0.9-2.4 [facility] Comment on above: Order Comment: DR. Flash HUGO GETS RESULTS FROM LIVER AND LIPIDDR.DONN GETS ALL OTHER RESULTS. Performed By: #### L 800.1280, L500.4100, L300.3900, L3130.0010, L3410.2400, L3410.0900, L3300.0700, L500.4050, L3300.0100, L100.0100, L501.9520, L3100.3425, L503.6550, L501.9985, L3400.0700, L3300.1800, L501.6710, L803.2200, L503.6030 ####[facility] [address] [place], [place], [phone] ALK PHOS 59 U/L Normal 35-104 [facility] Comment on above: Order Comment: DR. Flash HUGO GETS RESULTS FROM LIVER AND LIPIDDR.DONN GETS ALL OTHER RESULTS. Performed By: #### L 800.1280, L500.4100, L300.3900, L3130.0010, L3410.2400, L3410.0900, L3300.0700, L500.4050, L3300.0100, L100.0100, L501.9520, L3100.3425, L503.6550, L501.9985, L3400.0700, L3300.1800, L501.6710, L803.2200, L503.6030 ####[facility] [address] [place], [place], [phone] ALT [Catalytic activity/Vol] 29 U/L Normal <=34 [facility] Comment on above: Order Comment: DR. Flash HUGO GETS RESULTS FROM LIVER AND LIPIDDR.DONN GETS ALL OTHER RESULTS. Performed By: #### L 800.1280, L500.4100, L300.3900, L3130.0010, L3410.2400, L3410.0900, L3300.0700, L500.4050, L3300.0100, L100.0100, L501.9520, L3100.3425, L503.6550, L501.9985, L3400.0700, L3300.1800, L501.6710, L803.2200, L503.6030 ####[facility] [address] [facility] [place], [place], [phone] Anion gap [Moles/Vol] 11 mmol/L Normal 5-15 [facility] Comment on above: Order Comment: DR. Flash HUGO GETS RESULTS FROM LIVER AND LIPIDDRHOLDEN GETS ALL OTHER RESULTS. Performed By: #### L 800.1280, L500.4100, L300.3900, L3130.0010, L3410.2400, L3410.0900, L3300.0700, L500.4050, L3300.0100, L100.0100, L501.9520, L3100.3425, L503.6550, L501.9985, L3400.0700, L3300.1800, L501.6710, L803.2200, L503.6030 ####[facility] [address] [facility]. [place], [place], [phone] AST [Catalytic activity/Vol] 38 U/L High <=31 [facility] Comment on above: Order Comment: DR. Flash HUGO GETS RESULTS FROM LIVER AND LIPIDDRHOLDEN GETS ALL OTHER RESULTS. Performed By: #### L 800.1280, L500.4100, L300.3900, L3130.0010, L3410.2400, L3410.0900, L3300.0700, L500.4050, L3300.0100, L100.0100, L501.9520, L3100.3425, L503.6550, L501.9985, L3400.0700, L3300.1800, L501.6710, L803.2200, L503.6030 ####[facility] [address] [place], [place], [phone] Bilirubin [Mass/Vol] 0.31 mg/dL Normal 0.00-1.30 [facility] Comment on above: Order Comment: DR. Flash HUGO GETS RESULTS FROM LIVER AND LIPIDDR.DONN GETS ALL OTHER RESULTS. Performed By: #### L 800.1280, L500.4100, L300.3900, L3130.0010, L3410.2400, L3410.0900, L3300.0700, L500.4050, L3300.0100, L100.0100, L501.9520, L3100.3425, L503.6550, L501.9985, L3400.0700, L3300.1800, L501.6710, L803.2200, L503.6030 ####[facility] [address] [place], [place], [phone] BUN/CRE 21.7 RATIO High 10-20 [facility] Comment on above: Order Comment: DR. Flash HUGO GETS RESULTS FROM LIVER AND LIPIDDR.DONN GETS ALL OTHER RESULTS. Performed By: #### L 800.1280, L500.4100, L300.3900, L3130.0010, L3410.2400, L3410.0900, L3300.0700, L500.4050, L3300.0100, L100.0100, L501.9520, L3100.3425, L503.6550, L501.9985, L3400.0700, L3300.1800, L501.6710, L803.2200, L503.6030 ####[facility] [address] [place], [place], [phone] Calcium [Mass/Vol] 9.7 mg/dL Normal 7.6-11.0 [facility] Comment on above: Order Comment: DR. Flash HUGO GETS RESULTS FROM LIVER AND LIPIDDRHOLDEN GETS ALL OTHER RESULTS. Performed By: #### L 800.1280, L500.4100, L300.3900, L3130.0010, L3410.2400, L3410.0900, L3300.0700, L500.4050, L3300.0100, L100.0100, L501.9520, L3100.3425, L503.6550, L501.9985, L3400.0700, L3300.1800, L501.6710, L803.2200, L503.6030 ####[facility] [address] [place], [place], [phone](213) Chloride [Moles/Vol] 103 mmol/L Normal 96-108 [facility] Comment on above: Order Comment: DR. Flash HUGO GETS RESULTS FROM LIVER AND LIPIDDRHOLDEN GETS ALL OTHER RESULTS. Performed By: #### L 800.1280, L500.4100, L300.3900, L3130.0010, L3410.2400, L3410.0900, L3300.0700, L500.4050, L3300.0100, L100.0100, L501.9520, L3100.3425, L503.6550, L501.9985, L3400.0700, L3300.1800, L501.6710, L803.2200, L503.6030 ####[facility] [address] [place], [place], [phone] CO2 [Moles/Vol] 25.0 mmol/L Normal 22.0-29.0 [facility] Comment on above: Order Comment: DR. Flash HUGO GETS RESULTS FROM LIVER AND LIPIDDRHOLDEN GETS ALL OTHER RESULTS. Performed By: #### L 800.1280, L500.4100, L300.3900, L3130.0010, L3410.2400, L3410.0900, L3300.0700, L500.4050, L3300.0100, L100.0100, L501.9520, L3100.3425, L503.6550, L501.9985, L3400.0700, L3300.1800, L501.6710, L803.2200, L503.6030 ####[facility] [address] [place], [address] Creatinine [Mass/Vol] 1.1 mg/dL High 0.6-1.0 [facility] Comment on above: Order Comment: DR. Flash HUGO GETS RESULTS FROM LIVER AND LIPIDDRHOLDEN GETS ALL OTHER RESULTS. Performed By: #### L 800.1280, L500.4100, L300.3900, L3130.0010, L3410.2400, L3410.0900, L3300.0700, L500.4050, L3300.0100, L100.0100, L501.9520, L3100.3425, L503.6550, L501.9985, L3400.0700, L3300.1800, L501.6710, L803.2200, L503.6030 ####[facility] [address] [place], [place], [phone] GFR/1.73 sq M.predicted among non-blacks MDRD (S/P/Bld) [Vol rate/Area] 50 mL/min/{1.73_m2} Low >60 [facility] Comment on above: Order Comment: DR. Flash HUGO GETS RESULTS FROM LIVER AND LIPIDDR.DONN GETS ALL OTHER RESULTS. Result Comment: mL/m in/1.73m2 CKD-EPI Creatinine Equation (2020) Performed By: #### L 800.1280, L500.4100, L300.3900, L3130.0010, L3410.2400, L3410.0900, L3300.0700, L500.4050, L3300.0100, L100.0100, L501.9520, L3100.3425, L503.6550, L501.9985, L3400.0700, L3300.1800, L501.6710, L803.2200, L503.6030 ####[facility] [address] [place], [place], [phone] Globulin (S) [Mass/Vol] 2.8 g/dL Normal 2.2-4.2 [facility] Comment on above: Order Comment: DR. Flash HUGO GETS RESULTS FROM LIVER AND LIPID.DONN GETS ALL OTHER RESULTS. Performed By: #### L 800.1280, L500.4100, L300.3900, L3130.0010, L3410.2400, L3410.0900, L3300.0700, L500.4050, L3300.0100, L100.0100, L501.9520, L3100.3425, L503.6550, L501.9985, L3400.0700, L3300.1800, L501.6710, L803.2200, L503.6030 ####[facility] [address] [facility] [place], [place], [phone] Glucose [Mass/Vol] 95 mg/dL Normal 70-99 [facility] Comment on above: Order Comment: DR. Flash HUGO GETS RESULTS FROM LIVER AND LIPID GETS ALL OTHER RESULTS. Performed By: #### L 800.1280, L500.4100, L300.3900, L3130.0010, L3410.2400, L3410.0900, L3300.0700, L500.4050, L3300.0100, L100.0100, L501.9520, L3100.3425, L503.6550, L501.9985, L3400.0700, L3300.1800, L501.6710, L803.2200, L503.6030 ####[facility] [address] [place], [place], [id number] Potassium [Moles/Vol] 4.0 mmol/L Normal 3.3-5.1 [facility] Comment on above: Order Comment: DR. Flash HUGO GETS RESULTS FROM LIVER AND LIPID GETS ALL OTHER RESULTS. Performed By: #### L 800.1280, L500.4100, L300.3900, L3130.0010, L3410.2400, L3410.0900, L3300.0700, L500.4050, L3300.0100, L100.0100, L501.9520, L3100.3425, L503.6550, L501.9985, L3400.0700, L3300.1800, L501.6710, L803.2200, L503.6030 ####[facility] [address] [place], [place], [phone] Sodium [Moles/Vol] 140 mmol/L Normal 133-145 [facility] Comment on above: Order Comment: DR. Flash HUGO GETS RESULTS FROM LIVER AND LIPIDDR.DONN GETS ALL OTHER RESULTS. Performed By: #### L 800.1280, L500.4100, L300.3900, L3130.0010, L3410.2400, L3410.0900, L3300.0700, L500.4050, L3300.0100, L100.0100, L501.9520, L3100.3425, L503.6550, L501.9985, L3400.0700, L3300.1800, L501.6710, L803.2200, L503.6030 ####[facility] [address] [place], [place], [phone] T PROT 7.3 g/dL Normal 5.9-8.4 [facility] Comment on above: Order Comment: DR. Flash HUGO GETS RESULTS FROM LIVER AND LIPIDDR.DONN GETS ALL OTHER RESULTS. Performed By: #### L 800.1280, L500.4100, L300.3900, L3130.0010, L3410.2400, L3410.0900, L3300.0700, L500.4050, L3300.0100, L100.0100, L501.9520, L3100.3425, L503.6550, L501.9985, L3400.0700, L3300.1800, L501.6710, L803.2200, L503.6030 ####[facility] [address] [place], [place], [phone] Urea nitrogen [Mass/Vol] 25 mg/dL High 4-19 [facility] Comment on above: Order Comment: DR. Flash HUGO GETS RESULTS FROM LIVER AND LIPIDDR.DONN GETS ALL OTHER RESULTS. Performed By: #### L 800.1280, L500.4100, L300.3900, L3130.0010, L3410.2400, L3410.0900, L3300.0700, L500.4050, L3300.0100, L100.0100, L501.9520, L3100.3425, L503.6550, L501.9985, L3400.0700, L3300.1800, L501.6710, L803.2200, L503.6030 ####[facility] [address] [place], [place], [address] Creatinine Unsp time (U) [Ma ss/Vol]Ordered By: Luís Pop on 11-12-2024 Creatinine (U) [Mass/Vol] 113.00 mg/dL NO RANGE EST. [facility] Eosinophil percentageOrdered By: Luís Pop on 11-12-2024 Eosinophils/100 WBC (Bld) 2.5 % 0-5 [facility] Erythrocyte distribution wid th ratioOrdered By: Luís Pop on 11-12-2024 Erythrocyte distribution width (RBC) [Ratio] 14.1 % 11.6-14.6 [facility] Erythrocyte distribution wid th standard deviationOrdered By: Luís Pop on 11-12-2024 Erythrocyte distribution width (RBC) [Entitic vol] 44.6 fL High 35.1-43.9 [facility] Ferritinon 11-12-2024 Ferritin [Mass/Vol] 124 ng/mL Normal 22-378 [facility] Comment on above: Order Comment: DR. Flash HUGO GETS RESULTS FROM LIVER AND LIPIDDRHOLDEN GETS ALL OTHER RESULTS. Performed By: #### L 800.1280, L500.4100, L300.3900, L3130.0010, L3410.2400, L3410.0900, L3300.0700, L500.4050, L3300.0100, L100.0100, L501.9520, L3100.3425, L503.6550, L501.9985, L3400.0700, L3300.1800, L501.6710, L803.2200, L503.6030 ####[facility] [address] [place], [place], [id number] GFR/1.73 sq M.predicted meño g non-blacks MDRD (S/P/Bld) [Vol rate/Area]Ordered By: Luís Pop on 11-12-2024 Estimated GFR (MDRD) Non-Af Amer 50 Low >60 [facility] Comment on above: mL/min/1.73m2 CKD-EP I Creatinine Equation (2020) Gamma globulin measurement b y protein electrophoresisOrdered By: Luís Pop on 11-12-2024 Gamma Globulins 1.2 g/dL 0.4-1.8 [facility] Globulin (S) [Mass/Vol]Order ed By: Luís Pop on 11-12-2024 Globulin (PEP) 3.4 g/dL 2.2-3.9 [facility] Hematocrit Auto (Bld) [Volum e fraction]Ordered By: Luís Pop on 11-12-2024 Hematocrit (Bld) [Volume fraction] 38.3 % 37-47 [facility] [facility] Hem[facility] A1con 11-12-2024 HbA1c (Bld) [Mass fraction] 5.8 % Normal <=5.6 [facility] Comment on above: Performed By: #### L 800.1280, L500.4100, L300.3900, L3130.0010, L3410.2400, L3410.0900, L3300.0700, L500.4050, L3300.0100, L100.0100, L501.9520, L3100.3425, L503.6550, L501.9985, L3400.0700, L3300.1800, L501.6710, L803.2200, L503.6030 ####[facility] [address] [place], [place], [id number] Hemoglobin A1c percentageOrd ered By: Luís Pop on 11-12-2024 HbA1c (Bld) [Mass fraction] 5.8 % >5.7 [facility] Hemoglobin measurementOrdere d By: Luís Pop on 11-12-2024 Hemoglobin (Bld) [Mass/Vol] 12.5 g/dL 12.0-15.0 [facility] Immature granulocytes/100 WB C Auto (Bld)Ordered By: Luís Pop on 11-12-2024 Immature granulocytes/100 WBC (Bld) 0.300 % 0.0-0.9 [facility] Comment on above: IG% - Immature Granu locytes (promyelocytes, myelocytes and metamyelocytes) > 1% indicates that a LEFT SHIFT is Present. Intact parathyroid hormone ( iPTH) measurementOrdered By: Luís Pop on 11-12-2024 Parathyroid Hormone (Intact) 31 pg/mL 11-61 [facility] International normalized rat io (INR) calculationOrdered By: Luís Pop on 11-12-2024 INR Coag (Bld) [Relative time] 1.0 {INR} [facility] Iron (Unsp spec) [Mass/Mass] Ordered By: Luís Pop on 11-12-2024 Iron [Mass/Vol] 70 ug/dL 50-170 [facility] Iron and Iron binding capaci ty panelOrdered By: Luís Pop on 11-12-2024 Total Iron Binding Capacity 353 ug/dL 250-450 [facility] Iron saturation [Mass fracti on]Ordered By: Luís Pop on 11-12-2024 Iron Saturation 20.0 % 15.0-55.0 [facility] Iron+Iron Binding Capacityon 11-12-2024 IRON Normal 50-170 [facility] Comment on above: Order Comment: DR. Flash HUGO GETS RESULTS FROM LIVER AND LIPIDDR.DONN GETS ALL OTHER RESULTS. Performed By: #### L 800.1280, L500.4100, L300.3900, L3130.0010, L3410.2400, L3410.0900, L3300.0700, L500.4050, L3300.0100, L100.0100, L501.9520, L3100.3425, L503.6550, L501.9985, L3400.0700, L3300.1800, L501.6710, L803.2200, L503.6030 ####[facility] [address] [place], [place], [id number] LDL calc ser/plasOrdered By: Luís Pop on 11-12-2024 LDL Cholesterol, Calculated 107 mg/dL [facility] Comment on above: Keibynlbrz=419-894 m g/dL & Higher Mcfy=998 mg/dL or greater Laboratory - Chemistry and C hemistry - challengeOrdered By: Luís Pop on 11-12-2024 AST [Catalytic activity/Vol] 38 U/L High <32 [facility] Lipid Profileon 11-12-2024 CHOL:HDL 3.96 Normal [facility] Comment on above: Order Comment: DR. Flash HUGO GETS RESULTS FROM LIVER AND LIPIDDRHOLDEN GETS ALL OTHER RESULTS. Performed By: #### L 800.1280, L500.4100, L300.3900, L3130.0010, L3410.2400, L3410.0900, L3300.0700, L500.4050, L3300.0100, L100.0100, L501.9520, L3100.3425, L503.6550, L501.9985, L3400.0700, L3300.1800, L501.6710, L803.2200, L503.6030 ####[facility] [address] [place], [place], [id number] Cholesterol [Mass/Vol] 184 mg/dL Normal <=200 [facility] Comment on above: Order Comment: DR. Flash HUGO GETS RESULTS FROM LIVER AND LIPIDDR.DONN GETS ALL OTHER RESULTS. Result Comment: Chol esterol level, Desirable <200 mg/dL Borderline high cholesterol 200-239 mg/dL High cholesterol >=240 mg/dL Recommendations of the NCEP Adult Treatment Panel for the following risk-cutoff thresholds for the [place] population. Performed By: #### L 800.1280, L500.4100, L300.3900, L3130.0010, L3410.2400, L3410.0900, L3300.0700, L500.4050, L3300.0100, L100.0100, L501.9520, L3100.3425, L503.6550, L501.9985, L3400.0700, L3300.1800, L501.6710, L803.2200, L503.6030 ####[facility] [address] [facility]. [place], [place], [phone] Cholesterol in HDL [Mass/Vol] 47 mg/dL Normal [facility] Comment on above: Order Comment: DR. Flash HUGO GETS RESULTS FROM LIVER AND LIPIDDR.DONN GETS ALL OTHER RESULTS. Result Comment: Isabel onal Cholesterol Education Program (NCEP) guidelines: <40 mg/dL: Low HDL-cholesterol (major risk factor for CHD) >= 60 mg/dL: High HDL-cholesterol (negative risk factor for CHD) HDL-cholesterol is affected by a number of factors, e.g. smoking, exercise, hormones, sex and age. Performed By: #### L 800.1280, L500.4100, L300.3900, L3130.0010, L3410.2400, L3410.0900, L3300.0700, L500.4050, L3300.0100, L100.0100, L501.9520, L3100.3425, L503.6550, L501.9985, L3400.0700, L3300.1800, L501.6710, L803.2200, L503.6030 ####[facility] [address] [facility] [place] [place], [address] Cholesterol in LDL [Mass/Vol] 107 mg/dL Normal [facility] Comment on above: Order Comment: DR. Flash HUGO GETS RESULTS FROM LIVER AND LIPIDDR.DONN GETS ALL OTHER RESULTS. Result Comment: Bord cwwboa=918-786 mg/dL Higher Gdsm=549 mg/dL or greater Performed By: #### L 800.1280, L500.4100, L300.3900, L3130.0010, L3410.2400, L3410.0900, L3300.0700, L500.4050, L3300.0100, L100.0100, L501.9520, L3100.3425, L503.6550, L501.9985, L3400.0700, L3300.1800, L501.6710, L803.2200, L503.6030 ####[facility] [address] [place], [place], [phone] Cholesterol in VLDL [Mass/Vol] 31 mg/dL Normal 5-40 [facility] Comment on above: Order Comment: DR. Flash HUGO GETS RESULTS FROM LIVER AND LIPIDDRHOLDEN GETS ALL OTHER RESULTS. Performed By: #### L 800.1280, L500.4100, L300.3900, L3130.0010, L3410.2400, L3410.0900, L3300.0700, L500.4050, L3300.0100, L100.0100, L501.9520, L3100.3425, L503.6550, L501.9985, L3400.0700, L3300.1800, L501.6710, L803.2200, L503.6030 ####[facility] [address] [facility]. [place], [place], [id number] Triglyceride [Mass/Vol] 154 mg/dL Normal [facility] Comment on above: Order Comment: DR. Flash HUGO GETS RESULTS FROM LIVER AND LIPIDDR.DONN GETS ALL OTHER RESULTS. Result Comment: The drugs N-Acetylcysteine and Metamizole may falsely depress this assay. Normal range: <150 mg/dL Borderline High: 150-199 mg/dL High: 200-499 mg/dL Very High: >500 mg/dL Performed By: #### L 800.1280, L500.4100, L300.3900, L3130.0010, L3410.2400, L3410.0900, L3300.0700, L500.4050, L3300.0100, L100.0100, L501.9520, L3100.3425, L503.6550, L501.9985, L3400.0700, L3300.1800, L501.6710, L803.2200, L503.6030 ####[facility] [address] [place], [address] TRIG Normal [facility] Comment on above: Result Comment: NOT NEEDED The drugs N-Acetylcysteine and Metamizole may falsely depress this assay. Performed By: #### L 500.4100, L500.3400 #### [facility] [address] [place], [address] CHOL Normal <=200 [facility] Comment on above: Result Comment: NOT NEEDED Performed By: #### L 500.4100, L500.3400 #### [facility] [address] [place], [address] CHOL:HDL Normal [facility] Comment on above: Result Comment: NOT NEEDED Performed By: #### L 500.4100, L500.3400 #### [facility] [address] [place], [address] CLDL Normal [facility] Comment on above: Result Comment: NOT NEEDED Performed By: #### L 500.4100, L500.3400 #### [facility] [address] [place], [address] HDL Normal [facility] Comment on above: Result Comment: NOT NEEDED Performed By: #### L 500.4100, L500.3400 #### [facility] [address] [place], [address] VLDL Normal 5-40 [facility] Comment on above: Result Comment: NOT NEEDED Performed By: #### L 500.4100, L500.3400 #### [facility] [address] [place], [address] Liver Profileon 11-12-2024 ALB Normal 3.4-4.8 [facility] Comment on above: Result Comment: NOT NEEDED Performed By: #### L 500.4100, L500.3400 #### [facility] [address] [place], [address] ALK PHOS Normal 35-104 [facility] Comment on above: Result Comment: NOT NEEDED Performed By: #### L 500.4100, L500.3400 #### [facility] [address] [place], [address] ALT Normal <=34 [facility] Comment on above: Result Comment: NOT NEEDED Performed By: #### L 500.4100, L500.3400 #### [facility] [address] [place], [address] AST Normal <=31 [facility] Comment on above: Result Comment: NOT NEEDED Performed By: #### L 500.4100, L500.3400 #### [facility] [address] [place], [address] D BILI Normal 0.00-0.30 [facility] Comment on above: Result Comment: NOT NEEDED Performed By: #### L 500.4100, L500.3400 #### [facility] [address] [place], [address] T BILI Normal 0.00-1.30 [facility] Comment on above: Result Comment: NOT NEEDED Performed By: #### L 500.4100, L500.3400 #### [facility] [address] [place], [address] T PROT Normal 5.9-8.4 [facility] Comment on above: Result Comment: NOT NEEDED Performed By: #### L 500.4100, L500.3400 #### [facility] [address] [place], [address] Lymphocytes Auto (Unsp spec) [#/Vol]Ordered By: Luís Pop on 11-12-2024 Lymphocytes (Bld) [#/Vol] 2.49 10*3/uL 0.83-4.51 [facility] Lymphocytes/100 WBC Auto (Un sp spec)Ordered By: Luís Pop on 11-12-2024 Lymphocytes/100 WBC (Bld) 34.4 % 19-41 [facility] MCV (mean corpuscular volume ) determinationOrdered By: Luís Pop on 11-12-2024 MCV (RBC) [Entitic vol] 86.7 fL 81-99 [facility] Mean corpuscular hemoglobin (MCH) determinationOrdered By: Luís Pop on 11-12-2024 MCH (RBC) [Entitic mass] 28.3 pg 27.0-32.0 [facility] Mean corpuscular hemoglobin concentration (MCHC) determinationOrdered By: Luís Pop on 11-12-2024 MCHC (RBC) [Mass/Vol] 32.6 g/dL 32-36 [facility] Mean platelet volume determi nationOrdered By: Luís Pop on 11-12-2024 Platelet mean volume (Bld) [Entitic vol] 9.7 fL 6.2-12.0 [facility] Mitochondria Ab Ql (S)Ordere d By: Luís Pop on 11-12-2024 Anti-Mitochondrial Antibody <20.0 Units 0.0-20.0 [facility] Comment on above: Negative 0.0 - 20.0 Equivocal 20.1 - 24.9 Positive >24.9Mitochondrial (M2) Antibodies are found in 90-96% ofpatients with primary biliary cirrhosis.Performed at: [facility] [address] [id number] Director: Gaeln Vickers PhD, Phone: [phone] Monocyte percentageOrdered B y: Luís Pop on 11-12-2024 Monocytes/100 WBC (Bld) 7.9 % 0-10 [facility] Neutrophil percentageOrdered By: Luís Pop on 11-12-2024 Neutrophils/100 WBC (Bld) 53.8 % 47-70 [facility] No Panel InformationOrdered By: Luís Pop on 11-12-2024 Vitamin D 25-Hydroxy 49.7 ng/mL 30-100 [facility] Comment on above: Vitamin D StatusDefi ciency: <20 ng/mL (50nmol/L)Insufficiency: 20-30 ng/mL (50-75 nmol/L)Sufficiency: 30-100 ng/mL (75-250 nmol/L)Toxicity: >100 ng/mL (>250 nmol/L) Unsaturated Iron Binding Capacity 283 ug/dL 228-428 [facility] Nucleated red blood cell per centageOrdered By: Luís Pop on 11-12-2024 Nucleated RBC/100 WBC (Bld) [Ratio] 0 % 0-5 [facility] PTHINon 11-12-2024 PTH 31 pg/mL Normal 11-61 [facility] Comment on above: Performed By: #### L 509.1000, L3100.3450, L501.0900, L100.0500, L506.1001, L501.2300 ####[facility] [address] [place], [address] Platelet countOrdered By: Ata Pop on 11-12-2024 Platelets (Bld) [#/Vol] 290 10*3/uL 150-450 [facility] Protein Fractions Elph [Inte rp]Ordered By: Luís Pop on 11-12-2024 Protein Electrophoresis Interpret Comment . [facility] Comment on above: Protein electrophore sis scan will follow via computer,mail, or eye surgeon delivery. Protein+Creatinine Ratio,Uri neon 11-12-2024 PROT:CRE RATIO 106 mg/g CRE Normal 0-200 [facility] Comment on above: Performed By: #### L 509.1000, L3100.3450, L501.0900, L100.0500, L506.1001, L501.2300 ####[facility] [address] [place], [address] Protein (U) [Mass/Vol] 12 mg/dL Normal <=12 [facility] Comment on above: Performed By: #### L 509.1000, L3100.3450, L501.0900, L100.0500, L506.1001, L501.2300 ####[facility] [address] [place], [address] UR CREAT 113.00 mg/dL Normal NO RANGE EST. [facility] Comment on above: Performed By: #### L 509.1000, L3100.3450, L501.0900, L100.0500, L506.1001, L501.2300 ####[facility] [address] [place], [address] Protein.monoclonal Elph [Mas s/Vol]Ordered By: Luís Pop on 11-12-2024 Protein Electrophoresis M-Alen Not Observed g/dL Not Observed [facility] Protein/Creatinine (U) [Mass ratio]Ordered By: Luís Pop on 11-12-2024 Urine Protein/Creatinine Ratio 106 mg/g CRE 0-200 [facility] Prothrombin Time w/INRon INR Coag (PPP) [Relative time] 1.0 {INR} Normal [facility] Comment on above: Performed By: #### L 800.1280, L500.4100, L300.3900, L3130.0010, L3410.2400, L3410.0900, L3300.0700, L500.4050, L3300.0100, L100.0100, L501.9520, L3100.3425, L503.6550, L501.9985, L3400.0700, L3300.1800, L501.6710, L803.2200, L503.6030 ####[facility] [address] [place], [address] Prothrombin timeOrdered By: Luís Pop on 11-12-2024 PT Coag (PPP) [Time] 12.9 s Normal 11.7-14.9 [facility] Comment on above: Performed By: #### L 800.1280, L500.4100, L300.3900, L3130.0010, L3410.2400, L3410.0900, L3300.0700, L500.4050, L3300.0100, L100.0100, L501.9520, L3100.3425, L503.6550, L501.9985, L3400.0700, L3300.1800, L501.6710, L803.2200, L503.6030 ####[facility] [address] [place], [address] RBC Auto (Bld) [#/Vol]Ordere d By: Luís Pop on 11-12-2024 RBC (Bld) [#/Vol] 4.42 10*6/uL 4.2-5.4 [facility] Screening total cholesterol/ high density lipoprotein (HDL) cholesterol ratioOrdered By: Luís Pop on 11-12-2024 Cholesterol.total/Erika sterol in HDL [Mass ratio] 3.96 {ratio} [facility] Serum creatinine measurement (mass/volume)Ordered By: Luís Pop on 11-12-2024 Creatinine [Mass/Vol] 1.1 mg/dL High 0.70-1.20 [facility] Serum globulin measurementOr dered By: Luís Pop on 11-12-2024 Globulin (S) [Mass/Vol] 2.8 g/dL 2.2-4.2 [facility] Serum glucose measurement (m ass/volume)Ordered By: Luís Pop on 11-12-2024 Glucose [Mass/Vol] 95 mg/dL 70-99 [facility] Serum or plasma alanine self otransferase (ALT) measurementOrdered By: Luís Pop on 11-12-2024 ALT [Catalytic activity/Vol] 29 U/L <35 [facility] Serum or plasma albumin carole urement (mass/volume)Ordered By: Luís Pop on 11-12-2024 Albumin [Mass/Vol] 4.5 g/dL 3.4-4.8 [facility] Serum or plasma albumin/glob ulin mass ratioOrdered By: Luís Pop on 11-12-2024 Albumin/Globulin [Mass ratio] 1.6 {ratio} 0.9-2.4 [facility] Serum or plasma alkaline jose francisco sphatase measurementOrdered By: Luís Pop on 11-12-2024 ALP [Catalytic activity/Vol] 59 U/L 35-104 [facility] Serum or plasma anion gap de termination (moles/volume)Ordered By: Luís Pop on 11-12-2024 Anion gap [Moles/Vol] 11 mmol/L 5-15 [facility] Serum or plasma calcium carole urement (mass/volume)Ordered By: uLís Pop on 11-12-2024 Calcium [Mass/Vol] 9.7 mg/dL 7.6-11.0 [facility] Serum or plasma cholesterol in HDL measurement (mass/volume)Ordered By: Luís Pop on 11-12-2024 Cholesterol in HDL [Mass/Vol] 47 mg/dL >40 [facility] Comment on above: National Cholesterol Education Program (NCEP) guidelines:<40 mg/dL: Low HDL-cholesterol (major risk factor for CHD)>= 60 mg/dL: High HDL-cholesterol (negative risk factor for CHD)HDL-cholesterol is affected by a number of factors, e.g. smoking, exercise, hormones, sex and age. Serum or plasma cholesterol measurement (mass/volume)Ordered By: Luís Pop on 11-12-2024 Cholesterol [Mass/Vol] 184 mg/dL <201 [facility] Comment on above: Cholesterol level, D esirable <200 mg/dLBorderline high cholesterol 200-239 mg/dLHigh cholesterol >=240 mg/dLRecommendations of the NCEP Adult Treatment Panel for the following risk-cutoff thresholds for the [place] population. Serum or plasma ferritin melani surement (mass/volume)Ordered By: Luís Pop on 11-12-2024 Ferritin [Mass/Vol] 124 ng/mL 22-378 [facility] Serum or plasma potassium me asurementOrdered By: Luís Pop on 11-12-2024 Potassium [Moles/Vol] 4.0 mmol/L 3.3-5.1 [facility] Serum or plasma protein carole urement (mass/volume)Ordered By: Luís Ppo on 11-12-2024 Protein [Mass/Vol] 7.1 g/dL 6.0-8.5 [facility] Serum or plasma sodium measu rement (moles/volume)Ordered By: Luís Pop on 11-12-2024 Sodium [Moles/Vol] 140 mmol/L 133-145 [facility] Serum or plasma urea nitroge n measurement (mass/volume)Ordered By: Luís Pop on 11-12-2024 Urea nitrogen [Mass/Vol] 25 mg/dL High 4-19 [facility] Serum phosphorus measurement Ordered By: Luís Pop on 11-12-2024 Phosphorus Level 2.9 mg/dL 2.7-4.5 [facility] TSH DL <= 0.005 mIU/L QnOrde red By: Luís Pop on 11-12-2024 Thyroid Stimulating Hormone (TSH) 2.510 uIU/mL 0.300-4.200 [facility] Thyroid Stim Hormone (TSH)on 11-12-2024 TSH 2.510 uIU/mL Normal 0.300-4.200 [facility] Comment on above: Order Comment: DR. Flash HUGO GETS RESULTS FROM LIVER AND LIPIDDR.DONN GETS ALL OTHER RESULTS. Performed By: #### L 800.1280, L500.4100, L300.3900, L3130.0010, L3410.2400, L3410.0900, L3300.0700, L500.4050, L3300.0100, L100.0100, L501.9520, L3100.3425, L503.6550, L501.9985, L3400.0700, L3300.1800, L501.6710, L803.2200, L503.6030 ####[facility] [address] [place], [place], [id number] Total proteinOrdered By: Kvng Pop on 11-12-2024 Protein [Mass/Vol] 7.3 g/dL 5.9-8.4 [facility] Triglycerides measurementOrd ered By: Luís Pop on 11-12-2024 Triglyceride [Mass/Vol] 154 mg/dL <199 [facility] Comment on above: The drugs N-Acetylcy steine and Metamizole may falsely depress this assay. Normal range: <150 mg/dLBorderline High: 150-199 mg/dLHigh: 200-499 mg/dLVery High: >500 mg/dL Urine protein measurement (m ass/volume)Ordered By: Luís Pop on 11-12-2024 Protein (U) [Mass/Vol] 12 mg/dL <=12 [facility] White blood cell (WBC) count Ordered By: Luís Pop on 11-12-2024 WBC (Bld) [#/Vol] 8.2 10*3/uL 4.4-11.0 [facility] Abdomen/Pelvis WITH Contrast on 08-19-2024 Abdomen/Pelvis WITH Contrast [facility] Imaging Services [address] [place], [place] [address] Abdomen/Pelvis WITH Contrast MR#: [id number] Acct: [id number] Name: NOHEMI SANDERS Rep #: [id number] : 1950 F 74 From: Prosper rios MD PCP: Dr. Jaclyn Webster DO Status: [facility] Study: Abdomen/Pelvis WITH Contrast Date of Exam: 12/08 Exam# [id number] Ordering Dr: Anh Hercules MD [id number] STUDY: CT ABDOMEN AND PELVIS WITH CONTRAST REASON FOR EXAM: Female, 74 years old. Elevated liver enzymes/ six-month history of RLQ pain -- PO and IV contrast RADIATION DOSAGE (If Supplied By Facility): CTDIvol = ( 16.11 ) mGy, DLP = ( 840.99 ) mGycm TECHNIQUE: Transaxial images were obtained from the dome of the diaphragm to the symphysis pubis without oral contrast. IV 100mL Isovue-300 was administered. Sagittal and coronal images were reconstructed. Individualized dose optimization techniques were used for this CT. COMPARISON: Comparison is made with prior study dated April 19, 2023. FINDINGS: Stable minimal increased linear markings at the lung bases suggest mild basilar scarring. The visualized portions of the heart are within normal limits. There is decreased attenuation of the liver consistent with steatosis. The patient is status post cholecystectomy. Normal spleen. There is diffuse atrophy of the pancreas. Normal bilateral adrenal glands. Normal right kidney. Normal left kidney. Normal visualized stomach. Normal small intestine. There are scattered colonic diverticula consistent with diverticulosis. The patient is status post appendectomy. There is scattered atherosclerotic calcification of the abdominal aorta, without a demonstrated aneurysm. Normal inferior vena cava. Normal retroperitoneum. Normal urinary bladder. Small bilateral benign-appearing inguinal lymph nodes. There are degenerative changes of the visualized lumbar spine. There is evidence of a pars defects at the L5 vertebrae with minimal anterolisthesis of L5 on S1. CT/Abdomen/Pelvis WITH Contrast IMPRESSION: Fatty infiltration of the liver. Status post cholecystectomy. Status post appendectomy. Electronically Signed: Prosper Rao MD at 9:38 EST Reading Location ID and State: [address] [place] [address] , Service support , CC: Dr. Jaclyn Webster DO; Dr. Anh Hercules MD Retirement Consultant: Signed Normal [facility] CREATININE FINGERSTICKon Creatinine [Mass/Vol] 1.2 mg/dL High 0.55-1.02 [facility] Comment on above: Performed By: #### L 9100.0200 #### [facility] [address] [place], [place], [id number] (590) GFR/1.73 sq M.predicted among non-blacks MDRD (S/P/Bld) [Vol rate/Area] 49.0000 mL/min/{1.73_m2} Low >60 [facility] Comment on above: Performed By: #### L 9100.0200 #### [facility] [address] [facility]. [place], [place], [id number] Creatinine measurement at dsideOrdered By: Anh Hercules on 08-19-2024 Creatinine [Mass/Vol] 1.2 mg/dL High 0.55-1.02 [facility] EGFROrdered By: Anh joya on 08-19-2024 GFR/1.73 sq M.predicted among non-blacks MDRD (S/P/Bld) [Vol rate/Area] 49.0000 mL/min/{1.73_m2} Low >60 [facility] Surgery Visit Reporton 08-07 Surgery Visit Report [facility] [address] [place] [address] OFFICE VISIT Date of Service: 08/07/24 MR#: [id number] Acct: [id number] Name: NOHEMI SANDERS Rep #: [id number] : 1950 Provider: Dr. Anh joya MD Age/Sex: 74/F Location: [facility] Status: Signed Intake Vital Signs 07/17/24 12:57 Height 5 ft 1 in Weight: 162 lb BMI 30.6 BP 156/80 H Blood Pressure Location Lt brachial Position Sitting Respiration 16 Pulse 64 Pulse Source Monitor Intake Visit Reasons: Discuss symptoms and concerns Chief Complaint: discuss symptoms and concerns Is patient in pain?: No (pinching feeling ) Allergies Influenza Virus Vaccines Allergy (Severe, Verified 08/07/24 13:31) Swelling pneumococcal vaccine Allergy (Severe, Verified 08/07/24 13:31) Swelling Tetanus Vaccines and Toxoid Allergy (Severe, Verified 08/07/24 13:31) Swelling amlodipine Allergy (Intermediate, Verified 08/07/24 13:31) Other bupropion (From Wellbutrin) Allergy (Verified 08/07/24 13:31) Hives pravastatin Adverse Reaction (Intermediate, Verified 08/07/24 13:31) Myalgias Medications ???Medication ???Instructions ???Recorded ???Confirmed ???Type hydrochlorothiazide 25 mg tablet 25 mg PO DAILY 08/15/17 08/07/24 History melatonin 3 mg tablet 3 mg PO HS PRN Sleep 05/28/20 08/07/24 History potassium chloride 10 mEq 10 meq PO BID 05/28/20 08/07/24 History tablet,extended release(part/cryst) levothyroxine 75 mcg tablet 75 mcg PO MOTUWETHFR 06/02/21 08/07/24 History mecobalamin (vitamin B12) 1,000 1,000 mcg PO DAILY 06/02/21 08/07/24 History mcg chewable tablet enalapril maleate 20 mg tablet 20 mg PO BID 06/01/22 08/07/24 History calcium carb-ergocalciferol (vit 1 tab PO DAILY 05/17/23 08/07/24 History D2) 600 mg calcium-200 unit tablet albuterol sulfate 90 mcg/actuation 2 puff inhalation Q4-6H PRN 02/07/24 08/07/24 Rx aerosol inhaler shortness of breath or wheezing #6.7 grams glipizide 2.5 mg tablet, extended 2.5 mg PO QDAY 07/09/24 08/07/24 History release 24 hr magnesium aspart,citrate,oxide mg PO 07/09/24 08/07/24 History (Triple Magnesium Complex) pantoprazole 40 mg tablet,delayed 40 mg PO QDAY 07/09/24 08/07/24 History release hydroxyzine HCl 25 mg tablet 50 mg PO QHS PRN 07/17/24 08/07/24 History Have you fallen in the past year?: No Subjective Details: 74-year-old female presents due to some concerns about clips used for her laparoscopic cholecystectomy in April 2023. Patient states she has been having some pinching, mid right-sided abdominal pain which only last for seconds as well as when she lays down feels like there is fluid in her right lower quadrant. Patient's LFTs as of April 2024 have increased patient did have a history of fatty liver prior to laparoscopic cholecystectomy. Patient had normal cholangiograms at the time of surgery. Patient has read some articles about clips migration and concern if they could be causing some of the issues. Objective Details: Abdomen: Soft, nondistended, nontender, incisions healing well clean dry and intact, no peritoneal signs Coding Level of Care Code Off vis,est,level 3 Diagnoses History of cholecystectomy Z90.49 Right lower quadrant pain R10.31 Elevated liver enzymes R74.8 REPLACED BY [facility] Medical History (Updated 08/07/24 @ 14:20 by Naina Cohen LPN) Right lower quadrant pain Loss of hearing MRSA infection Thyroid disease High cholesterol Smoker History of edema History of echocardiogram History of stress test Coronary artery calcification seen on CAT scan Duodenal ulcer GERD (gastroesophageal reflux disease) Wears dentures Anxiety Arthritis Bladder disease History of renal disease Fatty liver Restless legs Migraine headache Injury of head and neck Dietary restriction History of hiatal hernia History of diverticulitis Gastric reflux Vapes nicotine containing substance Leg cramps Cardiology follow-up encounter Nausea History of deep venous thrombosis (1999) Lightheadedness Near syncope Hypothyroidism Emphysema of lung Obesity Hyperlipidemia Neck pain Back pain Essential (primary) hypertension Type 2 diabetes mellitus Nodule of upper lobe of left lung Surgical History History of varicose vein procedure History of cholecystectomy ( 05/2023) History of tonsillectomy and adenoidectomy History of bunionectomy H/O oophorectomy History of rotator cuff surgery History of lumbar surgery reconstruction of rectum H/O construction of artificial vagina History of appendectomy Family History Mother Lung cancer Thyroid disorder Sister Heart dis (more content not included)... Normal [facility] Elastography Parenchyma/Orga non 07-28-2024 Elastography [facility]renchyma/Organ [facility] Imaging Services [address] [place] [id number] Elastography Parenchyma/Organ MR#: [id number] Acct: [id number] Name: NOHEMI SANDERS Rep #: [id number] : 1950 F 74 From: Prosper rios MD PCP: Dr. Jaclyn Webster, Status: REG CLI Study: Elastography Parenchyma/Organ Date of Exam: Exam# [id number] Ordering Dr: Luís Pop MD [id number] STUDY: ABDOMINAL ULTRASOUND - ELASTOGRAPHY REASON FOR VISIT: Female, 74 years old. AYALA. TECHNIQUE: Liver stiffness measurements were obtained on a [employer] RS 85 ultrasound machine using a CA 1-7 probe following the SRU guidelines. 3 measurements were obtained using a 2-D-SWE method. TheIQR/M was 12% suggesting a quality data set. TECHNICAL QUALITY: Adequate. COMPARISON: None. FINDINGS: Liver: There is no demonstrated mass lesion. Median liver stiffness measured 8.4 kPa. Abdomen: There is no demonstrated mass lesion. US/Elastography Parenchyma/Organ IMPRESSION: Liver stiffness measures 8.4 kPa compatible with F2-F3 (Mild to moderate liver fibrosis) Metavir score. Electronically Signed: Prosper Rao MD at 12:27 EST , CC: Dr. Jaclyn Webster DO; Dr. Luís Pop MD Retirement Consultant: Signed Normal [facility] Cardiology Visit Reporton Cardiology Visit Report [facility] [address] [place], [place] [address] OFFICE VISIT Date of Service: 07/17/24 MR#: [id number] Acct: [id number] Name: NOHEMI SANDERS Rep #: [id number] : 1950 Provider: Dr. Rich Duarte MD Age/Sex: 74/F [place] [facility] [place] Status: Signed HPI HPI History of Present Illness Details: 74-year-old lady with a history of hypertension, hyperlipidemia on therapy and previous smoker. She went in for a routine CAT scan of her chest and it demonstrated severe atherosclerotic disease. She was also noted to have atherosclerotic calcification of the aortic arch with tortuosity and elongation of the aortic arch and descending aorta. She proceeded with an echocardiogram on 06/16/2020 that showed ejection fraction of 55%, stage I diastolic dysfunction, and no regional wall motion abnormalities. She proceeded with stress test on 06/16/2020 that was considered to be normal and showed a preserved ejection fraction. She denies chest, arm, jaw, or neck discomfort. She denies symptoms of shortness of breath with exertion, shortness of breath at rest, orthopnea, PND, sudden weight gain, or bilateral lower extremity edema. She denies chronic cough. She denies palpitations, lightheadedness, dizziness, near syncope, or syncopal episodes. She denies claudication issues. She denies fever or chills. She denies blood in urine, blood in stool, or epistaxis. She denies myalgia. She denies unexplainable fatigue. Her exercise tolerance is stable. Intake Vital Signs 05/28/23 10:55 07/09/24 13:34 07/17/24 12:57 Height 5 ft 1 in 5 ft 1 in 5 ft 1 in Weight: 162 lb BMI 30.6 BP 156/80 H Blood Pressure Location Lt brachial Position Sitting Respiration 16 Pulse 64 Pulse Source Monitor Intake Visit Reasons: 1 Y FU Brake Operator Required: No Accompanied by: Self Is patient in pain?: No Allergies Influenza Virus Vaccines Allergy (Severe, Verified 07/17/24 13:01) Swelling pneumococcal vaccine Allergy (Severe, Verified 07/17/24 13:01) Swelling Tetanus Vaccines and Toxoid Allergy (Severe, Verified 07/17/24 13:01) Swelling amlodipine Allergy (Intermediate, Verified 07/17/24 13:01) Other bupropion (From Wellbutrin) Allergy (Verified 07/17/24 13:01) Hives pravastatin Adverse Reaction (Intermediate, Verified 07/17/24 13:01) Myalgias Medications ???Medication ???Instructions ???Recorded ???Confirmed ???Type hydrochlorothiazide 25 mg tablet 25 mg PO DAILY 08/15/17 07/17/24 History melatonin 3 mg tablet 3 mg PO HS PRN Sleep 05/28/20 07/17/24 History potassium chloride 10 mEq 10 meq PO BID 05/28/20 07/17/24 History tablet,extended release(part/cryst) levothyroxine 75 mcg tablet 75 mcg PO MOTUWETHFR 06/02/21 07/17/24 History mecobalamin (vitamin B12) 1,000 1,000 mcg PO DAILY 06/02/21 07/17/24 History mcg chewable tablet enalapril maleate 20 mg tablet 20 mg PO BID 06/01/22 07/17/24 History calcium carb-ergocalciferol (vit 1 tab PO DAILY 05/17/23 07/17/24 History D2) 600 mg calcium-200 unit tablet albuterol sulfate 90 mcg/actuation 2 puff inhalation Q4-6H PRN 02/07/24 07/17/24 Rx aerosol inhaler shortness of breath or wheezing #6.7 grams glipizide 2.5 mg tablet, extended 2.5 mg PO QDAY 07/09/24 07/17/24 History release 24 hr magnesium aspart,citrate,oxide mg PO 07/09/24 07/17/24 History (Triple Magnesium Complex) pantoprazole 40 mg tablet,delayed 40 mg PO QDAY 07/09/24 07/17/24 History release hydroxyzine HCl 25 mg tablet 50 mg PO QHS PRN 07/17/24 07/17/24 History Have you fallen in the past year?: No PFSH Medical History Loss of hearing MRSA infection Thyroid disease High cholesterol Smoker History of edema History of echocardiogram History of stress test Coronary artery calcification seen on CAT scan Duodenal ulcer GERD (gastroesophageal reflux disease) Wears dentures Anxiety Arthritis Bladder disease History of renal disease Fatty liver Restless legs Migraine headache Injury of head and neck Dietary restriction History of hiatal hernia History of diverticulitis Gastric reflux Vapes nicotine containing substance Leg cramps Cardiology follow-up encounter Nausea History of deep venous thrombosis (1999) Lightheadedness Near syncope Hypothyroidism Emphysema of lung Obesity Hyperlipidemia Neck pain Back pain Essential (primary) hypertension Type 2 diabetes mellitus Nodule of upper lobe of left lung Surgical History History of varicose vein procedure History of cholecystectomy ( 05/2023) History of tonsillectomy and adenoidectomy History of bunionectomy H/O oophorectomy History of rotator cuff surgery History of lum (more content not included)... Normal [facility] Gastroenterology Visit Repor ton 07-09-2024 Gastroenterology Visit Report [facility]astroenterology [address] [place] [address] OFFICE VISIT Date of Service: 07/09/24 MR#: [id number] Acct: [id number] Name: NOHEMI SANDERS Kennedy Rep #: [id number] : 1950 Provider: Dr. Luís man MD Age/Sex: 74/F Location: [facility] [place] Status: Signed Intake Vital Signs 02/07/24 12:58 07/09/24 13:34 Height 5 ft 1 in 5 ft 1 in Weight: 165 lb BMI 31.1 BP 117/72 Blood Pressure Location Rt brachial Position Sitting Pulse 74 Pulse Oximetry (%) 94 Oxygen Delivery Method room air Intake Visit Reasons: ELEVATED LIVER ENZYMES Allergies Influenza Virus Vaccines Allergy (Severe, Verified 07/09/24 13:38) Swelling pneumococcal vaccine Allergy (Severe, Verified 07/09/24 13:38) Swelling Tetanus Vaccines and Toxoid Allergy (Severe, Verified 07/09/24 13:38) Swelling amlodipine Allergy (Intermediate, Verified 07/09/24 13:38) Other bupropion (From Wellbutrin) Allergy (Verified 07/09/24 13:38) Hives pravastatin Adverse Reaction (Intermediate, Verified 07/09/24 13:38) Myalgias Medications ???Medication ???Instructions ???Recorded ???Confirmed ???Type hydrochlorothiazide 25 mg tablet 25 mg PO DAILY 08/15/17 07/09/24 History melatonin 3 mg tablet 3 mg PO HS PRN Sleep 05/28/20 07/09/24 History potassium chloride 10 mEq 10 meq PO BID 05/28/20 07/09/24 History tablet,extended release(part/cryst) levothyroxine 75 mcg tablet 75 mcg PO MOTUWETHFR 06/02/21 07/09/24 History mecobalamin (vitamin B12) 1,000 1,000 mcg PO DAILY 06/02/21 07/09/24 History mcg chewable tablet enalapril maleate 20 mg tablet 20 mg PO BID 06/01/22 07/09/24 History hydroxyzine HCl 25 mg tablet 50 mg PO QHS 05/15/23 07/09/24 History calcium carb-ergocalciferol (vit 1 tab PO DAILY 05/17/23 07/09/24 History D2) 600 mg calcium-200 unit tablet albuterol sulfate 90 mcg/actuation 2 puff inhalation Q4-6H PRN 02/07/24 07/09/24 Rx aerosol inhaler shortness of breath or wheezing #6.7 grams glipizide 2.5 mg tablet, extended 2.5 mg PO QDAY 07/09/24 07/09/24 History release 24 hr magnesium aspart,citrate,oxide mg PO 07/09/24 07/09/24 History (Triple Magnesium Complex) pantoprazole 40 mg tablet,delayed 40 mg PO QDAY 07/09/24 07/09/24 History release Have you fallen in the past year?: No PFSH Medical History Loss of hearing MRSA infection Thyroid disease High cholesterol Smoker History of edema History of echocardiogram History of stress test Coronary artery calcification seen on CAT scan Duodenal ulcer GERD (gastroesophageal reflux disease) Wears dentures Anxiety Arthritis Bladder disease History of renal disease Fatty liver Restless legs Migraine headache Injury of head and neck Dietary restriction History of hiatal hernia History of diverticulitis Gastric reflux Vapes nicotine containing substance Leg cramps Cardiology follow-up encounter Nausea History of deep venous thrombosis (1999) Lightheadedness Near syncope Hypothyroidism Emphysema of lung Obesity Hyperlipidemia Neck pain Back pain Essential (primary) hypertension Type 2 diabetes mellitus Nodule of upper lobe of left lung Surgical History History of cholecystectomy ( 05/2023) History of tonsillectomy and adenoidectomy History of bunionectomy H/O oophorectomy History of rotator cuff surgery History of lumbar surgery reconstruction of rectum H/O construction of artificial vagina History of appendectomy Family History Mother Lung cancer Thyroid disorder Sister Heart disease Diabetes Sister Heart disease Diabetes Myocardial infarction Lung disease Father Myocardial infarction, Onset Age: 46 Brother Aortic aneurysm Grandmother Cancer melanoma Grandmother Breast cancer Social History Smoking Status: Current some day smoker tobacco type: e-cigarettes Tobacco: How many years used: 50 Electronic Cigarette Use: with nicotine how long ago did patient quit smokin years second hand exposure: Yes quit status: has quit before alcohol intake: never HPI HPI Details: NOHEMI SANDERS, is a 74 F who presents to the office today for follow up. [facility] established 08/2021 for nausea, GERD, hx duodenal ulcers, Fatty liver. Patient states she had labs with her PCP last month and had elevated liver enzymes. Denies any abdominal pain, heartburn, swelling. BM are normal once a day. US RUQ 9.27.24- Parenchymal liver disease, likely steatosis. 07/09/2024: Patient has follow-up after more than 2 years. In meantime patient had cholecystectomy in May 2023. She (more content not included)... Normal [facility] Abdomen Limitedon 06-13-2024 Abdomen Limited [facility] Imaging Services [address] [place] [address] Abdomen Limited MR#: [id number] Acct: [id number] Name: NOHEMI SANDERS Rep #: [id number] : 1950 F 74 From: Corky Jaffe MD PCP: Dr. Jaclyn Webster DO Status: REG CLI Study: Abdomen Limited Date of Exam: 06/13/24 Exam# [id number] Ordering Dr: Jaclyn Webster DO [id number] EXAM: US ABDOMEN LIMITED, RIGHT UPPER QUADRANT CLINICAL INDICATION: ELEVATED LIVER ENZYMES TECHNIQUE: Real-time ultrasound of the right upper quadrant with image documentation. COMPARISON: No relevant prior studies available. FINDINGS: LIVER: Liver echogenicity appears increased suggesting diffuse parenchymal liver disease, likely steatosis. No intrahepatic biliary ductal dilation. GALLBLADDER: Patient is status post cholecystectomy. COMMON BILE DUCT: Unremarkable as visualized. The proximal common bile duct is normal size. PANCREAS: Unremarkable as visualized. No focal abnormality is demonstrated in the pancreas. No pancreatic ductal dilatation. RIGHT KIDNEY: Normal. There is no hydronephrosis. No shadowing calculus. No focal lesion or perinephric collection is demonstrated. US/Abdomen Limited IMPRESSION: Parenchymal liver disease, likely steatosis. Electronically Signed: Corky Jaffe MD at 16:52 EDT , CC: Dr. Jaclyn Webster DO Retirement Consultant: Signed Normal [facility] Hepatitis Panel Acuteon 05-19 COMMENT Comment Normal . [facility] Comment on above: Result Comment: Not infected with HCV unless early or acute infection is suspected (which may be delayed in an immunocompromised individual), or other evidence exists to indicate HCV infection. Performed By: #### L 3000.0375, L100.0100, L501.5101, L500.4050 ####[facility] [address] [place], [address] HEP B CORE,IgM Negative Normal Negative [facility] Comment on above: Performed By: #### L 3000.0375, L100.0100, L501.5101, L500.4050 ####[facility] [address] [place], [address] HEP B SURF AG Negative Normal Negative [facility] Comment on above: Performed By: #### L 3000.0375, L100.0100, L501.5101, L500.4050 ####[facility] [address] [place], [address] HEP C VIRUS AB Non-Reactive Normal Non Reactive [facility] Comment on above: Performed By: #### L 3000.0375, L100.0100, L501.5101, L500.4050 ####[facility] [address] [place], [address] HEPATITIS A-IgM Negative Normal Negative [facility] Comment on above: Result Comment: A ne gative anti-HAV IgM result suggests no recent or current HAV infection. Performed By: #### L 3000.0375, L100.0100, L501.5101, L500.4050 ####[facility] [address] [place], [address] L501.5101on 06-10-2024 GGTP 13 IU/L Normal 0-60 [facility] Comment on above: Result Comment: Perf ormed at: [facility] [address] [id number] Asphalt Screed Operator: Galen Vickers PhD, Phone: [phone] Performed By: #### L 3000.0375, L100.0100, L501.5101, L500.4050 ####[facility] [address] [place], [address] CBC W/Diff, Automatedon 09-2 -2023 Absolute Lymph 2.46 X10 3/uL Normal 0.83-4.51 [facility] Comment on above: Performed By: #### L 3000.0375, L100.0100, L501.5101, L500.4050 #### [facility] [address] [place], [address] Absolute Neut 2.6 X10 3/uL Normal 2.0-7.7 [facility] Comment on above: Performed By: #### L 3000.0375, L100.0100, L501.5101, L500.4050 #### [facility] [address] [place], [address] Basophils/100 WBC (Bld) 0.8 % Normal 0-1 [facility] Comment on above: Performed By: #### L 3000.0375, L100.0100, L501.5101, L500.4050 #### [facility] [address] [place], [address] Eosinophils/100 WBC (Bld) 3.7 % Normal 0-5 [facility] Comment on above: Performed By: #### L 3000.0375, L100.0100, L501.5101, L500.4050 #### [facility] [address] [place], [address] Erythrocyte distribution width (RBC) [Ratio] 15.3 % High 11.6-14.6 [facility] Comment on above: Performed By: #### L 3000.0375, L100.0100, L501.5101, L500.4050 #### [facility] [address] [place], [address] Hematocrit (Bld) [Volume fraction] 39.8 % Normal 37-47 [facility] Comment on above: Performed By: #### L 3000.0375, L100.0100, L501.5101, L500.4050 #### [facility] [address] [place], [address] Hemoglobin (Bld) [Mass/Vol] 12.7 g/dL Normal 12.0-15.0 [facility] Comment on above: Performed By: #### L 3000.0375, L100.0100, L501.5101, L500.4050 #### [facility] [address] [place], [address] IG% 0.300 Normal 0.0-0.9 [facility] Comment on above: Result Comment: IG% - Immature Granulocytes (promyelocytes, myelocytes and metamyelocytes) > 1% indicates that a LEFT SHIFT is Present. Performed By: #### L 3000.0375, L100.0100, L501.5101, L500.4050 #### [facility] [address] [place], [address] Lymphocytes/100 WBC (Bld) 41.8 % High 19-41 [facility] Comment on above: Performed By: #### L 3000.0375, L100.0100, L501.5101, L500.4050 #### [facility] [address] [place], [address] MCH (RBC) [Entitic mass] 28.0 pg Normal 27.0-32.0 [facility] Comment on above: Performed By: #### L 3000.0375, L100.0100, L501.5101, L500.4050 #### [facility] [address] [place], [address] MCHC (RBC) [Mass/Vol] 31.9 g/dL Low 32-36 [facility] Comment on above: Performed By: #### L 3000.0375, L100.0100, L501.5101, L500.4050 #### [facility] [address] [place], [address] MCV (RBC) [Entitic vol] 87.9 fL Normal 81-99 [facility] Comment on above: Performed By: #### L 3000.0375, L100.0100, L501.5101, L500.4050 #### [facility] [address] [place], [address] Monocytes/100 WBC (Bld) 9.2 % Normal 0-10 [facility] Comment on above: Performed By: #### L 3000.0375, L100.0100, L501.5101, L500.4050 #### [facility] [address] [place], [address] Neutrophils/100 WBC (Bld) 44.2 % Low 47-70 [facility] Comment on above: Performed By: #### L 3000.0375, L100.0100, L501.5101, L500.4050 #### [facility] [address] [place], [address] Nucleated RBC (Bld) [#/Vol] 0 10*3/uL Normal 0-5 [facility] Comment on above: Performed By: #### L 3000.0375, L100.0100, L501.5101, L500.4050 #### [facility] [address] [place], [address] Platelet mean volume (Bld) [Entitic vol] 9.8 fL Normal 6.2-12.0 [facility] Comment on above: Performed By: #### L 3000.0375, L100.0100, L501.5101, L500.4050 #### [facility] [address] [place], [address] Platelets (Bld) [#/Vol] 250 10*3/uL Normal 150-450 [facility] Comment on above: Performed By: #### L 3000.0375, L100.0100, L501.5101, L500.4050 #### [facility] [address] [place], [address] RBC (Bld) [#/Vol] 4.53 10*6/uL Normal 4.2-5.4 [facility] Comment on above: Performed By: #### L 3000.0375, L100.0100, L501.5101, L500.4050 #### [facility] [address] [place], [address] RDW SD 49.8 fl High 35.1-43.9 [facility] Comment on above: Performed By: #### L 3000.0375, L100.0100, L501.5101, L500.4050 #### [facility] [address] [place], [address] WBC (Bld) [#/Vol] 5.9 10*3/uL Normal 4.4-11.0 [facility] Comment on above: Performed By: #### L 3000.0375, L100.0100, L501.5101, L500.4050 #### [facility] [address] [place], [address] Comprehensive Met[facility] 06-09-2024 Albumin [Mass/Vol] 4.1 g/dL Normal 3.2-5.0 [facility] Comment on above: Performed By: #### L 3000.0375, L100.0100, L501.5101, L500.4050 #### [facility] [address] [place], [address] Albumin/Globulin [Mass ratio] 1.2 {ratio} Normal 0.9-2.4 [facility] Comment on above: Performed By: #### L 3000.0375, L100.0100, L501.5101, L500.4050 #### [facility] [address] [place], [address] ALK P 72 U/L Normal 45-117 [facility] Comment on above: Performed By: #### L 3000.0375, L100.0100, L501.5101, L500.4050 #### [facility] [address] [place], [address] ALT [Catalytic activity/Vol] 211 U/L High 13-56 [facility] Comment on above: Performed By: #### L 3000.0375, L100.0100, L501.5101, L500.4050 #### [facility] [address] [place], [address] AST [Catalytic activity/Vol] 161 U/L High 15-37 [facility] Comment on above: Performed By: #### L 3000.0375, L100.0100, L501.5101, L500.4050 #### [facility] [address] [place], [address] Bilirubin [Mass/Vol] 0.60 mg/dL Normal 0.20-1.00 [facility] Comment on above: Result Comment: For patients on eltrombopag therapy, use of Dimension [place] TBIL is not recommended. Performed By: #### L 3000.0375, L100.0100, L501.5101, L500.4050 #### [facility] [address] [place], [address] BUN/CRE 13.9 RATIO Normal 10-20 [facility] Comment on above: Performed By: #### L 3000.0375, L100.0100, L501.5101, L500.4050 #### [facility] [address] [place], [address] CA,Total 10.3 mg/dL High 8.5-10.1 [facility] Comment on above: Performed By: #### L 3000.0375, L100.0100, L501.5101, L500.4050 #### [facility] [address] [place], [address] Chloride [Moles/Vol] 105 mmol/L Normal 98-107 [facility] Comment on above: Performed By: #### L 3000.0375, L100.0100, L501.5101, L500.4050 #### [facility] [address] [place], [address] CO2 [Moles/Vol] 28.0 mmol/L Normal 21.0-32.0 [facility] Comment on above: Performed By: #### L 3000.0375, L100.0100, L501.5101, L500.4050 #### [facility] [address] [place], [address] Creatinine [Mass/Vol] 1.65 mg/dL High 0.55-1.02 [facility] Comment on above: Result Comment: The validity of the calculated GFR GFRAA in patients over 70 years has not been determined. Clinical correlation is essential. Performed By: #### L 3000.0375, L100.0100, L501.5101, L500.4050 #### [facility] [address] [place], [address] EST GFR - AA 39 mL/min Low >60 [facility] Comment on above: Result Comment: Afri can Cypriot GFR Calc Performed By: #### L 3000.0375, L100.0100, L501.5101, L500.4050 #### [facility] [address] [place], [address] GAP 6 Normal 5-15 [facility] Comment on above: Performed By: #### L 3000.0375, L100.0100, L501.5101, L500.4050 #### [facility] [address] [place], [address] GFR/1.73 sq M.predicted among non-blacks MDRD (S/P/Bld) [Vol rate/Area] 32 mL/min/{1.73_m2} Low >60 [facility] Comment on above: Result Comment: Non- GFR Calc Performed By: #### L 3000.0375, L100.0100, L501.5101, L500.4050 #### [facility] [address] [place], [address] Globulin (S) [Mass/Vol] 3.4 g/dL Normal 2.2-4.2 [facility] Comment on above: Performed By: #### L 3000.0375, L100.0100, L501.5101, L500.4050 #### [facility] [address] [place], [address] Glucose [Mass/Vol] 94 mg/dL Normal 74-106 [facility] Comment on above: Performed By: #### L 3000.0375, L100.0100, L501.5101, L500.4050 #### [facility] [address] [place], [address] Potassium [Moles/Vol] 4.4 mmol/L Normal 3.5-5.1 [facility] Comment on above: Performed By: #### L 3000.0375, L100.0100, L501.5101, L500.4050 #### [facility] [address] [place], [address] Sodium [Moles/Vol] 139 mmol/L Normal 136-145 [facility] Comment on above: Performed By: #### L 3000.0375, L100.0100, L501.5101, L500.4050 #### [facility] [address] [place], [address] T PROT 7.5 g/dL Normal 6.4-8.2 [facility] Comment on above: Performed By: #### L 3000.0375, L100.0100, L501.5101, L500.4050 #### [facility] [address] [place], [address] Urea nitrogen [Mass/Vol] 23 mg/dL High - [facility] Comment on above: Performed By: #### L 3000.0375, L100.0100, L501.5101, L500.4050 #### [facility] [address] [place], [address] Lipid Profileon 06-04-2024 Cholesterol [Mass/Vol] 191 mg/dL Normal 200 [facility] Comment on above: Result Comment: <200 mg/dL Desirable 200-240 mg/dL Borderline >240 mg/dL High Risk Performed By: #### L 500.3400, L500.4100 ####[facility] [address] [place], [address] Cholesterol in HDL [Mass/Vol] 40 mg/dL Normal [facility] Comment on above: Result Comment: The drugs N-Acetylcysteine and Metamizole may falsely depress this assay. Reference Range HDL <40 mg/dL Low HDL Cholesterol HDL >or= 60 mg/dL High HDL Cholesterol Performed By: #### L 500.3400, L500.4100 ####[facility] [address] [place], [address] Cholesterol in LDL [Mass/Vol] 114 mg/dL Normal 0-130 [facility] Comment on above: Performed By: #### L 500.3400, L500.4100 ####[facility] [address] [place], [address] Cholesterol in VLDL [Mass/Vol] 37 mg/dL Normal 5-40 [facility] Comment on above: Performed By: #### L 500.3400, L500.4100 ####[facility] [address] [place], [address] Triglyceride [Mass/Vol] 183 mg/dL Normal [facility] Comment on above: Result Comment: The drugs N-Acetylcysteine and Metamizole may falsely depress this assay. Serum Triglycerides Reference Interval Normal <150 mg/dL Borderline high 150 - 199 mg/dL High 200 - 499 mg/dL Very High > or = 500 mg/dL Performed By: #### L 500.3400, L500.4100 ####[facility] [address] [place], [address] Liver Profileon 06-04-2024 Albumin [Mass/Vol] 3.6 g/dL Normal 3.2-5.0 [facility] Comment on above: Performed By: #### L 500.3400, L500.4100 ####[facility] [address] [place], [address] ALK P 62 U/L Normal 45-117 [facility] Comment on above: Performed By: #### L 500.3400, L500.4100 ####[facility] [address] [place], [address] ALT [Catalytic activity/Vol] 222 U/L High 13-56 [facility] Comment on above: Performed By: #### L 500.3400, L500.4100 ####[facility] [address] [place], [address] AST [Catalytic activity/Vol] 97 U/L High 15-37 [facility] Comment on above: Performed By: #### L 500.3400, L500.4100 ####[facility] [address] [place], [address] Bilirubin [Mass/Vol] 0.80 mg/dL Normal 0.20-1.00 [facility] Comment on above: Result Comment: For patients on eltrombopag therapy, use of Dimension [place] TBIL is not recommended. Performed By: #### L 500.3400, L500.4100 ####[facility] [address] [place], [address] Bilirubin.direct [Mass/Vol] 0.20 mg/dL Normal 0.00-0.30 [facility] Comment on above: Performed By: #### L 500.3400, L500.4100 ####[facility] [address] [place], [address] Globulin (S) [Mass/Vol] 3.3 g/dL Normal 2.2-4.2 [facility] Comment on above: Performed By: #### L 500.3400, L500.4100 ####[facility] [address] [place], [address] T PROT 6.9 g/dL Normal 6.4-8.2 [facility] Comment on above: Performed By: #### L 500.3400, L500.4100 ####[facility] [address] [place], [address] CNPNon 03-11-2024 CNPN Telephone (OBGYWM) -------- NOHEMI SANDERS ([id number]) 1950 F Date Time Provider Department 03/11/24 MAYELA NAVARRO During your visit today, we recorded the following information about you: Naina Sanchez LPN 03/11/2024 2:47 PM Signed ----- Message from Mayela Navarro MD sent at 03/11/2024 1:08 PM EDT ----- Thin endometrium with stable trace fluid Observation is reasonable Would consider repeat US in 12 months MD Laura Gonzales Kimberly, LPN 03/11/2024 2:48 PM Signed See pended order, pt will then be notified of results. SKYE Gill Karmon, MD 03/11/2024 2:58 PM Signed Filed MD Tae Gonzales Teresa, RN 03/11/2024 3:03 PM Signed Left message for patient to return phone call Allergies As of Date: 03/11/2024 Noted Allergy Reaction ANESTHETICS - AMIDE TYPE - SELECT*05/10/2004 Comments: Topical xylocaine FLUOGEN (INFLUENZA VIRUS VAC. TRI*07/28/2005 5 - Intolerance INFLUENZA A (H1N1) VIRUS VACCINE *07/31/2014 4 - Hives LYRICA (PREGABALIN) 12/27/2009 Comments: esophageal spasms NEURONTIN (GABAPENTIN) 12/27/2009 Comments: headache, confusion PENICILLINS 05/10/2004 9 - Itching Comments: Yeast infections PNEUMOVAX 23 (PNEUMOCOCCAL 23-DASHA*07/28/2005 5 - Intolerance PREVACID (LANSOPRAZOLE) 07/28/2005 5 - Intolerance Comments: Didn't work after a while TETANUS VACCINES AND TOXOID 07/28/2005 5 - Intolerance ULTRACET (TRAMADOL-ACETAMINOPHEN) 07/28/2005 5 - Intolerance WELLBUTRIN (BUPROPION HCL) 07/28/2005 5 - Intolerance Comments: Hives Date Reviewed: 12/06/2023 Reviewed by: Mayela Navarro MD - Fully Assessed Primary Visit Diagnosis:Fluid in endometrial cavity [N85.9] Order(s):PELVIC [facility] [[id number]] Order #: [id number]: 1 FUTURE Prescriptions as of 03/24/2024 - enalapril (VASOTEC) 20 mg tablet Take 1 tablet by mouth twice daily. - pravastatin (PRAVACHOL) 40 mg tablet Take 1 tablet by mouth once daily. - hydrochlorothiazide (HYDRODIURIL, ESIDRIX) 25 mg tablet Take 1 tablet by mouth once daily. - alendronate (FOSAMAX) 70 mg tablet Take 1 tablet by mouth once each week. Take with a full glass of water, on an empty stomach; do NOT lie down for 30minutes. - metFORMIN ER (GLUCOPHAGE XR) 500 mg 24 hr tablet Take 1 tablet by mouth daily with breakfast. - linagliptin (TRADJENTA) 5 mg tab Take 5 mg by mouth once daily. - levothyroxine (SYNTHROID) 50 mcg tablet Take 1 tablet by mouth once daily. Take on empty stomach. For thyroid. - esomeprazole (NEXIUM) 40 mg capsule Take 1 capsule by mouth once daily. - promethazine (PHENERGAN) 25 mg tablet Take 1 tablet by mouth every 6 hours as needed. - mupirocin (BACTROBAN) 2 % ointment Apply 1 application to affected area three times daily. Location: right nare - enalapril (VASOTEC) 20 mg tablet Take 1 tablet by mouth twice daily. - calcium carbonate-vitamin d2 500 mg(1,250mg) -200 unit tab Take 1 tablet by mouth once daily. - triamcinolone 0.025 % lotn Apply to affected area twice daily. - conjugated estrogens (PREMARIN) vaginal cream Apply small amount to vulvar are with fingers 3 times per week - Clobetasol Propionate 0.05 % gel Apply 1 application to affected area as needed. - Halobetasol Propionate 0.05 % cream Apply 1 application to affected area twice daily as needed. - fexofenadine (LEO) 180 mg ORAL tablet Take 1 tablet by mouth once daily. - naproxen sodium(ALEVE 220 MG TAB) as necessary - blood sugar diagnostic(FREESTYLE TEST STRIPS) testing four times daily - cyclobenzaprine hcl(FLEXERIL 10 MG TAB) Take one(1) tablet daily. 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] 07/07/2004 ABDOMINAL PAIN RUQ [R10.11] LIVER DISORDERS NEC [K76.89] MYALGIA AND MYOSITIS NOS [[id number]] Diabetes mellitus (HCC) [E11.9] 10/10/2007 GERD (gastroesophageal reflux disease) [K21.9] HTN (hypertension) [I10] Hyperlipidemia LDL goal <100 [E78.5] DM (diabetes mellitus) (HCC) [E11.9] Low back pain with right-sided sciatica [M54.41]05/13/2015 07/08/2015 Right-sided low back pain with right-sided scia*05/25/2015 07/08/2015 Bilateral low back pain with right-sided sciati*07/08/2015 Perineal pain in female [R10.2] 07/08/2015 Pain of female genitalia [N94.9] 07/08/2015 Anal or rectal pain [K62.89] 07/08/2015 Encounter Status:Closed by FIDE DYE on 03/24/24 Normal [facility] Pelvison 03-10-2024 Indication follow up on endometrial fluid Impression The uterus is anteflexed and measures 51 mm x 18 mm x 37 mm. Intrauterine calcifications are visualized. The endometrial thickness is 2.7 mm. Trace intracavitary fluid noted. The fluid is stable in appearance compared to ultrasound completed 11/15/2023. The right ovary is surgically absent. The left ovary measures 20 mm x 16 mm x 11 mm. There is no free fluid visualized. Recommendations Follow up as clinically indicated. 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 View: Adequate visualization Uterus Uterus: Visualized Uterus position: anteflexed Description of uterine malformations: none Myometrium: heterogeneous, numerous calcifications Endometrium: intracavitary fluid: anechogenic Cervix details: normal Uterus length 51 mm Uterus width 37 mm Uterus height 18 mm Uterus Vol 18.0 cm Endometrial thickness, total 2.7 mm Fibroids: No fibroids identified Polyps: No polyps identified Right Ovary Rt ovary: Not visualized Rt ovary details: right oophorectomy noted Left Ovary Lt ovary: Visualized Lt ovary morphology: postmenopausal atrophic Lt ovary D1 20 mm Lt ovary D2 16 mm Lt ovary D3 11 mm Lt ovary Vol 1.8 cm Cul de Sac Visualized. no free fluid visualized Performed By: Marilee Landeros RDMS Read By: Ena Bejarano M.D. MATERNAL MEDICINE [facility] CNOVon 03-07-2024 CNOV Office Visit (OBGYWM ) -------- NOHEMI SANDERS ([id number]) 1950 F Date Time Provider Department 03/07/24 2:00 PM MAYELA NAVARRO OBGYWM During your visit today, we recorded the following information about you: Mayela Navarro MD 03/07/2024 2:28 PM Signed N/a Referring Provider: MAYELA NAVARRO [[id number]] Allergies As of Date: 03/07/2024 Noted Allergy Reaction ANESTHETICS - AMIDE TYPE - SELECT*05/10/2004 Comments: Topical xylocaine FLUOGEN (INFLUENZA VIRUS VAC. TRI*07/28/2005 5 - Intolerance INFLUENZA A (H1N1) VIRUS VACCINE *07/31/2014 4 - Hives LYRICA (PREGABALIN) 12/27/2009 Comments: esophageal spasms NEURONTIN (GABAPENTIN) 12/27/2009 Comments: headache, confusion PENICILLINS 05/10/2004 9 - Itching Comments: Yeast infections PNEUMOVAX 23 (PNEUMOCOCCAL 23-DASHA*07/28/2005 5 - Intolerance PREVACID (LANSOPRAZOLE) 07/28/2005 5 - Intolerance Comments: Didn't work after a while TETANUS VACCINES AND TOXOID 07/28/2005 5 - Intolerance ULTRACET (TRAMADOL-ACETAMINOPHEN) 07/28/2005 5 - Intolerance WELLBUTRIN (BUPROPION HCL) 07/28/2005 5 - Intolerance Comments: Hives Date Reviewed: 12/06/2023 Reviewed by: Mayela Navarro MD - Fully Assessed Primary Visit Diagnosis:APPOINTMENT CANCELLED Prescriptions as of 03/07/2024 - enalapril (VASOTEC) 20 mg tablet Take 1 tablet by mouth twice daily. - pravastatin (PRAVACHOL) 40 mg tablet Take 1 tablet by mouth once daily. - hydrochlorothiazide (HYDRODIURIL, ESIDRIX) 25 mg tablet Take 1 tablet by mouth once daily. - alendronate (FOSAMAX) 70 mg tablet Take 1 tablet by mouth once each week. Take with a full glass of water, on an empty stomach; do NOT lie down for 30minutes. - metFORMIN ER (GLUCOPHAGE XR) 500 mg 24 hr tablet Take 1 tablet by mouth daily with breakfast. - linagliptin (TRADJENTA) 5 mg tab Take 5 mg by mouth once daily. - levothyroxine (SYNTHROID) 50 mcg tablet Take 1 tablet by mouth once daily. Take on empty stomach. For thyroid. - esomeprazole (NEXIUM) 40 mg capsule Take 1 capsule by mouth once daily. - promethazine (PHENERGAN) 25 mg tablet Take 1 tablet by mouth every 6 hours as needed. - mupirocin (BACTROBAN) 2 % ointment Apply 1 application to affected area three times daily. Location: right nare - enalapril (VASOTEC) 20 mg tablet Take 1 tablet by mouth twice daily. - calcium carbonate-vitamin d2 500 mg(1,250mg) -200 unit tab Take 1 tablet by mouth once daily. - triamcinolone 0.025 % lotn Apply to affected area twice daily. - conjugated estrogens (PREMARIN) vaginal cream Apply small amount to vulvar are with fingers 3 times per week - Clobetasol Propionate 0.05 % gel Apply 1 application to affected area as needed. - Halobetasol Propionate 0.05 % cream Apply 1 application to affected area twice daily as needed. - fexofenadine (LEO) 180 mg ORAL tablet Take 1 tablet by mouth once daily. - naproxen sodium(ALEVE 220 MG TAB) as necessary - blood sugar diagnostic(FREESTYLE TEST STRIPS) testing four times daily - cyclobenzaprine hcl(FLEXERIL 10 MG TAB) Take one(1) tablet daily. 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] 07/07/2004 ABDOMINAL PAIN RUQ [R10.11] LIVER DISORDERS NEC [K76.89] MYALGIA AND MYOSITIS NOS [[id number]] Diabetes mellitus (HCC) [E11.9] 10/10/2007 GERD (gastroesophageal reflux disease) [K21.9] HTN (hypertension) [I10] Hyperlipidemia LDL goal <100 [E78.5] DM (diabetes mellitus) (HCC) [E11.9] Low back pain with right-sided sciatica [M54.41]05/13/2015 07/08/2015 Right-sided low back pain with right-sided scia*05/25/2015 07/08/2015 Bilateral low back pain with right-sided sciati*07/08/2015 Perineal pain in female [R10.2] 07/08/2015 Pain of female genitalia [N94.9] 07/08/2015 Anal or rectal pain [K62.89] 07/08/2015 Encounter Status:Closed by MAYELA NAVARRO on 03/07/24 Normal [facility] US Pelvison 03-07-2024 Radiology [facility]ative[facility] 12-06-2023 CNOV Office Visit (OBGYWM ) -------- NOHEMI SANDERS ([id number]) 1950 F Date Time Provider Department 12/06/23 1:20 PM MAYELA NAVARRO OBGYWM During your visit today, we recorded the following information about you: Blood pressure Weight 122/62 76.2 kg Mayela Navarro MD 12/06/2023 1:40 PM Signed 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 Marti is a 73 year old who presents today for an endometrial biopsy for abnormal us endometrial fluid. test: n/a UNIVERSAL PROTOCOL / SAFETY CHECKLIST Procedure to be Performed: EMB Sign In: A Moment of CARE was completed. Personnel directly involved with the procedure wore the appropriate PPE (Personal Protective Equipment). Patient/Surrogate Stated/Verified: PATIENT VERIFIED(optional for EMERGENT procedures): Patient name, Date of , Relevant allergies, and The intended procedure Time Out Communication: Intended patient and procedure match the source documents. Consent documented and matches the intended procedure. Relevant labs, photos, and/or imaging studies have been reviewed. Sign Out: SIGN OUT (optional for EMERGENT procedures): No specimen collected. All instruments, equipment, possible retained foreign bodies accounted for. Post-procedure follow-up management communicated and Plan of Care Visit completed when applicable. Greta Duff MA PROCEDURE: EXTERNAL GENITALIA: Normal in appearance without lesions VAGINA: Normal in appearance without lesions BIOPSY: Speculum placed into the vagina with excellent visualization of the cervix. Cervix cleaned with betadine. Anterior lip of cervix grasped with single toothed tenaculum. Started to dilate the cervix but procedure stopped due to patient's discomfort. ASSESSMENT: Endometrial fluid on US with possible h/o PMB PLAN: Discussed R/B/A of repeat US vs hysteroscopy with [facility] at [facility]. Patient elects for repeat US in 2-3 months. MD Sherin Gonzales [place], MA 12/06/2023 1:17 PM Signed YOUR RECOVERY After your biopsy you may [...] do not hesitate to contact the office. Allergies As of Date: 12/06/2023 Noted Allergy Reaction ANESTHETICS - AMIDE TYPE - SELECT*05/10/2004 Comments: Topical xylocaine FLUOGEN (INFLUENZA VIRUS VAC. TRI*07/28/2005 5 - Intolerance INFLUENZA A (H1N1) VIRUS VACCINE *07/31/2014 4 - Hives LYRICA (PREGABALIN) 12/27/2009 Comments: esophageal spasms NEURONTIN (GABAPENTIN) 12/27/2009 Comments: headache, confusion PENICILLINS 05/10/2004 9 - Itching Comments: Yeast infections PNEUMOVAX 23 (PNEUMOCOCCAL 23-DASHA*07/28/2005 5 - Intolerance PREVACID (LANSOPRAZOLE) 07/28/2005 5 - Intolerance Comments: Didn't work after a while TETANUS VACCINES AND TOXOID 07/28/2005 5 - Intolerance ULTRACET (TRAMADOL-ACETAMINOPHEN) 07/28/2005 5 - Intolerance WELLBUTRIN (BUPROPION HCL) 07/28/2005 5 - Intolerance Comments: Hives Date Reviewed: 12/06/2023 Reviewed by: Mayela Navarro MD - Fully Assessed Reason for Visit: Endometrial Biopsy [3751] Primary Visit Diagnosis:Fluid in endometrial cavity [N85.9] Order(s):PELVIC US [facility] [[id number]] Order #: [id number]: 1 FUTURE Prescriptions as of 12/06/2023 - enalapril (VASOTEC) 20 mg tablet Take 1 tablet by mouth twice daily. - pravastatin (PRAVACHOL) 40 mg tablet Take 1 tablet by mouth once daily. - hydrochlorothiazide (HYDRODIURIL, ESIDRIX) 25 mg tablet Take 1 tablet by mouth once daily. - alendronate (FOSAMAX) 70 mg tablet Take 1 tablet by mouth once each week. Take with a full glass of water, on an empty stomach; do NOT lie down for 30minutes. - metFORMIN E (more content not included)... Normal [facility] No Panel InformationOrdered By: Jaclyn Webster on 11-19-2023 Miscellaneous Test See comment [facility] Comment on above: TEST RESULTS LIMITSA cetylcholine Receptor Ab, All AChR Binding Abs, Serum <0.03 nmol/L 0.00-0.24 Negative: 0.00 - 0.24 Borderline: 0.25 - 0.40 Positive: >0.40 AChR Blocking Abs, Serum, 5 % 0-25 Negative: 0 - 25 Borderline: 26 - 30 Positive: >30 AChR-modulating Ab, 0 % 0-45 Interpretive Information: Negative: 0 - 45% Positive: > 45% No single value for AChR-modulating antibody should be used as a sole basis for diagnosis or response to therapy. TESTING PERFORMED AT [facility]. ORIGINAL REPORT ON FILE IN LAB CONTAINS ADDITIONAL TEST SITE INFORMATION. Marisela 11-16-2023 DELLA Telephone (OBGYWM) -------- MARILYNNOHEMI ([id number]) 1950 F Date Time Provider Department 11/16/23 MAYELA NAVARRO During your visit today, we recorded the following information about you: Lily Morgan RN 11/16/2023 3:51 PM Signed ----- Message from Mayela Navarro MD sent at 11/16/2023 1:08 PM EST ----- Small amount of free fluid in endometrial canal Recommend [facility] US in 3 months or EMB after cytotec MD Marilee Gonzales Lindsey, RN 11/16/2023 3:54 PM Signed Patient notified of results, verbalizes understanding. Patient opting to have EMB. Appointment scheduled. Please order Cytotec, pharmacy is up to date. CLINTON Sheridan Karmon, MD 11/16/2023 4:05 PM Signed Done Mayela Navarro MD Allergies As of Date: 11/16/2023 Noted Allergy Reaction ANESTHETICS - AMIDE TYPE - SELECT*05/10/2004 Comments: Topical xylocaine FLUOGEN (INFLUENZA VIRUS VAC. TRI*07/28/2005 5 - Intolerance INFLUENZA A (H1N1) VIRUS VACCINE *07/31/2014 4 - Hives LYRICA (PREGABALIN) 12/27/2009 Comments: esophageal spasms NEURONTIN (GABAPENTIN) 12/27/2009 Comments: headache, confusion PENICILLINS 05/10/2004 9 - Itching Comments: Yeast infections PNEUMOVAX 23 (PNEUMOCOCCAL 23-DASHA*07/28/2005 5 - Intolerance PREVACID (LANSOPRAZOLE) 07/28/2005 5 - Intolerance Comments: Didn't work after a while TETANUS VACCINES AND TOXOID 07/28/2005 5 - Intolerance ULTRACET (TRAMADOL-ACETAMINOPHEN) 07/28/2005 5 - Intolerance WELLBUTRIN (BUPROPION HCL) 07/28/2005 5 - Intolerance Comments: Hives Date Reviewed: 11/02/2023 Reviewed by: Mayela Navarro MD - Fully Assessed Reason for Visit: Results [95] Order(s):miSOPROStol (CYTOTEC) 200 mcg tabletInsert 2 tablets the night before vaginally and 2 tablets the morning of the procedure vaginallyDisp: 2 tabletRfl: 0 Prescriptions as of 11/16/2023 - miSOPROStol (CYTOTEC) 200 mcg tablet Insert 2 tablets the night before vaginally and 2 tablets the morning of the procedure vaginally - enalapril (VASOTEC) 20 mg tablet Take 1 tablet by mouth twice daily. - pravastatin (PRAVACHOL) 40 mg tablet Take 1 tablet by mouth once daily. - hydrochlorothiazide (HYDRODIURIL, ESIDRIX) 25 mg tablet Take 1 tablet by mouth once daily. - alendronate (FOSAMAX) 70 mg tablet Take 1 tablet by mouth once each week. Take with a full glass of water, on an empty stomach; do NOT lie down for 30minutes. - metFORMIN ER (GLUCOPHAGE XR) 500 mg 24 hr tablet Take 1 tablet by mouth daily with breakfast. - linagliptin (TRADJENTA) 5 mg tab Take 5 mg by mouth once daily. - levothyroxine (SYNTHROID) 50 mcg tablet Take 1 tablet by mouth once daily. Take on empty stomach. For thyroid. - esomeprazole (NEXIUM) 40 mg capsule Take 1 capsule by mouth once daily. - promethazine (PHENERGAN) 25 mg tablet Take 1 tablet by mouth every 6 hours as needed. - mupirocin (BACTROBAN) 2 % ointment Apply 1 application to affected area three times daily. Location: right nare - enalapril (VASOTEC) 20 mg tablet Take 1 tablet by mouth twice daily. - calcium carbonate-vitamin d2 500 mg(1,250mg) -200 unit tab Take 1 tablet by mouth once daily. - triamcinolone 0.025 % lotn Apply to affected area twice daily. - conjugated estrogens (PREMARIN) vaginal cream Apply small amount to vulvar are with fingers 3 times per week - Clobetasol Propionate 0.05 % gel Apply 1 application to affected area as needed. - Halobetasol Propionate 0.05 % cream Apply 1 application to affected area twice daily as needed. - fexofenadine (LEO) 180 mg ORAL tablet Take 1 tablet by mouth once daily. - naproxen sodium(ALEVE 220 MG TAB) as necessary - blood sugar diagnostic(FREESTYLE TEST STRIPS) testing four times daily - cyclobenzaprine hcl(FLEXERIL 10 MG TAB) Take one(1) tablet daily. 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] 07/07/2004 ABDOMINAL PAIN RUQ [R10.11] LIVER DISORDERS NEC [K76.89] MYALGIA AND MYOSITIS NOS [[id number]] Diabetes mellitus (HCC) [E11.9] 10/10/2007 GERD (gastroesophageal reflux disease) [K21.9] HTN (hypertension) [I10] Hyperlipidemia LDL goal <100 [E78.5] DM (diabetes mellitus) (HCC) [E11.9] Low back pain with right-sided sciatica [M54.41]05/13/2015 07/08/2015 Right-sided low back pain with right-sided scia*05/25/2015 07/08/2015 Bilateral low back pain with right-sided sciati*07/08/2015 Perineal pain in female [R10.2] 07/08/2015 Pain of female genitalia [N94.9] 07/08/2015 Anal or rectal pain [K62.89] 07/08/2015 Prescriptions ordered this encounter Disp Refills Start End MISOPROSTOL 200 MCG TABLET 2 ta* 0 11/16/2023 Sig: Insert 2 tablets the night before vaginally and 2 tablets the morning of the procedure vaginally Encounter Status:Closed by LILY MORGAN on 11/16/23 Normal [facility] FEMALE PELVIS TRANSVAGon 11-15-2023 US FEMALE PELVIS TRANSVAG * * *Final Report* * * DATE OF EXAM: Nov 15 2023 2:54PM U 1060 - US FEMALE PELVIS TRANSVAG / PROCEDURE REASON: multiple diagnoses * * * * Physician Interpretation * * * * EXAMINATION: TRANSVAGINAL AND LIMITED TRANSABDOMINAL FEMALE PELVIC ULTRASOUND CLINICAL HISTORY: Postmenopausal bleeding. TECHNIQUE: Sonography of the pelvis was performed by transvaginal and transabdominal (limited) techniques. Images were obtained and stored in a permanent archive. MQ: [facility]_[email or web address] COMPARISON: Ultrasound transvaginal on 08/09/2015 RESULT: Uterus: -Size: 4.5 x 1.9 x 3.1 cm -Orientation: Anteverted -Endometrial echo complex: Evaluation of the endometrium was adequate. Small amount of free fluid visualized in the endometrial canal. The endometrial echo complex measured 0.1 cm. -Cervix: Unremarkable. -Adenomyosis assessment: There are no sonographic findings of adenomyosis. -Fibroids: There is a 5 x 3 x 5 mm small fibroid in the anterior uterine body. Right Ovary: Not seen. Left Ovary: Not seen. Free Fluid: No abnormal free fluid is present. IMPRESSION: Small uterine fibroid. Small amount of free fluid in the endometrial canal. Please clinically correlate. Retirement Consultant: VON Transcribe Date/Time: Nov 15 2023 3:29P Dictated by : OTONIEL MASTERSON MD This examination was interpreted and the report reviewed and electronically signed by: OTONIEL MASTERSON MD on Nov 15 2023 3:41PM EST [id number] Normal [facility] US Pelvis transvaginalon [facility] Absolute lymphocyte countOrd ered By: Jaclyn Webster on 11-13-2023 Lymphocytes Auto (Unsp spec) [#/Vol] 2.16 10*3/uL 0.83-4.51 [facility] Automated lymphocyte count a s percentage of total leukocytesOrdered By: Jaclyn Webster on 11-13-2023 Lymphocytes/100 WBC Auto (Unsp spec) 14.7 % 19-41 [facility] Basophil percentageOrdered B y: Jaclyn Webster on 11-13-2023 Basophils/100 WBC (Bld) 0.5 % 0-1 [facility] Bilirubin [Mass/Vol] 0.50 mg/dL 0.20-1.00 [facility] Comment on above: For patients on eltr ombopag therapy, use of Dimension [place] TBIL is not recommended. Chloride [Moles/Vol] 104 mmol/L 98-107 [facility] Cholesterol [Mass/Vol] 226 mg/dL <200 [facility] Comment on above: <200 mg/dL Desirable 200-240 mg/dL Borderline >240 mg/dL High Risk Eosinophils/100 WBC (Bld) 1.1 % 0-5 [facility] Glucose [Mass/Vol] 129 mg/dL 74-106 [facility] Comment on above: Fasting Glucose resu lt greater than or equal to 126 mg/dL suggests DIABETES MELLITUS per A.D.A. criteria. Hemoglobin (Bld) [Mass/Vol] 12.2 g/dL 12.0-15.0 [facility] Monocytes/100 WBC (Bld) 9.0 % 0-10 [facility] Neutrophils (Bld) [#/Vol] 10.9 10*3/uL 2.0-7.7 [facility] Neutrophils/100 WBC (Bld) 74.4 % 47-70 [facility] Potassium [Moles/Vol] 3.9 mmol/L 3.5-5.1 [facility] Protein [Mass/Vol] 7.7 g/dL 6.4-8.2 [facility] Sodium [Moles/Vol] 136 mmol/L 136-145 [facility] Triglyceride [Mass/Vol] 128 mg/dL <199 [facility] Comment on above: The drugs N-Acetylcy steine and Metamizole may falsely depress this assay.Serum Triglycerides Reference Interval Normal <150 mg/dL Borderline high 150 - 199 mg/dL High 200 - 499 mg/dL Very High > or = 500 mg/dL WBC (Bld) [#/Vol] 14.7 10*3/uL 4.4-11.0 [facility] Determination of erythrocyte mean corpuscular volume (MCV)Ordered By: Jaclyn Webster on 11-13-2023 MCV (RBC) [Entitic vol] 84.2 fL 81-99 [facility] Erythrocyte distribution wid th ratioOrdered By: Jaclyn Webster on 11-13-2023 Erythrocyte distribution width (RBC) [Ratio] 14.9 % 11.6-14.6 [facility] Erythrocyte distribution wid th standard deviationOrdered By: Jaclyn Webster on 11-13-2023 Erythrocyte distribution width (RBC) [Entitic vol] 45.4 fL 35.1-43.9 [facility] Hematocrit Auto (Bld) [Volum e fraction]Ordered By: Jaclyn Webster on 11-13-2023 Hematocrit (Bld) [Volume fraction] 37.2 % 37-47 [facility] Immature granulocytes/100 WB C Auto (Bld)Ordered By: Jaclyn Webster on 11-13-2023 Immature granulocytes/100 WBC (Bld) 0.300 % 0.0-0.9 [facility] Comment on above: IG% - Immature Granu locytes (promyelocytes, myelocytes and metamyelocytes) > 1% indicates that a LEFT SHIFT is Present. Laboratory - Chemistry and C hemistry - challengeOrdered By: Jaclyn Webster on 11-13-2023 Albumin/Globulin [Mass ratio] 1.1 {ratio} 0.9-2.4 [facility] ALP [Catalytic activity/Vol] 61 U/L 45-117 [facility] ALT [Catalytic activity/Vol] 24 U/L 13-56 [facility] Cholesterol in HDL [Mass/Vol] 64 mg/dL >40 [facility] Comment on above: The drugs N-Acetylcy steine and Metamizole may falsely depress this assay. Reference Range HDL <40 mg/dL Low HDL Cholesterol HDL >or= 60 mg/dL High HDL Cholesterol Cholesterol in LDL [Mass/Vol] 136 mg/dL 0-130 [facility] CO2 [Moles/Vol] 24.0 mmol/L 21.0-32.0 [facility] Globulin (S) [Mass/Vol] 3.7 g/dL 2.2-4.2 [facility] Urea nitrogen/Creatinine [Mass ratio] 22.8 mg/mg 10-20 [facility] Laboratory - Hematology and Cell countsOrdered By: Jaclyn Webster on 11-13-2023 MCH (RBC) [Entitic mass] 27.6 pg 27.0-32.0 [facility] MCHC (RBC) [Mass/Vol] 32.8 g/dL 32-36 [facility] Nucleated RBC/100 WBC (Bld) [Ratio] 0 % 0-5 [facility] Platelet mean volume (Bld) [Entitic vol] 10.1 fL 6.2-12.0 [facility] Platelets (Bld) [#/Vol] 267 10*3/uL 150-450 [facility] No Panel InformationOrdered By: Jaclyn Webster on 11-13-2023 Estimated GFR (MDRD) Amer 55 mL/min >60 [facility] Comment on above: GFR Calc Estimated GFR (MDRD) Non-Af Amer 45 mL/min >60 [facility] Comment on above: Non- GFR Calc Urine Microalbumin/Creatinine Ratio TNP [facility] Comment on above: Test not performed Vitamin D 25-Hydroxy 46.8 ng/mL [facility] Comment on above: Vitamin D 25(OH) Sta tus Range Deficiency <20 ng/mL (50nmol/L) Insufficiency 20 - 30 ng/mL (50 - 75 nmol/L) Sufficiency 30 - 100 ng/mL (75 - 250 nmol/L) Toxicity >100 ng/mL (>250 nmol/L) VLDL Cholesterol 26 mg/dL 5-40 [facility] RBC Auto (Bld) [#/Vol]Ordere d By: Jaclyn Webster on 11-13-2023 RBC (Bld) [#/Vol] 4.42 10*6/uL 4.2-5.4 [facility] Serum or plasma angiotensin converting enzyme measurement (enzymatic activity/volume)Ordered By: Jaclyn Webster on 11-13-2023 Angiotensin converting enzyme [Catalytic activity/Vol] 15 U/L 14-82 [facility] Comment on above: Performed at: [address] [id number] Director: Galen Vickers PhD, Phone: [phone] Serum or plasma calcium carole urement (mass/volume)Ordered By: Jaclyn Webstre on 11-13-2023 Calcium [Mass/Vol] 9.3 mg/dL 8.5-10.1 [facility] Serum or plasma creatinine m easurement (mass/volume)Ordered By: Jaclyn Webster on 11-13-2023 Creatinine [Mass/Vol] 1.23 mg/dL 0.55-1.02 [facility] Comment on above: The validity of the calculated GFR & GFRAA in patients over 70 years has not been determined. Clinical correlation is essential. Serum or plasma urea nitroge n measurement (mass/volume)Ordered By: Jaclyn Webster on 11-13-2023 Urea nitrogen [Mass/Vol] 28 mg/dL 7-18 [facility] Thin prep Papanicolaou smear with manual screeningOrdered By: Jaclyn Husaincedric on 11-13-2023 Thin prep Papanicolaou smear with manual screening 4.0 g/dL 3.2-5.0 [facility] Thin prep Papanicolaou smear with manual screening 16 U/L 15-37 [facility] Thin prep Papanicolaou smear with manual screening 8 5-15 [facility] Thin prep Papanicolaou smear with manual screening < 5.0 mg/L NO RANGE EST. [facility] Urine creatinine measurement (mass/volume)Ordered By: Jaclyn Webster on 11-13-2023 Creatinine (U) [Mass/Vol] 40.20 mg/dL NO RANGE EST. [facility] Whole blood hemoglobin A1c/t otal hemoglobin ratio (mass fraction)Ordered By: Jaclyn Webster on 11-13-2023 HbA1c (Bld) [Mass fraction] 6.2 % 3.8-5.6 [facility] Comment on above: Normal < 5.7 % Predi abetic 5.7 - 6.4 % Diabetic >or= 6.5 % Please note range changes. CNOVon 11-02-2023 CNOV Office Visit (OBGYWM ) -------- NOHEMI SANDERS ([id number]) 1950 F Date Time Provider Department 11/02/23 3:10 PM MAYELA NAVARRO OBPRAKASHWAnnika During your visit today, we recorded the following information about you: Blood pressure Weight 136/62 75.3 kg Mayela Navarro MD 11/02/2023 3:50 PM Signed Nohemi Benavides Marilyn is a 73 year old female who presents for problem visit. HPI: Patient reports yellowish brown spotting about 3 times over the past 6 months. Denies any bright red bleeding. She was seen at [facility] for this and a culture done that was negative. Patient denies h/o abnormal paps. OB History T2 L4 SAB1 IAB0 Ectopic0 Multiple1 Live Births0 Material Control Associate History LMP: Postmenopausal Age at Menarche: Age at First : Age at Menopause: Material Control Associate History Comments: Sexual Activity: Not Currently; No partner data on record Contraception: No contraception data on record PAST MEDICAL HISTORY Diagnosis Date Depression DM (diabetes mellitus) (HCC) GERD (gastroesophageal reflux disease) HTN (hypertension) Hyperlipidemia LDL goal <[address] Smith, derm Myalgia and myositis, unspecified Other specified disorders of liver mild hepatosplenomegaly/diffu se fatty infiltration PAST SURGICAL HISTORY Procedure Laterality [...] lb (75.3kg) GENERAL: pleasant, female in no ap (more content not included)... Normal [facility] No Panel InformationOrdered By: Jaclyn Webster on 11-02-2023 Lyme Disease IgG Ab 18 kDa Band Absent . [facility] Lyme Disease IgG Ab 23 kDa Band Absent . [facility] Lyme Disease IgG Ab 28 kDa Band Absent . [facility] Lyme Disease IgG Ab 30 kDa Band Absent . [facility] Lyme Disease IgG Ab 39 kDa Band Absent . [facility] Lyme Disease IgG Ab 41 kDa Band Absent . [facility] Lyme Disease IgG Ab 45 kDa Band Absent . [facility] Lyme Disease IgG Ab 58 kDa Band Absent . [facility] Lyme Disease IgG Ab 66 kDa Band Absent . [facility] Lyme Disease IgG Ab 93 kDa Band Absent . [facility] Lyme Disease IgG West Blot Interp Negative . [facility] Comment on above: Positive: 5 of the f ollowing Borrelia-specific bands: 18,23,28,30,39,41,45,58, 66, and 93. Negative: No bands or banding patterns which do not meet positive criteria. Lyme Disease IgM Ab (Western Blot) Negative . [facility] Comment on above: Note: An equivocal o r positive EIA result followed by anegative Line Blot result is considered NEGATIVE. Anequivocal or positive EIA result followed by a positiveLine Blot is considered POSITIVE by the CDC.Positive: 2 of the following bands: 23,39 or 41Negative: No bands or banding patterns which do not meetpositive criteria.Criteria for positivity are those recommended byCDC/ASTPHLD. p23=Osp C, g03=oddhrbvndYnrr:Sera from individuals with the following may cross reactin the Lyme Line Blot assays: other spirochetal diseases(periodontal disease, leptospirosis, relapsing fever, yaws,and pinta); connective autoimmune (Rheumatoid Arthritis andSystemic Lupus Erythematosus and also individuals withAntinuclear Antibody); other infections (Luis MountainSpotted Fever; Bowen-Delacruz Virus, and Cytomegalovirus).Please Note: Lyme immunoblot alone is not recommended forthe diagnosis of Lyme disease. Current guidelines recommendthe use of a two-tiered approach to Lyme serology testingto improve the sensitivity and specificity of testing.[facility] offers test code 913955 Lyme Disease Serology withReflex to aid in the diagnosis of Lyme Disease.Performed at: [address] [id number] Director: Francesco Teresa MD, Phone: [phone] Lyme Disease IgM Ab 23 kDa Band Absent . [facility] Lyme Disease IgM Ab 39 kDa Band Absent . [facility] Lyme Disease IgM Ab 41 kDa Band Absent . [facility] PAP TESTon 11-02-2023 ADEQUACY Satisfactory for interpretation Normal [facility] Comment on above: Order Comment: Speci men Type: FLUID SPECIMEN Ordering Facility: [facility] Address: [address] [place] [address] Performed By: #### L [id number] #### [facility] CLIA [id number] [address] [place] [address] [place] CASE REPORT Normal [facility] Comment on above: Order Comment: Speci men Type: FLUID SPECIMEN Ordering Facility: [facility] Address: [address] [place] [address] Result Comment: Gyne cologic Cytology Report Case: [id number] Authorizing Provider: Mayela Navarro MD Collected: 11/02/2023 03:52 PM Ordering Location: OB/Gynecology Received: 11/02/2023 04:56 PM First Screen: Deeds, Jaime, CT, ASCP Specimen: Pap Test, ThinPrep, Cervix Performed By: #### L [id number] #### [facility] CLIA [id number] [address] [place] [address] [place] CLINICAL HISTORY, CYTOLOGY, PLATFORM SUPERVISOR Post Menopausal Normal [facility] Comment on above: Order Comment: Speci men Type: FLUID SPECIMEN Ordering Facility: [facility] Address: [address] [place] [address] Performed By: #### L [id number] #### [facility] CLIA [id number] [address] [place] [address] [place] CYTOLOGY PAP OTHER INT Atrophic specimen Normal [facility] Comment on above: Order Comment: Speci men Type: FLUID SPECIMEN Ordering Facility: [facility] Address: [address] [place] [address] Performed By: #### L [id number] #### [facility] CLIA [id number] [address] [place] [address] [place] FINAL PERFORMING LAB Normal [facility] Comment on above: Order Comment: Speci men Type: FLUID SPECIMEN Ordering Facility: [facility] Address: [address] [place] [address] Result Comment: Tech nical component, granulator operator screening performed at [facility], [address] [place] [address] [place] [address] CLIA# [id number] Diagnostic interpretation performed at [facility], [address] [place], [place] [id number] CLIA# [id number] Drapery Hanger: Dennis Suárez M.D. Performed By: #### L [id number] #### [facility] CLIA [id number] [address] [place] [address] [place] HPV REFLEX HPV if Atypical Normal [facility] Comment on above: Order Comment: Speci men Type: FLUID SPECIMEN Ordering Facility: [facility] Address: [address] [place] [address] Performed By: #### L [id number] #### [facility] CLIA [id number] [address] [place] [address] [place] INTERPRETATION, CYTOLOGY, PLATFORM SUPERVISOR Normal [facility] Comment on above: Order Comment: Speci men Type: FLUID SPECIMEN Ordering Facility: [facility] Address: [address] [place] [address] Result Comment: Nega tive for intraepithelial lesion or malignancy. Performed By: #### L [id number] #### [facility] CLIA [id number] [address] [place] [address] [place] PAP DISCLAIMER COMMENT The Pap Smear is a screening test for cervical cancer. False negative results occur with all screening tests, emphasizing the need for rescreening at recommended intervals, and clinical correlation. 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 Following automated imaging, selected wadsworth from every slide are reviewed by a granulator operator. Normal [facility] Comment on above: Order Comment: Speci men Type: FLUID SPECIMEN Ordering Facility: [facility] Address: [address] [place] [address] Performed By: #### L [id number] #### [facility] CLIA [id number] [address] [place] [address] [place] A1Con 10-11-2023 HbA1c (Bld) [Mass fraction] 6.2 % Normal 4.3-6.4 [facility] ([place]) Comment on above: Performed By: #### F T3, A1C, VIDH, FT4, TSH #### [address] [address] #### PTH #### [place] [address] FT3on 10-11-2023 Free T3 [Mass/Vol] 3.62 pg/mL Normal 2.30-4.00 [facility] ([place] Comment on above: Performed By: #### F T3, FT4, GFR, LIPID, A1C, CMP, TSH #### [address] [address] FT4on 10-11-2023 Free T4 [Mass/Vol] 1.03 ng/dL Normal 0.76-1.46 [facility] ([place] Comment on above: Performed By: #### F T3, A1C, VIDH, FT4, TSH #### [address] [address] #### PTH #### [address] [address] MALBRon 10-11-2023 U Creatinine 128.1 mg/dL High 28.0-117.0 [facility] ([place] Comment on above: Performed By: #### F T3, FT4, GFR, LIPID, A1C, CMP, TSH #### [address] [address] U Microalb 322 mcg/dL Normal [facility] ([place] Comment on above: Performed By: #### F T3, FT4, GFR, LIPID, A1C, CMP, TSH #### Deann [address] [address] U Ratio Alb/Cre 3 mcg/mg Normal 0-30 [facility] ([place] Comment on above: Performed By: #### F T3, FT4, GFR, LIPID, A1C, CMP, TSH #### [address] [address] PTHon 10-11-2023 PTH, Intact 43.2 pg/mL Normal 18.5-88.0 [facility] ([place] Comment on above: Performed By: #### F T3, FT4, GFR, LIPID, A1C, CMP, TSH #### [address] [address] TSHon 10-11-2023 TSH Qn 1.34 m[IU]/L Normal 0.36-3.74 [facility] ([place] Comment on above: Performed By: #### F T3, A1C, VIDH, FT4, TSH #### [address] [address] #### PTH #### [facility] [address] [place] [address] VIDHon 10-11-2023 Vit. D 25-Hydroxy 43.9 ng/mL Normal [facility] ([place] Comment on above: Result Comment: Inte rpretive Values Based on Total 25(OH) Vitamin D: Deficient <20 ng/mL Insufficient 20 - <30 ng/mL Sufficient 30-100 ng/mL Performed By: #### F T3, FT4, GFR, LIPID, A1C, CMP, TSH #### [address] [address] .GFRon 05-28-2023 GFR 43 ml/min/1.73sqm Normal [facility] ([place] Comment on above: Result Comment: GFR Population mean for , Non- Americans Ages 20-29 = 116 mL/min/1.73 sq.m. Ages 30-39 = 107 mL/min/1.73 sq.m. Ages 40-49 = 99 mL/min/1.73 sq.m. Ages 50-59 = 93 mL/min/1.73 sq.m. Ages 60-69 = 85 mL/min/1.73 sq.m. Ages 70+ = 75 mL/min/1.73 sq.m. Chronic Kidney Disease: Less than 60 mL/min/1.73 square meters End Stage Renal Disease: Less than 15 mL/min/1.73 square meters Performed By: #### F T3, FT4, GFR, LIPID, A1C, CMP, TSH #### Deann [address] [address] GFR Non- 35 ml/min/1.73sqm Normal [facility] ([place] Comment on above: Result Comment: GFR Population mean for , Non- Americans Ages 20-29 = 116 mL/min/1.73 sq.m. Ages 30-39 = 107 mL/min/1.73 sq.m. Ages 40-49 = 99 mL/min/1.73 sq.m. Ages 50-59 = 93 mL/min/1.73 sq.m. Ages 60-69 = 85 mL/min/1.73 sq.m. Ages 70+ = 75 mL/min/1.73 sq.m. Chronic Kidney Disease: Less than 60 mL/min/1.73 square meters End Stage Renal Disease: Less than 15 mL/min/1.73 square meters Performed By: #### F T3, FT4, GFR, LIPID, A1C, CMP, TSH #### [place] [address] [place], [place] [address] A1Con 05-28-2023 HbA1c (Bld) [Mass fraction] 6.5 % High 4.3-6.4 [facility] ([place] Comment on above: Performed By: #### F T3, FT4, GFR, LIPID, A1C, CMP, TSH #### [address] [address] CMPon 05-28-2023 Albumin Level 3.9 G/dL Normal 3.4-4.8 [facility] ([place] Comment on above: Performed By: #### F T3, FT4, GFR, LIPID, A1C, CMP, TSH #### [address] [address] Albumin/Globulin [Mass ratio] 1.1 {ratio} Normal 1.1-2.5 [facility] ([place] Comment on above: Performed By: #### F T3, FT4, GFR, LIPID, A1C, CMP, TSH #### [address] [address] ALP [Catalytic activity/Vol] 60 U/L Normal 40-135 [facility] ([place] Comment on above: Performed By: #### F T3, FT4, GFR, LIPID, A1C, CMP, TSH #### [address] [address] ALT [Catalytic activity/Vol] 29 U/L Normal 14-59 [facility] ([place] Comment on above: Performed By: #### F T3, FT4, GFR, LIPID, A1C, CMP, TSH #### [address] [address] AST [Catalytic activity/Vol] 17 U/L Normal 10-40 [facility] ([place] Comment on above: Performed By: #### F T3, FT4, GFR, LIPID, A1C, CMP, TSH #### [address] [address] Bili Total 0.4 mg/dL Normal 0.2-1.0 [facility] ([place] Comment on above: Result Comment: Use of this assay is not recommended for patients undergoing treatment with eltrombopag due to the potential for falsely elevated results. Performed By: #### F T3, FT4, GFR, LIPID, A1C, CMP, TSH #### [address] [address] BUN/Creatinine Ratio 16 ratio Normal 7-27 [facility] ([place] Comment on above: Performed By: #### F T3, FT4, GFR, LIPID, A1C, CMP, TSH #### [address] [address] Calcium [Mass/Vol] 9.4 mg/dL Normal 8.4-10.2 [facility] ([place] Comment on above: Performed By: #### F T3, FT4, GFR, LIPID, A1C, CMP, TSH #### [address] [address] Chloride [Moles/Vol] 104 mmol/L Normal 98-107 [facility] ([place] Comment on above: Performed By: #### F T3, FT4, GFR, LIPID, A1C, CMP, TSH #### [address] [address] CO2 [Moles/Vol] 29 mmol/L Normal 23-31 [facility] ([place] Comment on above: Performed By: #### F T3, FT4, GFR, LIPID, A1C, CMP, TSH #### [address] [address] Creatinine [Mass/Vol] 1.44 mg/dL High 0.55-1.02 [facility] ([place]) Comment on above: Performed By: #### F T3, FT4, GFR, LIPID, A1C, CMP, TSH #### [address] [address] Electrolyte Balance 7.0 mEq/L Normal 4.0-15.0 [facility] ([place]) Comment on above: Performed By: #### F T3, FT4, GFR, LIPID, A1C, CMP, TSH #### [address] [address] Globulin 3.4 G/dL Normal [facility] ([place] Comment on above: Performed By: #### F T3, FT4, GFR, LIPID, A1C, CMP, TSH #### [address] [address] Glucose [Mass/Vol] 121 mg/dL High 83-110 [facility] ([place] Comment on above: Performed By: #### F T3, FT4, GFR, LIPID, A1C, CMP, TSH #### [address] [address] Potassium [Moles/Vol] 4.5 mmol/L Normal 3.5-5.1 [facility] ([place] Comment on above: Performed By: #### F T3, FT4, GFR, LIPID, A1C, CMP, TSH #### [address] [address] Sodium [Moles/Vol] 140 mmol/L Normal 136-145 [facility] ([place] Comment on above: Performed By: #### F T3, FT4, GFR, LIPID, A1C, CMP, TSH #### [address] [address] Total Protein 7.3 G/dL Normal 6.4-8.2 [facility] ([place] Comment on above: Performed By: #### F T3, FT4, GFR, LIPID, A1C, CMP, TSH #### [address] [address] Urea nitrogen [Mass/Vol] 23 mg/dL High 7-18 [facility] [facility] ([place] Comment on above: Performed By: #### F T3, FT4, GFR, LIPID, A1C, CMP, TSH #### [address] [address] FT3on 05-28-2023 Free T3 [Mass/Vol] 2.38 pg/mL Normal 2.30-4.00 [facility] ([place]) Comment on above: Performed By: #### F T3, FT4, GFR, LIPID, A1C, CMP, TSH #### [address] [address] FT4on 05-28-2023 Free T4 [Mass/Vol] 1.14 ng/dL Normal 0.76-1.46 [facility] ([place]) Comment on above: Performed By: #### F T3, FT4, GFR, LIPID, A1C, CMP, TSH #### [address] [place] [id number] [place] [address] LABORATORYOrdered By: SYSTEM SYSTEM on 05-28-2023 25-hydroxyvitamin D3 [Mass/Vol] 36.8 ng/mL Invalid Interpretation Code AO ADM SS Comment on above: Interpretive Data: I nterpretive Values Based on Total 25(OH) Vitamin D: Deficient <20 ng/mL Insufficient 20 - <30 ng/mL Sufficient 30-100 ng/mL Albumin BCP dye [Mass/Vol] 3.9 G/dL Invalid Interpretation Code 3.4 - 4.8 G/dL AO ADM SS Albumin/Globulin [Mass ratio] 1.1 {ratio} Invalid Interpretation Code 1.1 - 2.5 ratio AO ADM SS ALP [Catalytic activity/Vol] 60 U/L Invalid Interpretation Code 40 - 135 U/L AO ADM SS ALT With P-5'-P [Catalytic activity/Vol] 29 U/L Invalid Interpretation Code 14 - 59 U/L AO ADM SS AST With P-5'-P [Catalytic activity/Vol] 17 U/L Invalid Interpretation Code 10 - 40 U/L AO ADM SS Bilirubin [Mass/Vol] 0.4 mg/dL Invalid Interpretation Code 0.2 - 1.0 mg/dL AO ADM SS Comment on above: Interpretive Data: U se of this assay is not recommended for patients undergoing treatment with eltrombopag due to the potential for falsely elevated results. Calcium [Mass/Vol] 9.4 mg/dL Invalid Interpretation Code 8.4 - 10.2 mg/dL AO ADM SS Chloride [Moles/Vol] 104 mmol/L Invalid Interpretation Code 98 - 107 mmol/L AO ADM SS CO2 [Moles/Vol] 29 mmol/L Invalid Interpretation Code 23 - 31 mmol/L AO ADM SS Creatinine [Mass/Vol] 1.44 mg/dL Invalid Interpretation Code 0.55 - 1.02 mg/dL AO ADM SS Electrolyte Balance 7.0 mEq/L Invalid Interpretation Code 4.0 - 15.0 mEq/L AO ADM SS Free T3 [Mass/Vol] 2.38 pg/mL Invalid Interpretation Code 2.30 - 4.00 pg/mL AO ADM SS Free T4 [Mass/Vol] 1.14 ng/dL Invalid Interpretation Code 0.76 - 1.46 ng/dL AO ADM SS GFR/1.73 sq M.predicted among blacks MDRD (S/P/Bld) [Vol rate/Area] 43 ml/min/1.73sqm Invalid Interpretation Code AO Chemistry S Comment on above: Interpretive Data: GFR Population mean for , Non- Americans Ages 20-29 = 116 mL/min/1.73 sq.m. Ages 30-39 = 107 mL/min/1.73 sq.m. Ages 40-49 = 99 mL/min/1.73 sq.m. Ages 50-59 = 93 mL/min/1.73 sq.m. Ages 60-69 = 85 mL/min/1.73 sq.m. Ages 70+ = 75 mL/min/1.73 sq.m. Chronic Kidney Disease: Less than 60 mL/min/1.73 square meters End Stage Renal Disease: Less than 15 mL/min/1.73 square meters GFR/1.73 sq M.predicted among non-blacks MDRD (S/P/Bld) [Vol rate/Area] 35 ml/min/1.73sqm Invalid Interpretation Code AO Chemistry S Comment on above: Interpretive Data: GFR Population mean for , Non- Americans Ages 20-29 = 116 mL/min/1.73 sq.m. Ages 30-39 = 107 mL/min/1.73 sq.m. Ages 40-49 = 99 mL/min/1.73 sq.m. Ages 50-59 = 93 mL/min/1.73 sq.m. Ages 60-69 = 85 mL/min/1.73 sq.m. Ages 70+ = 75 mL/min/1.73 sq.m. Chronic Kidney Disease: Less than 60 mL/min/1.73 square meters End Stage Renal Disease: Less than 15 mL/min/1.73 square meters Globulin 3.4 G/dL Invalid Interpretation Code AO ADM SS Glucose [Mass/Vol] 121 mg/dL Invalid Interpretation Code 83 - 110 mg/dL AO ADM SS HbA1c (Bld) [Mass fraction] 6.5 % Invalid Interpretation Code 4.3 - 6.4 % AO ADM SS Potassium [Moles/Vol] 4.5 mmol/L Invalid Interpretation Code 3.5 - 5.1 mmol/L AO ADM SS Protein [Mass/Vol] 7.3 G/dL Invalid Interpretation Code 6.4 - 8.2 G/dL AO ADM SS Sodium [Moles/Vol] 140 mmol/L Invalid Interpretation Code 136 - 145 mmol/L AO ADM SS TSH Qn 2.42 m[IU]/L Invalid Interpretation Code 0.36 - 3.74 mcIU/mL AO ADM SS Urea nitrogen [Mass/Vol] 23 mg/dL Invalid Interpretation Code 7 - 18 mg/dL AO ADM SS Urea nitrogen/Creatinine [Mass ratio] 16 ratio Invalid Interpretation Code 7 - 27 ratio AO ADM SS TSHon 05-28-2023 TSH Qn 2.42 m[IU]/L Normal 0.36-3.74 [facility] ([place]) Comment on above: Performed By: #### F T3, FT4, GFR, LIPID, A1C, CMP, TSH #### [place] [id number] VIDHon 05-28-2023 Vit. D 25-Hydroxy 36.8 ng/mL Normal [facility] ([place]) Comment on above: Result Comment: Inte rpretive Values Based on Total 25(OH) Vitamin D: Deficient <20 ng/mL Insufficient 20 - <30 ng/mL Sufficient 30-100 ng/mL Performed By: #### F T3, FT4, GFR, LIPID, A1C, CMP, TSH #### [place] [address] Glucose Glucometer (BldC) [M ass/Vol]Ordered By: Anh Hercules on 05-22-2023 Glucose [Mass/Vol] 142 mg/dL 74-106 [facility] Comment on above: MANAGEMENT OF PATIEN T CARE PER NURSING PROTOCOL Basophil percentageOrdered B y: Jovon Hatch on 05-18-2023 Chloride [Moles/Vol] 104 mmol/L 98-107 [facility] Glucose [Mass/Vol] 133 mg/dL 74-106 [facility] Comment on above: Fasting Glucose resu lt greater than or equal to 126 mg/dL suggests DIABETES MELLITUS per A.D.A. criteria. Potassium [Moles/Vol] 4.2 mmol/L 3.5-5.1 [facility] Sodium [Moles/Vol] 137 mmol/L 136-145 [facility] WBC (Bld) [#/Vol] 7.8 10*3/uL 4.4-11.0 [facility] Blood erythrocytes count (nu mber/volume)Ordered By: Jovon Hatch on 05-18-2023 RBC (Bld) [#/Vol] 4.70 10*6/uL 4.2-5.4 [facility] Blood hemoglobin measurement (mass/volume)Ordered By: Jovon Hatch on 05-18-2023 Hemoglobin (Bld) [Mass/Vol] 13.0 g/dL 12.0-15.0 [facility] Blood platelet mean volumeOr dered By: Jovon Hatch on 05-18-2023 Platelet mean volume (Bld) [Entitic vol] 9.7 fL 6.2-12.0 [facility] Determination of erythrocyte mean corpuscular volume (MCV)Ordered By: Jovon Hatch on 05-18-2023 MCV (RBC) [Entitic vol] 85.7 fL 81-99 [facility] Hematocrit Auto (Bld) [Volum e fraction]Ordered By: Jovon Hatch on 05-18-2023 Hematocrit (Bld) [Volume fraction] 40.3 % 37-47 [facility] Laboratory - Chemistry and C hemistry - challengeOrdered By: Jovon Hatch on 05-18-2023 CO2 [Moles/Vol] 25.0 mmol/L 21.0-32.0 [facility] Urea nitrogen/Creatinine [Mass ratio] 20.3 mg/mg 10-20 [facility] - Hematology and Cell countsOrdered By: Jovon Hatch on 05-18-2023 Erythrocyte distribution width (RBC) [Entitic vol] 44.2 fL 35.1-43.9 [facility] Erythrocyte distribution width (RBC) [Ratio] 14.1 % 11.6-14.6 [facility] MCH (RBC) [Entitic mass] 27.7 pg 27.0-32.0 [facility] MCHC Auto (RBC) [Mass/Vol]Or dered By: Jovon Hatch on 05-18-2023 MCHC (RBC) [Mass/Vol] 32.3 g/dL 32-36 [facility] No Panel InformationOrdered By: Jovon Hatch on 05-18-2023 Estimated Creatinine Clearance Calc 23.59 ml/min [facility] Estimated GFR (MDRD) Amer 44 mL/min >60 [facility] Comment on above: GFR Calc Estimated GFR (MDRD) Non-Af Amer 37 mL/min >60 [facility] Comment on above: Non- GFR Calc Thyroid Stimulating Hormone (TSH) 1.04 uIU/mL 0.358-3.74 [facility] Platelets bldOrdered By: Yarely Hatch on 05-18-2023 Platelets (Bld) [#/Vol] 261 10*3/uL 150-450 [facility] Serum or plasma calcium carole urement (mass/volume)Ordered By: Jovon Hatch on 05-18-2023 Calcium [Mass/Vol] 9.6 mg/dL 8.5-10.1 [facility] Serum or plasma creatinine m easurement (mass/volume)Ordered By: Jovon Hatch on 05-18-2023 Creatinine [Mass/Vol] 1.48 mg/dL 0.55-1.02 [facility] Comment on above: The validity of the calculated GFR & GFRAA in patients over 70 years has not been determined. Clinical correlation is essential. Serum or plasma urea nitroge n measurement (mass/volume)Ordered By: Jovon Hatch on 05-18-2023 Urea nitrogen [Mass/Vol] 30 mg/dL 7-18 [facility] Thin prep Papanicolaou smear with manual screeningOrdered By: Jovon Hatch on 05-18-2023 Thin prep Papanicolaou smear with manual screening 8 5-15 [facility] Whole blood hemoglobin A1c/t otal hemoglobin ratio (mass fraction)Ordered By: Jovon Hatch on 05-18-2023 HbA1c (Bld) [Mass fraction] 5.9 % 3.8-5.6 [facility] Comment on above: Normal < 5.7 % Predi abetic 5.7 - 6.4 % Diabetic >or= 6.5 % Please note range changes. Absolute lymphocyte countOrd ered By: Mona Dunne on 04-19-2023 Lymphocytes Auto (Unsp spec) [#/Vol] 1.94 10*3/uL 0.83-4.51 [facility] Basophil percentageOrdered B y: Mona Dunne on 04-19-2023 Basophils/100 WBC (Bld) 0.5 % 0-1 [facility] Bilirubin [Mass/Vol] 0.40 mg/dL 0.20-1.00 [facility] Comment on above: For patients on eltr ombopag therapy, use of Dimension [place] TBIL is not recommended. Chloride [Moles/Vol] 104 mmol/L 98-107 [facility] Eosinophils/100 WBC (Bld) 0.8 % 0-5 [facility] Glucose [Mass/Vol] 151 mg/dL 74-106 [facility] Comment on above: Fasting Glucose resu lt greater than or equal to 126 mg/dL suggests DIABETES MELLITUS per A.D.A. criteria. Neutrophils (Bld) [#/Vol] 9.7 10*3/uL 2.0-7.7 [facility] Neutrophils/100 WBC (Bld) 74.9 % 47-70 [facility] Potassium [Moles/Vol] 3.4 mmol/L 3.5-5.1 [facility] Comment on above: Slight Hemolysis, Re sult may be falsely increased. Protein [Mass/Vol] 7.8 g/dL 6.4-8.2 [facility] Sodium [Moles/Vol] 136 mmol/L 136-145 [facility] WBC (Bld) [#/Vol] 13.0 10*3/uL 4.4-11.0 [facility] Blood erythrocytes count (nu mber/volume)Ordered By: Mona Dunne on 04-19-2023 RBC (Bld) [#/Vol] 4.84 10*6/uL 4.2-5.4 [facility] Blood hemoglobin measurement (mass/volume)Ordered By: Mona Dunne on 04-19-2023 Hemoglobin (Bld) [Mass/Vol] 13.4 g/dL 12.0-15.0 [facility] Blood lymphocytes/100 leukoc ytesOrdered By: Mona Dunne on 04-19-2023 Lymphocytes/100 WBC (Bld) 15.0 % 19-41 [facility] Blood monocytes/100 leukocyt esOrdered By: Mona Dunne on 04-19-2023 Monocytes/100 WBC (Bld) 8.4 % 0-10 [facility] Blood platelet mean volumeOr dered By: Mona Dunne on 04-19-2023 Platelet mean volume (Bld) [Entitic vol] 9.8 fL 6.2-12.0 [facility] Determination of erythrocyte mean corpuscular volume (MCV)Ordered By: Mona Dunne on 04-19-2023 MCV (RBC) [Entitic vol] 84.5 fL 81-99 [facility] Direct bilirubinOrdered By: Mona Dunne on 04-19-2023 Bilirubin.direct [Mass/Vol] 0.09 mg/dL 0.00-0.30 [facility] Hematocrit Auto (Bld) [Volum e fraction]Ordered By: Mona Dunne on 04-19-2023 Hematocrit (Bld) [Volume fraction] 40.9 % 37-47 [facility] Laboratory - Chemistry and C hemistry - challengeOrdered By: Mona Dunne on 04-19-2023 ALP [Catalytic activity/Vol] 51 U/L 45-117 [facility] ALT [Catalytic activity/Vol] 29 U/L 13-56 [facility] CO2 [Moles/Vol] 23.0 mmol/L 21.0-32.0 [facility] Globulin (S) [Mass/Vol] 3.6 g/dL 2.2-4.2 [facility] Lipase [Catalytic activity/Vol] 18 U/L 13-75 [facility] Comment on above: Please note:LIPASE r evised reference range effective 22. New Lipase methodology. Expected to produce lower values than the previous assay method. NEW Reference Range: 13 - 75 U/L Urea nitrogen/Creatinine [Mass ratio] 19.4 mg/mg 10-20 [facility] - Hematology and Cell countsOrdered By: Mona Dunne on 04-19-2023 Erythrocyte distribution width (RBC) [Entitic vol] 43.3 fL 35.1-43.9 [facility] Erythrocyte distribution width (RBC) [Ratio] 14.1 % 11.6-14.6 [facility] Immature granulocytes/100 WBC (Bld) 0.400 % 0.0-0.9 [facility] Comment on above: IG% - Immature Granu locytes (promyelocytes, myelocytes and metamyelocytes) > 1% indicates that a LEFT SHIFT is Present. MCH (RBC) [Entitic mass] 27.7 pg 27.0-32.0 [facility] Nucleated RBC/100 WBC (Bld) [Ratio] 0 % 0-5 [facility] MCHC Auto (RBC) [Mass/Vol]Or dered By: Mona Dunne on 04-19-2023 MCHC (RBC) [Mass/Vol] 32.8 g/dL 32-36 [facility] No Panel InformationOrdered By: Mona Dunne on 04-19-2023 Estimated Creatinine Clearance Calc 21.82 ml/min [facility] Estimated GFR (MDRD) Amer 40 mL/min >60 [facility] Comment on above: GFR Calc Estimated GFR (MDRD) Non-Af Amer 33 mL/min >60 [facility] Comment on above: Non- GFR Calc Platelets bldOrdered By: Glenys Dunne on 04-19-2023 Platelets (Bld) [#/Vol] 261 10*3/uL 150-450 [facility] Serum or plasma albumin carole urement (mass/volume)Ordered By: Mona Dunne on 04-19-2023 Albumin [Mass/Vol] 4.2 g/dL 3.2-5.0 [facility] Serum or plasma calcium carole urement (mass/volume)Ordered By: Mona Dunne on 04-19-2023 Calcium [Mass/Vol] 9.7 mg/dL 8.5-10.1 [facility] Serum or plasma creatinine m easurement (mass/volume)Ordered By: Mona Dunne on 04-19-2023 Creatinine [Mass/Vol] 1.60 mg/dL 0.55-1.02 [facility] Comment on above: The validity of the calculated GFR & GFRAA in patients over 70 years has not been determined. Clinical correlation is essential. Serum or plasma urea nitroge n measurement (mass/volume)Ordered By: Mona Dunne on 04-19-2023 Urea nitrogen [Mass/Vol] 31 mg/dL 7-18 [facility] Thin prep Papanicolaou smear with manual screeningOrdered By: Mona Dunne on 04-19-2023 Thin prep Papanicolaou smear with manual screening 26 U/L 15 [facility] Comment on above: Slight Hemolysis, Re sult may be falsely increased. Thin prep Papanicolaou smear with manual screening 9 5-15 [facility] .GFRon 03-08-2023 GFR 39 ml/min/1.73sqm Normal [facility] ([place]) Comment on above: Result Comment: GFR Population mean for , Non- Americans Ages 20-29 = 116 mL/min/1.73 sq.m. Ages 30-39 = 107 mL/min/1.73 sq.m. Ages 40-49 = 99 mL/min/1.73 sq.m. Ages 50-59 = 93 mL/min/1.73 sq.m. Ages 60-69 = 85 mL/min/1.73 sq.m. Ages 70+ = 75 mL/min/1.73 sq.m. Chronic Kidney Disease: Less than 60 mL/min/1.73 square meters End Stage Renal Disease: Less than 15 mL/min/1.73 square meters Performed By: #### F T3, FT4, GFR, LIPID, A1C, CMP, TSH #### [address] [address] GFR Non- 32 ml/min/1.73sqm Normal [facility] ([place]) Comment on above: Result Comment: GFR Population mean for , Non- Americans Ages 20-29 = 116 mL/min/1.73 sq.m. Ages 30-39 = 107 mL/min/1.73 sq.m. Ages 40-49 = 99 mL/min/1.73 sq.m. Ages 50-59 = 93 mL/min/1.73 sq.m. Ages 60-69 = 85 mL/min/1.73 sq.m. Ages 70+ = 75 mL/min/1.73 sq.m. Chronic Kidney Disease: Less than 60 mL/min/1.73 square meters End Stage Renal Disease: Less than 15 mL/min/1.73 square meters Performed By: #### F T3, FT4, GFR, LIPID, A1C, CMP, TSH #### [address] [address] A1Con 03-08-2023 HbA1c (Bld) [Mass fraction] 5.9 % Normal 4.3-6.4 [facility] ([place]) Comment on above: Performed By: #### F T3, FT4, GFR, LIPID, A1C, CMP, TSH #### [address] [address] CMPon 03-08-2023 Albumin Level 4.0 G/dL Normal 3.4-4.8 [facility] ([place]) Comment on above: Performed By: #### F T3, FT4, GFR, LIPID, A1C, CMP, TSH #### [address] [address] Albumin/Globulin [Mass ratio] 1.5 {ratio} Normal 1.1-2.5 [facility] ([place]) Comment on above: Performed By: #### F T3, FT4, GFR, LIPID, A1C, CMP, TSH #### [address] [address] ALP [Catalytic activity/Vol] 45 U/L Normal 40-135 [facility] ([place]) Comment on above: Performed By: #### F T3, FT4, GFR, LIPID, A1C, CMP, TSH #### [address] [address] ALT [Catalytic activity/Vol] 25 U/L Normal 14-59 [facility] ([place]) Comment on above: Performed By: #### F T3, FT4, GFR, LIPID, A1C, CMP, TSH #### [address] [address] AST [Catalytic activity/Vol] 19 U/L Normal 10-40 [facility] ([place]) Comment on above: Performed By: #### F T3, FT4, GFR, LIPID, A1C, CMP, TSH #### [address] [address] Bili Total 0.3 mg/dL Normal 0.2-1.0 [facility] ([place]) Comment on above: Result Comment: Use of this assay is not recommended for patients undergoing treatment with eltrombopag due to the potential for falsely elevated results. Performed By: #### F T3, FT4, GFR, LIPID, A1C, CMP, TSH #### [address] [address] BUN/Creatinine Ratio 22 ratio Normal 7-27 [facility] ([place]) Comment on above: Performed By: #### F T3, FT4, GFR, LIPID, A1C, CMP, TSH #### [address] [address] Calcium [Mass/Vol] 9.6 mg/dL Normal 8.4-10.2 [facility] ([place]) Comment on above: Performed By: #### F T3, FT4, GFR, LIPID, A1C, CMP, TSH #### [address] [address] Chloride [Moles/Vol] 105 mmol/L Normal 98-107 [facility] ([place]) Comment on above: Performed By: #### F T3, FT4, GFR, LIPID, A1C, CMP, TSH #### [address] [address] CO2 [Moles/Vol] 28 mmol/L Normal 23-31 [facility] ([place]) Comment on above: Performed By: #### F T3, FT4, GFR, LIPID, A1C, CMP, TSH #### [address] [address] Creatinine [Mass/Vol] 1.57 mg/dL High 0.55-1.02 [facility] ([place]) Comment on above: Performed By: #### F T3, FT4, GFR, LIPID, A1C, CMP, TSH #### [address] [address] Electrolyte Balance 7.0 mEq/L Normal 4.0-15.0 [facility] ([place]) Comment on above: Performed By: #### F T3, FT4, GFR, LIPID, A1C, CMP, TSH #### [address] [address] Globulin 2.7 G/dL Normal [facility] ([place]) Comment on above: Performed By: #### F T3, FT4, GFR, LIPID, A1C, CMP, TSH #### [address] [address] Glucose [Mass/Vol] 123 mg/dL High 83-110 [facility] ([place]) Comment on above: Performed By: #### F T3, FT4, GFR, LIPID, A1C, CMP, TSH #### [address] [address] Potassium [Moles/Vol] 4.4 mmol/L Normal 3.5-5.1 [facility] ([place]) Comment on above: Performed By: #### F T3, FT4, GFR, LIPID, A1C, CMP, TSH #### [address] [address] Sodium [Moles/Vol] 140 mmol/L Normal 136-145 [facility] ([place]) Comment on above: Performed By: #### F T3, FT4, GFR, LIPID, A1C, CMP, TSH #### [address] [address] Total Protein 6.7 G/dL Normal 6.4-8.2 [facility] ([place]) Comment on above: Performed By: #### F T3, FT4, GFR, LIPID, A1C, CMP, TSH #### [address] [address] Urea nitrogen [Mass/Vol] 34 mg/dL High 7-18 [facility] ([place]) Comment on above: Performed By: #### F T3, FT4, GFR, LIPID, A1C, CMP, TSH #### [address] [address] FT3on 03-08-2023 Free T3 [Mass/Vol] 2.30 pg/mL Normal 2.30-4.00 [facility] ([place] Comment on above: Performed By: #### F T3, FT4, GFR, LIPID, A1C, CMP, TSH #### [address] [place] [address] [place], [place] [address] FT4on 03-08-2023 Free T4 [Mass/Vol] 1.00 ng/dL Normal 0.76-1.46 [facility] ([place] Comment on above: Performed By: #### F T3, FT4, GFR, LIPID, A1C, CMP, TSH #### [address] [place] [address] [place], [place] [address] LABORATORYOrdered By: SYSTEM SYSTEM on 03-08-2023 Albumin BCP dye [Mass/Vol] 4.0 G/dL Invalid Interpretation Code 3.4 - 4.8 G/dL AO ADM SS Albumin/Globulin [Mass ratio] 1.5 {ratio} Invalid Interpretation Code 1.1 - 2.5 ratio AO ADM SS ALP [Catalytic activity/Vol] 45 U/L Invalid Interpretation Code 40 - 135 U/L AO ADM SS ALT With P-5'-P [Catalytic activity/Vol] 25 U/L Invalid Interpretation Code 14 - 59 U/L AO ADM SS AST With P-5'-P [Catalytic activity/Vol] 19 U/L Invalid Interpretation Code 10 - 40 U/L AO ADM SS Bilirubin [Mass/Vol] 0.3 mg/dL Invalid Interpretation Code 0.2 - 1.0 mg/dL AO ADM SS Calcium [Mass/Vol] 9.6 mg/dL Invalid Interpretation Code 8.4 - 10.2 mg/dL AO ADM SS Chloride [Moles/Vol] 105 mmol/L Invalid Interpretation Code 98 - 107 mmol/L AO ADM SS CO2 [Moles/Vol] 28 mmol/L Invalid Interpretation Code 23 - 31 mmol/L AO ADM SS Creatinine [Mass/Vol] 1.57 mg/dL Invalid Interpretation Code 0.55 - 1.02 mg/dL AO ADM SS Electrolyte Balance 7.0 mEq/L Invalid Interpretation Code 4.0 - 15.0 mEq/L AO ADM SS Free T3 [Mass/Vol] 2.30 pg/mL Invalid Interpretation Code 2.30 - 4.00 pg/mL AO ADM SS Free T4 [Mass/Vol] 1.00 ng/dL Invalid Interpretation Code 0.76 - 1.46 ng/dL AO ADM SS GFR/1.73 sq M.predicted among blacks MDRD (S/P/Bld) [Vol rate/Area] 39 ml/min/1.73sqm Invalid Interpretation Code AO Chemistry S GFR/1.73 sq M.predicted among non-blacks MDRD (S/P/Bld) [Vol rate/Area] 32 ml/min/1.73sqm Invalid Interpretation Code AO Chemistry S Globulin 2.7 G/dL Invalid Interpretation Code AO ADM SS Glucose [Mass/Vol] 123 mg/dL Invalid Interpretation Code 83 - 110 mg/dL AO ADM SS HbA1c (Bld) [Mass fraction] 5.9 % Invalid Interpretation Code 4.3 - 6.4 % AO ADM SS Potassium [Moles/Vol] 4.4 mmol/L Invalid Interpretation Code 3.5 - 5.1 mmol/L AO ADM SS Protein [Mass/Vol] 6.7 G/dL Invalid Interpretation Code 6.4 - 8.2 G/dL AO ADM SS Sodium [Moles/Vol] 140 mmol/L Invalid Interpretation Code 136 - 145 mmol/L AO ADM SS TSH Qn 2.26 m[IU]/L Invalid Interpretation Code 0.36 - 3.74 mcIU/mL AO ADM SS Urea nitrogen [Mass/Vol] 34 mg/dL Invalid Interpretation Code 7 - 18 mg/dL AO ADM SS Urea nitrogen/Creatinine [Mass ratio] 22 ratio Invalid Interpretation Code 7 - 27 ratio AO ADM SS LABORATORYOrdered By: Mariel Alarcon on 03-08-2023 Cholesterol [Mass/Vol] 205 mg/dL Invalid Interpretation Code 0 - 200 mg/dL AO ADM SS Cholesterol in HDL [Mass/Vol] 54 mg/dL Invalid Interpretation Code 40 - 60 mg/dL AO ADM SS Cholesterol in LDL [Mass/Vol] 128 mg/dL Invalid Interpretation Code 0 - 130 mg/dL AO ADM SS Triglyceride [Mass/Vol] 117 mg/dL Invalid Interpretation Code 0 - 150 mg/dL AO ADM SS LIPIDon 03-08-2023 Cholesterol [Mass/Vol] 205 mg/dL High 0-200 [facility] ([place]) Comment on above: Result Comment: Chol esterol Reference Interval: Less than 200 Desirable 200-239 Borderline high risk 240 and above High risk Performed By: #### F T3, FT4, GFR, LIPID, A1C, CMP, TSH #### [address] [address] Cholesterol in HDL [Mass/Vol] 54 mg/dL Normal 40-60 [facility] ([place]) Comment on above: Performed By: #### F T3, FT4, GFR, LIPID, A1C, CMP, TSH #### [place] [id number] [place], [place] [address] Cholesterol in LDL [Mass/Vol] 128 mg/dL Normal 0-130 [facility] ([place]) Comment on above: Performed By: #### F T3, FT4, GFR, LIPID, A1C, CMP, TSH #### [address] [address] Triglyceride [Mass/Vol] 117 mg/dL Normal 0-150 [facility] ([place]) Comment on above: Result Comment: Trig lyceride Reference Interval: Less than 150 Normal 150-199 Borderline high risk 200-499 High risk 500 or higher Very high risk Performed By: #### F T3, FT4, GFR, LIPID, A1C, CMP, TSH #### [address] [address] TSHon 03-08-2023 TSH Qn 2.26 m[IU]/L Normal 0.36-3.74 [facility] ([place]) Comment on above: Performed By: #### F T3, FT4, GFR, LIPID, A1C, CMP, TSH #### [address] [address] Basophil percentageOrdered B y: Rich Gerald on 02-09-2023 Bilirubin [Mass/Vol] 0.50 mg/dL 0.20-1.00 [facility] Comment on above: For patients on eltr ombopag therapy, use of Dimension [place] TBIL is not recommended. Chloride [Moles/Vol] 107 mmol/L 98-107 [facility] Cholesterol [Mass/Vol] 211 mg/dL <200 [facility] Comment on above: <200 mg/dL Desirable 200-240 mg/dL Borderline >240 mg/dL High Risk Glucose [Mass/Vol] 111 mg/dL 74-106 [facility] Comment on above: Fasting Glucose resu lt from 100 to 125 mg/dL suggests IMPAIRED HOMEOSTASIS per A.D.A. criteria. Potassium [Moles/Vol] 4.3 mmol/L 3.5-5.1 [facility] Protein [Mass/Vol] 7.5 g/dL 6.4-8.2 [facility] Sodium [Moles/Vol] 138 mmol/L 136-145 [facility] Triglyceride [Mass/Vol] 170 mg/dL <199 [facility] Comment on above: The drugs N-Acetylcy steine and Metamizole may falsely depress this assay.Serum Triglycerides Reference Interval Normal <150 mg/dL Borderline high 150 - 199 mg/dL High 200 - 499 mg/dL Very High > or = 500 mg/dL Direct bilirubinOrdered By: Rich Duarte on 02-09-2023 Bilirubin.direct [Mass/Vol] 0.11 mg/dL 0.00-0.30 [facility] Laboratory - Chemistry and C hemistry - challengeOrdered By: Rich Duarte on 02-09-2023 ALP [Catalytic activity/Vol] 48 U/L 45-117 [facility] ALT [Catalytic activity/Vol] 25 U/L 13-56 [facility] CO2 [Moles/Vol] 25.0 mmol/L 21.0-32.0 [facility] Globulin (S) [Mass/Vol] 3.6 g/dL 2.2-4.2 [facility] Urea nitrogen/Creatinine [Mass ratio] 18.9 mg/mg 10-20 [facility] No Panel InformationOrdered By: Rcih Duarte on 02-09-2023 Estimated GFR (MDRD) Amer 44 mL/min >60 [facility] Comment on above: GFR Calc Estimated GFR (MDRD) Non-Af Amer 37 mL/min >60 [facility] Comment on above: Non- GFR Calc Serum or plasma albumin carole urement (mass/volume)Ordered By: Rich Duarte on 02-09-2023 Albumin [Mass/Vol] 3.9 g/dL 3.2-5.0 [facility] Serum or plasma calcium carole urement (mass/volume)Ordered By: Rich Duarte on 02-09-2023 Calcium [Mass/Vol] 9.0 mg/dL 8.5-10.1 [facility] Serum or plasma cholesterol in HDL measurement (mass/volume)Ordered By: Rich Duarte on 02-09-2023 Cholesterol in HDL [Mass/Vol] 63 mg/dL >40 [facility] Comment on above: The drugs N-Acetylcy steine and Metamizole may falsely depress this assay. Reference Range HDL <40 mg/dL Low HDL Cholesterol HDL >or= 60 mg/dL High HDL Cholesterol Serum or plasma cholesterol in VLDL measurement (mass/volume)Ordered By: Rich Duarte on 02-09-2023 Cholesterol in VLDL [Mass/Vol] 34 mg/dL 5-40 [facility] Serum or plasma creatinine m easurement (mass/volume)Ordered By: Rich Duarte on 02-09-2023 Creatinine [Mass/Vol] 1.48 mg/dL 0.55-1.02 [facility] Comment on above: The validity of the calculated GFR & GFRAA in patients over 70 years has not been determined. Clinical correlation is essential. Serum or plasma low density lipoprotein (LDL) cholesterol measurement (mass/volume)Ordered By: Rich Duarte on 02-09-2023 Cholesterol in LDL [Mass/Vol] 114 mg/dL 0-130 [facility] Serum or plasma urea nitroge n measurement (mass/volume)Ordered By: Rich Duarte on 02-09-2023 Urea nitrogen [Mass/Vol] 28 mg/dL 7-18 [facility] Thin prep Papanicolaou smear with manual screeningOrdered By: Rich Duarte on 02-09-2023 Thin prep Papanicolaou smear with manual screening 23 U/L 15-37 [facility] Thin prep Papanicolaou smear with manual screening 6 5-15 [facility] Basophil percentageOrdered B y: Dr. Duarte on 12-01-2022 Bilirubin [Mass/Vol] 0.40 mg/dL 0.20-1.00 [facility] Comment on above: For patients on eltr ombopag therapy, use of Dimension [place] TBIL is not recommended. Cholesterol [Mass/Vol] 211 mg/dL <200 [facility] Comment on above: <200 mg/dL Desirable 200-240 mg/dL Borderline >240 mg/dL High Risk Protein [Mass/Vol] 7.5 g/dL 6.4-8.2 [facility] Triglyceride [Mass/Vol] 162 mg/dL <199 [facility] Comment on above: The drugs N-Acetylcy steine and Metamizole may falsely depress this assay.Serum Triglycerides Reference Interval Normal <150 mg/dL Borderline high 150 - 199 mg/dL High 200 - 499 mg/dL Very High > or = 500 mg/dL Direct bilirubinOrdered By: Dr. Duarte on 12-01-2022 Bilirubin.direct [Mass/Vol] 0.11 mg/dL 0.00-0.30 [facility] Laboratory - Chemistry and C hemistry - challengeOrdered By: Dr. Duarte on 12-01-2022 ALP [Catalytic activity/Vol] 42 U/L 45-117 [facility] ALT [Catalytic activity/Vol] 27 U/L 13-56 [facility] Globulin (S) [Mass/Vol] 3.3 g/dL 2.2-4.2 [facility] Serum or plasma albumin carole urement (mass/volume)Ordered By: Dr. Duarte on 12-01-2022 Albumin [Mass/Vol] 4.2 g/dL 3.2-5.0 [facility] Serum or plasma cholesterol in HDL measurement (mass/volume)Ordered By: Dr. Duarte on 12-01-2022 Cholesterol in HDL [Mass/Vol] 52 mg/dL >40 [facility] Comment on above: The drugs N-Acetylcy steine and Metamizole may falsely depress this assay. Reference Range HDL <40 mg/dL Low HDL Cholesterol HDL >or= 60 mg/dL High HDL Cholesterol Serum or plasma cholesterol in VLDL measurement (mass/volume)Ordered By: Dr. Duarte on 12-01-2022 Cholesterol in VLDL [Mass/Vol] 32 mg/dL 5-40 [facility] Serum or plasma low density lipoprotein (LDL) cholesterol measurement (mass/volume)Ordered By: Dr. Duarte on 12-01-2022 Cholesterol in LDL [Mass/Vol] 127 mg/dL 0-130 [facility] Thin prep Papanicolaou smear with manual screeningOrdered By: Dr. Duarte on 12-01-2022 Thin prep Papanicolaou smear with manual screening 22 U/L 15-37 [facility] Basophil percentageon 10-19- 2022 Chloride [Moles/Vol] 108 mmol/L 98-107 [facility] Work Phone: Glucose [Mass/Vol] 116 mg/dL 74-106 [facility] Work Phone: Comment on above: Fasting Glucose resu lt from 100 to 125 mg/dL suggests IMPAIRED HOMEOSTASIS per A.D.A. criteria. Potassium [Moles/Vol] 4.0 mmol/L 3.5-5.1 [facility] Work Phone: Sodium [Moles/Vol] 141 mmol/L 136-145 [facility] Work Phone: Laboratory - Chemistry and C hemistry - challengeon 07-05-2022 CO2 [Moles/Vol] 27.0 mmol/L 21.0-32.0 [facility] Work Phone: Magnesium [Mass/Vol] 2.0 mg/dL 1.6-2.6 [facility] Work Phone: Natriuretic peptide B (Bld) [Mass/Vol] 28.7 pg/mL 0-100 [facility] Work Phone: Urea nitrogen/Creatinine [Mass ratio] 11.6 mg/mg 10-20 [facility] Work Phone: No Panel Informationon 07-05 Estimated GFR (MDRD) Amer 52 mL/min >60 [facility] Work Phone: Comment on above: GFR Calc Estimated GFR (MDRD) Non-Af Amer 43 mL/min >60 [facility] Work Phone: Comment on above: Non- GFR Calc Serum or plasma calcium carole urement (mass/volume)on 07-05-2022 Calcium [Mass/Vol] 9.6 mg/dL 8.5-10.1 [facility] Work Phone: Serum or plasma creatinine m easurement (mass/volume)on 07-05-2022 Creatinine [Mass/Vol] 1.29 mg/dL 0.55-1.02 [facility] Work Phone: Comment on above: The validity of the calculated GFR & GFRAA in patients over 70 years has not been determined. Clinical correlation is essential. Serum or plasma urea nitroge n measurement (mass/volume)on 07-05-2022 Urea nitrogen [Mass/Vol] 15 mg/dL 7-18 [facility] Work Phone: Thin prep Papanicolaou smear with manual screeningon 07-05-2022 Thin prep Papanicolaou smear with manual screening 6 5-15 [facility] Work Phone: Basophil percentageon 2021 Bilirubin [Mass/Vol] 0.60 mg/dL 0.20-1.00 [facility] Work Phone: Comment on above: For patients on eltr ombopag therapy, use of Dimension [place] TBIL is not recommended. Chloride [Moles/Vol] 104 mmol/L 98-107 [facility] Work Phone: Cholesterol [Mass/Vol] 157 mg/dL <200 [facility] Work Phone: Comment on above: <200 mg/dL Desirable 200-240 mg/dL Borderline >240 mg/dL High Risk Glucose [Mass/Vol] 113 mg/dL 74-106 [facility] Work Phone: Comment on above: Fasting Glucose resu lt from 100 to 125 mg/dL suggests IMPAIRED HOMEOSTASIS per A.D.A. criteria. Potassium [Moles/Vol] 4.0 mmol/L 3.5-5.1 [facility] Work Phone: Protein [Mass/Vol] 7.0 g/dL 6.4-8.2 [facility] Work Phone: Sodium [Moles/Vol] 140 mmol/L 136-145 [facility] Work Phone: Triglyceride [Mass/Vol] 166 mg/dL <199 [facility] Work Phone: Comment on above: The drugs N-Acetylcy steine and Metamizole may falsely depress this assay.Serum Triglycerides Reference Interval Normal <150 mg/dL Borderline high 150 - 199 mg/dL High 200 - 499 mg/dL Very High > or = 500 mg/dL Direct bilirubinon 2 Bilirubin.direct [Mass/Vol] 0.12 mg/dL 0.00-0.30 [facility] Work Phone: Laboratory - Chemistry and C hemistry - challengeon 06-01-2022 ALP [Catalytic activity/Vol] 42 U/L 45-117 [facility] Work Phone: ALT [Catalytic activity/Vol] 31 U/L 13-56 [facility] Work Phone: CO2 [Moles/Vol] 29.0 mmol/L 21.0-32.0 [facility] Work Phone: Globulin (S) [Mass/Vol] 3.3 g/dL 2.2-4.2 [facility] Work Phone: Urea nitrogen/Creatinine [Mass ratio] 17.6 mg/mg 10-20 [facility] Work Phone: No Panel Informationon 06-01 Estimated GFR (MDRD) Amer 51 mL/min >60 [facility] Work Phone: Comment on above: GFR Calc Estimated GFR (MDRD) Non-Af Amer 42 mL/min >60 [facility] Work Phone: Comment on above: Non- GFR Calc Serum or plasma albumin carole urement (mass/volume)on 06-01-2022 Albumin [Mass/Vol] 3.7 g/dL 3.2-5.0 [facility] Work Phone: Serum or plasma calcium carole urement (mass/volume)on 06-01-2022 Calcium [Mass/Vol] 9.5 mg/dL 8.5-10.1 [facility] Work Phone: Serum or plasma cholesterol in HDL measurement (mass/volume)on 06-01-2022 Cholesterol in HDL [Mass/Vol] 52 mg/dL >40 [facility] Work Phone: Comment on above: The drugs N-Acetylcy steine and Metamizole may falsely depress this assay. Reference Range HDL <40 mg/dL Low HDL Cholesterol HDL >or= 60 mg/dL High HDL Cholesterol Serum or plasma cholesterol in VLDL measurement (mass/volume)on 06-01-2022 Cholesterol in VLDL [Mass/Vol] 33 mg/dL 5-40 [facility] Work Phone: Serum or plasma creatinine m easurement (mass/volume)on 06-01-2022 Creatinine [Mass/Vol] 1.31 mg/dL 0.55-1.02 [facility] Work Phone: Comment on above: The validity of the calculated GFR & GFRAA in patients over 70 years has not been determined. Clinical correlation is essential. Serum or plasma low density lipoprotein (LDL) cholesterol measurement (mass/volume)on 06-01-2022 Cholesterol in LDL [Mass/Vol] 72 mg/dL 0-130 [facility] Work Phone: Serum or plasma urea nitroge n measurement (mass/volume)on 06-01-2022 Urea nitrogen [Mass/Vol] 23 mg/dL 7-18 [facility] Work Phone: Thin prep Papanicolaou smear with manual screeningon 06-01-2022 Thin prep Papanicolaou smear with manual screening 21 U/L 15-37 [facility] Work Phone: Thin prep Papanicolaou smear with manual screening 7 5-15 [facility] Work Phone: Basophil percentageon 2021 Basophil percentage < 0.9 mg/dL 0.55-1.02 [facility] Work Phone: No Panel Informationon 04-10 Bedside Estimated GFR (eGFR) > 60.0000 mL/min >60 [facility] Work Phone: Serum or plasma gastrin carole urement (mass/volume)on 02-27-2022 Gastrin [Mass/Vol] < 10 pg/mL 0-115 [facility] Work Phone: Comment on above: Siemens Immulite 200 0 Immunochemiluminometric assay (ICMA)Values obtained with different assay methods or kits cannotbe used interchangeably. Results cannot be interpreted asabsolute evidence of the presence or absence of malignantdisease.Performed at: [facility] Lab[address] [id number] Director: Francesco Teresa MD, Phone: [phone] LABORATORYOrdered By: Mariel Alarcon on 12-27-2021 Albumin BCP dye [Mass/Vol] 3.9 G/dL Invalid Interpretation Code 3.4 - 4.8 G/dL AO ADM SS Albumin/Globulin [Mass ratio] 1.2 {ratio} Invalid Interpretation Code 1.1 - 2.5 ratio AO ADM SS ALP [Catalytic activity/Vol] 32 U/L Invalid Interpretation Code 40 - 135 U/L AO ADM SS ALT With P-5'-P [Catalytic activity/Vol] 32 U/L Invalid Interpretation Code 14 - 59 U/L AO ADM SS AST With P-5'-P [Catalytic activity/Vol] 15 U/L Invalid Interpretation Code 10 - 40 U/L AO ADM SS Bilirubin [Mass/Vol] 0.7 mg/dL Invalid Interpretation Code 0.2 - 1.0 mg/dL AO ADM SS Calcium [Mass/Vol] 9.5 mg/dL Invalid Interpretation Code 8.4 - 10.2 mg/dL AO ADM SS Chloride [Moles/Vol] 101 mmol/L Invalid Interpretation Code 98 - 107 mmol/L AO ADM SS Cholesterol [Mass/Vol] 225 mg/dL Invalid Interpretation Code 0 - 200 mg/dL AO ADM SS Cholesterol in HDL [Mass/Vol] 55 mg/dL Invalid Interpretation Code 40 - 60 mg/dL AO ADM SS Cholesterol in LDL [Mass/Vol] 146 mg/dL Invalid Interpretation Code 0 - 130 mg/dL AO ADM SS CO2 [Moles/Vol] 26 mmol/L Invalid Interpretation Code 23 - 31 mmol/L AO ADM SS Creatinine [Mass/Vol] 1.26 mg/dL Invalid Interpretation Code 0.55 - 1.02 mg/dL AO ADM SS Electrolyte Balance 13.0 mEq/L Invalid Interpretation Code 4.0 - 15.0 mEq/L AO ADM SS Free T3 [Mass/Vol] 2.54 pg/mL Invalid Interpretation Code 2.30 - 4.00 pg/mL AO ADM SS Free T4 [Mass/Vol] 1.63 ng/dL Invalid Interpretation Code 0.76 - 1.46 ng/dL AO ADM SS Globulin 3.3 G/dL Invalid Interpretation Code AO ADM SS Glucose [Mass/Vol] 130 mg/dL Invalid Interpretation Code 83 - 110 mg/dL AO ADM SS Potassium [Moles/Vol] 3.8 mmol/L Invalid Interpretation Code 3.5 - 5.1 mmol/L AO ADM SS Protein [Mass/Vol] 7.2 G/dL Invalid Interpretation Code 6.4 - 8.2 G/dL AO ADM SS Sodium [Moles/Vol] 140 mmol/L Invalid Interpretation Code 136 - 145 mmol/L AO ADM SS Triglyceride [Mass/Vol] 121 mg/dL Invalid Interpretation Code 0 - 150 mg/dL AO ADM SS TSH Qn 0.18 m[IU]/L Invalid Interpretation Code 0.36 - 3.74 mcIU/mL AO ADM SS Urea nitrogen [Mass/Vol] 23 mg/dL Invalid Interpretation Code 7 - 18 mg/dL AO ADM SS Urea nitrogen/Creatinine [Mass ratio] 18 ratio Invalid Interpretation Code 7 - 27 ratio AO ADM SS Vit. D 25-Hydroxy 44.6 ng/mL Invalid Interpretation Code AO ADM SS LABORATORYOrdered By: SYSTEM SYSTEM on 12-27-2021 GFR 50 ml/min/1.73sqm Invalid Interpretation Code AO Chemistry S GFR Non- 42 ml/min/1.73sqm Invalid Interpretation Code AO Chemistry S LABORATORYOrdered By: Singh Magana on 12-27-2021 HbA1c (Bld) [Mass fraction] 6.0 % Invalid Interpretation Code 4.3 - 6.4 % AO ADM SS Glucose Glucometer (BldC) [M ass/Vol]on 11-28-2021 Glucose [Mass/Vol] 128 mg/dL 74-106 [facility] Work Phone: Comment on above: MANAGEMENT OF PATIEN T CARE PER NURSING PROTOCOL Absolute lymphocyte counton 11-23-2021 Lymphocytes Auto (Unsp spec) [#/Vol] 3.75 10*3/uL 0.83-4.51 [facility] Work Phone: Basophil percentageon 2021 Basophils/100 WBC (Bld) 0.6 % 0-1 [facility] Work Phone: [phone] Eosinophils/100 WBC (Bld) 1.9 % 0-5 [facility] Work Phone: [phone] Neutrophils (Bld) [#/Vol] 3.7 10*3/uL 2.0-7.7 [facility] Work Phone: [phone] Neutrophils/100 WBC (Bld) 43.8 % 47-70 [facility] Work Phone: WBC (Bld) [#/Vol] 8.4 10*3/uL 4.4-11.0 [facility] Work Phone: Blood erythrocytes count (nu mber/volume)on 11-23-2021 RBC (Bld) [#/Vol] 4.64 10*6/uL 4.2-5.4 [facility] Work Phone: Blood hemoglobin measurement (mass/volume)on 11-23-2021 Hemoglobin (Bld) [Mass/Vol] 13.5 g/dL 12.0-15.0 [facility] Work Phone: Blood lymphocytes/100 leukoc yteson 11-23-2021 Lymphocytes/100 WBC (Bld) 44.7 % 19-41 [facility] Work Phone: Blood monocytes/100 leukocyt eson 11-23-2021 Monocytes/100 WBC (Bld) 8.8 % 0-10 [facility] Work Phone: Blood platelet mean volumeon 11-23-2021 Platelet mean volume (Bld) [Entitic vol] 9.7 fL 6.2-12.0 [facility] Work Phone: Determination of erythrocyte mean corpuscular volume (MCV)on 11-23-2021 MCV (RBC) [Entitic vol] 87.3 fL 81-99 [facility] Work Phone: HIV 1 and HIV-2 antibody ass ay with HIV-1 p24 antigen detectionon 11-23-2021 HIV 1+2 Ab+HIV1 p24 Ag IA Ql Non-Reactive Nonreactive [facility] Work Phone: Hematocrit Auto (Bld) [Volum e fraction]on 11-23-2021 Hematocrit (Bld) [Volume fraction] 40.5 % 37-47 [facility] Work Phone: Laboratory - Hematology and Cell countson 11-23-2021 Erythrocyte distribution width (RBC) [Entitic vol] 42.7 fL 35.1-43.9 [facility] Work Phone: Erythrocyte distribution width (RBC) [Ratio] 13.4 % 11.6-14.6 [facility] Work Phone: Immature granulocytes/100 WBC (Bld) 0.200 % 0.0-0.9 [facility] Work Phone: Comment on above: IG% - Immature Granu locytes (promyelocytes, myelocytes and metamyelocytes) > 1% indicates that a LEFT SHIFT is Present. MCH (RBC) [Entitic mass] 29.1 pg 27.0-32.0 [facility] Work Phone: Nucleated RBC/100 WBC (Bld) [Ratio] 0 % 0-5 [facility] Work Phone: MCHC Auto (RBC) [Mass/Vol]on 11-23-2021 MCHC (RBC) [Mass/Vol] 33.3 g/dL 32-36 [facility] Work Phone: Platelets bldon 11-23-2021 Platelets (Bld) [#/Vol] 293 10*3/uL 150-450 [facility] Work Phone: Whole blood hemoglobin A1c/t otal hemoglobin ratio (mass fraction)on 11-23-2021 HbA1c (Bld) [Mass fraction] 5.8 % 3.8-5.6 [facility] Work Phone: Comment on above: Normal < 5.7 % Predi abetic 5.7 - 6.4 % Diabetic >or= 6.5 % Please note range changes. Vital Signs Date Time Vital Sign Value Performing Clinician Faci lity 04-22-2025 14:49-0400 Body height 154.[address] Jaclyn Webster DO Work Phone: [facility] 12-24-2024 13:37-0400 Body height 154.[address] Jaclyn Webster DO Work Phone: [facility] 12-24-2024 13:37-0400 Body mass index (BMI) [Ratio] 31 kg/m2 Dr. Jaclyn Webster DO Work Phone: [facility] 12-24-2024 13:37-0400 Body weight 74.[address] Jaclyn Webster DO Work Phone: [facility] 12-24-2024 13:37-0400 Diastolic blood pressure 62 mm[Hg] Dr. Jalcyn Webster DO Work Phone: [facility] 12-24-2024 13:37-0400 Heart rate 69 /min Dr. Jaclyn Webster DO Work Phone: [facility] 12-24-2024 13:37-0400 Respiratory rate 16 /min Dr. Jaclyn Webster DO Work Phone: [facility] 12-24-2024 13:37-0400 SaO2% (BldA) [Mass fraction] 98 % Dr. Jaclyn Webster DO Work Phone: [facility] 12-24-2024 13:37-0400 Systolic blood pressure 119 mm[Hg] Dr. Jaclyn Webster DO Work Phone: [facility] 12-27-2023 07:54-0400 Body height 154.[address] Jaclyn Webster Work Phone: [facility] 12-27-2023 07:54-0400 Body weight 75.[address] Jaclyn Webster Work Phone: [facility] 12-27-2023 07:44-0400 Body mass index (BMI) [Ratio] 31.4 kg/m2 Dr. Jaclyn Webster Work Phone: [facility] 12-26-2023 14:28-0400 Body weight 76.[address] Jaclyn Webster Work Phone: [facility] 12-26-2023 14:17-0400 Body mass index (BMI) [Ratio] 31.7 kg/m2 Dr. Jaclyn Webster Work Phone: [facility] 12-06-2023 13:18-0400 Body weight 76.2 kg Mayela Navarro MD Work Phone: [facility] 12-06-2023 13:18-0400 Diastolic blood pressure 62 mm[Hg] Mayela Navarro MD Work Phone: [facility] 12-06-2023 13:18-0400 Systolic blood pressure 122 mm[Hg] Mayela Navarro MD Work Phone: [facility] 11-02-2023 15:10-0500 Body weight 75.3 kg Mayela Navarro MD Work Phone: [facility] 11-02-2023 15:10-0500 Diastolic blood pressure 62 mm[Hg] Mayela Navarro MD Work Phone: [facility] 11-02-2023 15:10-0500 Systolic blood pressure 136 mm[Hg] Mayela Navarro MD Work Phone: [facility] 10-25-2023 14:22-0500 Body temperature 97.5 [degF] Dr. Jaclyn Webster Work Phone: [facility] 10-25-2023 14:22-0500 Body weight 75.[address] Jaclyn Webster Work Phone: [facility] 10-25-2023 14:22-0500 Diastolic blood pressure 67 mm[Hg] Dr. Jaclyn Webster Work Phone: [facility] 10-25-2023 14:22-0500 Heart rate 74 /min Dr. Jaclyn Webster Work Phone: [facility] 10-25-2023 14:22-0500 Respiratory rate 16 /min Dr. Jaclyn Webster Work Phone: [facility] 10-25-2023 14:22-0500 SaO2% (BldA) [Mass fraction] 97 % Dr. Jaclyn Webster Work Phone: [facility] 10-25-2023 14:22-0500 Systolic blood pressure 134 mm[Hg] Dr. Jaclyn Webster Work Phone: [facility] 05-22-2023 12:53-0400 Body temperature 98.2 [degF] Dr. Jaclyn Webster Work Phone: [facility] 05-22-2023 12:53-0400 Diastolic blood pressure 45 mm[Hg] Dr. Jaclyn Webster Work Phone: [facility] 05-22-2023 12:53-0400 Heart rate 85 /min Dr. Jaclyn Webster Work Phone: [facility] 05-22-2023 12:53-0400 Respiratory rate 18 /min Dr. Jaclyn Webster Work Phone: [facility] 05-22-2023 12:53-0400 SaO2% (BldA) [Mass fraction] 93 % Dr. Jaclyn Webster Work Phone: [facility] 05-22-2023 12:53-0400 Systolic blood pressure 105 mm[Hg] Dr. Jaclyn Webster Work Phone: [facility] 05-22-2023 10:15-0400 Inhaled oxygen flow rate 2 L/min Dr. Jaclyn Webster Work Phone: [facility] 05-22-2023 06:54-0400 Body height 154.[address] Jaclyn Webster Work Phone: [facility] 05-22-2023 06:54-0400 Body mass index (BMI) [Ratio] 31.6 kg/m2 Dr. Jaclyn Webster Work Phone: [facility] 05-22-2023 06:54-0400 Body weight 76.[address] Jaclyn Webster Work Phone: [facility] 05-15-2023 15:03-0400 Body mass index (BMI) [Ratio] 32.2 kg/m2 Dr. Jaclyn Webster Work Phone: [facility] 05-15-2023 15:03-0400 Body weight 74.[address] Jaclyn Webster Work Phone: [facility] 05-15-2023 15:03-0400 Diastolic blood pressure 68 mm[Hg] Dr. Jaclyn Webster Work Phone: [facility] 05-15-2023 15:03-0400 Respiratory rate 16 /min Dr. Jaclyn Webster Work Phone: [facility] 05-15-2023 15:03-0400 Systolic blood pressure 114 mm[Hg] Dr. Jaclyn Webster Work Phone: [facility] 04-19-2023 23:25-0400 Heart rate 70 /min [facility] 04-19-2023 23:25-0400 Respiratory rate 15 /min [facility] 04-19-2023 23:25-0400 SaO2% (BldA) [Mass fraction] 99 % [facility] 04-19-2023 21:55-0400 Body mass index (BMI) [Ratio] 33.3 kg/m2 [facility] 04-19-2023 21:55-0400 Body weight 77.36 kg [facility] 04-19-2023 21:29-0400 Body height 152.4 cm [facility] 04-19-2023 21:29-0400 Body temperature 97.6 [degF] [facility] 04-19-2023 21:29-0400 Diastolic blood pressure 70 mm[Hg] [facility] 04-19-2023 21:29-0400 Systolic blood pressure 133 mm[Hg] [facility] 06-01-2022 11:46-0400 Body height 154.[address] Jaclyn Webster Work Phone: [facility] Work Phone: 06-01-2022 11:46-0400 Body mass index (BMI) [Ratio] 31.1 kg/m2 Dr. Jaclyn Webster Work Phone: [facility] Work Phone: 06-01-2022 11:46-0400 Body weight 74.[address] Jaclyn Webster Work Phone: [facility] Work Phone: 06-01-2022 11:46-0400 Heart rate 72 /min Dr. Jaclyn Webster Work Phone: [facility] Work Phone: 06-01-2022 11:46-0400 Respiratory rate 16 /min Dr. Jaclyn Webster Work Phone: [facility] Work Phone: 06-01-2022 11:46-0400 SaO2% (BldA) [Mass fraction] 95 % Dr. Jaclyn Webster Work Phone: [facility] Work Phone: 04-11-2022 07:52-0400 Body height 154.[address] Jaclyn Webster Work Phone: [facility] Work Phone: 04-11-2022 07:47-0400 Body mass index (BMI) [Ratio] 31.4 kg/m2 Dr. Jaclyn Webster Work Phone: [facility] Work Phone: 04-11-2022 07:47-0400 Body temperature 96.8 [degF] Dr. Jaclyn Webster Work Phone: [facility] Work Phone: 04-11-2022 07:47-0400 Body weight 75.[address] Jaclyn Webster Work Phone: [facility] Work Phone: 04-11-2022 07:47-0400 Diastolic blood pressure 65 mm[Hg] Dr. Jaclyn Webster Work Phone: [facility] Work Phone: 04-11-2022 07:47-0400 Heart rate 72 /min Dr. Jaclyn Webster Work Phone: [facility] Work Phone: 04-11-2022 07:47-0400 Respiratory rate 16 /min Dr. Jaclyn Webster Work Phone: [facility] Work Phone: 04-11-2022 07:47-0400 SaO2% (BldA) [Mass fraction] 95 % Dr. Jaclyn Webster Work Phone: [facility] Work Phone: 04-11-2022 07:47-0400 Systolic blood pressure 121 mm[Hg] Dr. Jaclyn Webster Work Phone: [facility] Work Phone: 02-27-2022 11:37-0400 Body height 154.[address] Jaclyn Webster Work Phone: [facility] Work Phone: 02-27-2022 11:37-0400 Body mass index (BMI) [Ratio] 31.1 kg/m2 Dr. Jaclyn Webster Work Phone: [facility] Work Phone: 02-27-2022 11:37-0400 Body weight 74.[address] Jaclyn Webster Work Phone: [facility] Work Phone: 02-27-2022 11:37-0400 Diastolic blood pressure 71 mm[Hg] Dr. Jaclyn Webster Work Phone: [facility] Work Phone: 02-27-2022 11:37-0400 Heart rate 67 /min Dr. Jaclyn Webster Work Phone: [facility] Work Phone: 02-27-2022 11:37-0400 SaO2% (BldA) [Mass fraction] 98 % Dr. Jaclyn Webster Work Phone: [facility] Work Phone: 02-27-2022 11:37-0400 Systolic blood pressure 142 mm[Hg] Dr. Jaclyn Webster Work Phone: [facility] Work Phone: 01-02-2022 09:38-0400 Body mass index (BMI) [Ratio] 30.6 kg/m2 Dr. Jaclyn Webster Work Phone: [facility] Work Phone: 01-02-2022 09:38-0400 Body weight 73.[address] Jaclyn Webster Work Phone: [facility] Work Phone: 01-02-2022 09:38-0400 Diastolic blood pressure 64 mm[Hg] Dr. Jaclyn Webster Work Phone: [facility] Work Phone: 01-02-2022 09:38-0400 Heart rate 70 /min Dr. Jaclyn Webster Work Phone: [facility] Work Phone: 01-02-2022 09:38-0400 SaO2% (BldA) [Mass fraction] 98 % Dr. Jaclyn Webster Work Phone: [facility] Work Phone: 01-02-2022 09:38-0400 Systolic blood pressure 135 mm[Hg] Dr. Jaclyn Webster Work Phone: [facility] Work Phone: 11-28-2021 13:20-0400 Body temperature 97.5 [degF] Dr. Jaclyn Webster Work Phone: [facility] Work Phone: 11-28-2021 13:20-0400 Diastolic blood pressure 45 mm[Hg] Dr. Jaclyn Webster Work Phone: [facility] Work Phone: 11-28-2021 13:20-0400 Heart rate 54 /min Dr. Jaclyn Webster Work Phone: [facility] Work Phone: 11-28-2021 13:20-0400 Respiratory rate 14 /min Dr. Jaclyn Webster Work Phone: [facility] Work Phone: 11-28-2021 13:20-0400 SaO2% (BldA) [Mass fraction] 100 % Dr. Jaclyn Webster Work Phone: [facility] Work Phone: 11-28-2021 13:20-0400 Systolic blood pressure 94 mm[Hg] Dr. Jaclyn Webster Work Phone: [facility] Work Phone: 11-28-2021 12:08-0400 Body mass index (BMI) [Ratio] 29.9 kg/m2 Dr. Jaclyn Webster Work Phone: [facility] Work Phone: 11-28-2021 12:08-0400 Body weight [address] Jaclyn Webster Work Phone: [facility] Work Phone: Encounters Encounter Date Encounter Type Care Provider Facility Start: 05-20-2025 ambulatory Jaclyn Webster Facility:[facility] Start: 05-06-2025 End: 05-06-[address] Jaclyn Webster DO Work Phone: -Outpatient Bone Densitometry Start: 05-06-2025 End: 05-06-[address] Jaclyn Webster DO -Outpatient Bone Densitometry Work Phone: Start: 05-06-2025 End: 05-06-2025 ambulatory Jaclyn Malcedric Facility:[facility] Start: 04-22-2025 End: 04-22-[address] Jaclyn Webster DO Work Phone: -Outpatient Bone Densitometry Start: 04-22-2025 End: 04-22-[address] Jaclyn Webster DO -Outpatient Bone Densitometry Work Phone: Start: 04-22-2025 End: 04-22-2025 [facility] Start: 04-01-2025 End: 04-01-2025 Patient encounter procedure Lily WILLSON -[facility] Work Phone: Start: 04-01-2025 End: 04-01-[address] Jaclyn Webster DO Work Phone: -[facility] Start: 03-16-2025 End: 03-16-[address] Jaclyn Webster DO Work Phone: -Laboratory [facility] Start: 03-16-2025 End: 03-16-[address] Jaclyn Webster DO -Laboratory [facility] Start: 03-16-2025 End: 03-16-2025 ambulatory Jaclyn Webster Facility:[facility] Start: 01-07-2025 ambulatory Luís Pop Facility: [facility] Start: 12-24-2024 End: 12-24-[address] Luís Pop MD -[facility] Work Phone: Start: 12-24-2024 End: 12-24-2024 ambulatory Jaclyn Webster Facility:[facility] Start: 11-12-2024 End: 11-12-[address] Jaclyn Webster DO Work Phone: [facility] Work Phone: Start: 11-12-2024 End: 11-12-[address] Luís [facility] Work Phone: Start: 11-12-2024 End: 11-12-2024 ambulatory Harlan Stanton NP Facility:[facility] Start: 08-19-2024 End: 08-19-[address] Anh Hercules MD -Cat Scan, [facility] Work Phone: Start: 08-19-2024 End: 08-19-2024 ambulatory Anh Hercules Facility:[facility] Start: 08-07-2024 End: 08-07-[address] Anh Hercules MD -[facility] Work Phone: Start: 08-07-2024 End: 08-07-2024 ambulatory Anhboyd Hercules Facility:[facility] Start: 07-28-2024 End: 07-28-[address] Luís Pop MD -Ultrasound, [facility] Work Phone: Start: 07-28-2024 End: 07-28-2024 ambulatory Jaclyn Malys Facility:[facility] Start: 07-17-2024 End: 07-17-2024 ambulatory [place] Gerald Facility:[facility] Start: 07-09-2024 End: 07-09-2024 ambulatory Jaclyn Malys Facility:[facility] Start: 06-13-2024 End: 06-13-2024 ambulatory Jaclyn Malys Facility:[facility] Start: 06-09-2024 End: 06-09-2024 ambulatory Jaclyn Malys Facility:[facility] Start: 06-04-2024 End: 06-04-2024 ambulatory Jaclyn Malys Facility:[facility] Start: 03-11-2024 Telephone encounter Mayela rick MD Work Phone: OB/Gynecology Start: 03-07-2024 End: 03-07-2024 ambulatory MAYELA NAVARRO OB/Gynecology Start: 03-07-2024 End: 03-07-2024 Patient encounter procedure Mayela Navarro MD Work Phone: OB/Gynecology Comment on above: APPOINTMENT CANCELLE D (Primary Dx) Start: 01-17-2024 Non-patient / Non-visit Dr. Jaclyn Webster Work Phone: [facility] Start: 01-17-2024 End: 01-17-[address] Jaclyn Webster Work Phone: [facility] Work Phone: Start: 01-17-2024 End: 01-17-[address] [facility] Work Phone: Start: 12-31-2023 Non-patient / Non-visit Dr. Jaclyn Webster Work Phone: [facility] Start: 12-31-2023 End: 12-31-[address] Jaclny Webster Work Phone: [facility] Work Phone: Start: 12-31-2023 End: 12-31-[address] [facility]lyn Webster [facility] Work Phone: Start: 12-27-2023 Non-patient / Non-visit Dr. Jaclyn Webster Work Phone: [facility] Start: 12-27-2023 End: 12-27-2023 Admission to same day surgery center Dr. Jaclyn Webster Work Phone: [facility]-Form Setter/Driver/Special Procedures Work Phone: Start: 12-27-2023 End: 12-27-[address] Jaclyn Webster Work Phone: [facility] Work Phone: Start: 12-06-2023 End: 12-06-2023 ambulatory JACLYN WEBSTER Facility:[facility] Start: 12-06-2023 End: 12-06-2023 Patient encounter procedure Mayela Navarro MD Work Phone: OB/Gynecology Comment on above: Fluid in endometrial cavity (Primary Dx) Start: 11-15-2023 End: 11-15-2023 ambulatory JACLYN WEBSTER Facility:[facility] Start: 11-15-2023 End: 11-15-2023 Subsequent hospital visit by physician [facility] Work Phone: Radiology Comment on above: Vaginal discharge [N 89.8] Start: 11-13-2023 End: 11-13-[address] Jaclyn Webster Work Phone: [facility] Work Phone: Start: 11-13-2023 End: 11-13-[address] Jaclyn Webster Work Phone: [facility] Work Phone: Start: 11-02-2023 End: 11-02-[address] Jaclyn Webster Work Phone: [facility] Work Phone: Start: 11-02-2023 End: 11-02-[address] Jaclyn Webster Work Phone: [facility] Work Phone: Start: 11-02-2023 End: 11-02-2023 ambulatory JACLYN WEBSTER Facility:[facility] Start: 11-02-2023 End: 11-02-2023 Patient encounter procedure Mayela Navarro MD Work Phone: OB/Gynecology Comment on above: Encounter for screen ing for malignant neoplasm of cervix (Primary Dx); Vaginal discharge; PMB (postmenopausal bleeding) Start: 10-30-2023 Non-patient / Non-visit Dr. Jaclyn Webster Work Phone: [facility] Start: 10-30-2023 End: 10-30-[address] Jaclyn Webster Work Phone: [facility] Work Phone: Start: 10-30-2023 End: 10-30-[address] [facility] Webster [facility] Work [facility] Start: 10-25-2023 End: 10-25-[address] Jaclyn Webster Work Phone: [facility] Work Phone: Start: 10-11-2023 End: 10-12-2023 ambulatory JOSHUA EVANS MD Facility:[facility] Start: 05-28-2023 End: 05-29-2023 ambulatory ABILIO VALERIO MD Facility:[facility] Start: 05-28-2023 End: 05-28-2023 Patient encounter procedure JOSHUA EVANS MD [facility] Start: 05-22-2023 Non-patient / Non-visit Dr. Jaclyn Webster Work Phone: [facility] Start: 05-22-2023 End: 05-22-2023 Admission to same day surgery center Dr. Jaclyn Webster Work Phone: [facility]-Surgical Day Care Start: 05-22-2023 End: 05-22-[address] Jaclyn Webster Work Phone: [facility] Work Phone: Start: 05-15-2023 End: 05-15-[address] Jaclyn Webster Work Phone: [facility] Work Phone: Start: 05-08-2023 End: 05-08-2023 ambulatory [facility] Work Phone: Start: 05-08-2023 End: 05-08-2023 Patient encounter procedure [facility]-Nuclear Medicine, [facility] Work Phone: Start: 04-19-2023 End: 04-19-2023 Emergency department patient visit [facility]-Emergency Department Work Phone: Start: 04-18-2023 End: 04-18-2023 ambulatory [facility] Work Phone: Start: 04-18-2023 End: 04-18-2023 Patient encounter procedure [facility]-Outpatient Breast Imaging Work Phone: Start: 03-08-2023 End: 03-09-2023 ambulatory ABILIO VALERIO MD Facility:B Start: 03-08-2023 End: 03-08-2023 Patient encounter procedure JOSHUA EVANS MD [facility] Start: 02-09-2023 End: 02-09-2023 ambulatory [facility] Work Phone: Start: 02-09-2023 End: 02-09-2023 Patient encounter procedure [facility] Work Phone: Start: 12-01-2022 End: 12-01-2022 ambulatory [facility] Work Phone: Start: 12-01-2022 End: 12-01-2022 Patient encounter procedure [facility] Start: 07-05-2022 End: 07-05-[address] Jaclyn Webster Work Phone: [facility] Work Phone: Start: 07-05-2022 End: 07-05-[address] Jaclyn Webster Work Phone: [facility] Start: 06-01-2022 End: 06-01-[address] Jaclyn Webster Work Phone: [facility] Work Phone: Start: 06-01-2022 End: 06-01-[address] Jaclyn Webster Work Phone: [facility] Start: 04-17-2022 End: 04-17-[address] Jaclyn Webster Work Phone: [facility]-Outpatient Breast Imaging Start: 04-11-2022 End: 04-11-[address] Jaclyn Webster Work Phone: [facility]-Pulmonary Medicine [facility] Start: 04-10-2022 End: 04-10-[address] Jaclyn Webster Work Phone[facility] Start: 03-13-2022 End: 03-13-[address] Jac[facility] Webster [facility] Start: 03-08-2022 End: 03-08-[address] Jaclyn Webster Work Phone: [facility] Start: 02-27-2022 End: 02-27-[address] Jaclyn Webster Work Phone: [facility] Start: 01-02-2022 End: 01-02-[address] Jaclyn Webster Work Phone: [facility] Start: 12-27-2021 End: 12-27-2021 Patient encounter procedure JOSHUA EVANS MD [facility] Start: 12-05-2021 End: 12-05-[address] Jaclyn Webster Work Phone: [facility] Start: 11-28-2021 Non-patient / Non-visit Dr. Jaclyn Webster Work Phone: [facility] Start: 11-28-2021 End: 11-28-2021 Admission to same day surgery center Dr. Jaclyn Webster Work Phone: [facility]-Endoscopy Start: 11-23-2021 End: 11-23-[address] Jaclyn Webster Work Phone: [facility]-Laboratory Start: 11-23-2021 End: 11-23-[address] Jaclyn Webster Work Phone: [facility] Procedures Date Procedure Procedure Detail Performing Clinician Start: 05-06-2025 Dual energy X-ray absorptiometry Dr. Jaclyn Webster DO Work Phone: Start: 04-22-[address] Jaclyn Webster DO Work Phone: Start: 08-19-2024 Computed tomography of abdomen and pelvis with contrast Dr. Jaclyn Webster DO Work Phone: Start: 07-28-[address] Jaclyn Man O Work Phone: Start: 03-07-2024 Us pelvic nonobstetric real-time image complete Mayela Navarro MD Work Phone: Start: 11-15-2023 Us transvaginal Mayela Navarro MD Work Phone: Start: 05-22-2023 Total cholecystectomy and exploration of common bile duct Dr. Jaclyn Webster Work Phone: Start: 05-22-[address] Jaclyn Webster Work Phone: Start: 05-08-2023 Radionuclide imaging of liver and/or biliary tract using radioactive isotope Start: 04-19-2023 CT of abdomen and pelvis without contrast Start: 04-18-2023 Screening mammography Start: 09-17-2022 History of cholecystectomy History of cholecystectomy Dr. Anh Hercules MD Start: 04-17-[address] Jaclyn Webster Work Phone: Start: 04-10-2022 Computed tomography of abdomen and pelvis with contrast Dr. Jaclyn Webster Work Phone: Start: 03-13-2022 CT of chest without contrast Dr. Jaclyn Webster Work Phone: Start: 03-08-2022 Radionuclide gastric emptying study Dr. Jaclyn Webster Work Phone: Start: 12-05-[address] Jaclyn Webster Work Phone: Start: 12-05-[address] Jaclyn Webster Work Phone: Start: 02-05-2014 Colonoscopy Mayela Navarro MD Work Phone: Appendix structure ( body structure) JOSHUA EVANS MD Back structure, excl uding neck (body structure) JOSHUA EVANS MD Oophorectomy JOSHUA DELA CRUZ MD Viral antigen assay Dr. Jaclyn Webster Work Phone: Plan of Treatment Date Care Activity Detail Author Start: 12-05-2024 BP Controlled (<130/80) BP Con trolled (<130/80) [facility] Start: 11-12-2024 Vitamin D, 25-hydrox y measurement [facility] Start: 05-18-2024 Influenza vaccination [facility] Start: 03-11-2024 End: 03-11-2025 US Pelvis PELVIC US I Anc Imaging Routine Fluid in endometrial cavity Expected: 03/11/2024, Expires: 03/11/2025 [facility] Work Phone: Comment on above: Expected: 03/11/2024 , Expires: 03/11/2025 Start: 03-07-2024 End: 12-05-2024 US Pelvis PELVIC US WHI Anc Imaging Routine Fluid in endometrial cavity Expected: 03/07/2024, Expires: 12/05/2024 [facility] Work Phone: Comment on above: Expected: 03/07/2024 , Expires: 12/05/2024 Start: 02-06-2024 Screening for malign ant neoplasm of colon [facility] Start: 12-27-2023 Patient discharge [facility] Start: 11-02-2023 Borrelia burgdorferi blot test [facility] Start: 09-17-2023 Advance Directive Discussion Advance Directive Discussion [facility] Start: 09-17-2023 Behavioral Health Screening Behavioral Health Screening [facility] Start: 09-17-2023 Depression Assessment Depression Ass essment [facility] Start: 05-22-2023 [facility] Start: 05-22-2023 Cholangiogram Cholangiogram/ O R,Initial [facility] Start: 05-22-2023 XR Biliary ducts and Gallbladder Views W contrast IV [facility] Start: 05-18-2023 Covid-19 Vaccine ( season) Covid-19 Vaccine ( season) [facility] Start: 05-18-2023 Influenza vaccination Influenza Vacc ine (#1) [facility] Start: 03-13-2022 CT of chest without contrast Chest without Contrast [facility] Work Phone: Start: 11-28-2021 Egd transoral biopsy single/multiple EGD BIOPSY SINGLE/MULTIPLE [facility] Work Phone: Start: 06-22-2016 Glaucoma screening Dilated Retinal E xam [facility] Start: 05-13-2016 Hepatitis B surface antibody level LDL Cholesterol [facility] Start: 11-26-2015 Hepatitis B screening Urine Albumin:Creatinine Ratio [facility] Start: 11-13-2015 Hemoglobin A1c measurement HbA1C [facility] Start: 11-02-2015 Diabetic foot examination Diabetic F oot Exam [facility] Start: 2008 RSV Vaccine (1 - 1-d ose 60+ series) RSV Vaccine (1 - 1-dose 60+ series) [facility] Start: 09-17-2006 Pneumococcal Vaccine : 65+ (2 of 2 - PCV) Pneumococcal Vaccine: 65+ (2 of 2 - PCV) [facility] Start: 01-04-1998 Shingrix Vaccine (1 of 2) [place] grix Vaccine (1 of 2) [facility] Start: 01-04-1993 Screening for malign ant neoplasm of colon [facility] Start: 01-04-1967 Urine microalbumin profile DTa P,Tdap,Td Vaccine (1 - Tdap) [facility] Start: 01-04-1966 Annual PCP Team [employer] Offbearer jalen Disease Visit Annual PCP Team Chronic Disease Visit [facility] Start: 01-04-1966 BP Controlled (<130/80) BP Con trolled (<130/80) [facility] Start: 1948 Covid-19 Vaccine (#1) Covid-19 Vacci ne (#1) [facility] Albumin [Moles/volum e] in Serum or Plasma [facility] Albumin/Globulin ratio [facility] [id number]. tumor marker [Units/volume] in Serum or Plasma [facility] C reactive protein [Mass/volume] in Serum or Plasma [facility] CBC W Auto Different ial panel - Blood [facility] Ceruloplasmin [Mass/volume] in Serum or Plasma [facility] Comprehensive metabo lic 2000 panel - Serum or Plasma [facility] Copper [Moles/volume ] in Serum or Plasma [facility] Cytoplasmic ANCA Screen [facility] Electrophoresis: [id number] [facility] Electrophoresis: jose ma globulin [facility] Gastrin [Mass/volume ] in Serum or Plasma [facility] Globulin measurement [facility] IgA [Mass/volume] in Serum or Plasma [facility] IgG [Mass/volume] in Serum or Plasma [facility] IgM [Mass/volume] in Serum or Plasma [facility] Immunoglobulin measurement [facility] Intrinsic factor blo cking Ab [Units/volume] in Serum [facility] Wolverine/lambda light c lawrence ratio [facility] Laboratory data interpretation [facility] Laboratory data interpretation [facility] Lambda light chains. free [Mass/volume] in Serum or Plasma [facility] Liver stiffness by US.transient elastography [facility] PAP TEST PAP TEST Lab [facility] rios Encounter for screening for malignant neoplasm of cervix 11/02/2023 3:52 PM EST [facility] Work Phone: Patient Education ED Abdominal P ain Unkn Cause Fem ED Vomiting (Adult) [facility] Work Phone: Patient referral [facility] Work Phone: Protein electrophore sis panel - Serum or Plasma [facility] Prothrombin time [facility] Smooth muscle Ab [Presence] in Serum [facility] Tissue transglutamin ase IgA Ab [Units/volume] in Serum [facility] Urine kappa light ch ain measurement [facility] End: 03-17-2025 US Pelvis transvaginal US FEMALE PELVIS TRANSVAG Radiology Routine Vaginal discharge PMB (postmenopausal bleeding) 1 Occurrences starting 11/02/2023 until 12/01/2024 [facility] Work Phone: Comment on above: 1 Occurrences starti ng 11/02/2023 until 12/01/2024 [facility] Immunizations Immunization Date Immunization Notes Care Provider Fa cility 09-17-2005 pneumococcal polysaccharide vaccine, 23 valent Mayela Navarro MD Work Phone: [facility] Payers Date Payer Category Payer Self-pay [id number] 2013 Private Health Insurance [facility] A[employer] SUPPLEMENT [id number] 2013-Present [phone] [address] [place] [address] Indemnity [id number] 2013 Unknown [id number] 2012 Medicare [id number] 2012 Medicare [id number] 2012 Medicare [id number] 1950 Unknown [id number] 1950 Unknown [id number] .[id number] 1950 Unknown [id number] .627 Unknown [id number] 2.840.1.577880.3.579.2 .462 Unknown [id number] .462 Unknown [id number] 2.16.840.1.376915.3.579.2 .462 Unknown [id number] 2.16.840.1.053856.3.579.2 .462 Unknown [id number] 2.16.840.1.209133.3.579.2 .462 Unknown [id number] 2.16.840.1.151384.3.579.2 .462 Unknown [id number] 2.16.840.1.701939.3.579.2 .462 Unknown [id number] 2.16.840.1.562610.3.579.2 .462 Unknown [id number] 2.16.840.1.017628.3.579.2 .462 Unknown [id number] 2.16.840.1.214813.3.579.2 .462 Unknown [id number] 2.16.840.1.247844.3.579.2 .462 Unknown [id number] 2.16.840.1.059490.3.579.2 .462 Unknown [id number] 2.16.840.1.204750.3.579.2 .462 Unknown [id number] 2.16.840.1.010669.3.579.2 .462 Unknown [id number] [id number] .462 Unknown [id number] .462 Social History Date Type Detail Facility Start: 07-22-2020 Tobacco smoking status Never s moked tobacco (finding) [facility] Sex Assigned At Sex [facility] Start: 02-27-2022 End: 12-27-2023 Tobacco smoking status NHIS Unknown if ever smoked [facility] Start: 1950 Sex Assigned At Female [facility] Start: 11-02-2023 [facility] History of tobacco use Current smoker [facility] History of tobacco use Cigarette Smoker [facility] Start: 11-02-2023 End: 12-06-2023 Cigarette pack-years [facility] Start: 11-02-2023 Tobacco use and exposure Smokeless tobacco non-user [facility] Start: 11-02-2023 End: 12-06-2023 Alcohol intake Current non-drinker of alcohol (finding) [facility] Start: 11-02-2023 End: 12-06-2023 Tobacco use panel [facility] National Score (1-100), lower number is lower risk 64 [facility] Start: 11-02-2023 Tobacco Comment 3 cartridges a day electronic cigarette since 2010 [facility] Start: 1950 Sex Assigned At Not on file [facility] Start: 02-07-2024 Tobacco smoking stat [facility] Current some day smoker [facility] Start: 11-24-2024 Sex Female (finding) [facility] Medical Equipment Procedure Code Equipment Code Equipment Original Text Equipment Identifier Dates Total cholecystectomy with exploration of common bile duct Ligation clip, synthetic polymer, non-bioabsorbabl e [id number] [facility] Start: 05-22-2023 testing four times daily [id number] Start: 10-19-2009 Comment on above: testing four times d aily Goals Date Patient Goal Desired Activity /State Mental Status Date Assessment Result Facility 05-22-2023 Cognitive function Level Of Cons ciousness Follows Commands;Drowsy [facility] Work Phone: 05-22-2023 Cognitive function Voice/Name [facility] Work Phone: 11-28-2021 Cognitive function Touch/Shaking [facility] Work Phone: Clinical Notes 05-25-2015 to 04-01-2025 Note Date & Type Note Facility 04-01-2025 Evaluation note Diagnosis Onset Date Resolution Fatty liver acute April 01 2:36pm Duodenal ulcer chronic April 01, 2025 2:36pm [facility] Work Phone: 1(431) 228-189304-09-2025 Evaluation note* Diagnosis Onset Date Resolution Status Admit Date Duodenal ulcer chronic December 24, 2024 1:30pm Elevated liver enzymes chronic Ap 2024 1:30pm Metabolic dysfunction-associ ated steatohepatitis (MASH) chronic December 1:30pm [facility] Work Phone: 1(343) 136-869611-21-2024 Evaluation note* Diagnosis Onset Date Resolution Status Admit Date History of cholecystectomy 2022 acute August 07, 2024 1:25pm Right lower quadrant pain acute August 07, 2024 1:25pm Elevated liver enzymes chronic No [id number] 1:25pm [facility] Work Phone: 1(217) 694-574206-25-2024 Telephone encounter Note* Telephone Encounter - Martina Strong RN - 03/11/2024 3:02 PM EDT Left message for patient to return phone call [facility]06-25-2024 Miscellaneous Notes* Telephone Encounter - Martina Strong RN - 03/11/2024 3:02 PM EDT Left message for patient to return phone call * Telephone Encounter - Mayela Navarro MD - 03/11/2024 2:58 PM EDT Filed Mayela Navarro MD * Telephone Encounter - Naina aSnchez LPN - 03/11/2024 2:47 PM EDT See pended order, pt will then be notified of results. Naina Sanchez LPN' * Telephone Encounter - Naina Sanchez LPN - 03/11/2024 2:47 PM EDT ----- Message from Mayela Navarro MD sent at 03/11/2024 1:08 PM EDT ----- Thin endometrium with stable trace fluid Observation is reasonable Would consider repeat US in 12 months Mayela Navarro MD [facility] Telephone encounter Note * Telephone Encounter - Mayela Navarro MD - 03/11/2024 2:58 PM EDT Filed Mayela Navarro MD [facility]06-25-2024 Telephone encounter Note* Telephone Encounter - Naina Sanchez LPN - 03/11/2024 2:47 PM EDT See pended order, pt will then be notified of results. Naina Sanchez LPN' [facility]06-25-2024 Telephone encounter Note* Telephone Encounter - Naina Sanchez LPN - 03/11/2024 2:47 PM EDT ----- Message from Mayela Navarro MD sent at 03/11/2024 1:08 PM EDT ----- Thin endometrium with stable trace fluid Observation is reasonable Would consider repeat US in 12 months Mayela Navarro MD [facility]06-24-2024 NoteHNO ID: [id number] Author: ENA BEJARANO DO Service: ? Author Type: Physician Type: Progress Notes Filed: 03/10/2024 13:45 Note Text: Nohemi Sanders presents for obstetrician/gynecologist ultrasound. Please see report under the imaging tab. Ena Bejarano, [facility] History of Present illness Narrative* Ena Bejarano DO - 03/10/2024 1:38 PM EDT Nohemi Sanders presents for obstetrician/gynecologist ultrasound. Please see report under the imaging tab. Ena Bejarano DO documented in this encounterMarion Hospital06-21-2024 NoteHNO ID: [id number] Author: MAYELA NAVARRO MD Service: ? Author Type: Physician Type: Progress Notes Filed: 03/07/2024 14:28 Note Text: N/[facility]06-21-2024 History of Present illness Narrative* Mayela Navarro MD - 03/07/2024 2:28 PM EDT N/a documented in this [facility]Mar[facility]04-11-2024 Procedure [facility]04-11-2024 History and physical note Author Jovon Bell [facility] December 27, 2023 8:01am Note Date/Time December 27, 2023 8:0 1am [facility] Medical Records Department [address] [place] [id number] History & Physical Exam 12/27/23 0759 MR#: [id number] Acct: [id number] Name: NOHEMI SANDERS Rep #:[id number] : 1950 73 From: Jovon Bell MD PCP: Dr. Jaclyn Webster DO [place] [place] [facility] HPI - General HPI Narrative NOHEMI SANDERS, is a 73 F who presents with left lower extremity painful varicose veins, skin thickening/discoloration. She has left GSV reflux throughout with mid segment adjacent to knee that appears to be obliterated with bridging varicosity. REPLACED BY [facility] Medical History Anxiety Arthritis Back pain Bladder disease Cardiology follow-up encounter Coronary artery calcification seen on CAT scan Dietary restriction Duodenal ulcer Emphysema of lung Essential (primary) hypertension Fatty liver Gastric reflux GERD (gastroesophageal reflux disease) High cholesterol History of deep venous thrombosis (1999) History of diverticulitis History of echocardiogram History of edema History of hiatal hernia History of renal disease History of stress test Hyperlipidemia Hypothyroidism Injury of head and neck Leg cramps Lightheadedness Loss of hearing Migraine headache MRSA infection Nausea Near syncope Neck pain Nodule of upper lobe of left lung Obesity Restless legs Smoker Thyroid disease Type 2 diabetes mellitus Vapes nicotine containing substance Wears dentures Home Medications hydrochlorothiazide 25 mg tablet 25 mg PO DAILY 08/15/17 [History Last Taken Unknown] melatonin 3 mg tablet 3 mg PO HS PRN Sleep 05/28/20 [History Last Taken Unknown] meloxicam 15 mg tablet 15 mg PO DAILY 05/28/20 [History Last Taken Unknown] potassium chloride 10 mEq tablet,extended release(part/cryst) 10 meq PO BID 05/28/20 [History Last Taken Unknown] levothyroxine 75 mcg tablet 75 mcg PO MOTUWETHFR 06/02/21 [History Last Taken 12/27/23] mecobalamin (vitamin B12) 1,000 mcg chewable tablet 1,000 mcg PO DAILY 06/02/21 [History Last Taken Unknown] enalapril maleate 20 mg tablet 20 mg PO BID 06/01/22 [History Last Taken Unknown] hydroxyzine HCl 25 mg tablet 50 mg PO QHS 05/15/23 [History Last Taken Unknown] pantoprazole 40 mg tablet,delayed release 40 mg PO BID 05/15/23 [History Last Taken Unknown] amlodipine 10 mg tablet 10 mg PO DAILY 05/17/23 [History Last Taken Unknown] calcium carb-ergocalciferol (vit D2) 600 mg calcium-200 unit tablet 1 tab PO DAILY 05/17/23 [History Last Taken Unknown] magnesium 200 mg tablet 400 mg PO BID 05/17/23 [History Last Taken Unknown] rosuvastatin 20 mg tablet 20 mg PO DAILY #30 tabs 11/19/23 [Rx Last Taken Unknown] Allergy/AdvReac Type Severity Reaction Status Date / Time Influenza Virus Vaccines Allergy Severe Swelling Verified 10/25/23 14:23 pneumococcal vaccine Allergy Severe Swelling Verified 10/25/23 14:23 Tetanus Vaccines and Toxoid Allergy Severe Swelling Verified 10/25/23 14:23 bupropion [From Wellbutrin] Allergy Hives Verified 10/25/23 14:23 pravastatin AdvReac Intermediate Myalgias Verified 11/19/23 08:14 Family History Mother Lung cancer Thyroid disorder Sister Heart disease Diabetes Sister Heart disease Diabetes Myocardial infarction Lung disease Father Myocardial infarction, Onset Age: 46 Brother Aortic aneurysm Grandmother Cancer melanoma Grandmother Breast cancer Surgical History H/O construction of artificial vagina H/O oophorectomy History of appendectomy History of bunionectomy History of cholecystectomy (~05/2023) History of lumbar surgery History of rotator cuff surgery History of tonsillectomy and adenoidectomy reconstruction of rectum Social History Smoking Status: Current some day smoker tobacco type: e-cigarettes Tobacco: How many years used: 50 Electronic Cigarette Use: with nicotine how long ago did patient quit smokin years second hand exposure: Yes quit status: has quit before counseling given: provider counseling alcohol intake: never ROS Constitutional Constitutional: Denies chills, fever(s), frequent falls, lethargy or weakness Eyes Eyes: Denies blind spots, change in vision or loss of vision ENT HEENT: Denies bleeding gums, hoarseness or sore throat Cardiovascular Cardiovascular: Denies abdominal pain, bluish discoloration of hand/feet, chest pain with activity, claudication, cold extremities, cyanosis, dyspnea on exertion, erythema on extremities, irregular heart rhythm, leg edema, leg ulcers, numbness in extremities or weakness in extremities Respiratory/Chest Respiratory/Chest: Denies cough, excessive phlegm production, shortness of breath at rest, shortness of breath with exertion or wheezing Gastrointestinal Gastrointestinal: Denies anorexia, change in stool character, constipation, diarrhea, melena or rectal bleeding Genitourinary Genitourinary: Denies dysuria or hematuria Musculoskeletal Musculoskeletal: Denies abnormal gait Integumentary Integumentary: Reports other Details: ; Denies erythema, non-healing lesions or wounds Neurologic Neurologic: Denies abnormal speech, focal weakness, headache(s), loss of vision,numbness, paresthesias or sensory deficit Hematologic/Lymphatic Hematologic/Lymphatic: Denies easy bleeding, easy bruising or lymphadenopathy Vital Signs Vital Signs Vital Signs: Weight Weight: 166 lb Body Mass Index (BMI) 31.4 Physical Exam Const alert, oriented x3, no apparent distress and healthy appearing General Appearance: cooperative; Negative for combative or lethargic Orientation / Consciousness: awake Exam Limitations: no limitations HEENT Head and Scalp: normocephalic and atraumatic Eyes EOMs intact bilaterally General Eye: normal appearance of both eyes Neck full ROM, no lymphadenopathy, thyroid normal and No no carotid bruits General: trachea midline; Negative for lymphadenopathy or tenderness Thyroid: thyroid normal Lymph Lymphatic: Negative for no lymphadenopathy noted Resp normal respiratory effort and no use of accessory muscles Effort and Inspection: Negative for labored, stridor or audible wheezes Cardio regular rate, regular rhythm and no murmurs Back/Spine Cervical Spine: cervical ROM normal Extremity full ROM, normal capillary refill and no clubbing, cyanosis or edema Skin no rashes or lesions noted and no wounds Neuro oriented x3, CN's II-XII intact bilaterally, no focal motor deficits and no sensory deficits noted Psych thought process normal, cooperative, affect normal, speech normal and activity/motor behavior normal Assessment & Plan Assessment/Plan (1) Varicose veins of leg with pain: QUALIFIERS: Laterality: bilateral Qualified Code(s): I83.813 - Varicose veins of bilateral lower extremities with pain PLAN: -chemical ablation -will access each GSV segment indivually 12/27/23 0801 <Electronically signed by Jovon Bell MD> Cosigner Signature (if applicable): CC: Dr. Jovon Bell MD; Dr. Jaclyn Webster DO~ Signed [facility] Work Phone: 1(413) 592-561803-21-2024 NoteHNO ID: [id number] Author: MAYELA NAVARRO MD Service: ? Author Type: Physician Type: Progress Notes Filed: 12/06/2023 13:40 Note Text: 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 Marti is a 73 year old who presents today for an endometrial biopsy for abnormal us endometrial fluid. test: n/a UNIVERSAL PROTOCOL / SAFETY CHECKLIST Procedure to be Performed: EMB Sign In: A Moment of CARE was completed. Personnel directly involved with the procedure wore the appropriate PPE (Personal Protective Equipment). Patient/Surrogate Stated/Verified: PATIENT VERIFIED(optional for EMERGENT procedures): Patient name, Date of , Relevant allergies, and The intended procedure Time Out Communication: Intended patient and procedure match the source documents. Consent documented and matches the intended procedure. Relevant labs, photos, and/or imaging studies have been reviewed. Sign Out: SIGN OUT (optional for EMERGENT procedures): No specimen collected. All instruments, equipment, possible retained foreign bodies accounted for. Post-procedure follow-up management communicated and Plan of Care Visit completed when applicable. Greta Duff MA PROCEDURE: EXTERNAL GENITALIA: Normal in appearance without lesions VAGINA: Normal in appearance without lesions BIOPSY: Speculum placed into the vagina with excellent visualization of the cervix. Cervix cleaned with betadine. Anterior lip of cervix grasped with single toothed tenaculum. Started to dilate the cervix but procedure stopped due to patient's discomfort. ASSESSMENT: Endometrial fluid on US with possible h/o PMB PLAN: Discussed R/B/A of repeat US vs hysteroscopy with [facility] at [facility]. Patient elects for repeat US in 2-3 months. Mayela Navarro [facility]03-21-2024 History of Present illness Narrative* Mayela Navarro MD - 12/06/2023 1:17 PM EDT 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 Marti is a 73 year old who presents today for an endometrial biopsy for abnormal us endometrial fluid. test: n/a UNIVERSAL PROTOCOL / SAFETY CHECKLIST Procedure to be Performed: EMB Sign In: A Moment of CARE was completed. Personnel directly involved with the procedure wore the appropriate PPE (Personal Protective Equipment). Patient/Surrogate Stated/Verified: PATIENT VERIFIED(optional for EMERGENT procedures): Patient name, Date of , Relevant allergies, and The intended procedure Time Out Communication: Intended patient and procedure match the source documents. Consent documented and matches the intended procedure. Relevant labs, photos, and/or imaging studies have been reviewed. Sign Out: SIGN OUT (optional for EMERGENT procedures): No specimen collected. All instruments, equipment, possible retained foreign bodies accounted for. Post-procedure follow-up management communicated and Plan of Care Visit completed when applicable. Greta Duff MA PROCEDURE: EXTERNAL GENITALIA: Normal in appearance without lesions VAGINA: Normal in appearance without lesions BIOPSY: Speculum placed into the vagina with excellent visualization of the cervix. Cervix cleaned with betadine. Anterior lip of cervix grasped with single toothed tenaculum. Started to dilate the cervix but procedure stopped due to patient's discomfort. ASSESSMENT: Endometrial fluid on US with possible h/o PMB PLAN: Discussed R/B/A of repeat US vs hysteroscopy with D&C at [facility]. Patient elects for repeat US in 2-3 months. Mayela Navarro MD documented in this encounterMarion Hospital03-21-2024 Instructions* Patient Instructions* Greta Duff MA - 12/06/2023 1:17 PM EDT YOUR RECOVERY After your biopsy you may [...] well as have some bleeding after the procedure.There is also a risk of infection after [...] do not hear the results of your biopsyafter 2 weeks, please contact the office for the results. If you have any additional questions or concerns please do not hesitate to contact the office. documented in this encounterMarion Hospital02-29-2024 History of Present illness Narrative* Perla Alex RDMS - 11/15/2023 2:30 PM EST Radiology Service Progress Note PATIENT NAME: Nohemi Sanders DATE OF SERVICE: November 15, 2023 TIME: 2:55 PM PATIENT IDENTITY VERIFICATION COMPLETED USING TWO (2) IDENTIFIERS: Name and Date of confirmedby patient verbally. FALL SCREENING: Has the patient had 2 falls in the last year or 1 fall with injury or currently using an Ambulatory Assistive Device (Walker, Cane, Wheelchair, Crutches, etc.)? No PATIENT GENDER DATA: Female. status: : No status: NO. PATIENT RELEVANT IMPLANT DATA REVIEWED: Not Applicable PATIENT PRESENTS WITH AN IMPLANTABLE OR ATTACHED AIRCRAFT WORKER: No RADIOLOGY DEPARTMENT: Ultrasound PERIPHERAL IV DATA: Not applicable SIGNED BY: Perla Alex RDMS November 15, 2023 2:55 PM documented in this encounterMarion Hospital02-29-2024 NoteHNO ID: [id number] Author: PERLA ALEX RDMS Service: ? Author Type: Traffic Operations Engineer Type: Progress Notes Filed: 11/15/2023 14:55 Note Text: Radiology Service Progress Note PATIENT NAME: Nohemi Sanders DATE OF SERVICE: November 15, 2023 TIME: 2:55 PM PATIENT IDENTITY VERIFICATION COMPLETED USING TWO (2) IDENTIFIERS: Name and Date of confirmed by patient verbally. FALL SCREENING: Has the patient had 2 falls in the last year or 1 fall with injury or currently using an Ambulatory Assistive Device (Walker, Cane, Wheelchair, Crutches, etc.)? No PATIENT GENDER DATA: Female. status: : No status: NO. PATIENT RELEVANT IMPLANT DATA REVIEWED: Not Applicable PATIENT PRESENTS WITH AN IMPLANTABLE OR ATTACHED AIRCRAFT WORKER: No RADIOLOGY DEPARTMENT: Ultrasound PERIPHERAL IV DATA: Not applicable SIGNED BY: Perla Alex RDMS November 15, 2023 2:55 [facility]02-16-2024 Instructions* Patient Instructions* More Soto Ma - 11/02/2023 3:16 PM [...] well as have some bleeding after the procedure.There is also a risk of infection after [...] do not hear the results of your biopsyafter 2 weeks, please contact the office for the results. If you have any additional questions or concerns please do not hesitate to contact the office. documented in this encounterMarion Hospital02-16-2024 NoteHNO ID: [id number] Author: MAYELA NAVARRO MD Service: ? Author Type: Physician Type: Progress Notes Filed: 11/02/2023 15:50 Note Text: Nohemi Sanders is a 73 year old female who presents for problem visit. HPI: Patient reports yellowish brown spotting about 3 times over the past 6 months. Denies any bright red bleeding. She was seen at [facility] for this and a culture done that was negative. Patient denies h/o abnormal paps. OB History T2 L4 SAB1 IAB0 Ectopic0 Multiple1 Live Births0 Material Control Associate History LMP: Postmenopausal Age at Menarche: Age at First : Age at Menopause: Material Control Associate History Comments: Sexual Activity: Not Currently; No [...] shape and con (more content not included)... [facility]02-16-2024 History of Present illness Narrative* Mayela Navarro MD - 11/02/2023 3:07 PM EST Nohemi Sanders is a 73 year old female who presents for problem visit. HPI: Patient reports yellowish brown spotting about 3 times over the past 6 months. Denies any bright red bleeding. She was seen at [facility] for this and a culture done that was negative. Patient denies h/o abnormal paps. OB History T2 L4 SAB1 IAB0 Ectopic0 Multiple1 Live Births0 Material Control Associate History LMP: Postmenopausal Age at Menarche: Age at First : Age at Menopause: Material Control Associate History Comments: Sexual Activity: Not Currently; No [...] each week. Take with a full glass ofwater, on an empty stomach; do NOT lie [...] amount to vulvar are with fingers 3 timesper week Clobetasol Propionate 0.05 % gel Apply [...] Medical Decision Making Level: 3 - Low Mayela Navarro MD documented in this encounterMarion Hospital09-05-2023 Discharge summary Author Anh Hercules [facility] May 22, 2023 8:35am Note Date/Time May 22, 2023 8:31am [facility] Medical Records Department [address] [place] [address] Instructions for Home/Discharge Instructions 05/22/23 0831 MR#: [id number] Acct: [id number] Name: NOHEMI SANDERS Rep #:[id number] : 1950 73 From: Anh Hercules MD PCP: Dr. Jaclyn Webster, DO [place] [place]charge Instructions Diet Discharge Diet: Light diet - advance as tolerated Activity Discharge Activity: May Not Drive (while taking narcotic pain medications.) May shower in (days): 1 Lifting Restrictions: no lifting >20 lbs x 2 wks, no strenuous exercise for 4 wks Dressing / Incision Call your doctor if your incision/area has: Continuous Slow Oozing, Sudden Increased Bleeding, Increased Pain/ Swelling, Increased Redness, Foul Smelling Discharge and Swelling at the incision site Call your doctor if you observe: Fever of 101 or Higher Remove Dressing in: 2 days Cleanse incision/area with: Soap & Water Additional Dressing/Incision Instructions:: Steri-Strips will fall off in 7 to 10 days, if they do not fall off okay to remove after 10 days. Follow Up Care Please Follow Up With: Anh Hercules MD When: Call the office for a follow-up appointment 2 weeks; after 5 PM and on call [phone] with any concerns. Test Results: Test results from this visit will be discussed in further detail at your follow- up appointment, if applicable. Discharge Plan Admission Attending Provider: Anh Hercules Primary Care Provider: Jaclyn Webster Consulting Providers: DeHorta,Jovon Discharge Orders/Prescriptions Prescriptions: New tramadol 50 mg tablet 50 - 100 mg PO Q6H PRN (Reason: pain) Qty: 10 0RF Continued hydroxyzine HCl 25 mg tablet 50 mg PO QHS meloxicam 15 mg tablet 15 mg PO DAILY potassium chloride 10 mEq tablet,ER particles/crystals 10 meq PO BID Patient Comments: TAKE 1 TABLET BY MOUTH TWICE DAILY WITH FOOD melatonin 3 mg tablet 3 mg PO HS PRN (Reason: Sleep) levothyroxine 75 mcg tablet 75 mcg PO MOTUWETHFR Rx Instructions: Take 1 tablet daily except Sundays take no pills tablet mecobalamin (vitamin B12) 1,000 mcg tablet,chewable 1,000 mcg PO DAILY enalapril maleate 20 mg tablet 20 mg PO BID dicyclomine 20 mg tablet 5 mg PO ONCE PRN (Reason: abdominal pain) pantoprazole 40 mg tablet,delayed release (DR/EC) 40 mg PO BID Patient Comments: TAKE 1 TABLET BY MOUTH TWICE DAILY hydrochlorothiazide 25 MG tablet 25 mg PO DAILY metoclopramide HCl [Reglan] 10 mg tablet 10 mg PO Q8H PRN PRN (Reason: nausea and vomiting) Qty: 20 0RF amlodipine 10 mg tablet 10 mg PO DAILY calcium carbonate-vitamin D2 600 mg calcium- 200 unit tablet 1 tab PO DAILY magnesium 200 mg tablet 400 mg PO BID Referrals / Follow Up: Jaclyn Webster DO [Primary Care Provider] - Disposition Disposition (needs filled in before D/C Order can be placed): Home, Self Care 05/22/23 0835<Electronically signed by Anh Hercules MD>Anh Hercules MD CC: Dr. Jovon Hatch MD; Dr. Jaclyn Webster DO ~ Signed [facility] Work Phone: 1(562) 464-509209-05-2023 History and physical note Author Anh [facility] May 22, 2023 7:10am Note Date/Time May 22, 2023 7:09am [facility] Medical Records Department [address] [place] [address] History & Physical Exam 05/22/23 0709 MR#: [id number] Acct: [id number] Name: NOHEMI SANDERS Rep #:[id number] : 1950 73 From: Anh Hercules MD PCP: Dr. Jaclyn Webster DO [place] [place]: [place] [address] History and Physical Date of Admission: 05/22/23 Date of Service: 05/15/23 MR#: [id number] Acct: [id number] Name: NOHEMI SANDERS Rep #: [id number] : 1950 Provider: Dr. Anh Hercules MD Age/Sex: 73/F Location: [facility] Status: Signed Intake Vital Signs 04/19/2321:29 05/15/2315:03 Height 5 ft 5 ft Weight: 165 lb BMI 32.2 BP 114/68 Blood Pressure Location Rt brachial Position Sitting Respiration 16 Intake Visit Reasons: GALLBLADDER Chief Complaint: gallbladder Brake Operator Required: No Is patient in pain?: No Allergies Influenza Virus Vaccines Allergy (Severe, Verified 05/15/23 15:03) Swellingpneumococcal vaccine Allergy (Severe, Verified 05/15/23 15:03) SwellingTetanus Vaccines and Toxoid Allergy (Severe, Verified 05/15/23 15:03) Swellingbupropion [From Wellbutrin] Allergy (Verified 05/15/23 15:03) Hives Medications hydrochlorothiazide 25 mg tablet 25 mg PO DAILY 08/15/17 [History Confirmed 05/15/23] liothyronine 5 mcg tablet 5 mcg PO DAILY 01/27/20 [History Confirmed 05/15/23] melatonin 3 mg tablet 3 mg PO HS PRN Sleep 05/28/20 [History Confirmed 05/15/23] meloxicam 15 mg tablet 15 mg PO DAILY 05/28/20 [History Confirmed 05/15/23] potassium chloride 10 mEq tablet,extended release(part/cryst) 10 meq PO BID 05/28/20 [History Confirmed 05/15/23] levothyroxine 75 mcg tablet 75 mcg PO SUMOTUWETHFR 06/02/21 [History Confirmed 05/15/23] mecobalamin (vitamin B12) 1,000 mcg chewable tablet 1,000 mcg PO DAILY 06/02/21 [History Confirmed 06/01/22] betamethasone dipropionate 0.05 % topical ointment 1 applic topical BID #15 grams 11/28/21 [Rx Confirmed 05/15/23] enalapril maleate 20 mg tablet 20 mg PO BID 06/01/22 [History Confirmed 05/15/23] metoclopramide HCl 10 mg tablet (Reglan) 10 mg PO Q8H PRN PRN nausea and vomiting #20 tabs 04/19/23 [Rx] conjugated estrogens 0.625 mg tablet (Premarin) 0.625 mg PO DAILY 05/15/23 [History Confirmed 05/15/23] dicyclomine 20 mg tablet 5 mg PO ONCE PRN abdominal pain 05/15/23 [History] dulaglutide 0.75 mg/0.5 mL subcutaneous pen injector (Trulicity) 0.75 mg subcut 05/15/23 [History Confirmed 05/15/23] dulaglutide 1.5 mg/0.5 mL subcutaneous pen injector (Trulicity) 1.5 mg subcut 05/15/23 [History Confirmed 05/15/23] glipizide 2.5 mg tablet, extended release 24 hr 2.5 mg PO 05/15/23 [History Confirmed 05/15/23] hydroxyzine HCl 25 mg tablet 50 mg PO QHS 05/15/23 [History Confirmed 05/15/23] pantoprazole 40 mg tablet,delayed release mg PO BID 05/15/23 [History Confirmed 05/15/23] PFSH Medical History Anxiety Arthritis Back pain Bladder disease Cardiology follow-up encounter Coronary artery calcification seen on CAT scan Dietary restriction Duodenal ulcer Emphysema of lung Essential (primary) hypertension Fatty liver Gastric reflux GERD (gastroesophageal reflux disease) History of deep venous thrombosis (1999) History of diverticulitis History of hiatal hernia History of renal disease Hyperlipidemia Hypothyroidism Injury of head and neck Leg cramps Lightheadedness Migraine headache Nausea Near syncope Neck pain Nodule of upper lobe of left lung Obesity Restless legs Type 2 diabetes mellitus Vapes nicotine containing substance Wears dentures Surgical History H/O construction of artificial vagina H/O oophorectomy History of appendectomy History of bunionectomy History of lumbar surgery History of rotator cuff surgery History of tonsillectomy and adenoidectomy reconstruction of rectum Family History Mother Lung cancer Thyroid disorderSister Heart disease DiabetesSister Heart disease Diabetes Myocardial infarction Lung diseaseFather Myocardial infarction, Onset Age: 46Brother Aortic aneurysmGrandmother Cancer melanomaGrandmother Breast cancer Social History Smoking Status: Current some day smoker tobacco type: cigarettes and smokeless tobacco Tobacco: How many years used: 50 Electronic Cigarette Use: with nicotine how long ago did patient quit smokin years second hand exposure: Yes quit status: has quit before counseling given: provider counseling alcohol intake: never HPI HPI HPI: 73-year-old female presents due to right upper quadrant pain and discomfort. Patient had a HIDA scan which showed bili dyskinesia with an ejection fraction of 17% previously had an ultrasound showed no gallstones. Patient states that she has had nausea as well as vomiting, happen after eating patient thought one of the episodes was 2 to 3 hours after eating some pizza. However patient also states that she had fried chicken yesterday with no issues and she typically hasa salad with ranch almost daily. With no issues. Patient described as a burning sensation in the right upper quadrant. Pt states she did have increasednausea during the HIDA scan as well as some discomfort in the right upper quadrant. ROS General General: Yes weight change and fatigue; No appetite, colon cancer, breast cancer or weakness HEENT HEENT: Yes eye injury and eye surgery; No difficulty swallowing, swollen glands or hoarseness Endo Endocrine: Yes thyroid disease and diabetes mellitus; No thyroid cancer, Hair loss, heat intolerance or cold intolerance Skin Skin: No rash or changing moles Breast Breast: No left breast lump, right breast lump, nipple discharge, breast pain, abnormal mammogram, abnormal US or breast enlargement Musc Musculoskeletal: Yes back problems and arthritis; No rheumatoid arthritis, gout or joint pain Cardio Cardiovascular: Yes high blood pressure; No murmur, pacemaker, heart disease, atrial fibrillation, heart attack, heart stent, palpitations, shortness of breat with exertion or chest pain Psych Psychiatric: Yes anxiety; No depression or hearing voices Resp Respiratory: No shortness of breath, No sleep apnea, No cough, No COPD, No asthma, No emphysema and No wheezing Gastro Gastrointestinal: Yes abdominal pain, Yes nausea or vomiting, Yes diarrhea, Yes constipation, No blood in stool, Yes acid reflux, No hemorrhoids, Yes ulcers, Yes gallbladder problem and No black,tarry stools Fercho Hematologic: No blood thinners, No blood disorders, No bleeding, No anemia and No blood clots Neuro Neurologic: No system reviewed and no additional complaints, except as documented, No as per HPI, No abnormal gait, No abnormal hearing, No abnormal movements, No abnormal speech, No behavioral changes, No burning sensations, No confusion, No convulsions, No disequilibrium, No dizziness, No localized weakness, No frequent falls, No headache(s), No lack of coordination, No loss ofvision, No memory loss, Yes numbness, No other visual disturbances, No radicularpain, No restless legs, No sensory deficit, No syncope, Yes tingling, No tremor(s), No weakness and No other Exam Const General: cooperative, healthy appearing and no acute distress Nutritional Appearance: well nourished [facility] Head: normal to inspection Resp Effort & Inspection: normal respiratory effort Auscultation: clear to auscultation bilaterally Cardio Rate: regular rate Rhythm: regular rhythm GI Inspection: non-distended Palpation: soft, no guarding, no hernias and nontender Skin General: no rashes or lesions noted Neuro General: patient alert, patient awake and patient oriented x3 Extrem General: no clubbing, cyanosis or edema Psych Affect: normal affect Assessment and Plan Assessment and Plan (1) Biliary dyskinesia: Status: Acute (2) GERD (gastroesophageal reflux disease): Status: Acute (3) Duodenal ulcer: Status: Acute Plan This discussed with patient that her symptoms are not completely typical as she states she is able to eat fried chicken and ranch dressing without any issues. However patient did state that she had pain and nausea similar to her episodes with the HIDA scan. Did discuss with patient that there could be a chance that all of her symptoms are not completely resolved with a cholecystectomy. Patienthas been on pantoprazole twice daily since her previous EGD Reviewed the anatomy with the patient and discussed the procedure: laparoscopic cholecystectomy with cholangiograms, possible open. Review risks including but not limited to bleeding, infection, hernia, bile leak, retained gallstones requiring another procedure ERCP- Endoscopic Retrograde Cholangiopancreatography, injury to another organ (bile ducts, common bile duct, small bowel, etc.) and conversion to an open procedure. All questions were answered. Anh Hercules M.D. Pager: [phone] [facility] [address] [place] [address], Outpatient Pavilion, [address] [place] [address] Office: [phone] Coding Level of Care Code Off vis,new,level 3 Diagnoses Biliary dyskinesia K82.8 GERD (gastroesophageal reflux disease) K21.9 Duodenal ulcer K26.9 05/17/23 0818 <Electronically signed by Anh Hercules MD> Date Anh Hercules MD 05/22/23 0709 <Electronically signed by Anh Hercules MD> Cosigner Signature (if applicable): CC: Dr. Jaclyn Webster DO; Dr. Anh Hercules MD~ Signed ADDENDUM by Dr. Anh Hercules MD on 05/22/23 at 0710 Addendum I have examined the patient the following changes are noted: Patient states she has been having right shoulder pain for about 3 days however denies any change with food and denies any right upper quadrant pain. Discussed with patient thatdoes not sound like the right shoulder pain is associated with her gallbladder. 05/22/23 0710<Electronically signed by Anh Hercules MD> Cosigner Signature (if applicable): cc: Dr. Jaclyn Webster DO; Dr. Anh Hercules MD ~* Signed [facility] Work Phone: 1(108) 255-334609-05-2023 Procedure [facility] 05-25-2015 History of Past illness Narrative* Problem Noted Date Diagnosed Date Resolved Date Right-sided low back pain wi th right-sided sciatica 05/25/2015 07/08/2015 Low back pain with right-sided sciatica 05/13/2015 07/08/2015 documented as of this encounter (statuses as of 11/02/2023) [facility]09-08-2015 History of Past illness Narrative* Problem Noted Date Diagnosed Date Resolved Date Right-sided low back pain wi th right-sided sciatica 05/25/2015 07/08/2015 Low back pain with right-sided sciatica 05/13/2015 07/08/2015 documented as of this encounter (statuses as of 11/16/2023) [facility] History of Past illness Narrative* Problem Noted Date Diagnosed Date Resolved Date Right-sided low back pain wi th right-sided sciatica 05/25/2015 07/08/2015 Low back pain with right-sided sciatica 05/13/2015 07/08/2015 documented as of this encounter (statuses as of 12/06/2023) [facility] Appointment Date:12/29/2021 01:15:00 PM Scheduled Provider:JOSHUA EVANS MD Location:[facility] Appointment Type:[facility] Evaluation + Plan note Future Appointments Appointment Date:03/15/2023 03:15:00 PM Scheduled Provider:JOSHUA EVANS MD Location:[facility] Appointment Type:[facility] Evaluation + Plan note Future Appointments Appointment Date:06/14/2023 03:00:00 PM Scheduled Provider:JOSHUA EVANS MD Location:[facility] Appointment Type:[facility] evaluation note* Diagnosis Onset Date Resolution Status Fatty liver acute Nausea acute Duodenal ulcer acute Fatty liver acute GERD (gastroesophageal reflux disease) acute Diarrhea acute Duodenal ulcer acute Fatty liver acute GERD (gastroesophageal reflux disease) acute [facility] Work Phone: evaluation note* Diagnosis Onset Date Resolution Status Duodenal ulcer acute Fatty liver acute GERD (gastroesophageal reflux disease) acute Diarrhea acute Duodenal ulcer acute Fatty liver acute GERD (gastroesophageal reflux disease) acute Emphysema of lung chronic Nodule of upper lobe of left lung [facility] Work Phone: Evaluation note* Diagnosis Onset Date Resolution Status Diarrhea acute Duodenal ulcer acute Fatty liver acute GERD (gastroesophageal reflux disease) acute Emphysema of lung chronic Nodule of upper lobe of left lung chronic Essential (primary) hypertension chronic [facility] Work Phone: Evaluitnaf note* Diagnosis Onset Date Resolution Status Emphysema of lung chronic Nodule of upper lobe of left lung chronic Essential (primary) hypertension [facility] Work Phone: Evjssbwmlr noteNo assessment information available [facility] Work Phone: Evaluation note* Diagnosis Onset Date Resolution Status Biliary dyskinesia acute Duodenal ulcer acute GERD (gastroesophageal reflux disease) acute [facility] Work Phone: Evaluation note* Diagnosis Encounter for screening for malignant neoplasm of cervix- Primary Screening for malignant neoplasm of the cervix Vaginal discharge Leukorrhea, not specified as infective PMB (postmenopausal bleeding) Postmenopausal bleeding documented in this encounter [facility] note* Diagnosis Onset Date Resolution Status 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 [facility] Work Phone: Evaluation note* Diagnosis Vaginal discharge Leukorrhea, not specified as infective PMB (postmenopausal bleeding) Postmenopausal bleeding [facility] Diagnosis Fluid in endometrial cavity- Primary Other specified disorders of uterus, not elsewhere classified documented in this encounter [facility] note* Diagnosis Onset Date Resolution Status 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 [facility] Work Phone: Evaluation note* Diagnosis APPOINTMENT CANCELLED- Primary [facility] this encounter [facility]* Diagnosis Fluid in endometrial cavity Other specified disorders of uterus, not elsewhere classified documented in this encounter [facility] note* Diagnosis Fluid in endometrial cavity- Primary Other specified disorders of uterus, not elsewhere classified [facility] Narrative No data available for this section [facility] Hospital Discharge instructions No data available for this section [facility] Progress note No data available for this section [facility] Reason for referral (narrative)* Diagnostic Procedure Only (Routine) - Authorized Specialty Diagnoses / Procedures Referred By Contac t Referred To Contact [facility] Diagnoses Vaginal discharge PMB (postmenopausal bleeding) Procedures US FEMALE PELVIS TRANSVAG US TRANSVAGINAL Mayela Navarro MD [address] [place] [address] [place] [address] Referral ID Status Reason Start Date Expiration Date Visits Requested Visits Authorized [id number] Authorized Auto-Generat ed Referral 11/02/2023 12/01/2024 1 1 [facility] for referral (narrative)* Diagnostic Procedure Only (Routine) - Closed Specialty Diagnoses / Procedures Referred By Contac t Referred To Contact [facility] Diagnoses Vaginal discharge PMB (postmenopausal bleeding) Procedures US FEMALE PELVIS TRANSVAG US TRANSVAGINAL Mayela Navarro MD [address] [place] [address] [place] [address] Referral ID Status Reason Start Date Expiration Date V isits Requested Visits Authorized [id number] Closed Auto-Generate d Referral 11/02/2023 12/01/2024 1 1 [facility] for referral (narrative)* Diagnostic Procedure Only (Routine) - Authorized Specialty Diagnoses / Procedures Referred By Contac t Referred To Contact [facility] Diagnoses Fluid in endometrial cavity Procedures PELVIC US WHI US PELVIC NONOBSTETRIC REAL-TIME IMAGE COMPLETE Mayela Navarro MD [address] [place] [address] [facility] [email or web address] [address] Referral ID Status Reason Start Date Expiration Date Visits Requested Visits Authorized [id number] Authorized Auto-Generat ed Referral 03/07/2024 12/05/2024 1 1 [facility] for referral (narrative)* Diagnostic Procedure Only (Routine) - Pending Review Specialty Diagnoses / Procedures Referred By Contac t Referred To Contact [facility] Diagnoses Fluid in endometrial cavity Procedures PELVIC US WHI US PELVIC NONOBSTETRIC REAL-TIME IMAGE COMPLETE Mayela Navarro MD [address] [place] [address] [facility] [address] [place] [address] Referral ID Status Reason Start Date Expiration Date Visits Requested Visits Authorized [id number] Pending Review Auto-Generat ed Referral 03/11/2024 03/11/2025 1 1 [facility]No [facility] for [facility] Work [facility]: Reason for visit Narrative* Diagnostic Procedure Only (Routine) - Closed Specialty Diagnoses / Procedures Referred By Contac t Referred To Contact [facility] Diagnoses Fluid in endometrial cavity Procedures PELVIC US WHI US PELVIC NONOBSTETRIC REAL-TIME IMAGE COMPLETE Mayela Navarro MD [address] [place] [address] [facility] [address] [place] [address] Referral ID Status Reason Start Date Expiration Date V isits Requested Visits Authorized [id number] Closed Auto-Generate d Referral 03/07/2024 12/05/2024 1 1 [facility] Chief Complaint and Reason for Visit Chief Complaint Admit Date 6 M FU December 24, 2024 1:30 pm STOMACH ISSUES BURNING NAUSEA April 01, 2025 2:36pm Reason for Visit Admit Date Duodenal ulcer December 24, 2024 1:30 pm Elevated liver enzymes December 24, 2024 1 :30pm Metabolic dysfunction-associated steatoh epatitis (MASH) December 24, 2024 1:30pm Chief Complaint 1 M FU FATTY LIVER 2 WK FU 2 MO FU INT LABS GERD LUNG NODULE Reason for Visit Fatty liver Nausea Duodenal ulcer Fatty liver GERD (gastroesophageal reflux disease) Diarrhea Duodenal ulcer Fatty liver GERD (gastroesophageal reflux disease) Chief Complaint 2 WK FU 2 MO FU INT LABS GERD LUNG NODULE RUQ PAIN 1 Y FU SCREENING Reason for Visit Duodenal ulcer Fatty liver GERD (gastroesophageal reflux disease) Diarrhea Duodenal ulcer Fatty liver GERD (gastroesophageal reflux disease) Emphysema of lung Nodule of upper lobe of left lung Chief Complaint 2 MO FU INT LABS GERD LUNG NODULE RUQ PAIN 1 Y FU SCREENING 1 Y FU E ORDER Reason for Visit Diarrhea Duodenal ulcer Fatty liver GERD (gastroesophageal reflux disease) Emphysema of lung Nodule of upper lobe of left lung Essential (primary) hypertension Chief Complaint RUQ PAIN 1 Y FU SCREENING 1 Y FU E ORDER EORDER Reason for Visit Emphysema of lung Nodule of upper lobe of left lung Essential (primary) hypertension Chief Complaint INT LABS Chief Complaint INT LABS EORDER Chief Complaint EORDER SCREENING n/v Chief Complaint EORDER SCREENING n/v CHOLELITHIASIS Chief Complaint EORDER SCREENING n/v CHOLELITHIASIS GALLBLADDER Laparoscopic, Cholecystectomy with Laparoscopic, Cholecystectomy with Reason for Visit Biliary dyskinesia Duodenal ulcer GERD (gastroesophageal reflux disease) Chief Complaint CONSULT-VENOUS INSUF FICIENCY PAIN IN LEGS Reason for Visit Varicose veins of le g with pain Chief Complaint CONSULT-VENOUS INSUF FICIENCY PAIN IN LEGS 2 ORDERING CODY Reason for Visit Varicose veins of le g with pain Chief Complaint CONSULT-VENOUS INSUF FICIENCY PAIN IN LEGS 2 ORDERING CODY VARICOSE VEINS W/PAIN VARICOSE VEINS W/PAIN Reason for Visit Varicose veins of le g with pain Varicose veins of leg with pain Chief Complaint CONSULT-VENOUS INSUF FICIENCY PAIN IN LEGS 2 ORDERING CODY VARICOSE VEINS W/PAIN VARICOSE VEINS W/PAIN LEFT LEG PAIN Reason for Visit Varicose veins of le g with pain Varicose veins of leg with pain Chief Complaint CONSULT-VENOUS INSUF FICIENCY PAIN IN LEGS 2 ORDERING CODY VARICOSE VEINS W/PAIN VARICOSE VEINS W/PAIN LEFT LEG PAIN LEFT LEG PAIN Reason for Visit Varicose veins of le g with pain Varicose veins of leg with pain Chief Complaint Admit Date NAFLD July 28, 2024 9:48am Discuss symptoms and concerns July 192023 1:25pm ELEVATED LIVER ENZYMES, RLQ PAIN Decembe r 2023 3:57pm EORDERS- ROOF AND DONN/ ADD LUIS ORDE R November 12, 2024 1:19pm Reason for Visit Admit Date History of cholecystectomy July 1:25pm Right lower quadrant pain August 07, 2024 1:25pm Elevated liver enzymes August 07 1:25pm Chief Complaint Admit Date 6 M FU December 24, 2024 1:30 pm Chief Complaint Admit Date STOMACH ISSUES BURNING NAUSEA April 01, 2025 2:36pm OSTEOPOROSIS,SCREENING April 22, 2025 2:47pm Reason for Visit Admit Date Fatty liver April 01, 2025 2:36 pm Duodenal ulcer April 01, 2025 2:36 pm Chief Complaint Admit Date STOMACH ISSUES BURNING NAUSEA April 01, 2025 2:36pm OSTEOPOROSIS,SCREENING April 22, 2025 2:47pm OSTEOPOROSIS,SCREENING May 06, 2025 2:54pm Family History No Family History Records Found Relationship Condition Age at Onset Recorded Date/T jeff mother Malignant neoplasm of lung Unknown Disorder of thyroid Unknown sister Cardiac disease Unknown Diabetes mellitus Unknown Myocardial infarction Unknown Disorder of lung Unknown father Myocardial infarction 46 brother Aortic aneurysm Unknown grandmother Malignant neoplasm Unknown grandmother Malignant neoplasm of breast Unknown Advance Directives No Advanced Directives Records Found Advance Directive Response Recorded Date/ Time Living Will No November 24, 2021 11:25am Power of Turf And Grounds Supervisor No November 24 11:25am Advance Directive Response Recorded Date/ Time Living Will No April 19, 2023 9:56pm Power of Turf And Grounds Supervisor No April 19 9:56pm Advance Directive Response Recorded Date/ Time Living Will No May 17 8:31am Power of Turf And Grounds Supervisor No May 17 023 8:31am Advance Directive Response Recorded Date/ Time Living Will No May 17 7:31am Power of Turf And Grounds Supervisor No May 17 023 7:31am Advance Directive Response Recorded Date/ Time Advance Directives on File No December 27, 2023 7:54am Name of Medical Power of Turf And Grounds Supervisor ignacio December 27, 2023 7:54am Advance Directives Yes December 26 024 7:54am Living Will Yes December 27, 2023 7:54am Power of Turf And Grounds Supervisor Yes December 26 7:54am Advance Directive Response Recorded Date/ Time Living Will Yes February 07, 2024 1 2:58pm Power of Turf And Grounds Supervisor Yes February 07, 2024 12:58pm Advance Directives Yes February 06 12:58pm Advance Directive Response Recorded Date/ Time Living Will Yes February 07, 2024 1 2:58pm Do you have a Healthcare Power of Turf And Grounds Supervisor? Yes February 07, 2024 12:58pm Advance Directives Yes February 06 12:58pm Advance Directive Response Recorded Date/ Time Advance Directives Yes February 06 12:58pm Summary Purpose Additional Source Comments Care Team (unrecognized sect ion and content) Team Status: Active Member Role Status Dates Dr. Jaclyn Webster DO Family Provider Active Team Status: Inactive Member Role Status Dates Dr. Jaclyn Webster DO Primary Care Provider, Referring Izabela stone Active Dr. Jovon Bell MD Attending Provider Active Team Status: Active Member Role Status Dates Dr. Jaclyn Webster DO Primary Care Provider Active Dr. Jovon Bell MD Attending Provider, Referring Pro vider Active Team Status: Active Member Role Status Dates Dr. Jaclyn Webster DO Primary Care Provider Active Dr. Jovon Bell MD Attending Provider, Referring Provider, Other Provider Active Team Status: Active Member Role Status Dates Dr. Jaclyn Webster DO Primary Care Provider Active Dr. Jovon Bell MD Attending Provider Active ANAMIKA Mandujano Referring Provider Active Team Status: Active Member Role Status Dates Dr. Jovon Bell MD Attending Provider Active Team Status: Inactive Member Role Status Dates Dr. Jaclyn Webster DO Primary Care Provider Active ANAMIKA Mandujano Attending Provider, Referring Provid er Active Team Status: Inactive Member Role Status Dates Dr. Jaclyn Webster DO Primary Care Provider Active Dr. Jovon Bell MD Attending Provider, Referring Pro vider Active Team Status: Inactive Member Role Status Dates Dr. Jaclyn Webster DO Primary Care Provide r, Attending Provider, Referring Provider Active Team Status: Inactive Member Role Status Dates Dr. Jaclyn Webster DO Primary Care Provide r, Attending Provider, Referring Provider Active Dr. Agustin Albright MD Other Provider Active Team Status: Active Member Role Status Dates Dr. Jaclyn Webster DO Family Provider Active Dr. Jaclyn Webster DO Primary Care Provider Active Team Status: Inactive Member Role Status Dates Dr. Jaclyn Webster DO Primary Care Provider Active Dr. Rich Duarte MD Attending Provider, Referring Pro vider Active Team Status: Active Member Role Status Dates Dr. Jaclyn Webster DO Primary Care Provide r, Attending Provider, Referring Provider Active Team Status: Inactive Member Role Status Dates Dr. Jaclyn Webster DO Primary Care Provider Active Dr. Mona Dunne MD Emergency Provider Active Team Status: Inactive Member Role Status Dates Dr. Jaclyn Webster DO Primary Care Provider Active Dr. Mona Dunne MD Attending Provider, Emergency Provider Active Team Status: Inactive Member Role Status Dates Dr. Jaclyn Webster DO Primary Care Provider, Referring P rovider Active Dr. Anh Hercules MD Attending Provider Active Team Status: Active Member Role Status Dates Dr. Jaclyn Webster DO Primary Care Provider Active Dr. Anh Hercules MD Attending Provi salina, Referring Provider, Other Provider Active Dr. Jovon Hatch MD Other Provider Active Team Status: Inactive Member Role Status Dates Dr. Jcalyn Webster DO Primary Care Provider Active Dr. Anh Hercules MD Attending Provider, Referring Provider Active Dr. Jovon Hatch MD Other Provider Active Batch Unit Treater Relationship Specialty Start Date End Date Eleanor Jaclyn Benavides PCP - General Family Medicine 11/08/15 Team Status: Active Member Role Status Dates Dr. Jaclyn Webster DO Primary Care Provider Active Dr. Jovon Bell MD Attending Provider Active Batch Unit Treater Relationship Specialty Start Date End Date Jaclyn Webster PCP - General Family Medicine 11/08/15 Batch Unit Treater Relationship Specialty Start Date End Date Jaclyn Webster PCP - General Family Medicine 11/08/15 Batch Unit Treater Relationship Specialty Start Date End Date Jaclyn Webster PCP - General Family Medicine 11/08/15 Batch Unit Treater Relationship Specialty Start Date End Date Jaclyn Webster PCP - General Family Medicine 11/08/15 Team Status: Inactive Member Role Status Dates Dr. Jaclyn Webster DO Primary Care Provider Active Start: July 28, 2024 End: July 28, 2024 Dr. Luís Pop MD Attending Provider Active Start: July 28, 2024 End: July 28, 2024 Dr. Luís Pop MD Referring Provider Active Start: July 28, 2024 End: July 28, 2024 Team Status: Inactive Member Role Status Dates Dr. Jaclyn Webster DO Primary Care Provider Active Start: August 07, 2024 End: August 07, 2024 Dr. Jaclyn Webster DO Referring Provider Active St art: August 07, 2024 End: August 07, 2024 Dr. Anh Hercules MD Attending Provider Active Start: August 07, 2024 End: August 07, 2024 Team Status: Inactive Member Role Status Dates Dr. Jaclyn Webster DO Primary Care Provider Active Start: August 19, 2024 End: August 19, 2024 Dr. Anh Hercules MD Attending Provider Active Start: August 19, 2024 End: August 19, 2024 Dr. Anh Hercules MD Referring Provider Active Start: August 19, 2024 End: August 19, 2024 Team Status: Inactive Member Role Status Dates Dr. Jaclyn Webster DO Primary Care Provider Active Start: November 12, 2024 End: November 12, 2024 Dr. Luís Pop MD Attending Provider Active Start: November 12, 2024 End: November 12, 2024 Dr. Luís Pop MD Referring Provider Active Start: November 12, 2024 End: November 12, 2024 Harlan Stanton SET DESIGNER, SET DESIGNER-C Other Provider Active Start : November 12, 2024 End: November 12, 2024 Dr. Vic Ivey MD Other Provider Active Start: November 12, 2024 End: November 12, 2024 Team Status: Active Member Role/Relationship Status Dates Dr. Jaclyn Webster DO Primary Care Provider Active Team Status: Inactive Member Role/Relationship Status Dates Dr. Jaclyn Webster DO Primary Care Provider Active Start: December 24, 2024 End: December 24, 2024 Dr. Jaclyn Webster DO Referring Provider Active St art: December 24, 2024 End: December 24, 2024 Dr. Luís Pop MD Attending Provider Active Start: December 24, 2024 End: December 24, 2024 Team Status: Inactive Member Role/Relationship Status Dates Dr. Jaclyn Webster DO Primary Care Provider Active Start: March 16, 2025 End: March 16, 2025 Dr. Jaclyn Webster DO Attending Provider Active St art: March 16, 2025 End: March 16, 2025 Team Status: Inactive Member Role/Relationship Status Dates Dr. Jaclyn Webster DO Primary Care Provider Active Start: April 01, 2025 End: April 01, 2025 Dr. Jaclyn Webster DO Referring Provider Active St art: April 01, 2025 End: April 01, 2025 ANAMIKA Ahumada Attending Provider Active Start: April 01, 2025 End: April 01, 2025 Team Status: Inactive Member Role/Relationship Status Dates Dr. Jaclyn Webster DO Primary Care Provider Active Start: March 16, 2025 End: March 16, 2025 Dr. Jaclyn Webster DO Attending Provider Active St art: March 16, 2025 End: March 16, 2025 Team Status: Inactive Member Role/Relationship Status Dates Dr. Jaclyn Webster DO Primary Care Provider Active Start: April 01, 2025 End: April 01, 2025 Dr. Jaclyn Webster DO Referring Provider Active St art: April 01, 2025 End: April 01, 2025 ANAMIKA Ahumada Attending Provider Active Start: April 01, 2025 End: April 01, 2025 Team Status: Inactive Member Role/Relationship Status Dates Dr. Jaclyn Webster DO Primary Care Provider Active Start: April 22, 2025 End: April 22, 2025 Dr. Jaclyn Webster DO Attending Provider Active St art: April 22, 2025 End: April 22, 2025 Dr. Jaclyn Webster DO Referring Provider Active St art: April 22, 2025 End: April 22, 2025 Team Status: Inactive Member Role/Relationship Status Dates Dr. Jaclyn Webster DO Primary Care Provider Active Start: May 06, 2025 End: May 06, 2025 Dr. Jaclyn Webster DO Attending Provider Active St art: May 06, 2025 End: May 06, 2025 Dr. Jaclyn Webster DO Referring Provider Active St art: May 06, 2025 End: May 06, 2025 Goals (unrecognized section and content) Goals may be documented in a n alternate section INFORMATION SOURCE (unrecogn ized section and content) DATE CREATED AUTHOR 10/13/2023 [facility] ([place]) DATE CREATED AUTHOR AUTHOR'S ORGANIZ ATION 03/24/2024 [facility] DATE CREATED AUTHOR AUTHOR'S ORGANIZ ATION 05/19/2025 [place] [facility] Source Comments (unrecognize d section and content) In the event this informatio n is protected by the Federal Confidentiality of Alcohol and Drug Abuse Patient Records regulations: The Federal rules restrict any use of the information to criminally investigate or prosecute any alcohol or drug abuse patient.[facility] the event this information is protected by the Federal Confidentiality of Alcohol and Drug Abuse Patient Records regulations: The Federal rules restrict any use of the information to criminally investigate or prosecute any alcohol or drug abuse patient.[facility] the event this information is protected by the Federal Confidentiality of Alcohol and Drug Abuse Patient Records regulations: The Federal rules restrict any use of the information to criminally investigate or prosecute any alcohol or drug abuse patient.[facility] the event this information is protected by the Federal Confidentiality of Alcohol and Drug Abuse Patient Records regulations: The Federal rules restrict any use of the information to criminally investigate or prosecute any alcohol or drug abuse patient.[facility] the event this information is protected by the Federal Confidentiality of Alcohol and Drug Abuse Patient Records regulations: The Federal rules restrict any use of the information to criminally investigate or prosecute any alcohol or drug abuse patient.[facility] the event this information is protected by the Federal Confidentiality of Alcohol and Drug Abuse Patient Records regulations: The Federal rules restrict any use of the information to criminally investigate or prosecute any alcohol or drug abuse patient.[facility] Reason for Visit (unrecogniz ed section and content) Reason Comments Radiology US Specialty Diagnoses / Procedures Referred By Julissa t Referred To Contact US IMAGING Diagnoses Vaginal discharge PMB (postmenopausal bleeding) Procedures US FEMALE PELVIS TRANSVAG US TRANSVAGINAL Mayela Navarro MD [address] [place] [address] [place] [id number] Referral ID Status Reason Start Date Expiration Date V isits Requested Visits Authorized [id number] Closed Auto-Generate d Referral 11/02/2023 12/01/2024 1 1 Reason Comments Endometrial Biopsy FOR RECORDS PERTAINING TO PATIENTS WHO ARE [...] BE BASED ON THE PRIMARY CLINICAL RECORDS. [facility]. provides no warranty or guarantee of the accuracy or completeness of information in this document.
--- NOTE | 2025-05-20 06:39 | HP.PCM_ITS ---
HPI - General General Date of Admission: 06/25/25 Date of Service: 05/20/25 Chief Complaint: duodenal ulcer HPI Narrative NOHEMI SANDERS, is a 75 F who presents with Chief Complaint: epigastric pain [facility] established 08/2021 for nausea, GERD, hx duodenal ulcers, Fatty liver. Patient states she had labs with her PCP last month and had elevated liver enzymes. Denies any abdominal pain, heartburn, swelling. BM are normal once a day. US RUQ 9.27.24- Parenchymal liver disease, likely steatosis. 07/09/2024: Patient has follow-up after more than 2 years. In meantime patient had cholecystectomy in May 2023. She also had left GSV varicose vein ablation by Dr. Bell. Complain of mild pressure/pain in right flank after gallbladder surgery especially on turning or moving. Has gained weight 13 pounds since 2018 but similar for last 2 years Liver elastography 11.11.24; 8.4 kpa OV 04..25 patient complain of itching all over the body. She states she has increased histamine condition as sent by visualizer and she uses skin lubricant and hydroxyzine which causes increased sleeping but it still itches. Denies abdominal pain or acute GI symptoms OV 7.16.25 Pt having epigastric pain over the past three months associated with constant nausea and excessive eructation. Pt has a hx of duodenal ulcers and notes this is similar to how she felt in the past. Pain is worse in the morning on and empty stomach. She is eating a bland diet. She is taking Pantoprazole 40 mg daily. SHe has been on BID dosing in the past however her telephone recorder decreased this. Her bowels are irrregular with urgent loose stools and constipation. Last colonoscopy was probably around 10 years ago. [facility] Medical History Diabetes History of renal dialysis Electronic cigarette use COPD (chronic obstructive pulmonary disease) Diverticulosis History of ulceration Right lower quadrant pain Loss of hearing MRSA infection Thyroid disease High cholesterol Smoker History of edema History of echocardiogram History of stress test Coronary artery calcification seen on CAT scan Duodenal ulcer GERD (gastroesophageal reflux disease) Wears dentures Anxiety Arthritis Bladder disease History of renal disease Fatty liver Restless legs Migraine headache Injury of head and neck Dietary restriction History of hiatal hernia History of diverticulitis Gastric reflux Vapes nicotine containing substance Leg cramps Cardiology follow-up encounter Nausea History of deep venous thrombosis (1999) Lightheadedness Near syncope Hypothyroidism Emphysema of lung Obesity Hyperlipidemia Neck pain Back pain Essential (primary) hypertension Type 2 diabetes mellitus Nodule of upper lobe of left lung Home Medications ?Medication ?Instructions ?Recorded ?Last Taken ?Type hydrochlorothiazide 25 mg tablet 25 mg PO DAILY Unknown History potassium chloride 10 mEq 10 meq PO BID 05/28/20 Unkno wn History tablet,extended release(part/cryst) levothyroxine 75 mcg tablet 75 mcg PO MOTUWETHFR 06/0212/27/23 History enalapril maleate 20 mg tablet 10 mg PO BID 06/01/22 U nknown History albuterol sulfate 90 mcg/actuation 2 puff inhalation Q 4-6H PRN 02/07/24 Unknown Rx aerosol inhaler shortness of breath or wheez ing #6.7 grams glipizide 2.5 mg tablet, extended 2.5 mg PO QDAY 07/09 Unknown History release 24 hr magnesium aspart,citrate,oxide 500 mg PO DAILY 4 Unknown History (Triple Magnesium Complex) hydroxyzine HCl 25 mg tablet 50 mg PO QHS PRN itching 07/17/24 Unknown History pantoprazole 40 mg tablet,delayed 40 mg PO BID gastric reflux 12/24/24 Unknown History release biotin 10,000 mcg capsule 10,000 mcg PO DAILY 05/14/25 Unknown History fexofenadine 180 mg tablet 180 mg PO DAILY PRN allergi es 05/14/25 Unknown History lnlwparnxgjg-wfxywjbg-yockxr 1 tab PO DAILY 05/14/25 U nknown History tablet (Multivitamin 50 Plus tablet) psyllium husk 0.4 gram capsule 0.4 g PO DAILY 05/14/25 Unknown History (Daily Fiber) Allergy/AdvReac Type Severity Reaction Status Date / Time Influenza Virus Vaccines Allergy Severe Swelling Verified 05/14/25 12:16 pneumococcal vaccine Allergy Severe Swelling Verified 05/14/25 12:16 Tetanus Vaccines and Toxoid Allergy Severe Swelling Verified 05/14/25 12:16 amlodipine Allergy Intermediate Other Verified 05/14/25 12:16 bupropion (From Wellbutrin) Allergy Hives Verified 05/14/25 12:16 pravastatin AdvReac Intermediate Myalgias Verified 05/14/25 12:16 Family History Mother Lung cancer Thyroid disorder Sister Heart disease Diabetes Sister Heart disease Diabetes Myocardial infarction Lung disease Father Myocardial infarction, Onset Age: 46 Brother Aortic aneurysm Grandmother Cancer melanoma Grandmother Breast cancer Surgical History History of vein stripping History of laparoscopic cholecystectomy History of varicose vein procedure History of cholecystectomy (~05/2023) History of tonsillectomy and adenoidectomy History of bunionectomy H/O oophorectomy History of rotator cuff surgery History of lumbar surgery reconstruction of rectum H/O construction of artificial vagina History of appendectomy Social History Smoking Status: Current some day smoker tobacco type: e-cigarettes Tobacco: How many years used: 50 Electronic Cigarette Use: with nicotine how long ago did patient quit smokin years second hand exposure: Yes quit status: has quit before alcohol intake: never ROS Constitutional Constitutional: Denies fatigue, fever(s), poor appetite, weight gain or weight loss Gastrointestinal Gastrointestinal: Denies belching, bloating, change in bowel habits, change in stool character, chewing difficulty, coffee ground emesis, constipation, cramping, diarrhea, dyspepsia, dysphagia, early satiety, excessive flatus, fecal incontinence, heartburn, hematemesis, hematochezia, hemorrhoids, loose stools, melena, nausea, odynophagia, rectal bleeding, tenesmus, vomiting or weight changes Physical Exam Const alert, oriented x3, no apparent distress and healthy appearing General Appearance: cooperative GI normal to inspection, nondistended, normoactive bowel sounds, soft to palpation, non-tender and non-distended Percussion: normal to percussion Rectal Exam: deferred Assessment & Plan Assessment/Plan (1) Duodenal ulcer: (2) GERD (gastroesophageal reflux disease): PLAN: Assessment and Plan Assessment and Plan (1) Duodenal ulcer: Status: Chronic Plan: Marti is a 75 yo female pt here today for f/u. Pt established with [facility] for her hx of fatty liver which is being monitored by Dr. Pop. Pt now endorsing epigastric pain, nausea, bloating and excessive eructation over the past 3 months. She has a hx of duodenal ulcers. She will undergo EGD to assess her upper GI tract for inflammation or ulcers. She will continue PPI. I have increased to BID dosing for now. -EGD -Increase PPI to 40 mg BID -f/u after procedure (2) Fatty liver: Status: Acute
[2025-05-20] MEDS: Lactated Ringers 1,000 ML 15 ML IV (06:57)
--- NOTE | 2025-05-20 07:03 | PCM.PRE.AN2 ---
ASA Classification* ASA Classification ASA Classification: 3 (CKD3, Thyroid, HLD, HTN, GERD, COPD/emphysema, T2DM. Cardiac clearance in chart. Would induce patient slowly given comorbidities and age) Assessment & Plan Anesthesia* Anesthesia Assessment Anesthesia Assessment: Discussed sedation and/or anesthesia options, risks, benefits, and alternatives with patient/parents/legal guardian/POA. Questions invited. The patient/parents/legal guardian/POA seems to understand and agrees to proceed with anesthesia plan. Reviewed the physical assessment, medical history, allergy history and patient home medications list prior to surgery/procedure/anesthetic and documented any changes. Performed airway and anesthesia risk assessments. Anesthesia Type Anesthesia Type: MAC History Source History Obtained from:: Patient and Chart Anesthesia Focused Assessment* Temperature: 98.5 F Pulse Rate: 66 Blood Pressure: 121/47 Respiratory Rate: 16 Pulse Ox: 98 Oxygen Delivery Method: Room Air Airway Assessment Mouth opens: >3 cm Mallampati Score: II Neck Range of motion (ROM): Full ROM Labs Anesthesia Preop lab: CBC WBC 7.7 K/mm3 (4.4-11.0) 03/16/25 16:08 03/16/25 RBC 4.17 M/mm3 (4.2-5.4) L 03/16/25 16:08 03/16/25 Hgb 12.0 g/dL (12.0-15.0) 03/16/25 16:08 03/16/25 Hct 36.3 % (37-47) L 03/16/25 16:08 03/16/25 Plt Count 252 K/mm3 (150-450) 03/16/25 16:08 03/16/25 CHEMISTRY Potassium 3.9 mmol/L (3.3-5.1) 03/16/25 16:08 03/16/25 Sodium 139 mmol/L (133-145) 03/16/25 16:08 03/16/25 Magnesium 2.0 mg/dL (1.6-2.6) 07/05/22 14:46 07/05/22 Phosphorus 2.9 mg/dL (2.7-4.5) 11/12/24 15:01 11/12/24 BUN 25 mg/dL (4-19) H 03/16/25 16:08 03/16/25 Creatinine 1.22 mg/dL (0.70-1.20) H 03/16/25 16:08 03/16/25 Glucose 105 mg/dL (70-99) H 03/16/25 16:08 03/16/25 POC Glucose 142 mg/dL (74-106) H 05/22/23 08:52 05/22/23 TSH 1.800 uIU/mL (0.300-4.200) 03/16/25 16:08 03/16/25 COAG PT 12.9 SECONDS (11.7-14.9) 11/12/24 13:25 11/12/24 Pre-Assessment Diagnosis/Proposed Procedure Planned Operative Procedure(s): EGD Anesthesia History Anesthesia History - dev technical mgr: Anesthesia History - dev technical mgr Hx Hospitalization No 05/14/25 12:22 Any Problems With Anesthesia No 05/14/25 12:22 Cholinesterase deficiency No 05/14/25 12:22 You/Your Family Experience No 05/14/25 12:22 fever (hyperthermia) with Relationship Recent Exposure to Contagious No 05/20/25 06:53 Disease Does patient have nerve No 05/14/25 12:22 stimulator Patient instructed to have device shut off --Does patient have Pacemaker No 05/20/25 06:53 or ICD? When Was Last Pacemaker Check QUESTION #4 FULL TEXT: You/Your Family Experience fever (hyperthermia) with Anesthesia Last Oral Intake Last Oral intake: Last Oral Intake NPO since 22:00 05/20/25 06:53 Meds taken in AM with sips of Yes 05/20/25 06:53 water? Meds patient instructed to see chart 05/20/25 06:53 take am of surgery PONV PONV - dev technical mgr: PONV - dev technical mgr Female Yes 05/14/25 12:22 HX of Motion Sickness No 05/14/25 12:22 HX of N/V After Surgery No 05/14/25 12:22 Non-Smoker No 05/14/25 12:22 Duration of Surgery greater No 05/14/25 12:22 than 60 minutes Number of Risk Factors 1 05/14/25 12:22 PONV Score Low Risk 05/14/25 12:22 Height & Weight Height & Weight: Anesthesia: Height & Weight Height 5 ft 1 in 05/20/25 06:53 Weight: 74 kg 05/20/25 06:53 Body Mass Index (BMI) 30.8 05/20/25 06:53 Respiratory Assessment Respiratory Assessment - dev technical mgr: Respiratory Tract Infection Hx - dev technical mgr Hx Respiratory Tract Infection No 05/14/25 12:22 STOP Sleep Apnea STOP Sleep Apnea - dev technical mgr: STOP Sleep Apnea - dev technical mgr Hx Hypertension Yes: CONTROLLED WITH MED 05/14/25 12:22 Hx Sleep Apnea No 05/14/25 12:22 CPAP BIPAP Do you snore loudly (louder No 05/14/25 12:22 than talking or can be heard Do you often feel tired/ No 05/14/25 12:22 fatigued/ sleepy during daytime? Has anyone observed you stop No 05/14/25 12:22 breathing during sleep? STOP Results Negative 05/14/25 12:22 QUESTION #5 FULL TEXT : Do you snore loudly (louder than talking or can be heard through closed doors)? Tobacco Use History Tobacco Use History - dev technical mgr: Tobacco Use History - dev technical mgr Tobacco Use Smoking Status Current some day smoker 05/14/25 12:22 Hx Tobacco Use Yes 05/14/25 12:22 Years Smoking Packs Smoked per Day Smoking Cessation Date was within the last 15 years Hx Smoking Cessation Date Hx Smoking Cessation Counseling Hematologic Medial History Hematologic Hx - dev technical mgr: Hematologic Medical Hx - quality tech Hx of Blood Transfusion Yes 05/14/25 12:22 Hx of Transfusion in last 3 No 05/14/25 12:22 Months Date of Last Transfusion (if within last 3 months) Ever experience any problems No 05/14/25 12:22 with transfusion(s)? Specify any problems Hx of Preganancy in last 3 N/A 05/14/25 12:22 Months Nurse Filling Out Transfusion NBUCHER 05/14/25 12:22 & Questions: Date: 05/14/25 05/14/25 12:22 Time: 12:24 05/14/25 12:22 Patient unable to answer at this time (ie. confused, unrespo /Reproduction History /Reproductive History - dev technical mgr: /Reproductive Hx- dev technical mgr Hx Now No 05/14/25 12:22 Gestational Age (in weeks): EDC: Hx Hx Para Hx Section SAB No 05/14/25 12:22 Active Medications Active Medications: Current Medications Generic Name Dose Route Start Last Admin Trade Name Freq PRN Reason Stop Dose Admin Lactated Ringer's 1,000 mls @ 15 mls/hr 05/20/25 06:30 05/20/25 06:57 IV 15 mls/hr .Q48H RICARDO Administration PFSH Medical History Diabetes History of renal dialysis Electronic cigarette use COPD (chronic obstructive pulmonary disease) Diverticulosis History of ulceration Right lower quadrant pain Loss of hearing MRSA infection Thyroid disease High cholesterol Smoker History of edema History of echocardiogram History of stress test Coronary artery calcification seen on CAT scan Duodenal ulcer GERD (gastroesophageal reflux disease) Wears dentures Anxiety Arthritis Bladder disease History of renal disease Fatty liver Restless legs Migraine headache Injury of head and neck Dietary restriction History of hiatal hernia History of diverticulitis Gastric reflux Vapes nicotine containing substance Leg cramps Cardiology follow-up encounter Nausea History of deep venous thrombosis (1999) Lightheadedness Near syncope Hypothyroidism Emphysema of lung Obesity Hyperlipidemia Neck pain Back pain Essential (primary) hypertension Type 2 diabetes mellitus Nodule of upper lobe of left lung Home Medications ?Medication ?Instructions ?Recorded ?Last Taken ?Type hydrochlorothiazide 25 mg tablet 25 mg PO DAILY 08/15/17 05/19/25 History potassium chloride 10 mEq 10 meq PO BID 05/28/20 05/19/25 History tablet,extended release(part/cryst) levothyroxine 75 mcg tablet 75 mcg PO MOTUWETHFR 06/02/21 05/20/25 History enalapril maleate 20 mg tablet 10 mg PO BID 06/01/22 05/19/25 History albuterol sulfate 90 mcg/actuation 2 puff inhalation Q4-6H PRN 02/07/24 Unknown Rx aerosol inhaler shortness of breath or wheezing #6.7 grams glipizide 2.5 mg tablet, extended 2.5 mg PO QDAY 07/09/24 05/19/25 History release 24 hr magnesium aspart,citrate,oxide 500 mg PO DAILY 07/09/24 05/19/25 History (Triple Magnesium Complex) hydroxyzine HCl 25 mg tablet 50 mg PO QHS PRN itching 07/17/24 05/19/25 History pantoprazole 40 mg tablet,delayed 40 mg PO BID gastric reflux 12/24/24 05/19/25 History release biotin 10,000 mcg capsule 10,000 mcg PO DAILY 05/14/25 05/19/25 History fexofenadine 180 mg tablet 180 mg PO DAILY PRN allergies 05/14/25 05/19/25 History [id number]-[id number] 1 tab PO DAILY 05/14/25 05/19/25 History tablet (Multivitamin 50 Plus tablet) psyllium husk 0.4 gram capsule 0.4 g PO DAILY 05/14/25 05/19/25 History (Daily Fiber) calcium 600 mg capsule 600 mg PO BID 05/20/25 05/19/25 History cholecalciferol (vitamin D3) 125 5,000 unit PO BID 05/20/25 05/19/25 History mcg (5,000 unit) tablet (Vitamin D3) Allergy/AdvReac Type Severity Reaction Status Date / Time Influenza Virus Vaccines Allergy Severe Swelling Verified 05/20/25 06:48 pneumococcal vaccine Allergy Severe Swelling Verified 05/20/25 06:48 Tetanus Vaccines and Toxoid Allergy Severe Swelling Verified 05/20/25 06:48 amlodipine Allergy Intermediate Other Verified 05/20/25 06:48 bupropion (From Wellbutrin) Allergy Hives Verified 05/20/25 06:48 pravastatin AdvReac Intermediate Myalgias Verified 05/20/25 06:48 Family History Mother Lung cancer Thyroid disorder Sister Heart disease Diabetes Sister Heart disease Diabetes Myocardial infarction Lung disease Father Myocardial infarction, Onset Age: 46 Brother Aortic aneurysm Grandmother Cancer melanoma Grandmother Breast cancer Surgical History History of vein stripping History of laparoscopic cholecystectomy History of varicose vein procedure History of cholecystectomy (~05/2023) History of tonsillectomy and adenoidectomy History of bunionectomy H/O oophorectomy History of rotator cuff surgery History of lumbar surgery reconstruction of rectum H/O construction of artificial vagina History of appendectomy Social History Smoking Status: Current some day smoker tobacco type: e-cigarettes Tobacco: How many years used: 50 Electronic Cigarette Use: with nicotine how long ago did patient quit smokin years second hand exposure: Yes quit status: has quit before alcohol intake: never Review of Systems (Anesthesia) ROS Narrative System reviewed and no additional complaints, except as documented. Physical Exam Const alert, oriented x3 and average body habitus Resp normal respiratory effort, normal air movement and clear to auscultation bilaterally Cardio regular rate, regular rhythm, no murmurs and diaphoretic
--- NOTE | 2025-05-20 07:15 | EGD_PTH ---
PATIENT: NOHEMI SANDERS LOC: EN U#:[id number] AGE/SX: 75/F ROOM: RE05/20/[address]: Dr. Chaitanya Delacruz DO : 1950 BED: DIS: 05/20/2025 SPEC #: [id number] RECD: 05/20/25 09:52 STATUS: YOAN REWilmar #: [id number] VICKEY: 05/20/25 07:[address]: Chaitanya Delacruz DEPT: SURGICAL PATHOLOGY RECD BY: Niranjan Velez ENTERED: 05/20/25 10:26 SP TYPE: EGD BIOPSY JAYJAY DR: Dr. Jaclyn Webster DO Tissues: A - Gastric mucous membrane Procedures: Immunohistochemical Stains Surgery Specimen Level IV HEADER OPERATION: EGD with biopsy PRE-OP DIAGNOSIS: Duodenal ulcer TISSUE SUBMITTED: A- Gastric body biopsy MICROSCOPIC DIAGNOSIS A. Gastric body, biopsy: - Oxyntic mucosa with features of reactive gastropathy. - IHC negative for H. pylori organisms. MICROSCOPIC DESCRIPTION Slides are reviewed. All matched controls reacted appropriately. These tests were developed and their performance characteristics determined by [facility]. They may not have been cleared or approved by the U.S. Food and Drug Administration. The FDA hasdetermined that such clearance or approval is not necessary. The above immunohistochemical/dualISH markers are reviewed by the Pathologist. GROSS DESCRIPTION A. Received in fixative is one container labeled with the patient's name and designated Gastric body biopsy. The specimen consists of two irregular fragments of light ortiz soft tissue that measure 0.8 cm. The specimen is totally submitted in one cassette. [place] 05/20/2025 CPT:86501,77381
--- NOTE | 2025-05-20 07:45 | OP.EGD_ITS ---
Patient Name: Shelli Deshpande Procedure Date: 05/20/2025 7:25 AM Date of : 1950 Age: 75 Procedure: Upper GI endoscopy Indications: Peptic ulcer Providers: Chaitanya Delacruz DO Referring MD: Jaclyn Webster Medicines: Monitored Anesthesia Care Patient Profile: This is a 75 year old female. Refer to note in patient chart for documentation of history and physical. Patient has symptoms. Complications: No immediate complications. Procedure: Pre-Anesthesia Assessment: - Prior to the procedure, a History and Physical was performed, and patient medications and allergies were reviewed. The patient is competent. The risks and benefits of the procedure and the sedation options and risks were discussed with the patient. All questions were answered and informed consent was obtained. Patient identification and proposed procedure were verified by the physician in the pre-procedure area. Mental Status Examination: alert and oriented. Airway Examination: normal oropharyngeal airway and neck mobility. Respiratory Examination: clear to auscultation. CV Examination: normal. Prophylactic Antibiotics: The patient does not require prophylactic antibiotics. Prior Anticoagulants: The patient has taken no anticoagulant or antiplatelet agents except for NSAID medication. ASA Grade Assessment: II - A patient with mild systemic disease. After reviewing the risks and benefits, the patient was deemed in satisfactory condition to undergo the procedure. The anesthesia plan was to use monitored anesthesia care (MAC). Immediately prior to administration of medications, the patient was re-assessed for adequacy to receive sedatives. The heart rate, respiratory rate, oxygen saturations, blood pressure, adequacy of pulmonary ventilation, and response to care were monitored throughout the procedure. The physical status of the patient was re-assessed after the procedure. After obtaining informed consent, the endoscope was passed under direct vision. Throughout the procedure, the patient's blood pressure, pulse, and oxygen saturations were monitored continuously. The gastroscope was introduced through the mouth, and advanced to the second part of duodenum. The upper GI endoscopy was accomplished without difficulty. The patient tolerated the procedure well. Scope In: 7:33:32 AM Scope Out: 7:35:54 AM Total Procedure Duration Time 0 hours 2 minutes 22 seconds Findings: The examined esophagus was normal. Patchy mildly erythematous mucosa without bleeding was found in the gastric body. Biopsies were taken with a cold forceps for histology. Verification of patient identification for the specimen was done. Estimated blood loss was minimal. Biopsies were taken with a cold forceps for Helicobacter pylori testing. Verification of patient identification for the specimen was done. Estimated blood loss was minimal. A small amount of food (residue) was found in the gastric antrum. Food (residue) was found in the duodenal bulb. Impression: - Normal esophagus. - Erythematous mucosa in the gastric body. Biopsied. - A small amount of food (residue) in the stomach. - Retained food in the duodenum. Recommendation: - Discharge patient to home. - Resume previous diet. - Continue present medications. - Await pathology results. Procedure Code(s): --- Professional --- 05062, Esophagogastroduodenoscopy, flexible, transoral; with biopsy, single or multiple CPT copyright 2021 [employer]. All rights reserved. The codes documented in this report are preliminary and upon furniture sales consultant review may be revised to meet current compliance requirements. Chaitanya Delacruz DO 05/20/2025 7:44:36 AM This report has been signed electronically. Number of Addenda: 0 Note Initiated On: 05/20/2025 7:25 AM
--- NOTE | 2025-05-20 07:45 | OP.PROVAT_ITS ---
05/20/2025 Jaclyn Webster [address] [place] [address] Re : Upper GI endoscopy procedure for Shelli Deshpande Dear Dr. Webster This procedure was performed on Tuesday, May 20, 2025. My impressions and recommendations are as follows: Impressions : - Normal esophagus. - Erythematous mucosa in the gastric body. Biopsied. - A small amount of food (residue) in the stomach. - Retained food in the duodenum. Recommendations : - Discharge patient to home. - Resume previous diet. - Continue present medications. - Await pathology results. My findings are described in the full procedure note, which is enclosed. If I can be of further assistance, please feel free to contact me at . Sincerely, Chaitanya Delacruz, 05/20/2025 7:44:36 AM This report has been signed electronically.
--- NOTE | 2025-05-20 07:46 | PCM.POST.ANE ---
Anesthesia: Postop Eval I Current Vital Signs Temperature: 97.4 F Pulse Rate: 71 Blood Pressure: 104/51 Respiratory Rate: 16 Pulse Ox: 96 Oxygen Delivery Method: Room Air Assessment Airway patent: Yes Spontaneous unlabored respirations: Yes Mental status: Awake nausea: No Vomiting: No Anesthesia Complication: No Fluid Hydration Crystalloid volume administer (ml): 300 Total IV fluid infused: 300 Progress Note Anesthesia document: Postop Eval 1 completed: Yes
--- NOTE | 2025-05-20 09:06 | PCM.POSTANE2 ---
Anesthesia Postop Eval I Sum Postop Eval Completion status Anesthesia document: Postop Eval 1 completed: Yes Anesthesia Postop Eval I Summary Anesthesia Postop Eval I Summary: Anesthesia Postop Eval I: Assessment Summary Airway patent Yes 05/20/25 07:47 [email or web address] Spontaneous unlabored Yes 05/20/25 07:47 [email or web address] respirations Mental status Awake 05/20/25 07:47 [email or web address] nausea No 05/20/25 07:47 [email or web address] Vomiting No 05/20/25 07:47 [email or web address] Anesthesia Postop Eval I: Fluid Summary Crystalloid volume administer 300 05/20/25 07:47 [email or web address] (ml) Colloids volume administered ( ml) Blood Product volume administered (ml) Total IV fluid infused 300 05/20/25 07:47 [email or web address] Anesthesia Postop Eval I: Summary Notes Anesthesia Complication No 05/20/25 07:47 [email or web address] Anesthesia Complication Comment: Post-operative progress note Anesthesia: Postop Eval II Evaluation Mental status: Awake Pain Level: 0 nausea: No Vomiting: No Complications Anesthesia Complication: No
== END 2025-05-20 08:32 | disposition home or self-care (01) ==
LOC: EN 06:16 → AC 06:19
PROVIDERS: PCP Family Medicine; Referring Provider Family Medicine; Visit Provider Internal Medicine Gastroenterology
PROC: 0DJ08ZZ Inspection of Upper Intestinal Tract, Via Natural or Artificial Opening Endoscopic (ICD-10-PCS; CPT 43235; principal; 2025-05-20 07:10)
DX: K31.9 Disease of stomach and duodenum, unspecified (principal); J43.9 Emphysema, unspecified; E11.9 Type 2 diabetes mellitus without complications; I10 Essential (primary) hypertension; E78.00 Pure hypercholesterolemia, unspecified; K76.0 Fatty (change of) liver, not elsewhere classified; I25.10 Atherosclerotic heart disease of native coronary artery without angina pectoris; K21.9 Gastro-esophageal reflux disease without esophagitis; F17.290 Nicotine dependence, other tobacco product, uncomplicated; Z90.49 Acquired absence of other specified parts of digestive tract; Z79.84 Long term (current) use of oral hypoglycemic drugs; Z79.890 Hormone replacement therapy; Z79.899 Other long term (current) drug therapy; Z86.718 Personal history of other venous thrombosis and embolism; Z87.11 Personal history of peptic ulcer disease
CPT/HCPCS: 43239; 82962; 88305; 88342; J2405

== ENCOUNTER → 2025-06-18 | Outpatient (CLI) | payer MEDICARE, SELFPAY | END | disposition home or self-care (01) | PROVIDERS: PCP Family Medicine; Referring Provider Family Medicine; Visit Provider Family Medicine | DX: R30.0 Dysuria (principal) | CPT/HCPCS: 87086 ==

== ENCOUNTER → 2025-06-29 | Outpatient (CLI) | payer MEDICARE, SELFPAY ==
[2025-06-29 17:51] LABS: Hematocrit 37.5 % (37-47); Hemoglobin 12.3 g/dL (12.0-15.0); Immature Granulocytes Count 0.010 X10^3/uL (0.0-0.0); Mean Corp Hgb Conc 32.8 g/dL (32-36); Mean Corpuscular Volume 87.8 fL (81-99); Mean Platelet Vol. 10.2 fl (6.2-12.0); NRBC Flagged by Analyzer 0 % (0-5); Platelet Count 253 K/mm3 (150-450); RBC Distribution Width CV 13.8 % (11.6-14.6); RBC Distribution Width SD 44.6 fl (35.1-43.9); Red Blood Count 4.27 M/mm3 (4.2-5.4); White Blood Count 7.1 K/mm3 (4.4-11.0)
[2025-06-29 18:20] LABS: Prothrombin Time (Protime)PT. 13.4 SECONDS (11.7-14.9)
[2025-06-29 18:24] LABS: AST(SGOT) 38 U/L (<=31); Alanine Aminotransfer ALT/SGPT 36 U/L (<=34); Albumin, Serum 4.1 g/dL (3.4-4.8); Alkaline Phosphatase 56 U/L (35-104); Anion Gap 11 (5-15); BUN 23 mg/dL (4-19); BUN/Creat Ratio 19.1 RATIO (10-20); Calcium,Total 10.2 mg/dL (7.6-11.0); Carbon Dioxide 25.4 mmol/L (21.0-32.0); Chloride 103 mmol/L (98-108); Ferritin 106 ng/mL (22-378); Free T3 2.4 pg/mL (2.18-3.98); Globulin 3.0 g/dL (2.2-4.2); Glucose 88 mg/dL (70-99); Potassium 3.7 mmol/L (3.3-5.1)
[2025-06-29 19:01] LABS: CRP 3.47 mg/L (0.0-3.0); Iron 109 ug/dL (50-170)
[2025-07-01 14:09] LABS: ANTINUCLEAR ANTIBODIES DIRECT Negative (Negative)
[2025-07-04 16:08] LABS: Immunoglobulin A 237 mg/dL (64-422); Immunoglobulin G 1308 mg/dL (586-1602); Immunoglobulin M 26 mg/dL (26-217)
== END | disposition home or self-care (01) ==
LOC: MTLAB 13:59
PROVIDERS: Internal Medicine; PCP Family Medicine; Referring Provider Family Medicine; Visit Provider Family Medicine
DX: E11.22 Type 2 diabetes mellitus with diabetic chronic kidney disease (principal); I12.9 Hypertensive chronic kidney disease with stage 1 through stage 4 chronic kidney disease, or unspecified chronic kidney disease; N18.9 Chronic kidney disease, unspecified; E03.9 Hypothyroidism, unspecified; I83.819 Varicose veins of unspecified lower extremity with pain; K75.81 Nonalcoholic steatohepatitis (NASH); R74.8 Abnormal levels of other serum enzymes; K21.9 Gastro-esophageal reflux disease without esophagitis
CPT/HCPCS: 36415; 80053; 82728; 82784; 82785; 83036; 83540; 84439; 84443; 84481; 85025; 85610; 86038; 86140; 86225; 86235

== ENCOUNTER → 2025-07-06 | Outpatient (CLI) | payer MEDICARE, SELFPAY ==
--- NOTE | 2025-07-06 12:40 | NM_ITS ---
PROCEDURE: GASTRIC EMPTYING STUDY 07/06/2025 REASON FOR EXAM: NAUSEA COMPARISON: None. TECHNIQUE: Procedure Code: NMGES Modality: NM Procedure: GASTRIC EMPTYING STUDY The patient ingested a standard semi solid meal of oatmeal. There was no vomiting postprandially. Anterior and posterior planar images of the upper abdomen were obtained for a total of 60 minutes. Regions of interest were drawn, and a geometric mean was used to calculate a [id number]. RADIOPHARMACEUTICAL: Oral administration 1.2 mCi technetium 99 M sulfur colloid within the oatmeal. FINDINGS: During the time of imaging, gastroesophageal reflux was not identified. Linear fit gastric emptying half time of 30.75 minutes. Gastric emptying at 17.5 minutes of 63%, at 29.5 minutes of 76%, at 47.5 minutes of 82%, and at 59.5 minutes of 85%. NM/Gastric Emptying Study IMPRESSION: Abnormally rapid semi solid phase gastric emptying. No evidence delayed gastri c emptying. Reading Location: [id number]
== END | disposition home or self-care (01) ==
LOC: NM 12:35
PROVIDERS: PCP Family Medicine; Referring Provider Student in an Organized Health Care Education/Training Program; Visit Provider Student in an Organized Health Care Education/Training Program
DX: K21.9 Gastro-esophageal reflux disease without esophagitis (principal); R11.0 Nausea
CPT/HCPCS: 78264; A9541

== ENCOUNTER → 2025-08-20 | Outpatient (CLI) | payer MEDICARE, SELFPAY ==
--- NOTE | 2025-08-20 16:28 | CT_ITS ---
PROCEDURE: CT ABD/PELVIS W/WO CONTRAST 08/20/2025 REASON FOR EXAM: ELEVATED AFP. R/O HCC TECHNIQUE: Procedure Code: [id number] Modality: CT Procedure: CT ABD/PELVIS W/WO CONTRAST Coronal and Sagittal reconstruction series were provided. CONTRAST: OMNIPAQUE 350 VOLUME: 100 mL One or more dose reduction techniques were used (e.g., Automated exposure control, adjustment of the mA and/or kV according to patient size, use of iterative reconstruction technique. RADIATION DOSE SUMMARY: CTDlvol: 18.58 mGy DLP: 909 mGycm COMPARISON: 08/19/2024. FINDINGS: Mild bilateral basilar atelectatic pulmonary changes. Unchanged hepatomegaly with hepatic steatosis. Prior cholecystectomy, unchanged. Unchanged mild diffuse irregularity of the hepatic contour, probably chronic parenchymal liver disease. No suspicious enhancing liver lesion is identified. Fat containing umbilical hernia without incarceration. Calcified atheromatous plaques of the aorta and iliac arteries. Grade 1 anterolisthesis of L5 on S1. Exaggerated lumbar lordosis. Moderate diffuse spondylosis. Uncomplicated colonic diverticulosis, unchanged. Unchanged mildly prominent inguinal lymph nodes are noted with the largest measuring 1.2 cm. Normal extrahepatic biliary system. Normal spleen. Normal pancreas. Normal bilateral adrenal glands. Normal size of the right kidney. There is no right renal mass. There are no right renal calculi. There is no right hydronephrosis. Normal visualized right ureter. Normal size of the left kidney. There is no left renal mass. There are no left renal calculi. There is no left hydronephrosis. Normal visualized left ureter. Normal visualized stomach. Normal small intestine. There is no demonstrated peritoneal fluid. Calcified atheromatous plaques of the abdominal aorta. Normal inferior vena cava. Normal retroperitoneum. Normal urinary bladder. There is no pelvic mass lesion or lymphadenopathy. There is no pelvic fluid. Unchanged lower lumbar laminectomies. CT/CT Abd/Pelvis W/WO Contrast IMPRESSION: Mild bilateral basilar atelectatic pulmonary changes. Unchanged hepatomegaly with hepatic steatosis. Prior cholecystectomy, unchanged. Unchanged mild diffuse irregularity of the hepatic contour, probably chronic pa renchymal liver disease. No suspicious enhancing liver lesion is identified. Fat containing umbilical hernia without incarceration. Calcified atheromatous plaques of the aorta and iliac arteries. Grade 1 anterolisthesis of L5 on S1. Exaggerated lumbar lordosis. Moderate diffuse spondylosis. Uncomplicated colonic diverticulosis, unchanged. Unchanged mildly prominent inguinal lymph nodes are noted with the largest carole uring 1.2 cm. Reading Location: [facility]
== END | disposition home or self-care (01) ==
LOC: CT 16:25
PROVIDERS: PCP Family Medicine; Referring Provider Internal Medicine; Visit Provider Internal Medicine
DX: R77.2 Abnormality of alphafetoprotein (principal); R74.8 Abnormal levels of other serum enzymes
CPT/HCPCS: 74178; Q9967

== ENCOUNTER → 2025-09-16 | Outpatient (CLI) | payer MEDICARE, SELFPAY | END | disposition home or self-care (01) | PROVIDERS: PCP Family Medicine; Referring Provider Nurse Practitioner Family; Visit Provider Nurse Practitioner Family | DX: R10.11 Right upper quadrant pain (principal); R11.0 Nausea | CPT/HCPCS: 76705; 76981 ==